=== PATIENT | male | born 1945 | race Caucasian/White ===

== ENCOUNTER 2022-10-26 02:18 | Emergency (ER) | payer MEDICARE, SELFPAY ==
[2022-10-26 02:25] VITALS: BP 157/102; PULSE 71; RESP 16; TEMP 36.8; O2SAT 96
[2022-10-26] MEDS: Lidocaine/Epinephri/Tetracaine Topical Gel 3 ML (02:35)
--- NOTE | 2022-10-26 02:47 | ED.GENADUL_ITS ---
Discharge Plan Disposition Patient Disposition: Home Condition: Improving Discharge Details Clinical Impression: Laceration of face Primary Care Provider: Sheila Lambert ED Provider: Merrick Ness Meds and New Rx's Prescriptions: Continued lisinopril 20 mg Tablet 20 mg PO DAILY aspirin 81 mg Tablet 81 mg PO DAILY carbidopa-levodopa 25-100 mg Tablet 1 tab PO TID sertraline 50 mg Tablet 50 mg PO DAILY cholecalciferol (vitamin D3) 25 mcg (1,000 unit) Capsule 25 mcg PO DAILY acetylcysteine [NAC] 600 mg Capsule 500 mg PO DAILY Discharge Instructions Instructions: Facial Laceration (ED) Referrals: Sari Vargas [Emergency Nurse] - 1 week (for suture removal or return to the ER) Discharge Data Discharge Physician: Merrick Ness Medical Decision Making Patient who fell out of bed sustaining a 6 cm laceration to his chin that was sutured successfully HPI General Date/Time Provider Initiated Documentation: 10/26/22 02:47 . HPI Narrative: Patient presents emergency department after he sustained a fall while he was asleep and woke up suddenly from a nightmare and fell out of bed sustaining trauma to his chin with his nightstand. He sustained a laceration to his chin Related Data Home Medications Medication Instructions Recorded Confirmed acetylcysteine 600 mg capsule (NAC) 500 mg PO DAILY 10/26/22 10/26/22 aspirin 81 mg tablet 81 mg PO DAILY 10/26/22 10/26/22 carbidopa 25 mg-levodopa 100 mg 1 tab PO TID 10/26/22 10/26/22 tablet cholecalciferol (vitamin D3) 25 25 mcg PO DAILY 10/26/22 10/26/22 mcg (1,000 unit) capsule lisinopril 20 mg tablet 20 mg PO DAILY 10/26/22 10/26/22 sertraline 50 mg tablet 50 mg PO DAILY 10/26/22 10/26/22 Allergies Allergy/AdvReac Type Severity Reaction Status Date / Time acetaminophen [From Percocet] Allergy Unverified 10/26/22 02:30 oxycodone [From Percocet] Allergy Unverified 10/26/22 02:30 novacaine Allergy Uncoded 10/26/22 02:31 General Stated Complaint: Laceration FARZANEH: 4 Review of Systems Narrative: Review of Systems: Constitutional: No fevers, chills, sweats Eye: No recent visual problems ENT: No ear pain, nasal congestion, sore throat Respiratory: No shortness of breath, cough Cardiovascular: No Chest pain, palpitations, syncope Gastrointestinal: No nausea, vomiting, diarrhea Genitourinary: No hematuria Cruz/Lymph: Negative for bruising tendency, swollen lymph glands Endocrine: Negative for excessive thirst, excessive hunger Musculoskeletal: No back pain, neck pain, joint pain, muscle pain, decreased range of motion Integumentary: No rash, pruritus, abrasions Neurologic: Alert & oriented X 4 Psychiatric: No anxiety, depression PFSH All Active Problems (Updated 10/26/22 @ 03:14 by Merrick Ness MD) Laceration of face (Acute) Social History Smoking/Tobacco Use Status: Never Smoking risk assessment performed?: Yes Alcohol Intake: never Substance use type: does not use Exam Narrative Exam Narrative: Exam; vitals signs as reported above normal Constitutional; In no acute distress, afebrile General: cooperative, healthy appearing, comfortable and no acute distress HEENT: Head: normal to inspection, no palpable skull fracture 6 cm laceration in his chin and face Eyes: : appearance normal, both eyes and all related structures EOM intact bilaterally Pupils: PERRL : conjunctiva normal Direct ophthalmoscopy: normal light reflex, normal conjunctiva, normal visual acuity Ears: Normal TM, normal external canal Nose: normal no rhinorreha Neck no JVD, supple non tender Neck: normal visual inspection, full ROM and no lymphadenopathy Chest: normal inspection of the chest Respiratory : normal respiratory effort and able to speak in complete sentences no wheezing no rales Cardio Rate: regular rate, rhythm: regular rhythm normal heart sounds S1 and S2 no murmurs, gallops, or rubs GI : normal to inspection, normal bowel sounds, soft, non tender, non distended, no organomegaly Back/Spine/ no CVA tenderness Thoracic/Lumbar Spine: no tenderness or deformities Skin no rashes or lesions Neuro: patient alert oriented x 4 and no meningeal signs, Cranial Nerves: CN's II-XI intact bilaterally, Cognition: normal cognition, Speech: speech normal, Gait: normal gait, Depp tendon reflexes normal 2+ muscle strength 5/5 bilaterally Extremities, no edema, full range of motion, normal strength : normal Rectal: Course Vital Signs Vital signs: Vital Signs Temperature 36.8 C 10/26/22 02:25 Pulse 71 10/26/22 02:25 Respiratory Rate 16 10/26/22 02:25 Blood Pressure 157/102 H 10/26/22 02:25 Pulse Oximetry 96 10/26/22 02:25 Temperature 36.8 C 10/26/22 02:25 Temperature Source Oral 10/26/22 02:25 Pulse 71 10/26/22 02:25 Respiratory Rate 16 10/26/22 02:25 Respiratory Effort Normal 10/26/22 02:25 Blood Pressure 157/102 H 10/26/22 02:25 Blood Pressure Position Sitting 10/26/22 02:25 Pulse Oximetry 96 10/26/22 02:25 Oxygen Delivery Method Room Air 10/26/22 02:25 Oxygen Flow Rate 0 10/26/22 02:25 Pain Level 1 10/26/22 02:25 Procedures Laceration Laceration 1: Site: face Size (cm): 6 Description: flap and irregular Depth: simple, single layer Local Anesthetic: Lidocaine 1% and with Epi Amount of anesthesia used (mL): 5 Pre-repair: wound explored, irrigated extensively and wound margins revised Skin layer closed with: other (Prolene) Size (cm): 4-0 Number of sutures: 7 Technique: simple, interrupted
== END 2022-10-26 03:26 | disposition home or self-care (01) ==
LOC: ER 03:29
PROVIDERS: Emergency Provider Emergency Medicine Emergency Medical Services
DX: S01.81XA Laceration without foreign body of other part of head, initial encounter; W06.XXXA Fall from bed, initial encounter
CPT/HCPCS: 12014

== ENCOUNTER 2022-11-02 17:39 | Emergency (ER) | payer MEDICARE, SELFPAY ==
[2022-11-02 17:42] VITALS: BP 136/71; PULSE 71; RESP 18; TEMP 37.2; O2SAT 99
--- NOTE | 2022-11-02 17:49 | ED.GENADUL_ITS ---
Discharge Plan Disposition Patient Disposition: Home Discharge Details Clinical Impression: Visit for suture removal, Encounter for wound re-check Primary Care Provider: ElisaLocal ED Provider: Bobby Solis Home Meds and New Rx's Prescriptions: No Action lisinopril 20 mg Tablet 20 mg PO DAILY aspirin 81 mg Tablet 81 mg PO DAILY carbidopa-levodopa 25-100 mg Tablet 1 tab PO TID sertraline 50 mg Tablet 50 mg PO DAILY cholecalciferol (vitamin D3) 25 mcg (1,000 unit) Capsule 25 mcg PO DAILY acetylcysteine [NAC] 600 mg Capsule 500 mg PO DAILY Discharge Instructions Additional Instructions: 4 sutures were removed today, however we have left the other for as there is still need for continued healing. Please return in the next 5 or 6 days to have it reassessed for potential removal at that time. Stick with soft foods. Avoid stretching or moving your chin as best as possible to help with continued healing. If you notice any worsening of your symptoms, or any new symptoms such as vomiting, diarrhea, fever, chills, shortness of breath, chest pain, numbness, weakness, or fainting , please return immediately to the emergency department for reevaluation. Please follow up with your primary care provider as soon as possible for reassessment and reevaluation. As always, it was a pleasure participating in your medical care today. Medical Decision Making 77-year-old male returns for suture removal. He had 8 sutures placed about 7 to 10 days ago in his chin after laceration. He has been doing well. Denies any complaints. The right component of the laceration demonstrates good wound healing for the right lateral 4 sutures however the mid to left section which also encompasses 4 sutures does not show complete healing at this time. No evidence of dehiscence though. 4 sutures were removed on the right aspect, patient tolerated this well. Excellent wound healing and reapproximation there. We will leave the other middle for in for prolonged healing for an additional 5 to 6 days. No evidence of infection otherwise. Discussed red flags for which to return. I have extensively reviewed the treatment plan and discharge instructions with the patient and their family. I have addressed all patient concerns at this time. The patient and family was made aware of what symptoms to monitor for that would warrant a return to the emergency department. Discussed the plan with the patient and family, they demonstrate verbal understanding and agreement with our assessment and plan at this time. The documentation in this chart was dictated using [employer] dictation software. Please excuse any dictation errors. HPI General Date/Time Provider Initiated Documentation: 11/02/22 17:42 . HPI Narrative: 77-year-old male returns for suture removal. He had 8 sutures placed about 7 to 10 days ago in his chin after laceration. He has been doing well. Denies any complaints. Related Data Home Medications Medication Instructions Recorded Confirmed acetylcysteine 600 mg capsule (NAC) 500 mg PO DAILY 10/26/22 11/02/22 aspirin 81 mg tablet 81 mg PO DAILY 10/26/22 11/02/22 carbidopa 25 mg-levodopa 100 mg 1 tab PO TID 10/26/22 11/02/22 tablet cholecalciferol (vitamin D3) 25 25 mcg PO DAILY 10/26/22 11/02/22 mcg (1,000 unit) capsule lisinopril 20 mg tablet 20 mg PO DAILY 10/26/22 11/02/22 sertraline 50 mg tablet 50 mg PO DAILY 10/26/22 11/02/22 Allergies Allergy/AdvReac Type Severity Reaction Status Date / Time acetaminophen [From Percocet] Allergy Unverified 11/02/22 17:45 oxycodone [From Percocet] Allergy Unverified 11/02/22 17:45 novacaine Allergy Uncoded 11/02/22 17:45 General Stated Complaint: SutureRem FARZANEH: 4 Review of Systems All systems reviewed & are unremarkable except as noted in HPI and below PFSH All Active Problems Laceration of face (Acute) Visit for suture removal (Acute) Encounter for wound re-check (Acute) Social History Smoking/Tobacco Use Status: Never Smoking risk assessment performed?: Yes Alcohol Intake: former Drug use: Never Substance use type: does not use Housing: house Do you feel safe at home: Yes Do you feel safe in your relationship?: Yes Exam Narrative Exam Narrative: 1.Const: Well-nourished, Well-developed, appearing stated age 2.Eyes: PERRL, no conjunctival injection, and symmetrical lids. 3.ENT: Atraumatic external nose and ears. Moist MM. Neck: Symmetric, trachea midline, No thyromegaly. 4.CVS: +S1/S2, No murmurs or gallops. Peripheral pulses 2+ and equal in all extremities. Brisk capillary refill in all extremities. 5.RESP: Unlabored respiratory effort. Clear to auscultation bilaterally. No wheezes rales or rhonchi 6.GI: Soft, Nontender/Nondistended, No hepatosplenomegaly. No guarding or rebound. 7.MSK: Normocephalic/Atraumatic, Extremities w/o deformity or ttp No cyanosis or clubbing, Normal movement of all extremities 8.Skin: Warm, Dry. Patient's chin demonstrates an excellent wound healing from the midpoint to the right lateral aspect, which encompasses 4 sutures. However the middle to left sided 4 sutures do not show great wound healing. This would likely benefit from additional healing time. No evidence of dehiscence. Internal exam for the oral mucosa shows well healing mucosa 9.Neuro: hunting sales leader II-XII grossly intact. Sensation grossly intact, no focal neurologic deficits. 10.Psych: (AAO) x3. Appropriate mood and affect Course Vital Signs Vital signs: Vital Signs Temperature 37.2 C 11/02/22 17:42 Pulse 71 11/02/22 17:42 Respiratory Rate 18 11/02/22 17:42 Blood Pressure 136/71 11/02/22 17:42 Pulse Oximetry 99 11/02/22 17:42 Temperature 37.2 C 11/02/22 17:42 Temperature Source Skin 11/02/22 17:42 Pulse 71 11/02/22 17:42 Respiratory Rate 18 11/02/22 17:42 Blood Pressure 136/71 11/02/22 17:42 Blood Pressure Position Sitting 11/02/22 17:42 Pulse Oximetry 99 11/02/22 17:42 Oxygen Delivery Method Room Air 11/02/22 17:42 Oxygen Flow Rate 0 11/02/22 17:42 Pain Level 1 11/02/22 17:42
[2022-11-02 17:50] VITALS: BP 136/71; PULSE 71; RESP 18; TEMP 37.2; O2SAT 99
== END 2022-11-02 17:51 | disposition home or self-care (01) ==
PROVIDERS: Emergency Provider Student in an Organized Health Care Education/Training Program
DX: S01.81XD Laceration without foreign body of other part of head, subsequent encounter (principal); X58.XXXD Exposure to other specified factors, subsequent encounter

== ENCOUNTER 2022-11-08 17:27 | Emergency (ER) | payer MEDICARE, SELFPAY ==
[2022-11-08 17:39] VITALS: BP 143/88; PULSE 70; RESP 18; TEMP 36.8; O2SAT 97
--- NOTE | 2022-11-08 18:38 | ED.GENADUL_ITS ---
Discharge Plan Disposition Patient Disposition: Home Condition: Good Discharge Details Clinical Impression: Visit for suture removal Primary Care Provider: ElisaLocal ED Provider: Brittni Kaba Home Meds and New Rx's Prescriptions: Continued lisinopril 20 mg Tablet 20 mg PO DAILY aspirin 81 mg Tablet 81 mg PO DAILY carbidopa-levodopa 25-100 mg Tablet 1 tab PO TID sertraline 50 mg Tablet 50 mg PO DAILY cholecalciferol (vitamin D3) 25 mcg (1,000 unit) Capsule 25 mcg PO DAILY acetylcysteine [NAC] 600 mg Capsule 500 mg PO DAILY Discharge Instructions Instructions: Laceration (ED) Additional Instructions: The laceration looks fine and your sutures have been removed. Return for redness, fever, any other concerns. Discharge Data Discharge Date/Time-TO BE ENTERED AT DEPARTURE: 11/08/22 18:41 Medical Decision Making Patient will return for any evidence of redness, fever, other concerns. HPI General Date/Time Provider Initiated Documentation: 11/08/22 18:38 . HPI Narrative: This 77-year-old male patient is here for suture removal. He tells me that he had several removed previously but they wanted the remainder to stay in. His chin laceration is clean dry and is intact and the 4 sutures were removed without incident. Related Data Home Medications Medication Instructions Recorded Confirmed acetylcysteine 600 mg capsule (NAC) 500 mg PO DAILY 10/26/22 11/02/22 aspirin 81 mg tablet 81 mg PO DAILY 10/26/22 11/02/22 carbidopa 25 mg-levodopa 100 mg 1 tab PO TID 10/26/22 11/02/22 tablet cholecalciferol (vitamin D3) 25 25 mcg PO DAILY 10/26/22 11/02/22 mcg (1,000 unit) capsule lisinopril 20 mg tablet 20 mg PO DAILY 10/26/22 11/02/22 sertraline 50 mg tablet 50 mg PO DAILY 10/26/22 11/02/22 Allergies Allergy/AdvReac Type Severity Reaction Status Date / Time acetaminophen [From Percocet] Allergy Unverified 11/02/22 17:45 oxycodone [From Percocet] Allergy Unverified 11/02/22 17:45 novacaine Allergy Uncoded 11/02/22 17:45 General Stated Complaint: GenMedical FARZANEH: 5 Review of Systems Narrative: No drainage or redness from chin laceration PFSH All Active Problems Laceration of face (Acute) Visit for suture removal (Acute) Encounter for wound re-check (Acute) Social History Smoking/Tobacco Use Status: Never Smoking risk assessment performed?: Yes Alcohol Intake: former Drug use: Never Substance use type: does not use Housing: house Do you feel safe at home: Yes Do you feel safe in your relationship?: Yes Exam HENMT Face and sinus: other Course Vital Signs Vital signs: Vital Signs Temperature 36.8 C 11/08/22 17:39 Pulse 70 11/08/22 17:39 Respiratory Rate 18 11/08/22 17:39 Blood Pressure 143/88 H 11/08/22 17:39 Pulse Oximetry 97 11/08/22 17:39 Temperature 36.8 C 11/08/22 17:39 Temperature Source Skin 11/08/22 17:39 Pulse 70 11/08/22 17:39 Respiratory Rate 18 11/08/22 17:39 Respiratory Effort Normal 11/08/22 17:41 Blood Pressure 143/88 H 11/08/22 17:39 Blood Pressure Position Sitting 11/08/22 17:39 Pulse Oximetry 97 11/08/22 17:39 Oxygen Delivery Method Room Air 11/08/22 17:39 Oxygen Flow Rate 0 11/08/22 17:39
[2022-11-08 18:39] VITALS: RESP 18
== END 2022-11-08 18:41 | disposition home or self-care (01) ==
PROVIDERS: Emergency Provider Emergency Medicine
DX: S01.81XD Laceration without foreign body of other part of head, subsequent encounter (principal); X58.XXXD Exposure to other specified factors, subsequent encounter

== ENCOUNTER 2023-09-14 01:59 | Outpatient (CLI) | payer MEDICARE, SELFPAY ==
--- OUTSIDE RECORDS SUMMARY | 2023-09-14 02:25 | XMS_ITS | Encounter Summary ---
Author Organization [facility] Address [address] [place] [address] Care Team Providers Care University President Name Role Phone Chris Daniels MD Primary Care Provider + Reason for Visit * Reason Onset Date Comments Medications Refill 12/15/[address] appointment today! Encounter Details Date Type Department Care Team (Late st Contact Info) Description 12/15/2022 Telephone [facility] Joint Program - [address] [address] Jaiden King MD [address] [place] [phone] Medications Refill (Pre Med Dentist appointment today! ) Social History Tobacco Use Types Packs/Day Years Used Date Smoking Tobacco: Never Smokeless Tobacco: Never Alcohol Use Standard Drinks/Week Comments Not Currently 1 (1 standard drink = 0.6 oz pur e alcohol) Once a week a cider Overall Financial Resource Strain (CARDIA) Answe r Date Recorded How hard is it for you to pa y for the very basics like food, housing, medical care, and heating? Not hard at all 08/17/2021 PHQ-2 Answer Date Recorded PHQ-2 SUBTOTAL 4 08/14/2021 Hunger Vital Sign Answer Date Recorded Within the past 12 months, y ou worried that your food would run out before you got the money to buy more. Never true 08/18/19 22 Within the past 12 months, t he food you bought just didn't last and you didn't have money to get more. Never true 08/17/2021 PRAPARE - Transportation Answer Date Re corded In the past 12 months, has l ack of transportation kept you from medical appointments or from getting medications? No 07/21 In the past 12 months, has l ack of transportation kept you from meetings, work, or from getting things needed for daily living? No 08/17/2021 Housing Stability Vital Sign Answer Miguel e Recorded In the last 12 months, was t here a time when you were not able to pay the mortgage or rent on time? No 08/17/2021 In the last 12 months, how many places have you lived? 1 08/17/2021 In the last 12 months, was t here a time when you did not have a steady place to sleep or slept in a senior care (including now)? No 08/17/2021 Interpersonal Safety Answer Date Record ed How often does anyone, hari kruse family, hit, punch or physically hurt you? Never 08/17/2021 How often does anyone, hari kruse family, insult, scream, curse or threaten to hurt you? Never 08/17/2021 Sex and Gender Information Value Date Recorded Sex Assigned at Male 08/14/2021 11:28 EDT Gender Identity Male 08/10/2021 11:38 EDT Sexual Orientation Not on file documented as of this encounter Functional Status Functional Status Response Date of Assess ment Because of a physical, menta l, or emotional condition, does this person have difficulty doing errands alone such as visiting a doctor's office or shopping? No 01/31/2017 Cognitive Status Response Date of Assessm ent Because of a physical, menta l, or emotional condition, does this person have serious difficulty concentrating, remembering, or making decisions? No 01/31/2017 documented as of this encounter Miscellaneous Notes * Telephone Encounter - Melissa Khan LPN - 12/15/2022 1140 EDT Advised his that our current protocol is to take a prophylactic antibiotic and he is okay to go to Dentist as he is 5 months post-op. Antibiotic script called to [facility] as requested. * Telephone Encounter - Viktoriya Mclain - 12/15/2022 1107 EDT Reason for Call: Medications Refill (Pre Med Dentist appointment today! 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 Please advise. If need. Asking to have RX filled at the Main [place] [facility] Just for todays RX. Please call Home # first then this number. [phone] Appointment Offered? No Viktoriya Mclain 12/15/2022 11:09 documented in this encounter Plan of Treatment Upcoming Encounters Date Type Department Care Team (Late st Contact Info) Description 09/19/2023 14:15 EDT Office Visit [facility] - [address] [address] Chris Daniels MD [address] [place] [phone] 10/19/2023 9:00 EDT Office Visit [facility] Upper Extremity [facility] - [address] [id number] Ant Nguyen MD [address] [place] [phone] 01/07/2024 13:15 EST Office Visit [facility] Neurology - [address] [id number] Salma Richardson MD [address] [place] [address], [facility] [address] [place] [phone] documented as of this encounter Visit Diagnoses Not on filedocumented in this encounter Care Teams University President Relationship Specialty Start Date End Date Chris Daniels MD [address] [place] [phone] PCP - General Internal Medicine - Primary Care 08/08/19 documented as of this encounter
--- OUTSIDE RECORDS SUMMARY | 2023-09-14 02:25 | XMS_ITS | Encounter Summary ---
Author Organization [facility] Address [address] [place] [address] Care Team Providers Care Traffic Officer Name Role Phone Chris Daniels MD Primary Care Provider + Encounter Details Date Type Department Care Team (Latest Contact Info) Description 11/10/2022 14:15 EDT - 11/10/2022 23:59 EDT [address] Encounter [address] [place], [place] [phone] S/P total knee arthroplasty, left Discharge Disposition: Home or Self Care Social History Tobacco Use Types Packs/Day Years [...] place to sleep or slept in a usp (including now)? No 08/17/2021 Interpersonal Safety Answer [...] No 01/31/2017 documented as of this encounter Medications at Time of Discharge Medication Sig Dispensed Refills Start Date End Date acetaminophen (TYLENOL) 500 mg tablet Take 1 Tablet by mouth every 6 hours as needed for Pain. acetylcysteine (NAC ORAL) Take 500 mg by mouth every morning. cetirizine (ZYRTEC) 10 mg tablet Take 1 Tablet by mouth daily as needed for Allergies. 09/06/2022 Cholecalciferol, Vitamin D3, 25 mcg (1,000 unit) capsule Take 2 Capsules by mouth daily. When pt remembers to take it LOW-DOSE ASPIRIN ORAL Take 81 mg by mouth daily. triamcinolone (KENALOG) 0.1 % cream Apply a thing film to areas of rash once to twice to daily until rash resolves 80 g 1 08/17/2021 carbidopa-levodopa (SINEMET) 25-100 mg per tablet Take 1 Tablet by mouth 3 times daily before meals. 270 Tablet 1 05/26/2022 11/20/2022 lisinopriL (PRINIVIL) 20 mg tablet Take 1 Tablet by mouth daily. 90 Tablet 1 06/07/2022 01/01/2023 sertraline (ZOLOFT) 50 mg tablet Take 1 Tablet by mouth daily. 90 Tablet 3 06/06/2022 06/11/2023 documented as of this encounter Discharge Disposition Disposition Code Departure Means Destination Home or Self Care documented in this encounter Plan of Treatment Upcoming Encounters Date Type Department Care Team (Late st Contact Info) Description 09/19/2023 14:15 EDT Office Visit [facility] Adult Primary Care - [place] [address] [place], [place] [phone] Chris Daniels MD [address] [place] [phone] 10/19/2023 9:00 EDT Office Visit [facility] Hand & Upper Extremity Program - [address] [address] Ant Nguyen MD [address] [place] [phone] 01/07/2024 13:15 EST Office Visit [facility] Neurology - [address] [place] [address] [place], [place] [phone] Salma Richardson MD [address] [place] [address], Level [address] [place] [phone] documented as of this encounter Procedures Procedure Name Priority Date/Time Associated Diagnosis Comments XR KNEE RIGHT 1-2 VIEWS Routine 11/10/2022 14:29 EDT S/P total knee arthroplasty, left XR KNEE LEFT 3 VIEWS Routine 11/10/2022 14:29 EDT S/P total knee arthroplasty, left documented in this encounter Results * XR KNEE RIGHT 1-2 VIEWS (11/10/2022 14:29 EDT) Anatomical Region Laterality Modality Lower Extremities Right Computed Radio graphy 11/10/2022 19:1 7 EDT Impressions 11/10/2022 19:17 EDT FINDINGS / IMPRESSION: * ??Left knee 3 views: Knee arthroplasty without periprosthetic fracture or lucency. Moderate joint effusion. Osteopenia. Healed proximal fibular fracture. * ??Right knee 1 view: Moderate medial lateral compartment degenerative changes. Osteopenia. [id number] Narrative 11/10/2022 19:17 EDT EXAM/TECHNIQUE: 11/10/2022 2:15 PM ??XR KNEE RIGHT 1-2 VIEWS, XR KNEE LEFT 3 VIEWS 1 (accession [id number]), 3 (accession [id number]) views ?? HISTORY: ??Right to compare;Z96.652:S/P total knee arthroplasty, left Procedure Note Fabricio Ortiz MD - 11/10/2022 EXAM/TECHNIQUE: 11/10/2022 2:15 PM XR KNEE RIGHT 1-2 VIEWS, XR KNEE LEFT 3VIEWS 1 (accession [id number]), 3 (accession [id number]) views HISTORY: Right to compare;Z96.652:S/P total knee arthroplasty, left IMPRESSION FINDINGS / IMPRESSION: * Left knee 3 views: Knee arthroplasty without periprosthetic fracture orlucency. Moderate joint effusion. Osteopenia. Healed proximal fibularfracture. * Right knee 1 view: Moderate medial lateral compartment degenerativechanges. Osteopenia. [id number] Jaiden King MD IMG DIAGNOSTIC IMAGI NG ORDERABLES * XR KNEE LEFT 3 VIEWS (11/10/2022 14:29 EDT) Anatomical Region Laterality Modality Lower Extremities Left Computed Radio graphy 11/10/2022 19:1 7 EDT Impressions 11/10/2022 19:17 EDT FINDINGS / IMPRESSION: * ??Left knee 3 views: Knee arthroplasty without periprosthetic fracture or lucency. Moderate joint effusion. Osteopenia. Healed proximal fibular fracture. * ??Right knee 1 view: Moderate medial lateral compartment degenerative changes. Osteopenia. [id number] Narrative 11/10/2022 19:17 EDT EXAM/TECHNIQUE: 11/10/2022 2:15 PM ??XR KNEE RIGHT 1-2 VIEWS, XR KNEE LEFT 3 VIEWS 1 (accession [id number]), 3 (accession [id number]) views ?? HISTORY: ??Right to compare;Z96.652:S/P total knee arthroplasty, left Procedure Note Fabricio Ortiz MD - 11/10/2022 EXAM/TECHNIQUE: 11/10/2022 2:15 PM XR KNEE RIGHT 1-2 VIEWS, XR KNEE LEFT 3VIEWS 1 (accession [id number]), 3 (accession [id number]) views HISTORY: Right to compare;Z96.652:S/P total knee arthroplasty, left IMPRESSION FINDINGS / IMPRESSION: * Left knee 3 views: Knee arthroplasty without periprosthetic fracture orlucency. Moderate joint effusion. Osteopenia. Healed proximal fibularfracture. * Right knee 1 view: Moderate medial lateral compartment degenerativechanges. Osteopenia. [id number] Jaiden King MD IMG DIAGNOSTIC IMAGI NG ORDERABLES documented in this encounter Visit Diagnoses Diagnosis S/P total knee arthroplasty, left documented in this encounter Care Teams Traffic Officer Relationship Specialty Start Date End Date Chris Daniels MD [address] [place] [phone] PCP - General Internal Medicine - Primary Care 08/08/19 documented as of this encounter
--- OUTSIDE RECORDS SUMMARY | 2023-09-14 02:25 | XMS_ITS | Encounter Summary ---
Author Organization [facility] Address [address] [place] [address] Care Team Providers Care Heading And Priming Operator Name Role Phone Chris Daniels MD Primary Care Provider + Melissa Dobbs BIOCHEMIST Unavailable [phone] Encounter Details Date Type Department Care Team (Late st Contact Info) Description 07/13/2022 Patient Outreach [facility] Adult Primary Care - [place] [address] [place], [place] [phone] Melissa Dobbs BIOCHEMIST 1 [facility], [address]rd [place] [phone] Social History Tobacco Use Types Packs/Day Years [...] place to sleep or slept in a assisted (including now)? No 08/17/2021 Interpersonal Safety Answer [...] No 01/31/2017 documented as of this encounter Progress Notes * Melissa Dobbs, [facility] - 07/13/2022 1559 EDT [facility] Care Management Follow Up Principle Industrial Hygienist followed up with patient by phone for wellness check. TOPIC OF CONVERSATION: ??? Reviewed assessment and plan from previous visit with patient. ??? Engaged patient in conversation related to positive behavior change, self- management, goal setting and action planning using motivational interviewing and active listening. ??? Patient reports knee surgery on left leg went well. Surgery was on July 05, 2022. Recovery goingwell, Has Home Health care for another week and will also start PT. ??? Has not been consistently using his walker and crutches. ??? Appetite and sleep are good. ??? No issues and/or concerns with his medications. ??? Patient continues to attend Parkinson's Support Group and has found this to be very helpful. ??? Mood has been better but still experiences some depressive symptoms. ??? He is aware of the impact of his negative thoughts on his mood and is actively working on cognitive restructuring practices. Prioritized Patient Identified Goals: Patient will improve his ability to cope with his chronic illness by increasing his support networkby attending monthly support group for Parkinson's and recognizing and challenging his negative thought patterns which lead to depressed mood. Achievement towards goals: In progress Plan: CM will follow-up in one month MELVI HOPE 07/13/2022 15:50 documented in this encounter Plan of Treatment Upcoming Encounters Date Type Department Care Team (Late st Contact Info) Description 09/19/2023 14:15 EDT Office Visit [facility] Adult Primary Care - [address] [address] Chris Daniels MD [address] [place] [phone] 10/19/2023 9:00 EDT Office Visit [facility] Hand & Upper Extremity Program - [address] [address] Ant Nguyen MD [address] [place] [phone] 01/07/2024 13:15 EST Office Visit [facility] Neurology - [address] [phone] Salma Richardson MD [address] [place] [address], [facility] 2 [place] [phone] documented as of this encounter Visit Diagnoses Not on filedocumented in this encounter Care Teams Heading And Priming Operator Relationship Specialty Start Date End Date Chris Daniels MD [address] [place] [phone] PCP - General Internal Medicine - Primary Care 08/08/19 Melissa Dobbs, BIOCHEMIST 1 [facility], [address] [place] [address] Principle Industrial Hygienist 03/13/22 09/13/22 documented as of this encounter
--- OUTSIDE RECORDS SUMMARY | 2023-09-14 02:25 | XMS_ITS | Encounter Summary ---
Author Organization [facility] Address [address] [place] [address] Care Team Providers Care Syruper Name Role Phone Chris Daniels MD Primary Care Provider + Melissa Dobbs REHAB AIDE Unavailable [phone] Reason for Referral * Radiology Services (Routine/Next Available) - Authorization Not Required Specialty Diagnoses / Procedures Referred By Contac t Referred To Contact Diagnoses S/P total knee arthroplasty, left Procedures XR KNEE RIGHT 1-2 VIEWS Jaiden King MD [address] [place] [address] [facility] Referral ID Status Reason Start Date Expiration Date Visits Requested Visits Authorized [id number] Authorization Not Required 08/07/2022 1 1 * Radiology Services (Routine/Next Available) - Authorization Not Required Specialty Diagnoses / Procedures Referred By Contac t Referred To Contact Diagnoses S/P total knee arthroplasty, left Procedures XR KNEE LEFT 3 VIEWS Jaiden King MD [address] [place] [address] [facility] Referral ID Status Reason Start Date Expiration Date Visits Requested Visits Authorized [id number] Authorization Not Required 08/07/2022 1 1 Reason for Visit * Radiology Services (Routine/Next Available) - Authorization Not Required Specialty Diagnoses / Procedures Referred By Contac t Referred To Contact Diagnoses S/P total knee arthroplasty, left Procedures XR KNEE RIGHT 1-2 VIEWS Jaiden King MD [address] [place] [address] [facility] Referral ID Status Reason Start Date Expiration Date Visits Requested Visits Authorized [id number] Authorization Not Required 08/07/2022 1 1 Encounter Details Date Type Department Care Team (Latest Contact Info) Description 08/07/2022 13:15 EDT - 08/07/2022 23:59 EDT Hospital Encounter [facility] [place] [address] [address] [place] [address] S/P total knee arthroplasty, left Discharge Disposition: Home or Self Care Social History Tobacco Use Types Packs/Day Years Used Date Smoking Tobacco: Never Smokeless Tobacco: Never Alcohol Use Standard Drinks/Week Comments Not Currently 1 (1 standard drink = 0.6 oz pur e alcohol) Once a week ching mcgill Overall [employer] Strain (CARDIA) Answe r [...] place to sleep or slept in a long term (including now)? No 08/17/2021 Interpersonal Safety Answer Date Record ed How often does anyone, hari kruse family, hit, punch or physically hurt you? Never 08/17/2021 How often does anyone, incljudith kruse family, insult, scream, curse or threaten [...] Sig Dispensed Refills Start Date End Date acetylcysteine (NAC ORAL) Take 500 mg by mouth every morning. Cholecalciferol, Vitamin D3, 25 mcg (1,000 unit) capsule Take 2 Capsules by mouth daily. When pt remembers to take it LOW-DOSE ASPIRIN ORAL Take 81 mg by mouth daily. triamcinolone (KENALOG) 0.1 % cream Apply a thing film to areas of rash once to twice to daily until rash resolves 80 g 1 08/17/2021 aspirin 325 mg EC tablet Take 1 Tablet by mouth 2 times daily. Take for 28 days after surgery to prevent blood clots 56 Tablet 07/06/2022 09/06/2022 carbidopa-levodopa (SINEMET) 25-100 mg per tablet Take 1 Tablet by mouth 3 times daily before meals. 270 Tablet 1 05/26/2022 11/20/2022 cetirizine (ZYRTEC) 10 mg tablet Take 1 Tablet by mouth daily. 09/06/2022 ibuprofen (MOTRIN) 200 mg tablet Take 2 Tablets by mouth every 6 hours as needed for Pain. HOLD UNTIL 08/03/22; then resume as usual 08/03/2022 09/06/2022 lisinopriL (PRINIVIL) 20 mg tablet Take 1 Tablet by mouth daily. 90 Tablet 1 06/07/2022 01/01/2023 meloxicam (MOBIC) 15 mg tablet Take 1 Tablet by mouth daily for 90 days. 30 Tablet 2 08/07/2022 11/05/2022 methocarbamoL (ROBAXIN) 500 mg tablet Take 1 Tablet by mouth every 6 hours as needed (muscle spasms). 12 Tablet 07/06/2022 09/06/2022 oxyCODONE (ROXICODONE) 5 mg immediate release tablet Take 1 Tablet by mouth every 6 hours as needed (for pain not controlled after taking tramadol). Daily Max: 20 mg 20 Tablet 07/06/2022 09/06/2022 polyethylene glycol 3350 (MIRALAX) 17 gram packet Take 17 g by mouth daily as needed (constipation). 07/06/2022 09/06/2022 senna (SENOKOT) 8.6 mg tablet Take 2 Tablets by mouth 2 times daily as needed (constipation). 07/06/2022 09/06/2022 sertraline (ZOLOFT) 50 mg tablet Take 1 Tablet by mouth daily. 90 Tablet 3 06/06/2022 06/11/2023 traMADol (ULTRAM) 50 mg tablet Take 1-2 Tablets by mouth every 6 hours. Change to taking every 6 hours NEEDED when pain well controlled Daily Max: 400 mg 50 Tablet 07/06/2022 09/06/2022 documented as of this encounter Discharge Disposition Disposition Code Departure Means Destination Home or Self Care documented in this encounter Plan of Treatment Upcoming Encounters Date Type Department Care Team (Late st Contact Info) Description 09/19/2023 14:15 EDT Office Visit [facility] Adult Primary Care - [place] [address] [place] [address] Chris Daniels MD [address] [place] [phone] 10/19/2023 9:00 EDT Office Visit [facility] Hand & Upper Extremity Program [place] [address] Ant Nguyen MD [address] [place] [address] 01/07/2024 13:15 EST Office Visit [facility] Neurology - [address] [place] [address] [place], [place] [phone] Salma Richardson MD [address] [place] [address], [address] [place] [phone] documented as of this encounter Procedures Procedure Name Priority Date/Time Associated Diagnosis Comments XR KNEE RIGHT 1-2 VIEWS Routine 08/07/2022 13:46 EDT S/P total knee arthroplasty, left XR KNEE LEFT 3 VIEWS Routine 08/07/2022 13:46 EDT S/P total knee arthroplasty, left documented in this encounter Results * XR KNEE RIGHT 1-2 VIEWS (08/07/2022 13:46 EDT) Anatomical Region Laterality Modality Lower Extremities Right Computed Radio graphy 08/07/2022 13:5 7 EDT Impressions 08/07/2022 13:57 EDT FINDINGS / IMPRESSION: Left knee AP, lateral and axial patellar sunrise views show postsurgical changes related to the recently placed 2 part total knee arthroplasty. The femoral and tibial prosthetic components appear intact and well aligned. Degenerative changes along the patellar articular surface are similar compared to the prior. Redemonstrated residual deformity related to a likely healed remote fracture of the proximal fibular diaphysis. No change in chronic appearing small osseous fragment in the soft tissues along the medial femoral condyle. There is a moderate size suprapatellar knee joint effusion and residual soft tissue swelling is noted along the anterior aspect of the knee. The bones are mildly osteopenic. Atherosclerotic arterial calcifications are present. Right single AP view shows chondrocalcinosis with moderate to severe degenerative changes in the medial compartment and mild degenerative changes in the lateral compartment. Please note that the right knee is incompletely evaluated without the benefit of a lateral view. Also, the lack of a lateral view does not allow for assessment of patellofemoral compartment structures nor for detection of a suprapatellar knee joint effusion, if present. Atherosclerotic arterial calcifications are present. Narrative 08/07/2022 13:57 EDT XR KNEE LEFT 3 VIEWS, XR KNEE RIGHT 1-2 VIEWS ??08/07/2022 1:15 PM Clinical History/Comments: s/p left total knee Comparison: Left knee radiographs 07/05/2022. Right knee radiographs 03/06/2022. Procedure Note Jaiden Orourke MD - 08/07/2022 XR KNEE LEFT 3 VIEWS, XR KNEE RIGHT 1-2 VIEWS 08/07/2022 1:15 PM Clinical History/Comments: s/p left total knee Comparison: Left knee radiographs 07/05/2022. Right knee radiographs03/06/2022. IMPRESSION FINDINGS / IMPRESSION: Left knee AP, lateral and axial patellar sunrise views show postsurgicalchanges related to the recently placed 2 part total knee arthroplasty. Thefemoral and tibial prosthetic components appear intact and well aligned.Degenerative changes along the patellar articular surface are similarcompared to the prior. Redemonstrated residual deformity related to alikely healed remote fracture of the proximal fibular diaphysis. No changein chronic appearing small osseous fragment in the soft tissues along themedial femoral condyle. There is a moderate size suprapatellar knee jointeffusion and residual soft tissue swelling is noted along the anterioraspect of the knee. The bones are mildly osteopenic. Atheroscleroticarterial calcifications are present. Right single AP view shows chondrocalcinosis with moderate to severedegenerative changes in the medial compartment and mild degenerativechanges in the lateral compartment. Please note that the right knee isincompletely evaluated without the benefit of a lateral view. Also, thelack of a lateral view does not allow for assessment of patellofemoralcompartment structures nor for detection of a suprapatellar knee jointeffusion, if present. Atherosclerotic arterial calcifications arepresent. Jaiden King MD IMG DIAGNOSTIC IMAGI NG ORDERABLES * XR KNEE LEFT 3 VIEWS (08/07/2022 13:46 EDT) Anatomical Region Laterality Modality Lower Extremities Left Computed Radio graphy 08/07/2022 13:5 7 EDT Impressions 08/07/2022 13:57 EDT FINDINGS / IMPRESSION: Left knee AP, lateral and axial patellar sunrise views show postsurgical changes related to the recently placed 2 part total knee arthroplasty. The femoral and tibial prosthetic components appear intact and well aligned. Degenerative changes along the patellar articular surface are similar compared to the prior. Redemonstrated residual deformity related to a likely healed remote fracture of the proximal fibular diaphysis. No change in chronic appearing small osseous fragment in the soft tissues along the medial femoral condyle. There is a moderate size suprapatellar knee joint effusion and residual soft tissue swelling is noted along the anterior aspect of the knee. The bones are mildly osteopenic. Atherosclerotic arterial calcifications are present. Right single AP view shows chondrocalcinosis with moderate to severe degenerative changes in the medial compartment and mild degenerative changes in the lateral compartment. Please note that the right knee is incompletely evaluated without the benefit of a lateral view. Also, the lack of a lateral view does not allow for assessment of patellofemoral compartment structures nor for detection of a suprapatellar knee joint effusion, if present. Atherosclerotic arterial calcifications are present. Narrative 08/07/2022 13:57 EDT XR KNEE LEFT 3 VIEWS, XR KNEE RIGHT 1-2 VIEWS ??08/07/2022 1:15 PM Clinical History/Comments: s/p left total knee Comparison: Left knee radiographs 07/05/2022. Right knee radiographs 03/06/2022. Procedure Note Jaiden Orourke MD - 08/07/2022 XR KNEE LEFT 3 VIEWS, XR KNEE RIGHT 1-2 VIEWS 08/07/2022 1:15 PM Clinical History/Comments: s/p left total knee Comparison: Left knee radiographs 07/05/2022. Right knee radiographs03/06/2022. IMPRESSION FINDINGS / IMPRESSION: Left knee AP, lateral and axial patellar sunrise views show postsurgicalchanges related to the recently placed 2 part total knee arthroplasty. Thefemoral and tibial prosthetic components appear intact and well aligned.Degenerative changes along the patellar articular surface are similarcompared to the prior. Redemonstrated residual deformity related to alikely healed remote fracture of the proximal fibular diaphysis. No changein chronic appearing small osseous fragment in the soft tissues along themedial femoral condyle. There is a moderate size suprapatellar knee jointeffusion and residual soft tissue swelling is noted along the anterioraspect of the knee. The bones are mildly osteopenic. Atheroscleroticarterial calcifications are present. Right single AP view shows chondrocalcinosis with moderate to severedegenerative changes in the medial compartment and mild degenerativechanges in the lateral compartment. Please note that the right knee isincompletely evaluated without the benefit of a lateral view. Also, thelack of a lateral view does not allow for assessment of patellofemoralcompartment structures nor for detection of a suprapatellar knee jointeffusion, if present. Atherosclerotic arterial calcifications arepresent. Jaiden King MD IMG DIAGNOSTIC IMAGI NG ORDERABLES documented in this encounter Visit Diagnoses Diagnosis S/P total knee arthroplasty, left documented in this encounter Care Teams Syruper Relationship Specialty Start Date End Date Chris Daniels MD [address] [place] [phone] PCP - General Internal Medicine - Primary Care 08/08/19 eMlissa Dobbs LICSW 1 [facility], [address] [place] [phone] Unix System Administrator 03/13/22 09/13/22 documented as of this encounter
--- OUTSIDE RECORDS SUMMARY | 2023-09-14 02:25 | XMS_ITS | Encounter Summary ---
Author Organization [facility] Address [address] [place] [address] Care Team Providers Care Air Conditioning Sheet Metal Installer Name Role Phone Chris Daniels MD Primary Care Provider + Reason for Visit * Reason Onset Date Comments Medications Refill 01/01/2023 Encounter Details Date Type Department Care Team (Late st Contact Info) Description 01/01/2023 Refill [facility] Adult Primary Care - [place] [address] [place] [address] Chris Daniels MD [address] [place] [address] Medications Refill Social History Tobacco Use Types Packs/Day Years [...] place to sleep or slept in a residential (including now)? No 08/17/2021 Interpersonal Safety Answer [...] No 01/31/2017 documented as of this encounter Ordered Prescriptions Prescription Sig Dispensed Refills Start Date End Da te lisinopriL (PRINIVIL) 20 mg tablet Take 1 Tablet by mouth daily. 90 Tablet 3 01/02/2023 documented in this encounter Miscellaneous Notes * Telephone Encounter - Sony Everett RN - 01/02/2023 1050 EST Requested Prescriptions Pending Prescriptions Disp Refills ??? lisinopriL (PRINIVIL) 20 mg tablet 90 Tablet 1 Sig: Take 1 Tablet by mouth daily. [id number] - [facility], [place] - [address] [place] [address] Confirmed Pharmacy? Yes Patient out of medication? Unknown How many pills does patient have left? unknown Last Refill Date: 05/1922 Refills left? (explain exceptions requiring early refill) No Recent Visits Date Type Provider Dept 09/06/22 Office Visit Chris Daniels III, MD [facility] [place] Adult Prim Care 06/06/22 Office Visit Chris Daniels III, MD [facility] [place] Adult Prim Care 02/01/22 Office Visit Chris Daniels III, MD [facility] Adult Prim Care 10/27/21 Office Visit Chinmay Delgado MD [facility] Adult Prim Care 08/17/21 Office Visit Chris Daniels III, MD [facility] Adult Prim Care Showing recent visits within past 540 days with a meds authorizing provider and meeting all other requirements Future Appointments Date Type Provider Dept 03/07/23 Appointment Chris Daniels III, MD [facility] Adult Prim Care Showing future appointments within next 150 days with a meds authorizing provider and meeting all other requirements Future appointment: Already Scheduled SONY EVERETT RN 01/02/2023 10:50 documented in this encounter Plan of Treatment Upcoming Encounters Date Type Department Care Team (Late st Contact Info) Description 09/19/2023 14:15 EDT Office Visit [facility] Adult Primary Care - [address] [address] Chris Daniels MD [address] [place] [phone] 10/19/2023 9:00 EDT Office Visit [facility] Hand & Upper Extremity Program - [place] [address] [place] [address] [place] [address] Ant Nguyen MD [address] [place] [phone] 01/07/2024 13:15 EST Office Visit [facility] Neurology - [facility] [address] [place], [place] [address] Salma Richardson MD [address] [place] [address], Level 2 [place] [phone] documented as of this encounter Visit Diagnoses Not on filedocumented in this encounter Discontinued Medications Medication Sig Discontinue Reason Start Date End Da te lisinopriL (PRINIVIL) 20 mg tablet Take 1 Tablet by mouth daily. Reorder 06/07/2022 01/01/2023 documented as of this encounter Care Teams Air Conditioning Sheet Metal Installer Relationship Specialty Start Date End Date Chris Daniels MD [address] [place] [phone] PCP - General Internal Medicine - Primary Care 08/08/19 documented as of this encounter
--- OUTSIDE RECORDS SUMMARY | 2023-09-14 02:25 | XMS_ITS | Encounter Summary ---
Author Organization [facility] Address [address] [place] [address] Care Team Providers Care Admin Dir Name Role Phone Chris Daniels MD Primary Care Provider + Melissa Dobbs PROTECTIVE SERVICE SPECIALIST Unavailable [phone] Encounter Details Date Type Department Care Team (Late st Contact Info) Description 08/17/2022 Patient Outreach [facility] Adult Primary Care - [place] [address] [place], [place] [phone] Melissa Dobbs PROTECTIVE SERVICE SPECIALIST 1 [facility], 3rd [place] [address] Social History Tobacco Use Types [...] place to sleep or slept in a prison (including now)? No 08/17/2021 Interpersonal Safety Answer [...] of this encounter Progress Notes * Melissa Dobbs LICSW - 08/17/2022 1208 EDT [facility] Senior Patient Account Representative Care Coordination Senior Patient Account Representative phone outreach to patient for wellness check. No answer-CM left Voicemail requesting patient call back if he would like to schedule any follow up. PLAN: LVM for patient. MELVI HOPE 08/17/2022 12:08 documented in this encounter Plan of Treatment Upcoming Encounters Date Type Department Care Team (Late st Contact Info) Description 09/19/2023 14:15 EDT Office Visit [facility] Adult Primary Care - [place] [address] [place], [place] [phone] Chris Daniels MD 2 [place] [phone] 10/19/2023 9:00 EDT Office Visit [facility] Hand & Upper Extremity Program - [address] [phone] Ant Nguyen MD [address] [place] [phone] 01/07/2024 13:15 EST Office Visit [facility] Neurology - [facility] 1 [place], [place] [phone] Salma Richardson MD [address] [place] [address], Level [address] [place] [phone] documented as of this encounter Visit Diagnoses Not on filedocumented in this encounter Care Teams Admin Dir Relationship Specialty Start Date End Date Chris Daniels MD [address] [place] [address] PCP - General Internal Medicine - Primary Care 08/08/19 Melissa Dobbs LICSW 1 [facility], 3rd [place] [phone] Senior Patient Account Representative 03/13/22 09/13/22 documented as of this encounter
--- OUTSIDE RECORDS SUMMARY | 2023-09-14 02:25 | XMS_ITS | Referral Summary ---
Author Organization [facility] Address [address] [place] [address] Care Team Providers Care Head Correction Officer Name Role Phone Chris Daniels MD Primary Care Provider + Encounters Date Type Department Care Team Description 09/11/2023 Telephone [facility] Adult Primary Care - [place] [address] [place] [address] Chris Daniels MD Labs Only 09/06/2023 Telephone [facility] Adult Primary Care - [place] [address] [place], [place] [address] Chris Daniels MD Labs Only 07/18/2023 Telephone [facility] Adult Primary Care - [place] [address] [place], [place] [phone] Kristal Bee RT Appointment Related 06/27/2023 10:30 EDT Office Visit [facility] Neurology - [address] [phone] Salma Richardson MD Parkinson's disease without dyskinesia or fluctuating manifestations ([facility]) (Primary Dx); REM sleep behavior disorder; Depression, unspecified depression type; Anxiety; Sialorrhea from Last 3 Months Allergies Active Allergy Reactions Criticality Noted Date Comments Codeine Other (See Comments) Medium 01/20/2009 Hallucinations Meperidine 07/05/2022 Procaine (Bulk) Anaphylaxis High 01/20/2009 Tongue and throat swelling Medications Medication Sig Dispensed Refills Start Date End Date Status triamcinolone (KENALOG) 0.1 % cream Apply a thing film to areas of rash once to twice to daily until rash resolves 80 g 1 08/17/2021 Active Additional Information Patient not taking.Reported on 09/06/2022 LOW-DOSE ASPIRIN ORAL Take 81 mg by mouth daily. Active acetylcysteine (NAC ORAL) Take 500 mg by mouth every morning. Active Cholecalciferol, Vitamin D3, 25 mcg (1,000 unit) capsule Take 2 Capsules by mouth daily. When pt remembers to take it Active acetaminophen (TYLENOL) 500 mg tablet Take 1 Tablet by mouth every 6 hours as needed for Pain. Active cetirizine (ZYRTEC) 10 mg tablet Take 1 Tablet by mouth daily as needed for Allergies. 09/06/2022 Active carbidopa-levodopa (SINEMET) 25-100 mg per tablet Take 1.5 Tablets by mouth 2 times daily AND 1 Tablet every evening. 360 Tablet 3 12/13/2022 Active amoxicillin (AMOXIL) 500 mg capsule Take 4 capsules po one hour prior to dental procedure. 12 Capsule 1 12/15/2022 Active lisinopriL (PRINIVIL) 20 mg tablet Take 1 Tablet by mouth daily. 90 Tablet 3 01/02/2023 Active sertraline (ZOLOFT) 50 mg tablet Take 1 Tablet by mouth daily. 90 Tablet 3 06/11/2023 Active Active Problems Patient Care Coordination No te Formatting of this note migh t be different from the original. Patient has given permission for [facility] to verbally discuss the following information with Azeb who has the following relationship to the patient: Spouse/Partner: Scheduling/Appt/Billing/Payment Information (does not include clinical information unless specifically indicated with separate option) Medical Information including symptoms, diagnosis, medications, test results and treatment plan (does not include Mental Health unless specifically indicated with separate option) Mental Health (Behavioral,Psychiatric,Chemical Dependency) health information, including my symptoms, diagnosis, medications and treatment plan Permission remains in effect until the patient elects to revoke it. 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 Overview: Right shoulder Immunizations Name Administration Dates Next Due Covid-19 mRNA Booster Vaccin e (MODERNA COVID-19 BOOSTER) PF 0.25 mL IM (18 yrs+) 06/07/2021,12/14/2020 Covid-19 mRNA Vaccine (MODER NA COVID-19) PF 0.5 ml IM (12 yrs+) 04/29/2020,04/01/2020 Covid-19 mRNA-LNP 2022- Va ccine (MODERNA COVID-19) PF 0.5 mL IM (12 yrs+) 01/08/2023 Covid-19 mRNA-LNP Bivalent V accine (MODERNA BIVALENT ADDL DOSE) PF 0.5 mL IM (12 yrs+) (BLUE) 01/03/2022 Historical Influenza Vaccine , Unspecified 01/08/2023,01/03/2022 Influenza Vaccine High Dose (FLUZONE HIGH DOSE) PF 0.7 ml IM (65 yrs+) 12/14/2017 Influenza Vaccine Quad (AFLU ANTHONY) PF 0.5 ml IM (3 yrs+) 01/31/2017 Influenza Vaccine Quad PF 0. 5 ml IM (6 mos+) 01/10/2019 Pneumococcal Conjugate Vacci ne 13-Valent (PCV13) (PREVNAR-13) 0.5 mL IM (6 wks+) 08/13/2017 Pneumococcal Polysaccharide (PPSV23) Vaccine (PNEUMOVAX-23) =>2YO SQ/IM 08/08/2019 RSV Vaccine, PreF, Recombina nt, Subunit, Adjuvanted (AREXVY) PF 0.5 mL IM (60 yrs+) 01/22/2023 Shingrix (Zoster Vaccine, Re combinant) IM 11/20/2022,08/13/2017(Deferred: To Be Administered in the Future) Tdap Vaccine =>7YO IM 01/31/2017 Social History Tobacco Use Types Packs/Day Years Used Date Smoking Tobacco: Never Smokeless Tobacco: Never Tobacco Cessation:Counseling Given: Not Answered Alcohol Use Standard Drinks/Week Comments Not Currently [...] Date Record ed How often does anyone, inclu aixa family, hit, punch or physically hurt you? Never 08/17/2021 How often does anyone, hari kruse family, insult, scream, curse or threaten to hurt you? Never 08/17/2021 Sex and Gender Information Value Date Recorded Sex Assigned at Male 08/14/2021 11:28 EDT Gender Identity Male 08/10/2021 11:38 EDT Sexual Orientation Not on file Last Filed Vital Signs Vital Sign Reading Time Taken Comments Blood Pressure 132/80 06/27/2023 1020 EDT Pulse 66 06/27/2023 1020 EDT Temperature 36.2 ??C (97.2 ??F) 09/06/2022 1546 EDT Respiratory Rate 16 06/27/2023 1020 EDT Oxygen Saturation 97% 06/27/2023 1020 EDT Inhaled Oxygen Concentration - - Weight 65.8 kg (145 lb) 06/27/2023 1020 EDT Height 169.5 cm (5' 6.73) 09/06/2022 1546 EDT Body Mass Index 22.89 09/06/2022 1546 EDT Functional Status Functional Status Response Date of [...] concentrating, remembering, or making decisions? No 01/31/2017 Plan of Treatment Upcoming Encounters Date Type Department Care Team (Late st Contact Info) Description 09/19/2023 14:15 EDT Office Visit [facility] Adult Primary Care - [address] [address] Chris Daniels MD 2 [place] [phone] 10/19/2023 9:00 EDT Office Visit [facility] Hand & Upper Extremity Program - [address] [address] Ant Nguyen MD [address] [place] [phone] 01/07/2024 13:15 EST Office Visit [facility] Neurology - [address] [address] Salma Richardson MD [address] [place] [address], Level [address] [place] [address] Medical Devices Implanted Type Area Education Diagnostician Device Identifier Shelf Expiration Date Model / Serial / Lot Cement Bone High Viscosity Tobramycin Radiopaque Single Dose Maloney 40gm Simplex [id number] - [id number] Implanted:Qty: 2 on 07/05/2022 by Jaiden King MD at [facility] Ortho Implant Left: Knee [facility] [id number] 02/18/2023 6197-9-00 1 / / [id number] Knee Tibial Baseplate Cemented Fix Uni [place] Sz5 Triathlon [id number] - [id number] Implanted:Qty: 1 on 07/05/2022 by Jaiden King MD at [facility] Plate Implant Left: Knee [employer] [id number] 05/25/2027 5521-B-50 0 / / [id number] Knee Fem Comp Cmntd Left Postrr Stblzd Triathlon Sz 5 [id number] - [id number] Implanted:Qty: 1 on 07/05/2022 by Jaiden King MD at [facility] Total Joint Implant Left: Knee [employer] 01/04/2027 5515-F-50 1 / / [id number] Knee Stem Extension Cemented [id number] Triathlon [id number] - [id number] Implanted:Qty: 1 on 07/05/2022 by Jaiden King MD at [facility] Total Joint Implant Left: Knee [employer] [id number] 03/28/2027 5560-S-11 2 / / [id number] Insert Tibial Ps 5 10mm X3 Triathlon - [id number] Implanted:Qty: 1 on 07/05/2022 by Jaiden King MD at [facility] Total Joint Implant Left: Knee [employer] [id number] 04/27/2027 5532-G-51 0-E / / [id number] Right Upper Arm Staple-Mr Safe Procedures Procedure Name Priority Date/Time Associated Diagnosis Comments LIPID PROFILE (INCLUDES CHOLESTEROL, TRIGLYCERIDES, HDL, LDL) Routine 09/01/2022 13:18 EDT Primary hypertension COLONOSCOPY PROCEDURE Routine 06/29/2017 12:00 EDT HEPATITIS C AB W REFLEX TO HCV RNA BY PCR Routine 01/31/2017 17:05 EST Health care maintenance from Last 3 Months or Most Recently Relevant to Health Maintenance Results * LIPID PROFILE (INCLUDES CHOLESTEROL, TRIGLYCERIDES, HDL, LDL) (09/01/2022 13:18 EDT) Cholesterol 194 <200 mg/dL 09/01/2022 14:12 EDT [facility] Comment:Note that therapeuti c goals will differ between patients based on cardiac risk factors and current medical therapy. HDL 64 >=40 mg/dL 09/01/2022 14:12 EDT [facility] Comment:Note that therapeuti c goals will differ between patients based on cardiac risk factors and current medical therapy. LDL, Calculated 113 <160 mg/dL 14:12 T [facility] Comment:Note that therapeuti c goals will differ between patients based on cardiac risk factors and current medical therapy. Triglyceride 83 <=150 mg/dL 09/01/2022 14:12 T [facility] Comment:Note that therapeuti c goals will differ between patients based on cardiac risk factors and current medical therapy. Chol/HDL Ratio 3.0 See Note 09/01/2022 14:12 T [facility] Comment:No reference range h as been established for CHOL/HDL ratio. Non HDL Cholesterol 130 <160 mg/dL 09/01/2022 14:12 T [facility] Comment:Note that therapeuti c goals will differ between patients based on cardiac risk factors and current medical therapy. Blood VENOUS BLOOD / Unknown Venipuncture / Unknown 09/01/2022 13:18 EDT 09/01/2022 13:44 EDT Chris Daniels MD CHEMISTRY & BLOO D GAS ORDERABLES [facility] [address] [place] [address] * COLONOSCOPY PROCEDURE (06/29/2017 12:00 EDT) Anatomical Region Laterality Modality Endoscopy Narrative 06/29/2017 12:00 EDT Procedure Performed Colonoscopy Indications for Exam Screening Colonoscopy. Procedure Technique A physical exam was performed. Informed consent was obtained from the patient after explaining all the risks (perforation, bleeding, missed findings, injury to nearby organs, infection and adverse effects to the medicine), benefits and alternatives to the procedure which the patient appeared to understand and so stated. ??The patient was connected to the monitoring devices and placed in the left lateral position. Continuous oxygen was provided with a nasal cannula and IV medicine administered thru an indwelling cannula. After adequate sedation was achieved, a digital exam was performed and the colonoscope introduced into the rectum and advanced under direct visualization to the cecum. The cecum was identified by visual landmarks. The endoscope was subsequently removed slowly while carefully examining the color, texture, anatomy, and integrity of the mucosa on withdrawal. Retroflexion was performed in the rectum: Yes. The patient was subsequently transferred to the recovery area in satisfactory condition. Rectal Exam:Normal Medications Versed 3 mg Demerol 75 mg I was in continuous face to face attendance during the administration of moderate sedation services that were monitored by an independent trained observer who had no other duties during the procedure. ??Total sedation time was 23 minutes. Estimated ??Blood Loss: None Point Bowel Prep Right Colon: 3 ? Transverse Colon: 3 ? Left Colon: 3 ?Total: 9 Findings Internal hemorrhoids otherwise normal colonoscopy Diagnosis Internal hemorrhoids otherwise normal colonoscopy Recommendations Repeat colonoscopy in 10 years if deemed clinically fit The??procedure??was??performed??by??Dr. Angela Bermudez M.D. in the presence of Dr. Chuy Rhoades. The attending physician was in the room for the entire procedure. This electronic signature authenticates all electronic and/or handwritten documentation, including orders, generated by the signer during the episode of care contained in this record. 06/29/2017 12:00:58 PM By Chuy Rhoades MD Chuy Rhoades MD GI PROCEDURE ORDERAB LES * HEPATITIS C AB W REFLEX TO HCV RNA BY PCR (01/31/2017 17:05 EST) Hep C Ab w Rfx PCR HCSCR2 Negative Negative 02/01/2017 12:05 EST [facility] Blood specimen (specimen) BLOOD SPECIMEN / Unknown 01/31/2017 17:05 EST 01/31/2017 18:37 EST Adrien Saldivar MD CHEMISTRY & BLOOD G ORDERABLES [facility] [address] [place] [address] from Last 3 Months or Most Recently Relevant to Health Maintenance Advance Directives For more information, please contact: [phone] * Full Code (Latest Code Status on File) Date Activated Date Inactivated Comments 07/05/2022 8:58 07/06/2022 15:31 Question Answer Comments When the patient has NO PULSE: Full Code / CPR Who Made the Decision? Default/Not Discussed Care Teams Head Correction Officer Relationship Specialty Start Date End Date Chris Daniels MD [address] [place] [phone] PCP - General Internal Medicine - Primary Care 08/08/19
--- OUTSIDE RECORDS SUMMARY | 2023-09-14 02:25 | XMS_ITS | Encounter Summary ---
Author Organization [facility] Address [address] [place] [address] Care Team Providers Care Stator Plate Washer Name Role Phone Chris Daniels MD Primary Care Provider + Melissa Dobbs PSYCH RN Unavailable [phone] Encounter Details Date Type Department Care Team (Late st Contact Info) Description 09/01/2022 13:00 EDT Phlebotomy Only [facility] ED Center 2 Phlebotomy [address] [place], [place] [address] Restaurant And Bar Manager, Acc Phlebotomy Primary hypertension Social History Tobacco Use Types Packs/Day Years [...] place to sleep or slept in a correction (including now)? No 08/17/2021 Interpersonal Safety Answer [...] No 01/31/2017 documented as of this encounter Plan of Treatment Upcoming Encounters Date Type Department Care Team (Late st Contact Info) Description 09/19/2023 14:15 EDT Office Visit [facility] Adult Primary Care - [place] [address] [place] [address] Chris Daniels MD [address] [place] [phone] 10/19/2023 9:00 EDT Office Visit [facility] Hand & Upper Extremity Program [place] [address] Ant Nguyen MD [address] [place] [address] 01/07/2024 13:15 EST Office Visit [facility] Neurology - [address] [place] [address] [place], [place] [phone] Salma Richardson MD [address] [place] [address], Level [address] [place] [address] documented as of this encounter Procedures Procedure Name Priority Date/Time Associated Diagnosis Comments LIPID PROFILE (INCLUDES CHOLESTEROL, TRIGLYCERIDES, HDL, LDL) Routine 09/01/2022 13:18 EDT Primary hypertension documented in this encounter Results * LIPID PROFILE (INCLUDES CHOLESTEROL, TRIGLYCERIDES, HDL, LDL) (09/01/2022 13:18 EDT) Cholesterol 194 <200 mg/dL 09/01/2022 14:[address] [facility] Comment:Note that therapeuti c goals will differ between patients based on cardiac risk factors and current medical therapy. HDL 64 >=40 mg/dL 09/01/2022 14:12 [facility] Comment:Note that therapeuti c goals will differ between patients based on cardiac risk factors and current medical therapy. LDL, Calculated 113 <160 mg/dL 14:12 [facility] Comment:Note that therapeuti c goals will differ between patients based on cardiac risk factors and current medical therapy. Triglyceride 83 <=150 mg/dL 09/01/2022 14:12 [facility] Comment:Note that therapeuti c goals will differ between patients based on cardiac risk factors and current medical therapy. Chol/HDL Ratio 3.0 See Note 09/01/2022 14:12 [facility] Comment:No reference range h as been established for CHOL/HDL ratio. Non HDL Cholesterol 130 <160 mg/dL 09/01/2022 14:12 [facility] Comment:Note that therapeuti c goals will differ between patients based on cardiac risk factors and current medical therapy. Blood VENOUS BLOOD / Unknown Venipuncture / Unknown 09/01/2022 13:18 EDT 09/01/2022 13:44 EDT Chris Daniels MD CHEMISTRY & BLOO D GAS ORDERABLES Performing Organization Address City/State/[facility] Co de Phone Number [facility] [address] [place] [address] documented in this encounter Visit Diagnoses Diagnosis Primary hypertension Unspecified essential hypertension documented in this encounter Care Teams Stator Plate Washer Relationship Specialty Start Date End Date Chris Daniels MD [address] [place] [phone] PCP - General Internal Medicine - Primary Care 08/08/19 Melissa Dobbs LICSW 1 [facility], 3rd [place] [address] Parts Counter Sales Person 03/13/22 09/13/22 documented as of this encounter
--- OUTSIDE RECORDS SUMMARY | 2023-09-14 02:25 | XMS_ITS | Encounter Summary ---
Author Organization [facility] Address [address] [place] [address] Care Team Providers Care Rectifying Attendant Name Role Phone Chris Daniels MD Primary Care Provider + Reason for Visit * Reason Onset Date Comments Appointment Related 03/07/2023 Encounter Details Date Type Department Care Team (Late st Contact Info) Description 03/07/2023 Telephone [facility] - [address] [place] [address] [place] [address] Chris Daniels MD [address] [place] [address] Appointment Related Social History Tobacco Use Types Packs/Day Years [...] encounter Miscellaneous Notes * Telephone Encounter - Annamaria Chance - 03/07/2023 1051 EST Called pt to cancel appt; spoke with who was upset we called them so late considering they aretraveling an hour and a half to get here; I explained we just found out the provider will be out; offer to reschedule for tomorrow was declined at this time; they will call back to reschedule documented in this encounter Plan of Treatment Upcoming Encounters Date Type Department Care Team (Late st Contact Info) Description 09/19/2023 14:15 EDT Office Visit [facility] - [address] [facility], [place] [phone] Chris Daniels MD [address] [place] [phone] 10/19/2023 9:00 EDT Office Visit [facility] - [address] [address] Ant Nguyen MD [address] [place] [address] 01/07/2024 13:15 EST Office Visit [facility] Neurology - [address] [place] [address] [place], [place] [phone] Salma Richardson MD [address] [place] [address] [address] [place] [phone] documented as of this encounter Visit Diagnoses Not on filedocumented in this encounter Care Teams Rectifying Attendant Relationship Specialty Start Date End Date Chris Daniels MD [address] [facility] [place] [address] PCP - General Internal Medicine - Primary Care 08/08/19 documented as of this encounter
--- OUTSIDE RECORDS SUMMARY | 2023-09-14 02:25 | XMS_ITS | Encounter Summary ---
Author Organization [facility] Address [address] [place] [address] Care Team Providers Care Diesel Dinkey Engineer Name Role Phone Chris Daniels MD Primary Care Provider + Reason for Visit * Reason Onset Date Comments Medications Refill 06/11/2023 Encounter Details Date Type Department Care Team (Late st Contact Info) Description 06/11/2023 Refill [facility] Adult Primary Care - [place] [address] [place] [address] Chris Daniels MD [address] [place] [address] Medications Refill Social History Tobacco [...] Dispensed Refills Start Date End Da te sertraline (ZOLOFT) 50 mg tablet Take 1 Tablet by mouth daily. 90 Tablet 3 06/11/2023 documented in this encounter Miscellaneous Notes * Telephone Encounter - Libby Donaldson - 06/11/2023 1051 EDT Requested Prescriptions Pending Prescriptions Disp Refills sertraline (ZOLOFT) 50 mg tablet 90 Tablet 3 Sig: Take 1 Tablet by mouth daily. [id number] - [place], [place] - [address] [place] [address] Confirmed Pharmacy? Yes Patient out of medication? Yes: Needs Refill Now How many pills does patient have left? zero Last Start Date On Med List: 06.06.22 Refills left? (explain exceptions requiring early refill) No Recent Visits Date Type Provider Dept 09/06/22 Office Visit Chris Daniels MD [facility] Adult Prim [facility] 06/06/22 Office Visit Chris Daniels MD [facility] Adult Prim Care 02/01/22 Office Visit Chris Daniels MD [facility] Adult Prim Care Showing recent visits within past 540 days with a meds authorizing provider and meeting all other requirements Future Appointments Date Type Provider Dept 09/19/23 Appointment Chris Daniels MD [facility] Adult Prim Care Showing future appointments within next 150 days with a meds authorizing provider and meeting all other requirements Future appointment: Already Scheduled Libby Donaldson 06/11/2023 10:52 documented in this encounter Plan of Treatment Upcoming Encounters Date Type Department Care Team (Late st Contact Info) Description 09/19/2023 14:15 EDT Office Visit [facility] Adult Primary Care - [address] [phone] Chris Daniels MD [address] [place] [phone] 10/19/2023 9:00 EDT Office Visit [facility] Hand & Upper Extremity Program - [address] [address] Ant Nguyen MD [address] [place] [phone] 01/07/2024 13:15 EST Office Visit [facility] Neurology - [address] [phone] Salma Richardson MD [address] [place] [address], [address] [place] [phone] documented as of this encounter Visit Diagnoses Not on filedocumented in this encounter Discontinued Medications Medication Sig Discontinue Reason Start Date End Da te sertraline (ZOLOFT) 50 mg tablet Take 1 Tablet by mouth daily. Reorder 06/06/2022 06/11/2023 documented as of this encounter Care Teams Diesel Dinkey Engineer Relationship Specialty Start Date End Date Chris Daniels MD [address] [place] [phone] PCP - General Internal Medicine - Primary Care 08/08/19 documented as of this encounter
--- OUTSIDE RECORDS SUMMARY | 2023-09-14 02:25 | XMS_ITS | Encounter Summary ---
Author Organization [facility] Address [address] [place] [address] Care Team Providers Care Store Standards Associate Name Role Phone Chris Daniels MD Primary Care Provider + Reason for Visit * Reason Onset Date Comments Medications Refill 12/15/2022 Encounter Details Date Type Department Care Team (Late st Contact Info) Description 12/15/2022 Refill [facility] Total Joint Program - [address] [address] Jaiden King MD [address] [place] [address] Medications Refill Social History Tobacco Use Types [...] place to sleep or slept in a retirement (including now)? No 08/17/2021 Interpersonal Safety Answer Date Record ed How often does anyone, hari kruse family, hit, punch or physically hurt you? Never 08/17/2021 How often does anyone, incljudith aixa family, insult, scream, curse or threaten to [...] Dispensed Refills Start Date End Da te amoxicillin (AMOXIL) 500 mg capsule Take 4 capsules po one hour prior to dental procedure. 12 Capsule 1 12/15/2022 documented in this encounter Plan of Treatment Upcoming Encounters Date Type Department Care Team (Late st Contact Info) Description 09/19/2023 14:15 EDT Office Visit [facility] Adult Primary Care - [place] [address] [place] [address] Chris Daniels MD [address] [place] [phone] 10/19/2023 9:00 EDT Office Visit [facility] Hand & Upper Extremity Program - [facility] [address] [place] [address] Ant Nguyen MD [address] [place] [address] 01/07/2024 13:15 EST Office Visit [facility] Neurology - [address] [address] Salma Richardson MD [address] [place] [address] 2 [place] [address] documented as of this encounter Visit Diagnoses Not on filedocumented in this encounter Care Teams Store Standards Associate Relationship Specialty Start Date End Date Chris Daniels MD [address] [place] [phone] PCP - General Internal Medicine - Primary Care 08/08/19 documented as of this encounter
--- OUTSIDE RECORDS SUMMARY | 2023-09-14 02:25 | XMS_ITS | Encounter Summary ---
Author Organization [facility] Address [address] [place] [address] Care Team Providers Care Plater Supervisor Name Role Phone Chris Daniels MD Primary Care Provider + Melissa Dobbs MAINTENANCE REPAIRER Unavailable [phone] Reason for Visit * Reason Comments Medicare Annual Wellness Visit BHS, SDOH , and HRA given to pt. ADV completed at home, will send in copy. Fall Risk Assessment Started Medication Management Please remove not taking meds from list, per pt request. Encounter Details Date Type Department Care Team (Latest Contact Info) Description 09/06/2022 15:45 EDT Office Visit [facility] Adult Primary Care - [place] [address] [place], [place] [address] Chris Daniels MD [address] [place] [address] Medicare annual wellness visit, subsequent (Primary Dx); Primary osteoarthritis of left knee; Primary parkinsonism; Healthcare maintenance Social History Tobacco Use Types Packs/Day Years Used Date Smoking Tobacco: Never Smokeless Tobacco: Never Tobacco Cessation:Counseling Given: No Alcohol Use Standard Drinks/Week Comments Not Currently [...] you? Never 08/17/2021 How often does anyone, inclu aixa family, insult, scream, curse or threaten to hurt you? Never 08/17/2021 Sex and Gender Information Value Date Recorded Sex Assigned at Male 08/14/2021 11:28 EDT Gender Identity Male 08/10/2021 11:38 EDT Sexual Orientation Not on file documented as of this encounter Last Filed Vital Signs Vital Sign Reading Time Taken Comments Blood Pressure 119/72 09/06/2022 1546 EDT Pulse 70 09/06/2022 1546 EDT Temperature 36.2 ??C (97.2 ??F) 09/06/2022 1546 EDT Respiratory Rate 18 09/06/2022 1546 EDT Oxygen Saturation - - Inhaled Oxygen Concentration - - Weight 63.5 kg (140 lb) 09/06/2022 1546 EDT Height 169.5 cm (5' 6.73) 09/06/2022 1546 EDT Body Mass Index 22.1 09/06/2022 1546 EDT documented in this encounter Functional Status Functional Status Response [...] Dispensed Refills Start Date End Da te cetirizine (ZYRTEC) 10 mg tablet Take 1 Tablet by mouth daily as needed for Allergies. 09/06/2022 documented in this encounter Progress Notes * Chris Daniels III, MD - 09/06/2022 1545 EDT Willam Negron, 77 y.o. male PRIMARY CARE PROVIDER: Chris Daniels III CHIEF COMPLAINT: Chief Complaint Patient presents with ??? Medicare Annual Wellness Visit BHS, SDOH, and HRA given to pt. ADV completed at home, will send in copy. ??? Fall Risk Assessment Started ??? Medication Management Please remove not taking meds from list, per pt request. Medicare Essential Components: Patient self-assessment questionnaire completed, reviewed, and scanned: yes Full history done with PMH, PSH, SH, FH, ROS. The patient's problem list, past medical/surgical history, medications, allergies, family and social history were all updated and reviewed. Done: Yes Diet Reviewed: yes. Recommendations made: Continue efforts at increasing vegetable intake Level of activity: active Mood Screen (PHQ-2 on new pt and follow-up questionnaire) done: Yes: Negative Vision: assessed: No: impaired: Functional Evaluation completed ADLs: independent Cognitive: no impairment Hearing: grossly normal Fall Risk: low Home Safety: no concerns Advance Directives -not on file Updated list of treating providers on care team: Yes Written Health Plan in patient instructions: Yes Patient Care Team: Chris Daniels MD as PCP - General Salma Richardson MD -neurology Jaiden King MD -orthopedics HISTORY OF PRESENT ILLNESS: Willam Negron is a 77 y.o. male here for medicare annual wellness visit. He denies any acute complaints at this time. He is joined by his Azbe at this encounter. Data reviewed his most recent cholesterol levels which appear stable. We discussed that his LDL remains in the borderline range but given his overall age it would not be recommended to initiate statin therapy solely for primary prevention of cardiovascular events at this time. He confirms that he is roughly 2 months out from a total left knee arthroplasty procedure and is following up with orthopedics and physical therapy for his left knee. He reports that he is recoveringwell though he is still experiencing some pain and swelling in his left lower extremity. Behavioral Health Screen Summary Interpretation PHQ-2: PHQ-9: BLAKE-2: BLAKE-7: SASQ: AUDIT-10: SSASQ: DAST-10: . Patient Active Problem List Diagnosis Date Noted ??? Primary parkinsonism (HCC) 10/27/2021 ??? Gluten intolerance 08/08/2019 ??? Thumb pain, left 01/31/2017 ??? Essential hypertension 01/31/2017 ??? Primary osteoarthritis of left knee 03/13/2022 Added automatically from request for surgery [id number] ??? Osteoarthritis of glenohumeral joint 03/05/2014 Right shoulder Past medical, surgical, family and social history were reviewed and updated as appropriate. Social History Social History Narrative ??? Not on file MEDICATION REVIEW: Medications reviewed & updated. ALLERGIES: Allergies as of 09/06/2022 - Reviewed 09/06/2022 Allergen Reaction Noted ??? Novacaine [procaine (bulk)] Anaphylaxis 01/20/2009 ??? Codeine Other (See Comments) 01/20/2009 ??? Demerol [meperidine] 07/05/2022 REVIEW OF SYSTEMS: A ten point ROS was performed and was negative except for pertinent positives inthe HPI PHYSICAL EXAM: Vitals: BP 119/72 Pulse 70 Temp 36.2 ??C (97.2 ??F) (Tympanic) Resp 18 Ht 169.5 cm (66.73) Wt 63.5 kg (140 lb) BMI 22.10 kg/m?? Gen - NAD HEENT - no cervical LAD, no thyromegaly, TM normal b/l CV - regular rate and rhythm, no murmurs, pulses 2+ bilaterally Lungs - clear to ausculation bilaterally Abd - soft, nontender, +BS, nondistended Ext - no edema Skin - no rashes or lesions Psych - alert and oriented x 3, normal mood and affect Neuro - CN II-XII grossly intact, normal gait ASSESSMENT / PLAN : 77 y.o. male here for medicare annual wellness visit. Medicare annual wellness visit - - Requirements as listed above Willam was seen today for medicare annual wellness visit, fall risk assessment and medication management. Diagnoses and all orders for this visit: Medicare annual wellness visit, subsequent Primary osteoarthritis of left knee: Now status post total left knee arthroplasty procedure this past June. Patient reports steady improvement in his left knee mobility and strength. He confirms that he is following with orthopedics and physical therapy at this time. -Follow-up with PT and orthopedics as scheduled Primary parkinsonism (HCC): Stable and following with neurology -Follow-up with neurology as scheduled Healthcare maintenance Health Maintenance Topic Date Due ??? Social Determinants Of Health (SDOH) Never done ??? Shingles Immunization (1 of 2) Never done ??? COVID-19 Vaccine (6 - Moderna series) 05/03/2022 ??? Behavioral Health Screen 08/17/2022 ??? Advance Directive 09/07/2023 (Originally 08/31/1963) ??? Influenza Immunization (Adult) (1) 11/19/2022 ??? Preventive Care Visit 08/18/2023 ??? Fall Risk Screening 09/07/2023 ??? Tetanus (Adult) Immunization 01/31/2027 ??? Lipid Profile Screening (Cholesterol) 09/02/2027 ??? Pertussis (Adult) Immunization Completed ??? Hepatitis C Screen Completed ??? Pneumococcal Immunization (65+) Completed ??? Colorectal Cancer Screening Discontinued F/u: Return in about 6 months (around 03/09/2023) for f30. For Parkinson's follow-up. Some of this note was transcribed with Hype[employer] dictating software. While it was proofread, it may still contain unnoticed grammatical or word errors due to incorrect transcribing. Chris Daniels III, MD 09/08/2022 11:46 documented in this encounter Plan of Treatment Upcoming Encounters Date Type Department Care Team (Late st Contact Info) Description 09/19/2023 14:15 EDT Office Visit [facility] Adult Primary Care - [place] [address] [place] [address] Chris Daniels MD [address] [place] [phone] 10/19/2023 9:00 EDT Office Visit [facility] Hand & Upper Extremity Program - [facility] [address] [place], [place] [phone] Ant Nguyen MD [address] [place] [address] 01/07/2024 13:15 EST Office Visit [facility] Neurology - [address] [phone] Salma Rcihardson MD [address] [place] [address], [address] [place] [address] documented as of this encounter Visit Diagnoses Diagnosis Medicare annual wellness visit, subsequent- Primary Routine general medical examination at a health care facility Primary osteoarthritis of left knee Primary localized osteoarthrosis, lower leg Primary parkinsonism (HCC-CMS) Paralysis agitans Healthcare maintenance Routine general medical examination at a health care facility documented in this encounter Discontinued Medications Medication Sig Discontinue Reason Start Date End Da te aspirin 325 mg EC tablet Take 1 Tablet by mouth 2 times daily. Take for 28 days after surgery to prevent blood clots Therapy completed 07/06/2022 09/06/2022 cetirizine (ZYRTEC) 10 mg tablet Take 1 Tablet by mouth daily. Therapy completed 09/06/2022 ibuprofen (MOTRIN) 200 mg tablet Take 2 Tablets by mouth every 6 hours as needed for Pain. HOLD UNTIL 08/03/22; then resume as usual Patient Stopped Taking 08/03/2022 09/06/2022 methocarbamoL (ROBAXIN) 500 mg tablet Take 1 Tablet by mouth every 6 hours as needed (muscle spasms). Therapy completed 07/06/2022 09/06/2022 oxyCODONE (ROXICODONE) 5 mg immediate release tablet Take 1 Tablet by mouth every 6 hours as needed (for pain not controlled after taking tramadol). Daily Max: 20 mg Therapy completed 07/06/2022 09/06/2022 polyethylene glycol 3350 (MIRALAX) 17 gram packet Take 17 g by mouth daily as needed (constipation). Therapy completed 07/06/2022 09/06/2022 senna (SENOKOT) 8.6 mg tablet Take 2 Tablets by mouth 2 times daily as needed (constipation). Therapy completed 07/06/2022 09/06/2022 traMADol (ULTRAM) 50 mg tablet Take 1-2 Tablets by mouth every 6 hours. Change to taking every 6 hours NEEDED when pain well controlled Daily Max: 400 mg Therapy completed 07/06/2022 09/06/2022 documented as of this encounter Historical Medications * This list may reflect changes made after this encounter. Medication Sig Dispensed Refills Start Date End Date acetaminophen (TYLENOL) 500 mg tablet Take 1 Tablet by mouth every 6 hours as needed for Pain. added in this encounter Care Teams Plater Supervisor Relationship Specialty Start Date End Date Chris Daniels MD [address] [place] [phone] PCP - General Internal Medicine - Primary Care 08/08/19 Melissa Dobbs LICSW 1 [facility], [address] [place] [phone] Life Advisor 03/13/22 09/13/22 documented as of this encounter
--- OUTSIDE RECORDS SUMMARY | 2023-09-14 02:25 | XMS_ITS | Encounter Summary ---
Author Organization [facility] Address [address] [place] [address] Care Team Providers Care Chemist Water Purification Name Role Phone Chris Daniels MD Primary Care Provider + Reason for Visit * Reason Onset Date Comments Labs Only 09/11/2023 Encounter Details Date Type Department Care Team (Late st Contact Info) Description 09/11/[address] [facility] Adult Primary Care - [place] [address] [place] [address] Chris Daniels MD [address] [place] [phone] Labs Only Social History Tobacco Use Types Packs/Day Years [...] place to sleep or slept in a custodial (including now)? No 08/17/2021 Interpersonal Safety Answer [...] * Telephone Encounter - Annamaria Chance - 09/11/2023 1201 EDT Notified pt of future fasting labs prior to ov; per pt's they plan to go to the hospital lab nearby documented in this encounter Plan of Treatment Upcoming Encounters Date Type Department Care Team (Late st Contact Info) Description 09/19/2023 14:15 EDT Office Visit [facility] Adult Primary Care - [place] 2 [place] [address] Chris Daniels MD [address] [place] [phone] 10/19/2023 9:00 EDT Office Visit [facility] Hand & Upper Extremity Program - [address] [address] Ant Nguyen MD [address] [place] [address] 01/07/2024 13:15 EST Office Visit [facility] Neurology - [address] [address] Salma Richardson MD [address] [place] [address], [address] [place] [address] documented as of this encounter Visit Diagnoses Not on filedocumented in this encounter Care Teams Chemist Water Purification Relationship Specialty Start Date End Date Chris Daniels MD [address] [place] [phone] PCP - General Internal Medicine - Primary Care 08/08/19 documented as of this encounter
--- OUTSIDE RECORDS SUMMARY | 2023-09-14 02:25 | XMS_ITS | Encounter Summary ---
Author Organization [facility] Address [address] [place] [address] Care Team Providers Care Life Insurance Actuary Name Role Phone Chris Daniels MD Primary Care Provider + Melissa Dobbs PAINT SPRAY TENDER Unavailable [phone] Reason for Referral * PT/OT/ST (Routine/Next Available) - Closed Specialty Diagnoses / Procedures Referred By Joshua diaz Referred To Contact Rehab Therapies Diagnoses S/P total knee arthroplasty, left Jaiden King MD [address] [place] [phone] Referral ID Status Reason Start Date Expiration Date V isits Requested Visits Authorized [id number] Closed Specialty Services Required 08/07/2022 1 1 Question Answer Surgery (and Date): Left Total Knee Arthroplasty 517 Reason for Request: S/P Left Total Knee Arthroplasty Comments Please evaluate and treat using poat op protocol All modalities,AT/OT/PT ATC services if available and appropriate * Radiology Services (Routine/Next Available) - Authorization Not Required Specialty Diagnoses / Procedures Referred By Joshua diaz Referred To Contact Diagnoses S/P total knee arthroplasty, left Procedures XR KNEE RIGHT 1-2 VIEWS Jaiden King MD [address] [place] [address] [facility] Referral ID Status Reason Start Date Expiration Date Visits Requested Visits Authorized [id number] Authorization Not Required 08/07/2022 1 1 * Radiology Services (Routine/Next Available) - Authorization Not Required Specialty Diagnoses / Procedures Referred By Contac t Referred To Contact Diagnoses S/P total knee arthroplasty, left Procedures XR KNEE LEFT 3 VIEWS Jaiden King MD [address] [place] [phone] [facility] Referral ID Status Reason Start Date Expiration Date Visits Requested Visits Authorized [id number] Authorization Not Required 08/07/2022 1 1 Reason for Visit * Reason Comments Post-OP Follow Up Encounter Details Date Type Department Care Team (Late st Contact Info) Description 08/07/2022 13:30 EDT Post-op Visit [facility] Total Joint Program - [address] [address] Jaiden King MD [address] [place] [phone] S/P total knee arthroplasty, left (Primary Dx) Social History Tobacco Use Types Packs/Day Years [...] place to sleep or slept in a long-term (including now)? No 08/17/2021 Interpersonal Safety Answer [...] Dispensed Refills Start Date End Da te meloxicam (MOBIC) 15 mg tablet Take 1 Tablet by mouth daily for 90 days. 30 Tablet 2 08/07/2022 11/05/2022 documented in this encounter Progress Notes * Jaiden King MD - 08/07/2022 1330 EDT Total [facility]s Clinic Note: L TKA Rasta -07/05/2022- Christine Chief Complaint: Routine follow-up left knee replacement HPI: Willam Negron is a 76 y.o. male presenting in clinic for his 1 month follow-up. Date of surgery was 07/05/2022. Overall Willam is doing well. He has had some issue with swelling in his knee and therefore some tightness overall but is still making progress. He does notice that his foot is properly turned in. His Azeb notices a significant improvement in his function so far. He is happy with the outcome of surgery thus far. Pain today 04/28. Past medical history, surgical history, medications, allergies, family history, and social history were reviewed in [facility]. Objective: Left knee: Incision with no erythema or drainage Effusion: Mild/moderate ROM: 3 to 115 degrees Stable to varus valgus stress, negative anterior posterior drawer 06/23 quad/ta/gas SILT L4-S1 2+ dp pulse Imaging: Plain radiographs of the left knee were ordered and independently reviewed by myself. These demonstrate stable appearing left TKA. There is a short cemented stem. No change in hardware position when compared to postoperative imaging. All components in appropriate position. Assessment/Medical Decision Making: Willam Negron is a 76 y.o. male who presents 4 weeks postopfollowing a left TKA, doing well. We talked about strategies for the swelling. He has been icing. We talked about a neoprene sleeve and the meloxicam prescription. Plan: Meloxicam prescription Neoprene sleeve, ice Continue home exercises/PT, strengthening and ROM No heavy activity Follow up 3 months All questions and concerns were answered. Jaiden King MD 08/07/2022 21:15 PROMIS Pain Interference 08/07/2022 PROMIS Pain Interference T-Score (range: 10 - 90) 61 (moderate) PROMIS Physical Function 08/07/2022 PROMIS Physical Function T-Score 35 (moderate dysfunction) PROMIS Mood D 08/07/2022 PROMIS Depression T-Score 62 (moderate) documented in this encounter Plan of Treatment Upcoming Encounters Date Type Department Care Team (Late st Contact Info) Description 09/19/2023 14:15 EDT Office Visit [facility] Adult Primary Care - [place] [address] [place] [address] Chris Daniels MD [address] [place] [phone] 10/19/2023 9:00 EDT Office Visit [facility] Hand & Upper Extremity Program - [facility] [address] [place] [address] Ant Nguyen MD [address] [place] [address] 01/07/2024 13:15 EST Office Visit [facility] Neurology - [address] [address] Salma Richardson MD [address] [place] [address], [address] [place] [address] Scheduled Referrals Name Type Priority Associated Diagnoses Order Schedule AMB CONS/FOLLOW UP PHYSICAL THERAPY - OUTSIDE OF NETWORK Outpatient Referral Routine/Next Available S/P total knee arthroplasty, left Expected: 08/07/2022 (Approximate), Expires: 08/02/2023 documented as of this encounter Results * XR KNEE RIGHT [...] 07/05/2022. Right knee radiographs 03/06/2022. Procedure Note LacJaiden guadalupe MD - 08/07/2022 XR KNEE LEFT 3 [...] Visit Diagnoses Diagnosis S/P total knee arthroplasty, left- Primary S/P total knee arthroplasty, left documented in this encounter Care Teams Life Insurance Actuary Relationship Specialty Start Date End Date Chris Daniels MD [address] [place] [address] PCP - General Internal Medicine - Primary Care 08/08/19 Melissa Dobbs LICSW 1 [facility], [address] [place] [phone] Nylon Operator 03/13/22 09/13/22 documented as of this encounter
--- OUTSIDE RECORDS SUMMARY | 2023-09-14 02:25 | XMS_ITS | Encounter Summary ---
Author Organization [facility] Address [address] [place] [address] Care Team Providers Care Section Crews Activities Clerk Name Role Phone Chris Daniels MD Primary Care Provider + Melissa Dobbs MOLD BLOWER Unavailable Reason for Visit * Reason Onset Date Comments Hospital Discharge Follow Up 07/07/2022 Encounter Details Date Type Department Care Team (Late st Contact Info) Description 07/07/2022 Telephone [facility] Adult Primary Care - [place] [address] [place] [address] Kirsten Ambriz RN Hospital Discharge Follow Up Social History Tobacco Use Types Packs/Day Years [...] place to sleep or slept in a skilled nursing (including now)? No 08/17/2021 Interpersonal Safety Answer [...] encounter Miscellaneous Notes * Telephone Encounter - Kirsten Ambriz RN - 07/07/2022 0950 EDT Patient had planned surgery without complication that needs PCP follow up; defer to surgical team for follow up. documented in this encounter Plan of Treatment Upcoming Encounters Date Type Department Care Team (Late st Contact Info) Description 09/19/2023 14:15 EDT Office Visit [facility] Adult Primary Care - [place] 2 [facility], [place] [phone] Chris Daniels MD [address] [place] [address] 10/19/2023 9:00 EDT Office Visit [facility] Hand & Upper Extremity Program - [facility] [address] [place] [address] Ant Nguyen MD [address] [place] [address] 01/07/2024 13:15 EST Office Visit [facility] Neurology - [address] [address] Salma Richardson MD [address] [place] [address], [address] [place] [phone] documented as of this encounter Visit Diagnoses Not on filedocumented in this encounter Care Teams Section Crews Activities Clerk Relationship Specialty Start Date End Date Chris Daniels MD [address] [place] [address] PCP - General Internal Medicine - Primary Care 08/08/19 Melissa Dobbs LICSW 1 [facility], [address] [place] [address] Polygraph Technician 03/13/22 09/13/22 documented as of this encounter
--- OUTSIDE RECORDS SUMMARY | 2023-09-14 02:25 | XMS_ITS | Encounter Summary ---
Author Organization [facility] Address [address] [place] [address] Care Team Providers Care Air Twist Operator Name Role Phone Chris Daniels MD Primary Care Provider + Melissa Dobbs MANAGER PET Unavailable [phone] Reason for Visit * Reason Onset Date Comments Labs Only 08/25/2022 Encounter Details Date Type Department Care Team (Late st Contact Info) Description 08/25/2022 Telephone [facility] Adult Primary Care - [place] [address] [place] [address] Chris Daniels MD [address] [place] [address] Labs Only Social History Tobacco [...] * Telephone Encounter - Annamaria Chance - 08/28/2022 1044 EDT Labs pended documented in this encounter Plan of Treatment Upcoming Encounters Date Type Department Care Team (Late st Contact Info) Description 09/19/2023 14:15 EDT Office Visit [facility] Adult Primary Care - [place] 2 [facility], [place] [phone] Chris Daniels MD [address] [place] [address] 10/19/2023 9:00 EDT Office Visit [facility] Hand & Upper Extremity Program - [facility] [address] [place] [address] Ant Nguyen MD [address] [place] [address] 01/07/2024 13:15 EST Office Visit [facility] Neurology - [address] [address] Salma Richardson MD [address] [place] [address], [address] [place] [address] documented as of this encounter Results * LIPID PROFILE (INCLUDES CHOLESTEROL, TRIGLYCERIDES, HDL, LDL) (09/01/2022 13:18 EDT) Cholesterol 194 <200 mg/dL 09/01/2022 14:12 EDT [facility] Comment:Note that therapeuti c goals will differ between patients based on cardiac risk factors and current medical therapy. HDL 64 >=40 mg/dL 09/01/2022 14:12 EDT [facility] Comment:Note that therapeuti c goals will differ between patients based on cardiac risk factors and current medical therapy. LDL, Calculated 113 <160 mg/dL 14:12 T [facility] Comment:Note that therapeuti c goals will differ between patients based on cardiac risk factors and current medical therapy. Triglyceride 83 <=150 mg/dL 09/01/2022 14:12 T [facility] Comment:Note that therapeuti c goals will differ between patients based on cardiac risk factors and current medical therapy. Chol/HDL Ratio 3.0 See Note 09/01/2022 14:12 EDT [facility] Comment:No reference range h as been established for CHOL/HDL ratio. Non HDL Cholesterol 130 <160 mg/dL 09/01/2022 14:12 EDT [facility] Comment:Note that therapeuti c goals will differ between patients based on cardiac risk factors and current medical therapy. Blood VENOUS BLOOD / Unknown Venipuncture / Unknown 09/01/2022 13:18 EDT 09/01/2022 13:44 EDT Chris Daniels MD CHEMISTRY & BLOO D GAS ORDERABLES [facility] [address] [place] [address] documented in this encounter Visit Diagnoses Diagnosis Primary hypertension- Primary Unspecified essential hypertension documented in this encounter Care Teams Air Twist Operator Relationship Specialty Start Date End Date Chris Daniels MD [address] [place] [phone] PCP - General Internal Medicine - Primary Care 08/08/19 Melissa Dobbs LICSW 1 [facility], [address] [place] [address] Folder Machine Operator 03/13/22 09/13/22 documented as of this encounter
--- OUTSIDE RECORDS SUMMARY | 2023-09-14 02:25 | XMS_ITS ---
Author Organization Unknown Address [address] [place] [phone] Phone Care Team Providers Care Feather Maker Name Role Phone ILIA Richter Attending Unavailable KATTY Mccarthy Primary Unavailable Social History Type Status Start Date End Date Code Code Syst em Sex Male Hospital Discharge Instructions Should you have any questions prior to discharge, please contact a member of your healthcare team. If you have left the hospital and have any questions, please contact your primary care physician. 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
--- OUTSIDE RECORDS SUMMARY | 2023-09-14 02:25 | XMS_ITS | Encounter Summary ---
Author Organization [facility] Address [address] [place] [address] Care Team Providers Care Reel Winder Name Role Phone Chris Daniels MD Primary Care Provider + Reason for Visit * Reason Onset Date Comments Labs Only 09/06/2023 Encounter Details Date Type Department Care Team (Late st Contact Info) Description 09/06/2023 Telephone [facility] Adult Primary Care - [place] [address] [place] [address] Chris Daniels MD [address] [place] [address] Labs Only Social History Tobacco [...] place to sleep or slept in a half-way (including now)? No 08/17/2021 Interpersonal Safety Answer [...] * Telephone Encounter - Annamaria Chance - 09/06/2023 1121 EDT Labs pended documented in this encounter Plan of Treatment Upcoming Encounters Date Type Department Care Team (Late st Contact Info) Description 09/19/2023 14:15 EDT Office Visit [facility] Adult Primary Care - [place] [address] [place] [address] Chris Daniels MD [address] [place] [address] 10/19/2023 9:00 EDT Office Visit [facility] Hand & Upper Extremity Program - [facility] [address] [place] [address] Ant Nguyen MD [address] [place] [address] 01/07/2024 13:15 EST Office Visit [facility] Neurology - [address] [address] Salma Richardson MD [address] [place] [address], [address] [place] [phone] Scheduled Orders Name Type Priority Associated Diagnoses Orde r Schedule LIPID PROFILE (INCLUDES CHOLESTEROL, TRIGLYCERIDES, HDL, LDL) Lab Routine Essential hypertension Expected: 09/20/2023 (Approximate), Expires: 12/21/2023 BASIC METABOLIC PANEL (BMP) Lab Routine Essential hypertension Expected: 09/20/2023 (Approximate), Expires: 12/21/2023 COMPLETE BLOOD COUNT Lab Routine Essential hypertension Macrocytosis Expected: 09/20/2023 (Approximate), Expires: 12/21/2023 documented as of this encounter Visit Diagnoses Diagnosis Essential hypertension- Primary Unspecified essential hypertension Macrocytosis Other specified diseases of blood and blood-forming organs documented in this encounter Care Teams Reel Winder Relationship Specialty Start Date End Date Chris Daniels MD [address] [place] [address] PCP - General Internal Medicine - Primary Care 08/08/19 documented as of this encounter
--- OUTSIDE RECORDS SUMMARY | 2023-09-14 02:25 | XMS_ITS | Encounter Summary ---
Author Organization [facility] Address [address] [place] [address] Care Team Providers Care Rn Float Name Role Phone Chris Daniels MD Primary Care Provider + Reason for Visit * Reason Onset Date Comments Appointment Related 07/18/2023 Encounter Details Date Type Department Care Team (Late st Contact Info) Description 07/18/2023 Telephone [facility] Adult Primary Care - [place] [address] [place], [place] [phone] Kristal Bee, RT Appointment Related Social History Tobacco Use Types [...] medical appointments or from getting medications? No 06/2 10/2021 In the past 12 months, has l [...] encounter Miscellaneous Notes * Telephone Encounter - Anat Sheikh - 07/18/2023 1330 EDT My name is Anat and I work for the [facility] P[facility] Department. You are due for a Medicare Annual Wellness exam. These annual exams are 30 minute exams that are focused on preventative care measures and can now be done via telehealth ([employer]) If you would like to schedule please call me at [phone] and I would be happy to assist you with this. Last awv 09/06/22 [employer] Resource Partner [facility] [address] [place] [address] PH: [phone] FAX: [phone] documented in this encounter Plan of Treatment Upcoming Encounters Date Type Department Care Team (Late st Contact Info) Description 09/19/2023 14:15 EDT Office Visit [facility] Adult Primary Care - [place] [address] [place], [place] [phone] Chris Daniels MD [address] [place] [phone] 10/19/2023 9:00 EDT Office Visit [facility] Hand & Upper Extremity Program - [address] [phone] Ant Nguyen MD [address] [place] [address] 01/07/2024 13:15 EST Office Visit [facility] Neurology - [address] [phone] Salma Richardson MD [address] [place] [address] [address] [place] [phone] documented as of this encounter Visit Diagnoses Not on filedocumented in this encounter Care Teams Rn Float Relationship Specialty Start Date End Date Chris Daniels MD 2 [facility] [place] [phone] PCP - General Internal Medicine - Primary Care 08/08/19 documented as of this encounter
--- OUTSIDE RECORDS SUMMARY | 2023-09-14 02:25 | XMS_ITS | Encounter Summary ---
Author Organization [facility] Address [address] [place] [address] Care Team Providers Care Jewelry Model Maker Name Role Phone Chris Daniels MD Primary Care Provider + Reason for Visit * Reason Comments Follow-up Encounter Details Date Type Department Care Team ([facility] st Contact Info) Description 06/27/2023 10:30 EDT Office Visit [facility] Neurology - [address] [id number] Salma Richardson MD [address] [place] [address], [address] [place] [phone] Parkinson's disease without dyskinesia or fluctuating manifestations (HCC-CMS) (Primary Dx); REM sleep behavior disorder; Depression, unspecified depression type; Anxiety; Sialorrhea Social History Tobacco Use Types Packs/Day Years [...] the money to buy more. Never true 06/29/20 22 Within the past 12 months, t [...] place to sleep or slept in a detention (including now)? No 08/17/2021 Interpersonal Safety Answer [...] EDT Pulse 66 06/27/2023 1020 EDT Temperature - - Respiratory Rate 16 06/27/2023 1020 EDT Oxygen Saturation 97% 06/27/2023 1020 EDT Inhaled Oxygen Concentration - - Weight 65.8 kg (145 lb) 06/27/2023 1020 EDT Height - - Body Mass Index 22.89 09/06/2022 1546 EDT documented in this encounter [...] as of this encounter Progress Notes * Salma Richardson MD - 06/27/2023 1030 EDT Images from the original note were not included. Type of visit: Follow-up visit Clinician Requesting Consultation: No referring provider defined for this encounter. Phone: N/A Fax: Primary Compensator Worker: Chris Daniels 2 [facility] [phone] ASSESSMENT & PLAN / RECOMMENDATIONS 1. Parkinson's disease without dyskinesia or fluctuating manifestations (HCC-CMS) 2. REM sleep behavior disorder 3. Depression, unspecified depression type 4. Anxiety 5. Sialorrhea Willam Negron is a 77 y.o. gentleman who returns to the [facility] clinic for evaluation and management of parkinsonism. They are not sure how long ago symptoms started but in the summer of 2021, symptoms were apparent enough that others recommended he be evaluatedfor Parkinson disease. He describes right shoulder pain, tremor, and decreased coordination particularly on the right side - this is fairly consistent again today. -- PARKINSON DISEASE: unclear duration, possibly up to 5 years (2017) when he began to appreciate worsening of chronic right shoulder issues; now involving parkinsonism with intermittent rest tremor.He is quite active, but appreciates a decrease in endurance and is more prone to falling during strenuous activities; otherwise, he denies any major issues with gait and balance. We reviewed the diagnosis, natural history and expected progression, and treatment options. Levodopa has been helpful overall for mobility, and the slight increase after the last visit was helpful to him. We discussed the importance of ongoing physical activity and aerobic exercise as a potential means of slowing disease progression. - continue carbidopa-levodopa 25/100mg tablets: 1.5 tablets in the morning / noon + 1 tablet in theevening - in the future, can consider adding an MAO-b inhibitor, amantadine, or increasing the levodopa forbetter symptom control - continue with PT, exercise as much as possible -- REM SLEEP BEHAVIOR DISORDER: worsening over time, very vivid dreaming and acting out the dreams;now has fallen out of bed 3 times and sustained an injury to his chin. Sleep is better with melatonin, however his is concerned that he still might not be getting great sleep. - continue melatonin 5mg at bedtime --> recommend increase to 10mg to see if quality of sleep improves, reduction in daytime sleepiness - consider polysomnography to evaluate sleep apnea and active dreaming -- MOOD DYSFUNCTION / ANXIETY: we discussed that this could be adjustment disorder given the recentchanges in his health and diagnosis of PD, but it is also common to see non-motor symptoms in PD. Iwould recommend he continue on the sertraline for the time being, and we can decide in the future if any adjustments should be made or the medication discontinued. Today his reports that he is more anxious at times, especially if there is something going on that day or he has something to prepare for. - continue sertraline 50mg tablets: 1 tablet daily; can consider a dose increase if needed -- SIALORRHEA: new symptom, noting excessive salivation at times but largely manageable. We discussed non-medication strategies to employ first, and can discuss medication / injection option in the future if needed. Return to clinic: 6 months, on-site SUBJECTIVE Reason for consultation/ Chief complaint: Parkinson disease History of Presenting Illness (HPI): Willam Negron is a 77 y.o. gentleman who was referred to the [facility] clinic for evaluation and management of parkinsonism. Accompanied by: Handedness: left-handed for writing and fine motor, but does some things right- handed (gross motor movements) Brief history: Mr. Negron was first seen in this clinic in February 2022. At that time, his stated that symptoms have been very noticeable over the past six months (summer 2021). They had some friends who told him since then that they thought this was Parkinson's, so he was evaluated at his PCP's office and they felt that his symptoms were consistent with Parkinson's. He states that he is moving very slowly, has to think more about things before doing them. Tremor is present at times whenhe is using the hands, like trying to drink a cup of coffee or writing.Balance is worsening, but his thinks that it is actually pretty good. He might fall if he is trying to do something strenuous or that throws him off balance. He has had shoulder issues since the 70's, when he would frequently dislocate it until it was operated on. Around that time, he switched to doing certain things with the left hand. This did stabilizeto some extent. Over the past five years, they have noticed a worsening of the right shoulder, decreased muscle mass, and weakness on that side. Interval history (last visit 12/13/2022): He states that things have been fairly steady. There are some mornings (1-2 times per week) where he wakes up feeling more physically and cognitively slow. He thinks he is sleeping better, and has noticed a decreased in vivid dreaming and RBD symptoms. He started working with [employer], but feels limited due to right shoulder arthritis. They increased the levodopa after the last visit and it did help, however did not make the shoulder better. Current PD medications: - carbidopa-levodopa 25/100mg tablets: 1.5 tablet in the morning and noon, and 1 tablet in the evening ROS: A comprehensive 13 system review was negative or documented in the HPI with the following additions/exceptions: - swallowing difficulty - solids and liquids - improved with levodopa - constipation - improved with diet, prunes - cognition - has to think things through more - sialorrhea - depression / anxiety - worsening, was prominent with recent air travel but managing better now - decreased sense of smell / taste - started before he was sick with COVID (Feb 2021) - vivid dreaming, will yell and flail in his sleep, twitches a lot - has fallen out of bed twice due to nightmares - denies dizziness, lightheadedness Current Medications: Outpatient Medications Marked as Taking for the 06/27/23 encounter (Office Visit) with Salma Richardson MD Medication Sig Dispense Refill acetaminophen (TYLENOL) 500 mg tablet Take 1 Tablet by mouth every 6 hours as needed for Pain. acetylcysteine (NAC ORAL) Take 500 mg by mouth every morning. amoxicillin (AMOXIL) 500 mg capsule Take 4 capsules po one hour prior to dental procedure. 12 Capsule 1 carbidopa-levodopa (SINEMET) 25-100 mg per tablet Take 1.5 Tablets by mouth 2 times daily AND 1 Tablet every evening. 360 Tablet 3 cetirizine (ZYRTEC) 10 mg tablet Take 1 Tablet by mouth daily as needed for Allergies. Cholecalciferol, Vitamin D3, 25 mcg (1,000 unit) capsule Take 2 Capsules by mouth daily. When pt remembers to take it lisinopriL (PRINIVIL) 20 mg tablet Take 1 Tablet by mouth daily. 90 Tablet 3 LOW-DOSE ASPIRIN ORAL Take 81 mg by mouth daily. sertraline (ZOLOFT) 50 mg tablet Take 1 Tablet by mouth daily. 90 Tablet 3 Allergies Allergen Reactions Novacaine [Procaine (Bulk)] Anaphylaxis Tongue and throat swelling Codeine Other (See Comments) Hallucinations Demerol [Meperidine] Past Medical History HTN Anxiety Depression Osteoarthritis Celiac disease Parkinson disease Past Surgical History Right shoulder repair Bilateral knee arthroscopy Left knee total arthroplasty (06/2022) Family History Paternal uncle - diagnosed with PD and recently (in his late 80's) Paternal grandmother may have had PD as well Social History Likely had concussions, but no LOC Denies tobacco use Denies heavy alcohol use - previously drank 1 can of cider a day [place] 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 OBJECTIVE Vital Signs Vitals: 06/27/23 1020 BP: 132/80 BP Cuff Location: Left arm BP Patient Position: Sitting BP Cuff Sizes: Adult, regular Pulse: 66 Resp: 16 SpO2: 97% Weight: 65.8 kg (145 lb) Vital signs were reviewed. General Physical Examination Well-appearing, in no acute distress Pleasant and interactive Eyes without icterus or injection. Normocephalic, atraumatic head and neck. Neurological Examination Mental status: Alert appropriate and oriented Normal recall of recent and remote personal and medical history. Normal insight and judgment. Language: Fluent clear speech, intact comprehensive and expressive language. Speech: Mild hypophonia, no dysarthria. Voice is hoarse Cranial nerves: Extraocular movements intact with full ductions and smooth pursuits Face is symmetric at rest, slight decrease in right facial activation relative to the left Hearing is intact to casual conversation Tongue, palate, sternocleidomastoid function are normal. Motor examination: Normal bulk in all limbs. Power -no pronator drift. Normal arm elevation. Full strength in all muscle groups tested. Decreased range of motion in the right shoulder - cannot abduct > 90 degrees Repetitive finger tapping, hand grasping, alternating supination pronation, and heel striking are slow with decrement, right > left. [id number] reveal no dyssynergia or dysmetria. Diminished facial spontaneity/animation - lips parted at times during distracting maneuvers with mirror movements in the jaw Station/Gait: He is able to rise form a seated position without difficulty, though slowly. Slightly decreased right arm swing compared to the left. DATA No new data to review. Previous data: MRI BRAIN (11/30/2021): No acute intracranial abnormalities. Remote left occipital lobe infarct. ATTESTATION I spent a total of 30 minutes on the date of this encounter meeting with the patient and reviewing documentation/coordinating care as described in the above note. Time dedicated to this visit was spent on the following activities: Patient/urgent care physician assistant education Review of the pertinent information in the electronic health record Care plan formulation Supportive counseling Documentation of clinical information in the EHR Ordering of medication(s) Scanned health information available from the referring and/or primary provider(s) Verbal communication with family/urgent care physician assistant Salma Kramer MD Attending Physician, Movement Disorders Department of Neurology documented in this encounter Plan of Treatment Upcoming Encounters Date Type Department Care Team (Late st Contact Info) Description 09/19/2023 14:15 EDT Office Visit [facility] - [address] [id number] Chris Daniels MD [address] [place] [phone] 10/19/2023 9:00 EDT Office Visit [facility] - [place] [address] [place], [place] [address]dar[place] [address] Ant Nguyen MD [address] [place] [phone] 01/07/2024 13:15 EST Office Visit [facility] - [address] [place] [address] [place], [place] [phone] Salma Richardson MD 1 [facility], [address] [place] [phone] documented as of this encounter Visit Diagnoses Diagnosis Parkinson's disease without dyskinesia or fluctuating manifestations (HCC-CMS)- Primary REM sleep behavior disorder Depression, unspecified depression type Anxiety Anxiety state, unspecified Sialorrhea Disturbance of salivary secretion documented in this encounter Care Teams Jewelry Model Maker Relationship Specialty Start Date End Date Chris Daniels MD [address] [place] [phone] PCP - General Internal Medicine - Primary Care 08/08/19 documented as of this encounter
--- OUTSIDE RECORDS SUMMARY | 2023-09-14 02:25 | XMS_ITS | Encounter Summary ---
Author Organization [facility] Address [address] [place] [address] Care Team Providers Care Tube Depatcher Name Role Phone Chris Daniels MD Primary Care Provider + Reason for Visit * Reason Comments Follow-up Encounter Details Date Type Department Care Team ([facility] st Contact Info) Description 12/13/2022 9:30 EDT Office Visit [facility] Neurology - [address] [phone] Salma Richardson MD [address] [place] [address], [address] 2 [place] [phone] Parkinson's disease without dyskinesia or fluctuating manifestations (Primary Dx); REM sleep behavior disorder; Anxiety Social History Tobacco Use Types Packs/Day Years [...] place to sleep or slept in a jail (including now)? No 08/17/2021 Interpersonal Safety Answer [...] Sign Reading Time Taken Comments Blood Pressure 130/80 12/13/2022925 EDT Pulse 62 12/13/2022925 EDT Temperature - - Respiratory Rate - - Oxygen Saturation 99% 12/13/2022 09 EDT Inhaled Oxygen Concentration - - Weight - - Height - - Body Mass Index - - documented in this encounter Functional Status Functional [...] No 01/31/2017 documented as of this encounter Patient Instructions * Patient Instructions* Salma Richardson MD - 12/13/2022 9:30 EDT - for Parkinson's, try increasing the morning and noon doses to 1.5 tablets, and stick with 1 tablet in the evening - you could try taking the first dose while you are still in bed, then give it about 20 minutes to kick in before you get moving for the day - try taking some melatonin before bedtime - can start with 5mg, available over the counter. See ifthat helps with the vivid dreaming documented in this encounter Ordered Prescriptions Prescription Sig Dispensed Refills Start Date End Da te carbidopa-levodopa (SINEMET) 25-100 mg per tablet Take 1.5 Tablets by mouth 2 times daily AND 1 Tablet every evening. 360 Tablet 3 12/13/2022 documented in this encounter Progress Notes * Salma Richardson MD - 12/13/2022 0930 EDT Images from the original note were not included. Type of visit: Follow-up visit Clinician Requesting Consultation: No referring provider defined for this encounter. Phone: N/A Fax: Primary Health Clinician: Chris Daniels III [address] [place] [phone] ASSESSMENT & PLAN / RECOMMENDATIONS 1. Parkinson's disease without dyskinesia or fluctuating manifestations 2. REM sleep behavior disorder 3. Anxiety Willam Negron is a 77 y.o. gentleman who returns to the [facility] Movement Disorders clinic for evaluation and management of parkinsonism. They are not sure how long ago symptoms started but in the summer of 2021, symptoms were apparent enough that others recommended he be evaluatedfor Parkinson disease. He describes right shoulder pain, tremor, and decreased coordination particularly on the right side. On examination today, he has bilateral but asymmetric bradykinesia, rest tremor, and rigidity. Casual gait shows reasonable stride length and yadira, but he does have reducedarm swing and mildly en bloc turning. -- PARKINSON DISEASE: unclear duration, possibly up to 5 years (2018) when he began to appreciate worsening of chronic right shoulder issues; now involving parkinsonism with intermittent rest tremor.He has read and learned quite a bit about PD, and agrees that his symptoms seem consistent with this diagnosis. He is quite active, but appreciates a decrease in endurance and is more prone to falling during strenuous activities. Otherwise, he denies any major issues with gait and balance. We reviewed the diagnosis, natural history and expected progression, and treatment options. Levodopa has been helpful overall for mobility, and he is taking a small dosage. We discussed the importance of ongoi ng physical activity and aerobic exercise as a potential means of slowing disease progression. - continue carbidopa-levodopa 25/100mg tablets: increase from 1 tablets TID --> 1.5 tablets in the morning / noon + 1 tablet in the evening - continue with PT, exercise as much as possible -- REM SLEEP BEHAVIOR DISORDER: worsening over time, very vivid dreaming and acting out the dreams;now has fallen out of bed 3 times and sustained an injury to his chin. - consider trial of melatonin, starting at 5mg ~1 hour before bedtime and see if dream enactment behavior improves - consider polysomnography to evaluate sleep apnea [...] prepare for. - continue sertraline 50mg tablets: take 1 tablet daily; can consider a dose increase if needed -- REMOTE LEFT OCCIPITAL INFARCT: not clearly symptomatic, nor does he recall any episode of transient neurological symptoms in the past. We discussed that the location of the stroke would not explain his current symptomatology. We typically recommend low-dose aspirin and statin for secondary stroke prevention. If there is any indication that has atrial fibrillation, thus increasing his risk for embolic strokes, this would warrant discussion of anticoagulation. - low dose aspirin 81mg and statin recommended Return to clinic: 6 months, on-site SUBJECTIVE Reason for consultation/ Chief complaint: Parkinson disease History of Presenting Illness (HPI): Willam Negron is a 77 y.o. gentleman who was referred to the [facility] Movement Disorders clinic for evaluation and [...] He has had shoulder issues since the s, when he would frequently dislocate it until it was operated on. Around that time, he switched to doing certain things with the left hand. This did stabilizeto some extent. Over the past five years, they have noticed a worsening of the right shoulder, decreased muscle mass, and weakness on that side. Interval history (last visit 08/23/2022): He has been doing well with regards to the knee surgery, having a little bit of stiffness but not pain. Mobility has declined over time, but generally going okay. He reports good days and bad days, the bad periods can last for a few hours up to a day. He is still able to get things done, but finds he is more tired and struggles a bit more. He reports two episodes of falling out of bed due to vivid dreaming - unfortunately, the most recent episode he hit his chin on the nightstand and needed to get stitches. Current PD medications: - carbidopa-levodopa 25/100mg tablets: 1 tablet in the morning, noon, and evening ROS: A comprehensive 13 system review was negative or documented in the HPI with the following additions/exceptions: - swallowing difficulty - solids and liquids - improved with levodopa - constipation - improved with diet, prunes - cognition - has to think things through more - sialorrhea - depression / anxiety - worsening - decreased sense of smell / taste - started before he was sick with COVID (Feb 2021) - vivid dreaming, will yell and flail in his sleep, twitches a lot - has fallen out of bed twice due to nightmares - denies dizziness, lightheadedness Current Medications: Outpatient Medications Marked as Taking for the 12/13/22 encounter (Office Visit) with Salma Richardson MD Medication Sig Dispense Refill ??? acetaminophen (TYLENOL) 500 mg tablet Take 1 Tablet by mouth every 6 hours as needed for Pain. ??? acetylcysteine (NAC ORAL) Take 500 mg by mouth every morning. ??? carbidopa-levodopa (SINEMET) 25-100 mg per tablet Take 1 Tablet by mouth 3 times daily. 270 Tablet 3 ??? cetirizine (ZYRTEC) 10 mg tablet Take 1 Tablet by mouth daily as needed for Allergies. ??? Cholecalciferol, Vitamin D3, 25 mcg (1,000 unit) capsule Take 2 Capsules by mouth daily. When pt remembers to take it ??? lisinopriL (PRINIVIL) 20 mg tablet Take 1 Tablet by mouth daily. 90 Tablet 1 ??? LOW-DOSE ASPIRIN ORAL Take 81 mg by mouth daily. ??? sertraline (ZOLOFT) 50 mg tablet Take 1 Tablet by mouth daily. 90 Tablet 3 Allergies Allergen Reactions ??? Novacaine [Procaine (Bulk)] Anaphylaxis Tongue and throat swelling ??? Codeine Other (See Comments) Hallucinations ??? Demerol [Meperidine] Past Medical History HTN Anxiety Depression Osteoarthritis Celiac disease Parkinson disease Past Surgical History Right shoulder repair Bilateral knee arthroscopy Family History Paternal uncle - diagnosed with PD and recently (in his late 80's) Paternal grandmother may have had PD as well Social History Likely had concussions, but no LOC Denies tobacco use Denies heavy alcohol use - previously drank 1 can of cider a day G[place] up on a farm - Had chemical / pesticide exposures; lead exposure from ammunition [place] - was overseas in [place] - no Agent [place] Occupational History ??? 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 OBJECTIVE Vital Signs Vitals: 12/13/22 0926 BP: 130/80 BP Cuff Location: Right arm BP Patient Position: Sitting BP Cuff Sizes: Adult, regular Pulse: 62 SpO2: 99% Vital signs were reviewed. General Physical Examination [...] are slow with decrement, right > left. Usectr-tuoo-[id number] reveal no dyssynergia or dysmetria. Diminished facial spontaneity/animation - lips parted at times during distracting maneuvers with mirror movements in the jaw Station/Gait: He is able to rise form a seated position without difficulty, though slowly. Slightly decreased right arm swing compared to the left. Slightly antalgic gait on the left due to recent surgery (has a soft brace). DATA No new data to review. Previous data: MRI BRAIN (11/30/2021): No acute intracranial abnormalities. Remote left occipital lobe infarct. ATTESTATION I spent a total of 40 minutes on the date of this encounter meeting with the patient and reviewing documentation/coordinating care as described in the above note. Time dedicated to this visit was spent on the following activities: Patient/critical care paramedic education Review of the pertinent information in the electronic health record Care plan formulation Supportive counseling Documentation of clinical information in the EHR Ordering of medication(s) Scanned health information available from the referring and/or primary provider(s) Verbal communication with family/critical care paramedic Salma Kramer MD Attending Physician, Movement Disorders Department of Neurology documented in this encounter Plan of Treatment Upcoming Encounters Date Type Department Care Team (Late st Contact Info) Description 09/19/2023 14:15 EDT Office Visit [facility] Adult Primary Care - [place] [address] [facility] [place], [place] [phone] Chris Daniels MD [address] [place] [phone] 10/19/2023 9:00 EDT Office Visit [facility] Hand & Upper Extremity Program - [facility] [address] [place] [address] Ant Nguyen MD [address] [place] [phone] 01/07/2024 13:15 EST Office Visit [facility] Neurology - [address] [address] Salma Richardson MD [address] [place] [address], [address] 2 [place] [phone] documented as of this encounter Visit Diagnoses Diagnosis Parkinson's disease without dyskinesia or fluctuating manifestations ([facility])- Primary REM sleep behavior disorder Anxiety Anxiety state, unspecified documented in this encounter Discontinued Medications Medication Sig Discontinue Reason Start Date End Da te carbidopa-levodopa (SINEMET) 25-100 mg per tablet Take 1 Tablet by mouth 3 times daily. Reorder 11/20/2022 12/13/2022 documented as of this encounter Care Teams Tube Depatcher Relationship Specialty Start Date End Date Chris Daniels MD [address] [place] [phone] PCP - General Internal Medicine - Primary Care 08/08/19 documented as of this encounter
--- OUTSIDE RECORDS SUMMARY | 2023-09-14 02:25 | XMS_ITS | Encounter Summary ---
Author Organization [facility] Address [address] [place] [address] Care Team Providers Care Profile Mill Operator Tape Control Name Role Phone Chris Daniels MD Primary Care Provider + Melissa Dobbs PATIENT CARE SECRETARY Unavailable [phone] Reason for Visit * Reason Comments Follow-up Encounter Details Date Type Department Care Team (Late st Contact Info) Description 08/23/2022 11:00 EDT Office Visit [facility] Neurology - [place] [address] [place] [address] Salma Richarsdon MD [address] [place] [address], Level 2 [place] [phone] Parkinson disease (Primary Dx); 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 Never true 08/18/19 Within the past 12 months, t he [...] place to sleep or slept in a intermediate (including now)? No 08/17/2021 Interpersonal Safety Answer [...] Sign Reading Time Taken Comments Blood Pressure 139/79 08/23/2022 1103 EDT Pulse 64 08/23/2022 1103 EDT Temperature - - Respiratory Rate 17 08/23/2022 1103 EDT Oxygen Saturation 98% 08/23/2022 1103 EDT Inhaled Oxygen Concentration - - Weight 63.5 kg (140 lb) 08/23/2022 1103 EDT Height - - Body Mass Index 24.03 06/26/2022 0902 EDT documented in this encounter Functional Status [...] * Patient Instructions* Salma Richardson MD - 08/23/2022 11:00 EDT - PD generation study through the [facility] -- you can see about genetic testing and therole of genetics - I don't typically recommend everyone have testing because it doesn't change control coordinator - continue with the carbidopa-levodopa (Sinemet) three times daily - consider doing it in the morning, noon, and then before dinner to space throughout the day - continue with sertraline (Zoloft) 50mg - can try taking this at night to see if it helps with daytime sleepiness - try to sleep on your side, as long as this doesn't upset your knee, and see if you feel more rested in the morning documented in this encounter Progress Notes * Salma Richardson MD - 08/23/2022 1100 EDT Images from the original note were not included. Type of visit: Follow-up visit Clinician Requesting Consultation: No referring provider defined for this encounter. Phone: N/A Fax: Primary Vice President Of Software Engineering: Chris Daniels III [address] [place] [phone] ASSESSMENT & PLAN / RECOMMENDATIONS 1. Parkinson disease (HCC-CMS) ([facility]) 2. Chronic ischemic left [employer]RA[employer] M[employer]ER [employer]PER stroke 3. Depression, unspecified depression type Willam Negron is a 76 y.o. gentleman who returns to the [facility] Movement Disorders clinic for evaluation and management of parkinsonism. They are not sure how long ago symptoms started but approximately 6 months ago, symptoms were apparent enough that others recommended he be evaluated for Parkinson disease. He describes right shoulder pain, tremor, and decreased coordination particularly on the right side. On examination today, he has bilateral but asymmetric bradykinesia, rest tremor, and rigidity. Casual gait shows reasonable stride length and yadira, but he does have reduced arm swing and mildly en bloc turning. -- [...] history and expected progression, and treatment options. Since the symptoms are bothersome to him at this point, I think it is reasonable to start a low-dose of carbidopa-levodopa. We discussed the importance of ongoing physical activity and aerobic exercise as a potentialmeans of slowing disease progression. - continue carbidopa-levodopa 25/100mg tablets: 1 tablet TID - continue with PT exercises (specifically helping with knee replacement now) -- REMOTE LEFT OCCIPITAL INFARCT: not clearly [...] low dose aspirin 81mg and statin recommended -- MOOD DYSFUNCTION: we discussed that this could be adjustment disorder given the recent changes in his health and diagnosis of PD, but it is also common to see non-motor symptoms in PD. I would recommend he continue on the sertraline for the time being, and we can decide in the future if any adjustments should be made or the medication discontinued. - continue sertraline 50mg once daily --> can discuss weaning off in the future once everything is stable Return to clinic: 4-6 months, on-site SUBJECTIVE Reason for consultation/ Chief complaint: Parkinson disease History of Presenting Illness (HPI): Willam Negron is a 76 y.o. gentleman who was referred to the [facility] Movement Disorders clinic for evaluation and management of parkinsonism. Accompanied by: Handedness: right handed Brief history: Mr. Negron was first seen [...] He has had shoulder issues since the , when he would frequently dislocate it until it was operated on. Around that time, he switched to doing certain things with the left hand. This did stabilizeto some extent. Over the past five years, they have noticed a worsening of the right shoulder, decreased muscle mass, and weakness on that side. Interval history (last visit 03/15/2022): He started levodopa after the last visit, and thinks it has been helpful. He notes an improvement in swallowing, easier to get in and out of a chair, balance is better. His mentioned that response time feels quicker. They think the more active he is, the better he feels. Willam had a left knee replacement six weeks ago - generally went well and he has been working withphysical therapy. He had family visit shortly thereafter and he was able to get up and go very easily (multiple younger grandchildren). Now, he is finding it more difficult to et going in the morningunless he has a specific appointment (e.g. PT). He is feeling more tired during the day, though they think he is not getting as good quality sleep recently since the surgery. He notes that he's had to sleep on his back because of the knee surgery, and his endorses more snoring. Current PD medications: - carbidopa-levodopa 25/100mg tablets: [...] - started before he was sick with WALEID (Feb 2021) - vivid dreaming, will yell and flail in his sleep, twitches a lot - denies dizziness, lightheadedness Current Medications: Outpatient Medications Marked as Taking for the 08/23/22 encounter (Office Visit) with Salma Richardson MD Medication Sig Dispense Refill ??? acetylcysteine (NAC ORAL) Take 500 mg by mouth every morning. ??? carbidopa-levodopa (SINEMET) 25-100 mg per tablet Take 1 Tablet by mouth 3 times daily before meals. 270 Tablet 1 ??? cetirizine (ZYRTEC) 10 mg tablet Take 1 Tablet by mouth daily. ??? Cholecalciferol, Vitamin D3, 25 mcg (1,000 unit) capsule Take 2 Capsules by mouth daily. ??? ibuprofen (MOTRIN) 200 mg tablet Take 2 Tablets by mouth every 6 hours as needed for Pain. HOLDUNTIL 08/03/22; then resume as usual ??? lisinopriL (PRINIVIL) 20 mg tablet Take 1 Tablet by mouth daily. 90 Tablet 1 ??? LOW-DOSE ASPIRIN ORAL Take 81 mg by mouth daily. ??? meloxicam (MOBIC) 15 mg tablet Take 1 Tablet by mouth daily for 90 days. 30 Tablet 2 ??? sertraline (ZOLOFT) 50 mg tablet Take 1 Tablet by mouth daily. 90 Tablet 3 ??? triamcinolone (KENALOG) 0.1 % cream Apply a thing film to areas of rash once to twice to daily until rash resolves 80 g 1 Allergies Allergen Reactions ??? Novacaine [Procaine (Bulk)] [...] was overseas in [place] - no Agent [place] Occupational History ??? 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 OBJECTIVE Vital Signs Vitals: 08/23/22 1103 BP: 139/79 BP Cuff Location: Left arm BP Patient Position: Sitting BP Cuff Sizes: Adult, regular Pulse: 64 Resp: 17 SpO2: 98% Weight: 63.5 kg (140 lb) Vital signs were reviewed. General Physical [...] are slow with decrement, right > left. Jkdobj-hjjw-[id number] reveal no dyssynergia or dysmetria. Diminished facial spontaneity/animation - lips parted at times during distracting maneuvers with mirror movements in the jaw Reflexes (from previous visit) Brisk 2+ reflexes throughout, symmetric. No Beasley's sign. Station/Gait: He is able to rise form [...] visit was spent on the following activities: Patient/rn progressive care education Review of the pertinent information in the electronic health record Care plan formulation Supportive counseling Documentation of clinical information in the EHR Ordering of medication(s) Scanned health information available from the referring and/or primary provider(s) Verbal communication with family/rn progressive care Salma Kramer MD Attending Physician, Movement Disorders Department of Neurology documented in this encounter Plan of Treatment Upcoming Encounters Date Type Department Care Team (Late st Contact Info) Description 09/19/2023 14:15 EDT Office Visit [facility] Adult Primary Care - [place] [address] [place], [place] [phone] Chris Daniels MD [address] [place] [phone] 10/19/2023 9:00 EDT Office Visit [facility] Hand & Upper Extremity Program - [address] [phone] Ant Nguyen MD [address] [place] [phone] 01/07/2024 13:15 EST Office Visit [facility] Neurology - [address] [phone] Salma Richardson MD [address] [place] [address], [address] [place] [phone] documented as of this encounter Visit Diagnoses Diagnosis Parkinson disease ([facility])- Primary Paralysis agitans Chronic ischemic left [employer] stroke Transient ischemic attack (TIA), and cerebral infarction without residual deficits Depression, unspecified depression type documented in this encounter Care Teams Profile Mill Operator Tape Control Relationship Specialty Start Date End Date Chris Daniels MD [address] [place] [phone] PCP - General Internal Medicine - Primary Care 08/08/19 Melissa Dobbs, PATIENT CARE SECRETARY 1 [facility], [address] [place] [phone] Clinic Charge Nurse 03/13/22 09/13/22 documented as of this encounter
--- OUTSIDE RECORDS SUMMARY | 2023-09-14 02:25 | XMS_ITS | Encounter Summary ---
Author Organization [facility] Address [address] [place] [address] Care Team Providers Care Sap Bpc Developer Name Role Phone Chris Daniels MD Primary Care Provider + Reason for Visit * Reason Comments Post-OP Follow Up Encounter Details Date Type Department Care Team (Late st Contact Info) Description 11/10/2022 14:30 EDT Office Visit [facility] Total Joint Program - [address] [address] Jaiden King MD [address] [place] [address] S/P total knee arthroplasty, left (Primary [...] as of this encounter Progress Notes * Jaiden King MD - 11/10/2022 1430 EDT Total Joints Clinic Note: L TKA Rasta -07/05/2022- Christine Chief Complaint: Routine follow-up left knee replacement HPI: Willam Negron is a 77 y.o. male presenting in clinic for his 4-month follow-up. Date of surgery was 07/05/2022. He is doing very well. He has been on his knee a lot over the past few days andit is somewhat painful but he is very happy with the outcome of surgery thus far. I am rather pleased with it.He feels that the Parkinson's is affecting his knee more than the knee itself. He presents today with his Azeb. Past medical history, surgical history, medications, allergies, family history, and social history were reviewed in [facility]. Objective: Left knee: Incision with no erythema or drainage. Incision well-healed Effusion: Mild/moderate but appropriate ROM: 3 to 120 degrees Stable to varus valgus stress, negative anterior posterior drawer 5/5 quad Imaging: Plain radiographs of the left knee were ordered and independently reviewed by myself. These demonstrate stable appearing left TKA. No change in hardware position when compared to postoperative imaging. All components in appropriate position. Assessment/Medical Decision Making: Willam Negron is a 77 y.o. male who presents 4 month postopfollowing a left TKA, doing well. Plan: No activity restrictions Follow up at 1 year post op All questions and concerns were answered. Jaiden King MD 11/10/2022 15:09 08/07/2022 13:32 11/10/2022 14:16 PROMIS Pain Interference PROMIS Pain Interference T-Score (range: 10 - 90) 61 (moderate) 54 (within normal limits) 08/07/2022 13:33 11/10/2022 14:17 PROMIS Physical Function PROMIS Physical Function T-Score 35 (moderate dysfunction) 44 (mild dysfunction) 08/07/2022 13:35 11/10/2022 14:17 PROMIS Mood D PROMIS Depression T-Score 62 (moderate) 60 (mild) documented in this encounter Plan of Treatment Upcoming Encounters Date Type Department Care Team (Late st Contact Info) Description 09/19/2023 14:15 EDT Office Visit [facility] Adult Primary Care - [employer] [address] [place], [place] [address] Chris Daniels MD [address] [place] [address] 10/19/2023 9:00 EDT Office Visit [facility] Hand & Upper Extremity Program - [address] [place] [address] Ant Nguyen MD [address] [place] [phone] 01/07/2024 13:15 EST Office Visit [facility] Neurology - [address] [phone] Salma Richardson MD [address] [place] [address], [address] [place] [address] documented as of this encounter [...] Moderate medial lateral compartment degenerative changes. Osteopenia. [id number] Narrative 11/10/2022 19:17 EDT EXAM/TECHNIQUE: 11/10/2022 2:15 PM ??XR KNEE RIGHT 1-2 VIEWS, XR KNEE LEFT 3 VIEWS 1 (accession [id number]), 3 (accession [id number]) views ?? HISTORY: ??Right to compare;Z96.652:S/P total knee arthroplasty, left Procedure Note Fabricio Ortiz MD - 11/10/2022 EXAM/TECHNIQUE: 11/10/2022 2:15 PM XR KNEE RIGHT 1-2 VIEWS, XR KNEE LEFT 3VIEWS 1 (accession [id number]), 3 (accession [id number]) views HISTORY: Right to compare;Z96.652:S/P total knee arthroplasty, left IMPRESSION FINDINGS / IMPRESSION: * Left knee 3 views: Knee arthroplasty without periprosthetic fracture orlucency. Moderate joint effusion. Osteopenia. Healed proximal fibularfracture. * Right knee 1 view: Moderate medial lateral compartment degenerativechanges. Osteopenia. [id number] Jaiden [facility] NG ORDERABLES * XR KNEE [...] Moderate medial lateral compartment degenerative changes. Osteopenia. [id number] Narrative 11/10/2022 19:17 EDT EXAM/TECHNIQUE: 11/10/2022 2:15 PM ??XR KNEE RIGHT 1-2 VIEWS, XR KNEE LEFT 3 VIEWS 1 (accession [id number]), 3 (accession [id number]) views ?? HISTORY: ??Right to compare;Z96.652:S/P total knee arthroplasty, left Procedure Note Fabricio Ortiz MD - 11/10/2022 EXAM/TECHNIQUE: 11/10/2022 2:15 PM XR KNEE RIGHT 1-2 VIEWS, XR KNEE LEFT 3VIEWS 1 (accession [id number]), 3 (accession [id number]) views HISTORY: Right to compare;Z96.652:S/P total knee arthroplasty, left IMPRESSION FINDINGS / IMPRESSION: * Left knee 3 views: Knee arthroplasty without periprosthetic fracture orlucency. Moderate joint effusion. Osteopenia. Healed proximal fibularfracture. * Right knee 1 view: Moderate medial lateral compartment degenerativechanges. Osteopenia. [id number] Jaiden [facility] NG ORDERABLES documented in this encounter Visit Diagnoses Diagnosis S/P total knee arthroplasty, left- Primary S/P total knee arthroplasty, left documented in this encounter Care Teams Sap Bpc Developer Relationship Specialty Start Date End Date Chris Daniels MD [address] [place] [phone] PCP - General Internal Medicine - Primary Care 08/08/19 documented as of this encounter
--- OUTSIDE RECORDS SUMMARY | 2023-09-14 02:25 | XMS_ITS | Clinical Summary ---
Author Organization [facility] Address [address] [place] [address] Care Team Providers Care Physicist Light And Optics Name Role Phone Chris Daniels MD Primary Care Provider + Allergies Active Allergy Reactions Criticality Noted Date [...] original. Patient has given permission for [facility] to verbally discuss the following information [...] Overview: Added automatically from request for surgery [id number] Primary parkinsonism ([facility]) 10/27/2021 Gluten intolerance 08/08/2019 Thumb pain, left 01/31/2017 Essential hypertension 01/31/2017 Osteoarthritis of glenohumeral joint 03/05/2014 Overview: Right shoulder Encounters Date Type Department Care Team Description 09/11/2023 Telephone [facility] Adult Primary Care - [place] [address] [place] [address] Chris Daniels MD Labs Only 09/06/2023 Telephone [facility] Adult Primary Care - [place] [address] [place] [address] Chris Daniels MD Labs Only 07/18/2023 Telephone [facility] Adult Primary Care - [place] [address] [place] [address] Kristal Bee RT Appointment Related 06/27/2023 10:30 EDT Office Visit [facility] Neurology - [address] [address] Salma Richardson MD Parkinson's disease without dyskinesia or fluctuating manifestations (HCC-CMS) (Primary Dx); REM sleep behavior disorder; Depression, unspecified depression type; Anxiety; Sialorrhea from Last 3 Months Immunizations Name Administration Dates Next Due Covid-19 [...] the Future) Tdap Vaccine =>7YO IM 01/31/2017 Surgical History Surgery Date Site/Laterality Comments KNEE SURGERY right and left knees SHOULDER SURGERY Right TOTAL KNEE ARTHROPLASTY 07/05/[address] Christine Yeh Medical History Medical History Date Comments Broken bones leg, fingers Joint pain Noted 06/26/22- Le ft knee Joint swelling Noted 06/26/22-Lef t knee Numbness Hypertension Noted 06/26/22-Bp elevated at Preop appt, Lisinopril increased to 20mg 170/96 Anesthesia complication Noted 06/26/22-Hallucinations with use of Demerol for post op contractions/shivering Osteoarthritis of glenohumeral joint Noted 06/26/22 Gluten intolerance Noted 06/26/22 Activity, other involving cardiorespiratory exercise Noted 06/26/22- Gym 3 times w eekly, treadmill, rowing machine. 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 No 08/17/2021 Interpersonal Safety Answer [...] 11:38 EDT Sexual Orientation Not on file Obstetrics History Last Filed Vital Signs Vital Sign Reading [...] Body Mass Index 22.89 09/06/2022 1546 EDT Plan of Treatment Upcoming Encounters Date Type Department Care Team (Late st Contact Info) Description 09/19/2023 14:15 EDT Office Visit [facility] Adult Primary Care - [place] [address] [place] [address] Chris Daniels MD [address] [place] [phone] 10/19/2023 9:00 EDT Office Visit [facility] Hand & Upper Extremity Program - [address] [place] [address] Ant Nguyen MD [address] [place] [address] 01/07/2024 13:15 EST Office Visit [facility] Neurology - [address] [address] Salma Richardson MD [address] [place] [address], [address] [place] [address] Health Maintenance Due Date Last Done Comments Advance Directive 08/31/1963 Depression Screening 08/17/2022 08/17/2021, 08/13/2020, 08/08/2019 Social Determinants Of Healt h (SDOH) 08/17/2022 08/17/2021 Shingles Immunization (2 of 2) 01/15/2023 11/20/2022 COVID-19 Vaccine (2022-2 4 season) 2023 01/08/2023, 01/03/2022, 06/07/2021, Additional history exists Fall Risk Screening 09/07/2023 09/06/2022, 08/13/2020, 08/08/2019, Additional history exists Preventive Care Visit 09/07/2023 09/06/2022 , 08/17/2021, 08/13/2020, Additional history exists Influenza Immunization (Adul t) (#1) 2023 01/08/2023, 01/03/2022, 01/10/2019, Additional history exists Tetanus (Adult) Immunization 01/31/2027 01/31/2017 Lipid Profile Screening (Cholesterol) 09/02/2027 09/01/2022, 08/08/2019, 01/31/2017 Hepatitis C Screen Completed 01/31/2017 Pertussis (Adult) Immunization Completed 01/31/2017 Colonoscopy (Colon Cancer Screening) Discontinued 06/29/2017 Colorectal Cancer Screening Discontinued Pneumococcal Immunization (65+) Completed , 08/13/2017 RSV Immunization ( o r 60+ Years) Completed 01/22/2023 Cologuard (Colon Cancer Screening) Discontinued FIT Test (Colon Cancer Screening) Discontinued Sigmoidoscopy (Colon Cancer Screening) Discontinued Medical Devices Implanted Type Area Wirer Passenger Car Device Identifier Shelf Expiration Date Model / Serial / Lot Cement Bone High Viscosity Tobramycin Radiopaque Single Dose Maloney 40gm Simplex [id number] - [id number] Implanted:Qty: 2 on 07/05/2022 by Jaiden King MD at [facility] Ortho Implant Left: Knee [facility] [id number] 02/18/2023 6197-9-00 1 / / [id number] Knee Tibial Baseplate Cemented Fix Uni Walker Sz5 Triathlon [id number] - [id number] Implanted:Qty: 1 on 07/05/2022 by Jaiden King MD at [facility] Plate Implant Left: Knee [facility] [id number] 05/25/2027 5521-B-50 0 / / [id number] Knee Fem Comp Cmntd Left Postrr Stblzd Triathlon Sz 5 [id number] - [id number] Implanted:Qty: 1 on 07/05/2022 by Jaiden King MD at [facility] Total Joint Implant Left: Knee [employer] 01/04/2027 5515-F-50 1 / / [id number] H Knee Stem Extension Cemented [id number] Triathlon [id number] - [id number] Implanted:Qty: 1 on 07/05/2022 by Jaiden King MD at [facility] Total Joint Implant Left: Knee [employer] [id number] 03/28/2027 5560-S-11 2 / / [id number] Insert Tibial Ps 5 10mm X3 Triathlon - [id number] Implanted:Qty: 1 on 07/05/2022 by Jaiden King MD at [facility] Total Joint Implant Left: Knee [facility] [id number] 04/27/2027 5532-G-51 0-E / / [id number] Right Upper Arm Staple-Mr Safe Procedures Procedure [...] Cholesterol 194 <200 mg/dL 09/01/2022 14:12 T [facility] Comment:Note that therapeuti c goals will differ between patients based on cardiac risk factors and current medical therapy. HDL 64 >=40 mg/dL 09/01/2022 14:12 [facility] Comment:Note that therapeuti c goals will differ between patients based on cardiac risk factors and current medical therapy. LDL, Calculated 113 <160 mg/dL 14:12 T [facility] Comment:Note that therapeuti c goals will differ between patients based on cardiac risk factors and current medical therapy. Triglyceride 83 <=150 mg/dL 09/01/2022 14:12 [facility] Comment:Note that therapeuti c goals will differ between patients based on cardiac risk factors and current medical therapy. Chol/HDL Ratio 3.0 See Note 09/01/2022 14:12 [facility] Comment:No reference range h as been established for CHOL/HDL ratio. Non HDL Cholesterol 130 <160 mg/dL 09/01/2022 14:12 [facility] Comment:Note that therapeuti c goals will differ between patients based on cardiac risk factors and current medical therapy. Blood VENOUS BLOOD / Unknown Venipuncture / Unknown 09/01/2022 13:18 EDT 09/01/2022 13:44 EDT Chris Daniels MD CHEMISTRY & BLOO D GAS ORDERABLES [facility] [address] [place] [address] * COLONOSCOPY PROCEDURE (06/29/2017 12:00 EDT) Anatomical [...] was 23 minutes. Estimated ??Blood Loss: None [place] Bowel Prep Right Colon: 3 ? Transverse [...] PCR HCSCR2 Negative Negative 02/01/2017 12:05 EST [facility] Blood specimen (specimen) BLOOD SPECIMEN / Unknown 01/31/2017 17:05 EST 01/31/2017 18:37 EST Adrien Saldivar MD CHEMISTRY & BLOOD G ORDERABLES [facility] [address] [place] [address] from Last 3 Months or Most Recently Relevant to Health Maintenance Advance Directives For more information, please contact: [phone] * Full Code (Latest Code Status on File) Date Activated Date Inactivated Comments 07/05/2022 8:58 07/06/2022 15:31 Question Answer Comments When the patient has NO PULSE: Full Code / CPR Who Made the Decision? Default/Not Discussed Care Teams Physicist Light And Optics Relationship Specialty Start Date End Date Chris Daniels MD [address] [place] [phone] PCP - General Internal Medicine - Primary Care 08/08/19
--- OUTSIDE RECORDS SUMMARY | 2023-09-14 02:26 | XMS_ITS | Encounter Summary ---
Author Organization [facility] Address [address] [place] [address] Care Team Providers Care Media Sales Representative Name Role Phone Chris Daniels MD Primary Care Provider + Melissa Dobbs HAND COLLATOR Unavailable [phone] Encounter Details Date Type Department Care Team (Late st Contact Info) Description 02/03/2022 Patient Outreach [facility] Adult Primary Care - [place] [address] [place], [place] [address] Melissa Dobbs HAND COLLATOR 1 [facility], [address] [place] [address] Social History Tobacco Use Types Packs/Day Years Used Date Smoking Tobacco: Never Smokeless Tobacco: Never Alcohol Use Standard Drinks/Week Comments Yes 7 (1 standard drink = 0.6 oz pur e alcohol) Cider Overall Financial Resource Strain (CARDIA) Answe r [...] Progress Notes * Melissa Dobbs LICSW - 02/03/2022 0819 EST [facility] Care Management Initial Assessment and Care Plan Referral Reason: Counseling referrals Pertinent medical and behavioral health issues: Depressive Disorder Parkinson's Patient Care Team: Chris Daniels MD as PCP - General (Internal Medicine - Primary Care) Melissa Dobbs LICSW as Senior Linux Unix Administrator Medications: Current Outpatient Medications: ??? carbidopa-levodopa (SINEMET) 25-100 mg per tablet, Take 1 Tablet by mouth 3 times daily before meals., Disp: 270 Tablet, Rfl: 1 ??? ibuprofen (MOTRIN) 200 mg tablet, Take 400 mg by mouth every 6 hours as needed for Pain. , Disp: , Rfl: ??? lisinopriL (PRINIVIL) 10 mg tablet, Take 1 Tablet by mouth daily., Disp: 90 Tablet, Rfl: 3 ??? sertraline (ZOLOFT) 50 mg tablet, Take 1 Tablet by mouth daily., Disp: 60 Tablet, Rfl: 1 ??? triamcinolone (KENALOG) 0.1 % cream, Apply a thing film to areas of rash once to twice to dailyuntil rash resolves (Patient not taking: No sig reported), Disp: 80 g, Rfl: 1 CM reviewed medication list in the chart Living Arrangement: Lives with Social Supports: , family, friends Activities requiring assistance: Independent with ADLs Current plan for assistance with ADLs: not applicable Hearing/Vision: no hearing or visual limitations identified Cognitive Function: No cognitive impairment identified Health literacy Assessment: patient is able to read/write, appropriate to their developmental age Social Determinants of Health: SDOH screen completed during visit: No Food Insecurity: No Food Insecurity ??? Worried About Running Out of Food in the Last Year: Never true ??? Ran Out of Food in the Last Year: Never true Financial Resource Strain: Low Risk ??? Difficulty of Paying Living Expenses: Not hard at all Housing Stability: Low Risk ??? Unable to Pay for Housing in the Last Year: No ??? Number of Places Lived in the Last Year: 1 ??? Unstable Housing in the Last Year: No Transportation Needs: No Transportation Needs ??? Lack of Transportation (Medical): No ??? Lack of Transportation (Non-Medical): No Depression: At risk ??? PHQ-2 Score: 4 Alcohol Use: Not on file Tobacco Use: Low Risk ??? Smoking Tobacco Use: Never ??? Smokeless Tobacco Use: Never ??? Passive Exposure: Not on file Healthcare Insurance: Payer/Plan Subscr Sex Relation Sub. Ins. ID Effective Group Num 1. [employer] MEDICARE * WILLAM NEGRON 1945 Male Self [id number] 01/20/20 [id number] [address] DME: none DME vendor: not applicable Barriers to using technology: none identified Need for Caregiver Resources: independent without need for assistance Cultural, spiritual or language factors affecting health: none identified Existing Community Resources: EA Gaps in Resources Identified: Mental Health Counseling Advance Directive on File: AD not on file Assessment/Clinical Summary: Patient is a 76 year old man who was referred for care management by his primary provider Dr. Chris Daniels for assistance in connecting to mental health counseling. This visit was conducted with patient and his Azeb via phone. Patient lives in with his . He has been experiencing worsening mood symptoms in the context of potential new diagnosis of Parkinson's Disease. At his recent PCP visit patient expressed perseverating thoughts on dying. Patient recently started on SSRI therapy for current symptoms but also interested in connecting with a community therapist. Patient denied any Suicidal Ideation when speaking with this gag writer. Reviewed Crisis contact information with patient and . Gave resource information and contact information for [facility] in [facility], also reviewed local crisis numbers. ?? Patient will be out of town for the holidays-in [place]. He will be returning to [place] in Mid February. ?? Agreed that CM will reach back out Mid to late February. Prioritized Patient Identified Goals: 1. Patient will reach out to [facility] in the next 2 weeks to establish with a community therapist. 2. Patient will follow up with CM in one month. Plan CM will follow-up in one month MELVI HOPE 06/02/2022 12:14 documented in this encounter Plan of Treatment Upcoming Encounters Date Type Department Care Team ([facility] Contact Info) Description 09/19/2023 14:15 EDT Office Visit [facility] Adult Primary Care - [place] [address] [place] [address] Chris Daniels MD [address] [place] [phone] 10/19/2023 9:00 EDT Office Visit [facility] Hand & Upper Extremity Program - [place] [address] Ant Nguyen MD [address] [place] [address] 01/07/2024 13:15 EST Office Visit [facility] Neurology - [address] [address] Salma Richardson MD [address] [place] [address], [address] [place] [address] documented as of this encounter Visit Diagnoses Not on filedocumented in this encounter Care Teams Media Sales Representative Relationship Specialty Start Date End Date Chris Daniels MD [address] [place] [phone] PCP - General Internal Medicine - Primary Care 08/08/19 Melisas Dobbs, [facility] 1 [facility], [address] [place] [address] Senior Linux Unix Administrator 03/13/22 09/13/22 documented as of this encounter
--- OUTSIDE RECORDS SUMMARY | 2023-09-14 02:26 | XMS_ITS | Encounter Summary ---
Author Organization [facility] Address [address] [place] [address] Care Team Providers Care Policy Loan Calculator Name Role Phone Chris Daniels MD Primary Care Provider + Reason for Referral * Radiology Services (Routine/Next Available) - Authorization Not Required Specialty Diagnoses / Procedures Referred By Contac t Referred To Contact Diagnoses Left knee pain, unspecified chronicity Primary osteoarthritis of left knee Procedures CT KNEE LEFT RASTA PROTOCOL CT KNEE LEFT WO CONTRAST Jaiden King MD [address] [place] [phone] [facility] Referral ID Status Reason Start Date Expiration Date Visits Requested Visits Authorized [id number] Authorization Not Required 03/07/2022 1 1 * Radiology Services (Routine/Next Available) - Authorization Not Required Specialty Diagnoses / Procedures Referred By Contac t Referred To Contact Diagnoses Left knee pain, unspecified chronicity Procedures XR KNEE RIGHT 3 VIEWS Jaiden King MD [address] [place] [address] [facility] Referral ID Status Reason Start Date Expiration Date Visits Requested Visits Authorized [id number] Authorization Not Required 03/06/2022 1 1 * Radiology Services (Routine/Next Available) - Authorization Not Required Specialty Diagnoses / Procedures Referred By Contac t Referred To Contact Diagnoses Left knee pain, unspecified chronicity Procedures XR KNEE LEFT 4 OR MORE VIEWS Jaiden King MD [address] [place] [address] [facility] Referral ID Status Reason Start Date Expiration Date Visits Requested Visits Authorized [id number] Authorization Not Required 03/06/2022 1 1 Reason for Visit * Reason Comments Pain Encounter Details Date Type Department Care Team (Latest Contact Info) Description 03/06/2022 13:00 EST Office Visit [facility] Total Joint Program - [facility] [address] [place] [address] Jaiden King MD [address] [place] [address] Right knee pain, unspecified chronicity (Primary Dx); Left knee pain, unspecified chronicity; Primary osteoarthritis of left knee Social History Tobacco Use Types Packs/Day Years [...] Progress Notes * Jaiden King MD - 03/06/2022 1300 EST Attestation statement: I performed or was present during the delgado or critical portions of the visit and participated in the management of the patient. I agree with the findings and plan of care documented in the resident's/fellow's note. * Geovany Champagne MD - 03/06/2022 1300 EST Total Joints Clinic Note: Chief Complaint: Left knee pain HPI: Willam Negron is a 76 y.o. male with medical history most notable for Parkinson's disease and remote left tibia/fibula fracture treated nonoperatively presenting in clinic with left knee pain. The pain has been present for years. Patient states that he has had ongoing/gradual increasing pain in bilateral knees for many years. The left is worse than the right. He describes symptoms on theright side is tolerable and the left is generally worse as well as limiting from any forms of dailyactivities. He states that prior to the onset of his issues with his knees he enjoyed such activities as skiing and snowshoeing. His activity is also limited by the motor aspects of his parkinsonism.He endorses similar pain in his right shoulder, though states that he is primarily concerned with his knee as a relates to his ability to mobilize. For the pain he has tried Advil and [id number] pain medications without substantial relief. He is in the process of arranging neurology consultation for his Parkinson's and this is currently scheduled to take place on 03/27/2022. Difficulty: Ambulation Tried: OTCs Assistive device: None Past medical history, surgical history, medications, allergies, family history, and social history were reviewed in [facility]. Pertinent findings discussed include Parkinson's disease, hypertension, depression. Objective: Left knee: Skin intact no lesions or rashes Effusion: present ROM: 10-110 degrees Laxity with varus stress. Stable to valgus stress, negative anterior posterior drawer 5/5 quad/ta/gas SILT L4-S1 2+ dp pulse Hip with normal pain-free ROM Generally increased tone throughout Right knee: Skin intact no lesions or rashes Effusion: None ROM: 10-115 degrees Laxity with varus and valgus stress. negative anterior posterior drawer 5/5 quad/ta/gas SILT L4-S1 2+ dp pulse Hip with normal pain-free ROM Generally increased tone throughout Imaging: Plain radiographs of the left knee were ordered and demonstrate Assessment/Medical Decision Making: Willam Negron is a 76 y.o. male who presents with symptomatic degenerative joint disease at his left knee. This is severely affecting his quality of life. He has failed nonsurgical management. I described the procedure in detail and we had a long discussion regarding the risks, benefits, and alternatives to a total knee arthroplasty. Risks discussed includebut not limited to: risks associated with anesthesia, bleeding, nerve damage (rarely motor, but more commonly sensory), infection, stiffness, instability, leg length inequality, fracture, prosthetic loosening, and implant wear, DVT, PE. All in all, I feel he is an appropriate candidate for a total k nee replacement, and he elected to proceed, pending outpatient neurology optimization of his parkonsinism Plan: Left TKA Rasta Wallace IV TXA Aspirin Low risk antibiotic protocol Standard Recovery All questions and concerns were answered. Patient seen and discussed with Dr. Christine CHAMPAGNE MD 03/06/2022 13:49 No flowsheet data found. No flowsheet data found. No flowsheet data found. Past Medical History: Diagnosis Date ??? Arthritis left knee ??? Broken bones leg, fingers ??? Hypertension ??? Joint pain ??? Joint swelling ??? Numbness Patient Active Problem List Diagnosis Date Noted ??? Primary parkinsonism (HCC) 10/27/2021 ??? Gluten intolerance 08/08/2019 ??? Thumb pain, left 01/31/2017 ??? Essential hypertension 01/31/2017 ??? Osteoarthritis of glenohumeral joint 03/05/2014 Past Surgical History: Procedure Laterality Date ??? KNEE SURGERY right and left knees ??? SHOULDER SURGERY Family History Problem Relation Age of Onset ??? Heart Disease Father ??? Stroke Father ??? High Blood Pressure Brother ??? *Other(comment) Brother Fernández's lung Social History Socioeconomic History ??? Marital status: Occupational History ??? 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 Smoking status: Never ??? Smokeless tobacco: Never Substance and Sexual Activity ??? Alcohol use: Yes Alcohol/week: 7.0 standard drinks Types: 7 Standard drinks or equivalent per week Comment: Cider ??? Drug use: No ??? Sexual activity: Yes Partners: Female control/protection: Post-menopausal Social Determinants of Health Financial Resource Strain: Low Risk ??? Difficulty of Paying Living Expenses: Not hard at all Food Insecurity: No Food Insecurity ??? Worried About Running Out of Food in the Last Year: Never true ??? Ran Out of Food in the Last Year: Never true Transportation Needs: No Transportation Needs ??? Lack of Transportation (Medical): No ??? Lack of Transportation (Non-Medical): No Housing Stability: Low Risk ??? Unable to Pay for Housing in the Last Year: No ??? Number of Places Lived in the Last Year: 1 ??? Unstable Housing in the Last Year: No Medications Prior to Today's Visit Medication Sig ??? ibuprofen (MOTRIN) 200 mg tablet Take 400 mg by mouth every 6 hours as needed for Pain. ??? lisinopriL (PRINIVIL) 10 mg tablet Take 1 Tablet by mouth daily. ??? sertraline (ZOLOFT) 50 mg tablet Take 1 Tablet by mouth daily. ??? triamcinolone (KENALOG) 0.1 % cream Apply a thing film to areas of rash once to twice to daily until rash resolves (Patient not taking: No sig reported) No facility-administered medications prior to visit. Allergies Allergen Reactions ??? Codeine ??? Novacaine [Procaine (Bulk)] Sends me for a loop * Tasha Arriaga RN - 03/06/2022 1300 EST Patient education provided at this visit: Total Joint Education Binder given. Pre/post-op information and expectations reviewed. Pre-op physical and lab work requirements reviewed. Pre-op Tylenol protocol reviewed. Total Joint Education class information provided. Pre-op showering instructions given, soap provided. MRSA/MSSA Nasal swab screening explanation provided. DME requirements reviewed Patient Education Topic: Left TKA Method: Handout and Verbal Taught to: Family and Patient Barriers: None Outcomes: independent and verbalized understanding Height 5'7 Weight 141 BMI 22.08 Anticipated discharge standard I was directly supervised by Dr. King who was in the office & immediately available. documented in this encounter Miscellaneous Notes * Addendum Note - Tasha Arriaga RN - 03/06/2022 1300 ESTAddended by: TASHA ARRIAGA on: 03/07/2022 09:49 Modules accepted: Orders documented in this encounter Plan of Treatment Upcoming Encounters Date Type Department Care Team (Late st Contact Info) Description 09/19/2023 14:15 EDT Office Visit [facility] Adult Primary Care - [place] [address] [place] [address] Chris Daniels MD [address] [place] [address] 10/19/2023 9:00 EDT Office Visit [facility] Hand & Upper Extremity Program - [address] [address] Ant Nguyen MD [address] [place] [address] 01/07/2024 13:15 EST Office Visit [facility] Neurology - [address] [address] Salma Richardson MD [address] [place] [address], [address] [place] [address] documented as of this encounter Results * PRE-OP TYPE AND SCREEN (06/12/2022 10:49 EDT) Pathologist [facility] Hold BB Specimen valid up to 30 days from collection date. BBHOLD 06/12/2022 14:37 EDT [facility] BLOOD BANK Blood VENOUS BLOOD / Unknown Venipuncture / Unknown 06/12/2022 10:49 EDT 06/12/2022 11:14 EDT Jaiden King MD BLOOD BANK TESTS [facility] BLOOD BANK [address] [facility] [place] [address] * MRSA PCR (06/12/2022 10:49 EDT) MRSA/Staph aureus Result Staphylococcus aureus detected by PCR (MRSA NOT detected) 06/12/2022 16:43 EDT [facility] LABORATORY SERVICES Swab ENTIRE NARIS / Unknown Swab / Unknown 06/12/2022 10:49 EDT 06/12/2022 12:14 EDT Jaiden King MD MICROBIOLOGY - [facility] AL ORDERABLES [facility]ORY [facility] [address] [place] [address] * (ABNORMAL) COMPLETE BLOOD COUNT AND DIFFERENTIAL (06/12/2022 10:49 EDT) WBC 4.73 4.00 - 10.40 K/cmm [facility] RBC 3.75(L) 4.36 - 5.78 M/cmm 06/12/2022 11:55 [facility] Hemoglobin 12.6(L) 13.8 - 17.3 gm/dL 06/12/2022 11:55 [facility] HCT 37.4(L) 39.5 - 50.2 % 06/12/2022 11:55 [facility] MCV 100(H) 81 - 95 fl 06/12/2022 11:55 [facility] MCH 33.6(H) 27.6 - 33.0 pg 06/12/2022 11:55 [facility] MCHC 33.7 32.8 - 36.4 gm/dL 06/12/2022 11:55 [facility] RDW-CV 12.5 <14.2 % 06/12/2022 11:55 [facility] RDW-SD 45.1 <46.0 fl 06/12/2022 11:55 [facility] PLT 278 141 - 377 K/cmm 06/12/2022 11:55 [facility] MPV 9.3(L) 9.5 - 12.7 fl 06/12/2022 11:55 [facility] % Neutrophils 64.4 % 06/12/2022 11:55 [facility] % Lymphocytes 22.6 % 06/12/2022 11:55 [facility] % Monocytes 9.5 % 06/12/2022 11:55 [facility] % Eosinophils 2.7 % 06/12/2022 11:55 [facility] % Basophils 0.6 % 06/12/2022 11:55 [facility] % Immature Grans 0.2 % 06/13/19 11:55 [facility] Absolute Neutrophils 3.04 2.20 - 8.85 K/cmm 06/12/2022 11:55 [facility] Absolute Lymphocytes 1.07(L) 1.09 - 3.30 K/cmm 06/12/2022 11:55 [facility] Absolute Monocytes 0.45 0.10 - 0.80 K/cmm 06/12/2022 11:55 [facility] Absolute Eosinophils 0.13 0.03 - 0.61 K/cmm 06/12/2022 11:55 [facility] ABS Basophils 0.03 0.01 - 0.11 K/cmm 06/12/2022 11:55 [facility] Absolute Immature Grans 0.01 0.00 - 0.06 K/cmm 06/12/2022 11:55 [facility] Type of Differential: Auto 06/12/2022 11:55 [facility] Blood VENOUS BLOOD / Unknown Venipuncture / Unknown 06/12/2022 10:49 EDT 06/12/2022 11:41 EDT Jaiden King MD PACKAGES & DNA PROBE ORDERABLES [facility] [address] [place] [address] * BASIC METABOLIC PANEL (BMP) (06/12/2022 10:49 EDT) Sodium 138 136 - 145 mmol/L 06/12/2022 12:27 [facility] Potassium 4.7 3.5 - 5.0 mmol/L 06/12/2022 12:27 [facility] Chloride 104 96 - 110 mmol/L 06/12/2022 12:27 T [facility] CO2 Total 27 22 - 32 mmol/L 06/12/2022 12:27 EDT [facility] Anion Gap 7 5 - 14 06/12/2022 12:27 EDT [facility] Glucose 88 70 - 100 mg/dL 06/12/2022 12:27 EDT [facility] Calcium 9.2 8.5 - 10.5 mg/dL 06/12/2022 12:27 EDT [facility] BUN 22 10 - 26 mg/dL 06/12/2022 12:27 T [facility] Creatinine 0.70 0.66 - 1.25 mg/dL 06/12/2022 12:27 EDT [facility] eGFR 95 >60 mL/min/1.73 m2 06/12/2022 12:27 EDT [facility] Blood VENOUS BLOOD / Unknown Venipuncture / Unknown 06/12/2022 10:49 EDT 06/12/2022 11:42 EDT Jaiden King MD CHEMISTRY & BLOOD GA S ORDERABLES [facility] [address] [place] [address] * ALBUMIN (06/12/2022 10:49 EDT) Albumin 4.3 3.4 - 4.9 g/dL 06/12/2022 12:18 EDT [facility] Blood VENOUS BLOOD / Unknown Venipuncture / Unknown 06/12/2022 10:49 EDT 06/12/2022 11:42 EDT Jaiden King MD CHEMISTRY & BLOOD GA S ORDERABLES [facility] [address] [place] [address] * CT KNEE LEFT RASTA PROTOCOL (06/06/2022 11:10 EDT) Narrative 06/06/2022 11:11 EDT This is a non-reportable exam. Jaiden HOLDEN OTHER IMAGING OR DERABLES * XR KNEE LEFT 4 OR MORE VIEWS (03/06/2022 13:18 EST) Anatomical Region Laterality Modality Lower Extremities Left Computed Radio graphy 03/06/2022 16:3 3 EST Impressions 03/06/2022 16:33 EST FINDINGS / IMPRESSION: * ??Left knee 4 views: Tricompartment degenerative changes which are severe as well as chondrocalcinosis. Likely healed proximal fibular fracture. Mild osseous demineralization. Moderate to large joint effusion. * ??Right knee 3 views: Tricompartment degenerative changes which are moderate to severe in the medial compartment. Narrative 03/06/2022 16:33 EST EXAM/TECHNIQUE: 03/06/2022 1:30 PM ??XR KNEE RIGHT 3 VIEWS, XR KNEE LEFT 4 OR MORE VIEWS 3 (accession [id number]), 4 (accession [id number]) views ?? HISTORY: ??right for comparison Procedure Note Fabricio Ortiz MD - 03/06/2022 EXAM/TECHNIQUE: 03/06/2022 1:30 PM XR KNEE RIGHT 3 VIEWS, XR KNEE LEFT 4OR MORE VIEWS 3 (accession [id number]), 4 (accession [id number]) views HISTORY: right for comparison IMPRESSION FINDINGS / IMPRESSION: * Left knee 4 views: Tricompartment degenerative changes which are severeas well as chondrocalcinosis. Likely healed proximal fibular fracture.Mild osseous demineralization. Moderate to large joint effusion. * Right knee 3 views: Tricompartment degenerative changes which aremoderate to severe in the medial compartment. Jaiden HOLDEN DIAGNOSTIC IMAGI NG ORDERABLES * XR KNEE RIGHT 3 VIEWS (03/06/2022 13:13 EST) Anatomical Region Laterality Modality Lower Extremities Right Computed Radio graphy 03/06/2022 16:3 3 EST Impressions 03/06/2022 16:33 EST FINDINGS / IMPRESSION: * ??Left knee 4 views: Tricompartment degenerative changes which are severe as well as chondrocalcinosis. Likely healed proximal fibular fracture. Mild osseous demineralization. Moderate to large joint effusion. * ??Right knee 3 views: Tricompartment degenerative changes which are moderate to severe in the medial compartment. Narrative 03/06/2022 16:33 EST EXAM/TECHNIQUE: 03/06/2022 1:30 PM ??XR KNEE RIGHT 3 VIEWS, XR KNEE LEFT 4 OR MORE VIEWS 3 (accession [id number]), 4 (accession [id number]) views ?? HISTORY: ??right for comparison Procedure Note Fabricio Ortiz MD - 03/06/2022 EXAM/TECHNIQUE: 03/06/2022 1:30 PM XR KNEE RIGHT 3 VIEWS, XR KNEE LEFT 4OR MORE VIEWS 3 (accession [id number]), 4 (accession [id number]) views HISTORY: right for comparison IMPRESSION FINDINGS / IMPRESSION: * Left knee 4 views: Tricompartment degenerative changes which are severeas well as chondrocalcinosis. Likely healed proximal fibular fracture.Mild osseous demineralization. Moderate to large joint effusion. * Right knee 3 views: Tricompartment degenerative changes which aremoderate to severe in the medial compartment. Jaiden King MD IMG DIAGNOSTIC IMAGI NG ORDERABLES documented in this encounter Visit Diagnoses Diagnosis Right knee pain, unspecified chronicity- Primary Left knee pain, unspecified chronicity Primary osteoarthritis of left knee Primary localized osteoarthrosis, lower leg Left knee pain, unspecified chronicity Left knee pain, unspecified chronicity Left knee pain, unspecified chronicity Primary osteoarthritis of left knee Primary localized osteoarthrosis, lower leg documented in this encounter Orders Case Request Count Last Ordered Date First Orde red Date CASE REQUEST OPERATING ROOM 1 03/06/2022 documented in this encounter Care Teams Policy Loan Calculator Relationship Specialty Start Date End Date Chris Daniels MD [address] [place] [address] PCP - General Internal Medicine - Primary Care 08/08/19 documented as of this encounter
--- OUTSIDE RECORDS SUMMARY | 2023-09-14 02:26 | XMS_ITS | Encounter Summary ---
Author Organization [facility] Address [address] [place] [address] Care Team Providers Care Endocrinology Physician Name Role Phone Chris Daniels MD Primary Care Provider + Melissa Dobbs TOP CLOSER Unavailable [phone] Reason for Visit * Auth/Cert (Routine) Specialty Diagnoses / Procedures [facility] Referred To Contact Diagnoses Primary osteoarthritis of left knee Procedures [place] TOTAL KNEE ARTHROPLASTY BONE SURGERY USING COMPUTER ASSIST, CT/ MRI GUIDED Left Total Knee Arthroplasty SURGICAL PROCEDURE, ORTHOPEDIC, USING COMPUTER-ASSISTED CT OR MRI NAVIGATION Jaiden King MD [address] [place] [phone] Referral ID Status Reason Start Date Expiration Date Visits Re quested Visits Authorized [id number] 03/06/2022 1 1 Encounter Details Date Type Department Care Team (Late st Contact Info) Description 07/05/2022 10:33 EDT Anesthesia Event [facility] [place] [address] [place], [place] [phone] Ankit Vaenssa MD [address] [facility] 2 [place] [address] Shameka Hauser MD Anesthesia Record Procedure Summary Procedure Name Responsible Anesthesiologist Anesthesia Start Time Anesthesia Stop Time Left Total Knee Arthroplasty (Left: Knee) Ankit Vanessa MD 07/05/22 1033 07/05/22 1350 Events Date Time Event Comment 07/05/2022 1033 An Start The patient was re-evaluated immediately before moderate or deep sedation use, before anesthesia induction, or before the anesthesia procedure. 1033 An Start Data 1033 An Induction The patient was reevaluated immediately before moderate or deep sedation use and before anesthesia induction. 1033 An Intubation 1044 Anesthesia Ready 1106 An Tourn Inflated Tourniquet Inflated - Location = lle, Pressure = 250 mmHg 1153 An Tourn Deflated Tourniquet Deflated - Duration = 46 minutes 1156 An Tourn Inflated Tourniquet Inflated - Location = lle Pressure = 250 mmHg 1309 An Tourn Deflated Tourniquet Deflated - Duration = 120 minutes 1340 an stop data 1349 Handoff to RN I completed my handoff to the receiving nurse during which we: 1. Identified the patient 2. Identified the responsible provider 3. Reviewed the pertinent medical history 4. Discussed the surgical course 5. Reviewed intra-op anesthesia management and issues during anesthesia 6. Set expectations for post-procedure period 7. Allowed opportunity for questions and acknowledgement of understanding. 1350 An Stop Meds Name Total ketAMINE 5 mL prefilled syringe 20 mg midazolam (VERSED) injection 1 mg/mL 2 m g ondansetron (PF) (ZOFRAN) injection 4 mg propOFol (DIPRIVAN) injection 267,286 mc g bupivacaine (PF) 0.5 % injection 1.8 mL ceFAZolin (ANCEF) syringe 2 g 2 g tranexamic acid (CYKLOKAPRON) injection 1,000 mg 2 g ropivacaine 5 mg/mL vial 10 mL lactated ringers (LR) infusion 850 mL * Agents Name O2 N2O Air Aux O2 flow * Blood No blood administrations on file. Lines, Drains, and Airways Type Details Placement Removal Wound 07/05/22; Incision; Anterior, Left; Knee; left TKR; N 07/05/22 0000 by Kristal Chávez, PASTORA Peripheral IV 07/05/22; 1011; 20; Anterior, Distal, Right; Forearm; Inserted by RN; 1; None; 3.15% Chlorhexidine with IPA; 07/06/22; 1128 07/05/22 1011 by Avril Multani RN 07/06/22 1128 by Lucinda Prsaad RN documented in this encounter Social History Tobacco Use Types Packs/Day Years Used Date Smoking Tobacco: Never Smokeless Tobacco: Never Alcohol Use Standard Drinks/Week Comments Not Currently 1 (1 standard drink = 0.6 oz pur e alcohol) Once a week a nano Overall Financial Resource Strain (CARDIA) Answe r [...] Date Record ed How often does anyone, robertjudith aixa family, hit, punch or physically hurt you? Never 08/17/2021 How often does anyone, robertjudith aixa family, insult, scream, curse or threaten [...] No 01/31/2017 documented as of this encounter OR Notes * Anesthesia Procedure Notes - Ro Garcia MD - 07/05/2022 1431 EDT Associated Order(s): Peripheral Block - Single Shot Peripheral Block - Single Shot Patient location during procedure: post-op Start time: 07/05/2022 14:21 End time: 07/05/2022 14:31 Staffing Performed: anesthesiologist Anesthesiologist: Ro Garcia MD Preanesthetic Checklist Completed: patient identified, IV checked, risks and benefits discussed, surgical consent, monitorsand equipment checked, pre-op evaluation and timeout performed Peripheral Block Patient position: sitting Prep: ChloraPrep, skin prep agent completely dried prior to procedure, sterile gloves and mask used Patient monitoring: BP cuff, heart rate, continuous pulse ox and yeast fermentation attendant Patient sedation: no sedation Block type: adductor canal block Laterality: left Injection technique: single-shot Guidance: ultrasound guided Needle Needle type: Pajunk Needle gauge: 20 G Needle length: 100 mm Needle localization: ultrasound guidance Test dose: negative Assessment Injection assessment: negative aspiration for heme, no paresthesia on injection, incremental injection and local visualized surrounding nerve on ultrasound Paresthesia pain: none Heart rate change: no Slow fractionated injection: yes Ultrasound Equipment Machine used: Son[employer]ite SII (UVC) sterile probe cover Probe did NOT contact body fluids/broken skin. Standard cleaning with recommended disinfectant at surgeon's request, for post-op pain management * Anesthesia Postprocedure Evaluation - Tomas Yusuf CRNA - 07/05/2022 1350 EDT Patient: Willam Negron Vital signs were reviewed with the recovery nurse. Complete vitals history is available in the Epicflowsheets. Vitals Value Taken Time BP 121/73 07/05/22 1345 Temp 37.2 07/05/22 1350 Resp 10 07/05/22 1350 Pulse From Oximetry 84 BPM 07/05/22 1350 SpO2 100 % 07/05/22 1350 Heart Rate 83 BPM 07/05/22 1350 Vitals shown include unvalidated device data. Last Pain Score - Numeric Pain Level (Scale 1-10): 0 Type of Anesthesia - neuraxial block Anesthesia Post Evaluation Level of consciousness: awake Temperature status: normothermia Respiratory status: airway patent Cardiovascular status: acceptable Hydration status: adequate Nausea/Vomiting: none Pain management: adequate Post-Op Assessment: patient tolerated procedure well with no complications Patient participation: able to participate (moving legs ) Disposition: outpatient/home Anesthesia Complications: No apparent anesthesia complications * Anesthesia Procedure Notes - Tomas Yusuf CRNA - 07/05/2022 1107 EDT Associated Order(s): Spinal Block Spinal Block Patient location during procedure: OR Reason for Procedure: surgical anesthesia Staffing Performed: resident/MANUFACTURING PLANT MANAGER/AA Preanesthetic Checklist Completed: patient identified, IV checked, site marked, risks and benefits discussed, surgical consent, monitors and equipment checked, pre-op evaluation and timeout performed Spinal Block Patient position: sitting Prep: Betadine Patient monitoring: BP cuff, heart rate, yeast fermentation attendant and continuous pulse ox Patient sedation: anxiolysis Approach: midline Location: L3-4 Needle Needle type: Quincke Needle gauge: 25 G Assessment Events: cerebrospinal fluid Additional Notes Smooth,easy, no paresthesia, good csf flow via 25g Q and good withdraw before and after injection * Anesthesia Preprocedure Evaluation - Ankit Vanessa MD - 07/05/2022 1015 EDT Anesthesia Preprocedure Evaluation Patient Medical History, including Anesthesia History reviewed. Chart and Nursing Notes reviewed, including NPO status and Medication History. Additional ROS/History Findings: Allergies Allergen Reactions ??? Novacaine [Procaine (Bulk)] Anaphylaxis Tongue and throat swelling ??? Codeine Other (See Comments) Hallucinations Review of Systems Constitutional: Negative for chills and fever. HENT: Negative for sore throat. Respiratory: Negative for cough, sputum production, shortness of breath and wheezing. Cardiovascular: Negative for chest pain and palpitations. Gastrointestinal: Negative for heartburn. Psychiatric/Behavioral: The patient is not nervous/anxious. Past Medical History: Diagnosis Date ??? Activity, other involving cardiorespiratory exercise Noted 06/26/22- Gym 3 times weekly, treadmill, rowing machine. 1-2 FOS without any SOB ??? Anesthesia complication Noted 06/26/22-Hallucinations with use of Demerol for post op contractions/shivering ??? Anxiety Noted 06/26/22-Doing well on Zoloft ??? Broken bones leg, fingers ??? 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 Depression Noted 06/26/22- Treated with Zoloft and doing ok per pt ??? Gluten intolerance Noted 06/26/22 ??? Hypertension Noted 06/26/22-Bp elevated at Preop appt, Lisinopril increased to 20mg 170/96 ??? Joint pain Noted 06/26/22- Left knee ??? Joint swelling Noted 06/26/22-Left knee ??? Numbness ??? Osteoarthritis of glenohumeral joint Noted 06/26/22 ??? Osteoarthritis of left knee Noted 06/26/22 ??? Pain Noted 06/26/22- Left knee pain Relevant Problems CARDIOVASCULAR (+) Essential hypertension Physical Exam Airway Mallampati: II TM distance: >3 FB Neck ROM: full Cardiovascular - normal exam Dental - normal exam Pulmonary - normal exam Abdominal - normal exam Anesthesia Plan ASA 3 Anesthesia Type - neuraxial block - via spinal Block for post-op pain? Yes - via adductor canal block Anesthesia plan and risks discussed. Informed consent obtained from patient. Specific risks discussed were incomplete block. Code status discussed? No The preoperative history and physical which was performed within 30 days of this procedure, has been reviewed and the clinically appropriate elements of the physical examination have been repeated. There are no changes to the documented history and physical or, if so, such changes are documented inthis note PAT Note Notes from 06/05/22 through 07/05/22 No notes of this type exist for this encounter. documented in this encounter Miscellaneous Notes * Addendum Note - Ro Garcia MD - 07/05/2022 1432 EDT Addendum created 07/05/22 1432 by Ro Garcia MD Child order released for a procedure order, Clinical Note Signed, Intraprocedure Blocks edited, Intraprocedure Meds edited, SmartForm saved documented in this encounter Plan of Treatment Upcoming Encounters Date Type Department Care Team (Late st Contact Info) Description 09/19/2023 14:15 EDT Office Visit [facility] Adult Primary [facility] - [place] [address] [place], [place] [phone] Chris Daniels MD [address] [place] [phone] 10/19/2023 9:00 EDT Office Visit [facility] Hand & Upper Extremity Program - [address] [phone] Ant Nguyen MD [address] [place] [address] 01/07/2024 13:15 EST Office Visit [facility] Neurology - [address] [phone] Salma Richardson MD [address] [place] [address], Level [address] [place] [phone] documented as of this encounter Procedures Procedure Name Priority Date/Time Associated Diagnosis Comments ANESTHESIA PERIPHERAL BLOCK - SINGLE SHOT Routine 07/05/2022 14:31 EDT ANESTHESIA SPINAL BLOCK Routine 07/05/2022 11:07 EDT documented in this encounter Results * Peripheral Block - Single Shot (07/05/2022 14:31 EDT) Narrative [facility] POINT OF CARE - 07/05/2022 14:31 EDT Ro Garcia MD ? 07/05/2022 14:31 Peripheral Block - Single Shot Patient location during procedure: post-op Start time: 07/05/2022 14:21 End time: 07/05/2022 14:31 Staffing Performed: anesthesiologist Anesthesiologist: Ro Garcia MD Preanesthetic Checklist Completed: patient identified, IV checked, risks and benefits discussed, surgical consent, monitors and equipment checked, pre-op evaluation and timeout performed Peripheral Block Patient position: sitting Prep: ChloraPrep, skin prep agent completely dried prior to procedure, sterile gloves and mask used Patient monitoring: BP cuff, heart rate, continuous pulse ox and yeast fermentation attendant Patient sedation: no sedation Block type: adductor canal block Laterality: left Injection technique: single-shot Guidance: ultrasound guided Needle Needle type: Pajunk Needle gauge: 20 G Needle length: 100 mm Needle localization: ultrasound guidance Test dose: negative Assessment Injection assessment: negative aspiration for heme, no paresthesia on injection, incremental injection and local visualized surrounding nerve on ultrasound Paresthesia pain: none Heart rate change: no Slow fractionated injection: yes Ultrasound Equipment Machine used: [employer] [facility] sterile probe cover Probe did NOT contact body fluids/broken skin. Standard cleaning with recommended disinfectant at surgeon's request, for post-op pain management Ankit Vanessa MD ANESTHESIA ORDERABL ES [facility] POINT OF CARE * Spinal Block (07/05/2022 11:07 EDT) Narrative Tomas Yusuf CRNA - 07/05/2022 11:07 EDT Tomas Yusuf CRNA ? 07/05/2022 11:08 Spinal Block Patient location during procedure: OR Reason for Procedure: ??surgical anesthesia Staffing Performed: resident/MANUFACTURING PLANT MANAGER/AA Preanesthetic Checklist Completed: patient identified, IV checked, site marked, risks and benefits discussed, surgical consent, monitors and equipment checked, pre-op evaluation and timeout performed Spinal Block Patient position: sitting Prep: Betadine Patient monitoring: BP cuff, heart rate, yeast fermentation attendant and continuous pulse ox Patient sedation: anxiolysis Approach: midline Location: L3-4 Needle Needle type: Marioe Needle gauge: 25 G Assessment Events: cerebrospinal fluid Additional Notes Smooth,easy, no paresthesia, good csf flow via 25g Q and good withdraw before and after injection Ankit Vanessa MD ANESTHESIA ORDERABL ES documented in this encounter Visit Diagnoses Not on filedocumented in this encounter Administered Medications Inactive Administered Medications - up to 3 most recent administrations Medication Order MAR Action Action Date Dose Rate Site BUPivacaine (PF) (MARCAINE) 0.5% injection epidural, PRN, Starting on Sun07/05/22 at 1045, Until Sun07/05/22 at 1350, Routine, Anesthesia Intraprocedure Given 07/05/2022 10:44 EDT 1.8 mL ceFAZolin (ANCEF) syringe 2 g 2 g, intravenous, Administer over 5 Minutes, PRE-OP ONCE, 1 dose, On Sun07/05/22 at 0915, Routine, Preprocedure Given 07/05/2022 10:40 EDT 2 g ketAMINE in NaCl, iso-osmotic (KETALAR) 50 mg/5 mL (10 mg/mL) IV injection intravenous, PRN, Starting on Sun07/05/22 at 1045, Until Sun07/05/22 at 1350, Routine, Anesthesia Intraprocedure Given 07/05/2022 12:11 EDT 10 mg Given 07/05/2022 10:45 EDT 10 mg lactated ringers (LR) infusion at 25 mL/hr, intravenous, CONTINUOUS, Starting on Sun07/05/22 at 0915, Until Diane 07/06/22 at 1531, Routine, Preprocedure Continued by Anesthesia 07/05/2022 10:33 EDT 25 mL/hr New Bag 07/05/2022 10:16 EDT 25 mL/hr midazolam (PF) (VERSED) injection intravenous, PRN, Starting on Sun07/05/22 at 1038, Until Sun07/05/22 at 1350, Routine, Anesthesia Intraprocedure Given 07/05/2022 10:49 EDT 1 mg Given 07/05/2022 10:43 EDT 0.5 mg Given 07/05/2022 10:38 EDT 0.5 mg ondansetron (PF) (ZOFRAN) injection intravenous, PRN, Starting on Sun07/05/22 at 1040, Until Sun07/05/22 at 1350, Routine, Anesthesia Intraprocedure Given 07/05/2022 10:40 EDT 4 mg propOFol (DIPRIVAN) injection intravenous, PRN, Starting on Sun07/05/22 at 1048, Until Sun07/05/22 at 1350, Routine, Anesthesia Intraprocedure Rate Change 07/05/2022 12:11 EDT 30 mcg/kg/min 11.268 mL/hr New Bag 07/05/2022 10:53 EDT 20 mcg/kg/min 7.512 mL/hr Given 07/05/2022 10:48 EDT 10 mg ROPivacaine (PF) (NAROPIN) 5 mg/mL (0.5 %) injection kevin-neural, PRN, Starting on Sun07/05/22 at 1426, Until Sun07/05/22 at 1431, Routine, Anesthesia Intraprocedure Given 07/05/2022 14:26 EDT 10 mL tranexamic acid (CYKLOKAPRON) injection 1,000 mg 1,000 mg (1 g), intravenous, INTRA-OP ONCE, 1 dose, On Sun07/05/22 at 0915, Indications: Elective orthopedic surgery procedure, Routine, Intraprocedure Given 07/05/2022 13:07 EDT 1 g Given 07/05/2022 10:53 EDT 1 g documented in this encounter Care Teams Endocrinology Physician Relationship Specialty Start Date End Date Chris Daniels MD [address] [place] [phone] PCP - General Internal Medicine - Primary Care 08/08/19 Melissa Dobbs LICSW 1 [facility], [address] [place] [address] Manager Bridge 03/13/22 09/13/22 documented as of this encounter
--- OUTSIDE RECORDS SUMMARY | 2023-09-14 02:26 | XMS_ITS | Encounter Summary ---
Author Organization [facility] Address [address] [place] [address] Care Team Providers Care Property Insurance Claims Examiner Name Role Phone Chris Daniels MD Primary Care Provider + Encounter Details Date Type Department Care Team (Late st Contact Info) Description 02/02/2022 Patient Outreach [facility] Adult Primary [facility] - [place] [address] [place] [address] Melissa Dobbs, [address], [address] [place] [address] Social History Tobacco Use Types [...] this encounter Progress Notes * Melissa Dobbs, CORPORATE ASSOCIATE ATTORNEY - 02/02/2022 5038 EST [facility] Switch Technician Care Coordination Patient was referred (Urgent) to care management by primary provider Dr. Chris Beasley for assistance in connecting to counseling resources. Patient recently seen by PCP on 02/01/22-depression in the context of recent dx with parkinsonian features and is scheduled for further evaluation by neurology Denies suicidal ideation. Gave resource information and contact information for [facility] in [facility], also reviewed local crisis numbers. Patient will be out of town for the holidays-in [place]. He will be returning to [place] in Mid February. Agreed that CM will reach back out Mid to late February. MELVI HOPE 02/03/2022 8:20 documented in this encounter Plan of Treatment Upcoming Encounters Date Type Department Care Team (Late st Contact Info) Description 09/19/2023 14:15 EDT Office Visit [facility] - [place] [address] [place], [place] [phone] Chris Daniels MD 2 [place] [phone] 10/19/2023 9:00 EDT Office Visit [facility] Hand & Upper Extremity Program - [address] [phone] Ant Nguyen MD [address] [place] [phone] 01/07/2024 13:15 EST Office Visit [facility] Neurology - [address] [phone] Salma Richardson MD [address] [place] [address], [address] [place] [phone] documented as of this encounter Visit Diagnoses Not on filedocumented in this encounter Care Teams Property Insurance Claims Examiner Relationship Specialty Start Date End Date Chris Daniels MD 2 [place] [address] PCP - General Internal Medicine - Primary Care 08/08/19 documented as of this encounter
--- OUTSIDE RECORDS SUMMARY | 2023-09-14 02:26 | XMS_ITS | Encounter Summary ---
Author Organization [facility] Address [address] [place] [address] Care Team Providers Care Bonding Machine Tender Name Role Phone Chris Daniels MD Primary Care Provider + Melissa Dobbs CABLE SUPERVISOR Unavailable [phone] Reason for Visit * Reason Onset Date Comments Medications Refill 05/26/2022 Encounter Details Date Type Department Care Team (Late st Contact Info) Description 05/26/2022 Telephone [facility] Neurology - [address] [address] Salma Richardson MD [address] [place] [address] [address] [place] [address] Medications Refill Social History Tobacco Use Types [...] before meals. 270 Tablet 1 05/26/2022 11/20/2022 documented in this encounter Miscellaneous Notes * Telephone Encounter - Kristal Higuera RN - 05/26/2022 1310 EDT Pt last seen 03/15/22 Next visit scheduled 08/23/22 Carbidopa Levodopa 25/100 RX last filled 03/15/22 RX sent to pharmacy per last visit instructions: - start carbidopa-levodopa 25/100mg tablets: 1/2 tablets TID before meals x 1 week, can increase to1 full tablet TID thereafter * Telephone Encounter - Stacie Jeffery - 05/26/2022 1122 EDT Medication Refill Medication(s) Requested: carbidopa-levodopa (SINEMET) 25-100 mg per tablet Pharmacy (reconcile pharmacy list): [id number] - [address] Is patient out of medication? YES Picking up/mailing (location)/calling in/eprescribe? escribe 30 day supply/90 day supply? 90 documented in this encounter Plan of Treatment Upcoming Encounters Date Type Department Care Team (Late st Contact Info) Description 09/19/2023 14:15 EDT Office Visit [facility] Adult Primary Care - [address] [address] Chris Daniels MD [address] [place] [phone] 10/19/2023 9:00 EDT Office Visit [facility] Hand & Upper Extremity Program - [address] [phone] Ant Nguyen MD [address] [place] [phone] 01/07/2024 13:15 EST Office Visit [facility] Neurology - [address] [phone] Salma Richardson MD [address] [place] [address] [address] [place] [phone] documented as of this encounter Visit Diagnoses Not on filedocumented in this encounter Discontinued Medications Medication Sig Discontinue Reason Start Date End Da te carbidopa-levodopa (SINEMET) 25-100 mg per tablet Take 0.5 Tablets by mouth 3 times daily before meals for 7 days, THEN 1 Tablet 3 times daily before meals for 30 days. Reorder 03/15/2022 05/26/2022 documented as of this encounter Care Teams Bonding Machine Tender Relationship Specialty Start Date End Date Chris Daniels MD [address] [place] [phone] PCP - General Internal Medicine - Primary Care 08/08/19 Melissa Dobbs LICSW 1 [facility], [address] [place] [phone] Van Helper 03/13/22 09/13/22 documented as of this encounter
--- OUTSIDE RECORDS SUMMARY | 2023-09-14 02:26 | XMS_ITS | Encounter Summary ---
Author Organization [facility] Address [address] [place] [address] Care Team Providers Care Welfare Eligibility Interviewer Name Role Phone Chris Daniels MD Primary Care Provider + Melissa Dobbs HOT DIPPER Unavailable [phone] Encounter Details Date Type Department Care Team (Late st Contact Info) Description 06/27/2022 Prep for Procedure [facility] Program - [address] [place], [place] [phone] Janene Hough, RN [address] [place] [address] Social History Tobacco Use Types Packs/Day Years [...] place to sleep or slept in a chcf (including now)? No 08/17/2021 Interpersonal Safety Answer [...] Visit [facility] Adult Primary Care - [place] 2 [place], [place] [phone] Chris Daniels MD [address] [place] [phone] 10/19/2023 9:00 EDT Office Visit [facility] Hand & Upper Extremity Program - [place] [address] Ant Nguyen MD [address] [place] [address] 01/07/2024 13:15 EST Office Visit [facility] Neurology - [address] [address] Salma Richardson MD [address] [place] [address], [address] [place] [phone] documented as of this encounter Visit Diagnoses Not on filedocumented in this encounter Care Teams Welfare Eligibility Interviewer Relationship Specialty Start Date End Date Chris Daniels MD [address] [place] [phone] PCP - General Internal Medicine - Primary Care 08/08/19 Melissa Dobbs, [facility] 1 [facility], 3rd [place] [address] Production Support Manager 03/13/22 09/13/22 documented as of this encounter
--- OUTSIDE RECORDS SUMMARY | 2023-09-14 02:26 | XMS_ITS | Encounter Summary ---
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 Quarter Screen: Given new use of assistive device and increased UE demand after LE surgery, this patient has been instructed in proper use of UE during mobility and prevention of overuse injuries as well as signs to watch for. Physical Therapy Diagnosis: This patient status post TKR presented with a PT diagnosis of decreasedROM, decreased strength, and decreased functional balance impacting functional mobility with post operative pain. ?? Impaired joint mobility, motor function, muscle performance and ROM associated with joint arthroplasty Physical Therapy Prognosis:This patient tolerated the initiation of therapeutic exercise and mobility well today. This patient is motivated and has good home set up and assistance at home. Today theydemonstrate the mobility level adequate for return to home with assistance. They are expected to continue to make steady gains with ongoing performance of exercises and mobility progression with follow up therapy. Follow up home PT is recommended for progression of exercises, home safety evaluationand progression to less restrictive or no device when ready. With treatment today they has been able to address education and training to meet goals noted below. Recommendations provided. Pt feels ready for dc home with spouse and home PT Short-Term Goals: N/A Long-Term Goals: 1 day - MET ?? The patient will be able to perform bed mobility with independent demonstrating appropriate sequencing/motor planning. ?? The patient will be able to perform bed to chair transfers with supervisionwhile demonstrating appropriate hand placement with assistive device use. ?? The patient will be able to ambulate with supervision 100'rw. . ?? The patient will be able to perform stairs with minimal contact assistance assist with appropriate home set up and proper sequencing. ?? The patient/caregiver will be aware of the recommendations provided and demonstrate an appropriate technique/understanding of the recommendations. ?? The patient will be able to perform therapeutic exercises 10 times active with good technique with written copy of exercises. PLAN: Discontinue PT in acute care Recommended Discharge Destination: Home with family Recommended Discharge Services: Home health physical therapy Recommended Equipment Needs: Patient has all necessary equipment Other recommendations: Social Work consult Pager: 1970 MARY TILLMAN PT 07/06/2022 10:39 * Sandor Wallace MD - 07/06/2022 0618 EDT Orthopaedic Surgery - Joints Progress Note Procedure: Left Total Knee Arthroplasty Using the RICH on 07/05/2022 Subjective: Doing well. Pain well controlled. Out of bed well yesterday and this morning. Denies any f/c/n/v/cp/sob. Feels like he will be ready to go home today. Objective: Blood pressure 122/74, temperature 35.8 ??C (96.4 ??F), temperature source Tympanic, resp. rate 16,SpO2 99 %. Left Lower extremity: Vascular: 2+ dp, Warm Sensation: Intact in Sural, Tibial, Sup & Deep Peroneal, Saphenous distributions Wound: Dressing c/d/i Motor: 06/23 ta/gas/fhl/ehl Assessment: Willam Negron is a 76 y.o. year old male with PMH significant for HTN, OA, parkinsons who is s/p Left Total Knee Arthroplasty Using the RICH on 07/05/2022. Recovering appropriate postoperative. Likely home today after PT evaluation Plan: Pain control - multimodal DVT Prophylaxis: Enteric coated aspirin 325 mg twice daily for 28 days Abx: cefazolin 2 grams IV every 8 hours for 24 hours Activity as tolerated Weight Bearing: As tolerated Keep knee straight while in bed. Place pillow under heel. PT eval pending Low risk antibiotic protocol Diet: heart healthy Dispo home today pending PT and a.m. labs SANDOR WALLACE MD 6:20 07/06/2022 * Sandor Wallace MD - 07/05/2022 8037 EDT Orthopaedic Surgery - Joints Postop Check Procedure: Left Total Knee Arthroplasty Using the RICH on 07/05/2022 Subjective: Doing well. Pain well controlled. Sitting in chair. Has been out of bed. Objective: Blood pressure 105/64, temperature 37 ??C (98.6 ??F), resp. rate 12, SpO2 98 %. Left Lower extremity: Vascular: 2+ dp, Warm Sensation: Intact in Sural, Tibial, Sup & Deep Peroneal, Saphenous distributions Wound: Dressing c/d/i Motor: 06/23 ta/gas Assessment: Willam Negron is a 76 y.o. year old male with PMH significant for HTN, OA, parkinsons who is s/p Left Total Knee Arthroplasty Using the RICH on 07/05/2022. Recovering appropriately postop. Plan: Per brief op note SANDOR WALLACE MD 17:57 07/05/2022 documented in this encounter H&P Notes * Risa Palacios PA-C - 07/05/2022 1015 EDT The preoperative history and physical which was performed within 30 days of this procedure has been reviewed and the clinically appropriate elements of the physical examination have been repeated. There are no changes to the documented history and physical or if so such changes are documented below Risa Palacios PA-C 07/05/2022 10:15 Source Note - Chris Daniels MD - 06/06/2022 15:30 EDT Preoperative H&P Date of Service: 06/06/2022 Chief Complaint: Chief Complaint Patient presents with ??? Pre-op Exam 07/05/[address] King Planned Procedure: left TKA Surgeon: Dr. Jaiden King Planned Procedure Date: 07/05/22 Problem List Available or Initiated: yes HISTORY OF PRESENT ILLNESS: Willam Negron is a 76 y.o., male, presents for a pre-operative physical. He denies any acute complaints that we reviewed that his systolic blood pressure returned remarkably elevated on arrival to our office today. He attributes his blood pressure elevation to stress, butconfirms that he recently started Sinemet 25-100 mg 3 times daily for Parkinson's management. We discussed that one adverse effect of Sinemet is elevated blood pressure. He is open to adjusting his antihypertensive regiment today and carefully monitoring his blood pressure at home over the next fewweeks prior to surgery. Surgical and Anesthesia History: Prior history of anesthetic complications: yes. Hallucinations with use of Demerol for post-operative contractions / shivering Prior history of bleeding problems: no Prior history of DVT/PE: no Prior history of infections (VRE, MRSA): no Reaction to tape or latex: no Family history of anesthetic complications, bleeding problems or DVT/PE: no. Cardiovascular or pulmonary risk factors: hypertension Active Problem List Patient Active Problem List Diagnosis ??? Osteoarthritis of glenohumeral joint ??? Thumb pain, left ??? Essential hypertension ??? Gluten intolerance ??? Primary parkinsonism (HCC) ??? Primary osteoarthritis of left knee PMH PSH Past Medical History: Diagnosis Date ??? Arthritis left knee ??? Broken bones leg, fingers ??? Hypertension ??? Joint pain ??? Joint swelling ??? Numbness Past Surgical History: Procedure Laterality Date ??? KNEE SURGERY right and left knees ??? SHOULDER SURGERY Social History Family history Social History Tobacco Use ??? Smoking status: Never ??? Smokeless tobacco: Never Substance Use Topics ??? Alcohol use: Yes Alcohol/week: 7.0 standard drinks Types: 7 Standard drinks or equivalent per week Comment: Cider Family History Problem Relation Age of Onset ??? Heart Disease Father ??? Stroke Father ??? High Blood Pressure Brother ??? *Other(comment) Brother Fernández's lung Medications Current Outpatient Medications Medication Sig Dispense Refill ??? carbidopa-levodopa (SINEMET) 25-100 mg per tablet Take 1 Tablet by mouth 3 times daily before meals. 270 Tablet 1 ??? ibuprofen (MOTRIN) 200 mg tablet Take 400 mg by mouth every 6 hours as needed for Pain. (Patient not taking: Reported on 06/06/2022) ??? lisinopriL (PRINIVIL) 10 mg tablet Take 1 Tablet by mouth daily. 90 Tablet 3 ??? LOW-DOSE ASPIRIN ORAL Take 81 mg by mouth daily. ??? sertraline (ZOLOFT) 50 mg tablet Take 1 Tablet by mouth daily. 60 Tablet 1 ??? triamcinolone (KENALOG) 0.1 % cream Apply a thing film to areas of rash once to twice to daily until rash resolves (Patient taking differently: as needed. Apply a thing film to areas of rash onceto twice to daily until rash resolves) 80 g 1 No current facility-administered medications for this visit. Allergies Allergies Allergen Reactions ??? Codeine ??? 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 , Body mass index is 22.68 kg/m??. Organ system Negative Positive Not examined Details Constitution/General x EENT & Mouth x Neck/Thyroid x Skins,nodes, glands x Respiratory x Heart x Peripheral Vascular x Breasts and Axillae x Abdomen x Scrotum/testes x Pelvic x Rectal x Musculoskeletal x Neurologic x EKG: Sinus rhythm with evidence of LVH IMPRESSION: Willam Negron is a 76 y.o., male who presents today for a pre-operative physical for a planned left total knee arthroplasty. At this time they are at a low risk for perioperative events. Revised Cardiac Risk Index: 0 risk factors.* Rate of cardiac and nonfatal myocardial infarction, cardiac arrest or ventricular fibrillation, pulmonary edema, and complete heart block: 0-3.9% PLAN: -Patient's systolic blood pressure remains suboptimally controlled at this time. Given evidence of LVH on ECG today I suspect his systolic blood pressure control has been inadequate for quite some time. We will pursue escalation in his antihypertensive regiment today to better optimize him for surgery -We will increase lisinopril from 10 mg to 20 mg daily -Heavily encourage patient to closely monitor systolic blood pressures over the next few weeks prior to surgery. -Low threshold to further dose escalate lisinopril or consider additional antihypertensive medication if systolic blood pressures remain above 150 -We recommend no disruptions to the patient's antihypertensive regiment prior to surgery unless necessary from a surgical perspective. Additionally will heavily advise against any changes to the patient's Sinemet medication prior to surgery without neurology approval or guidance - From an internal medicine perspective, no further pre-operative work-up necessary at this time - Patient can proceed to scheduled surgery at surgeon's and anesthesiologist's discretion. hCris Daniels MD [facility] Internal Medicine Adult Primary [facility] - [place] 06/06/2022; 15:51 CC: Enclosure(s): EKG SUMMARY OF GUIDELINES: *Reference: Revised Cardiac Risk Index (Raymundo 6 independent predictors of cardiac complications): 1. High risk surgery (vascular, intraperitoneal, intrathoracic) 2. History of CAD (history of [place] or a positive ETT, current ischemic chest pain, use of nitrates, or Q waves on ECG with pathological Q waves. (Don't count previous CABG unless another of the factorsis present) 3. Hx CHF 4. Hx Stroke 5. Cr >2.0 mg/dl 6. DM on insulin documented in this encounter OR Notes * OR Surgeon - Jaiden King MD - 07/05/2022 1730 EDT Left Total Knee Arthroplasty (L), SURGICAL PROCEDURE, ORTHOPEDIC, USING COMPUTER-ASSISTED CT OR MRINAVIGATION (L) Operative Note Date: 07/05/2022 Location: [facility] OR Name: Willam Negron, : 1945, Diagnosis Pre-Op Diagnosis Codes: * Primary osteoarthritis of left knee [M17.12] Post-op Diagnosis * Primary osteoarthritis of left knee [M17.12] Procedures * Left Total Knee Arthroplasty * SURGICAL PROCEDURE, ORTHOPEDIC, USING COMPUTER-ASSISTED CT OR MRI NAVIGATION Surgeons * Jaiden King MD - Primary * Risa Palacios PA-C - Assisting Nnamdi Sorto MS3 Procedure Summary Anesthesia: Spinal ASA: III Estimated Blood Loss: 150 mL Total IV Fluids: 800 mL LDAs: Peripheral IV 07/05/22 1011 Anterior;Distal;Right Forearm (Active) Wound 07/05/22 Incision Anterior;Left Knee (Active) Implants Type Name Action Serial No. Ortho Implant CEMENT BONE HIGH VISCOSITY TOBRAMYCIN RADIOPAQUE SINGLE DOSE HALLMAN 40GM SIMPLEX [id number] Wasted Total Joint Implant KNEE FEM COMP CMNTD LEFT POSTRR STBLZD TRIATHLON SZ 5 [id number] - [id number] Implanted Total Joint Implant KNEE STEM EXTENSION CEMENTED [id number] TRIATHLON [id number] - [id number] Implanted Plate Implant KNEE TIBIAL BASEPLATE CEMENTED FIX UNI UNIVERSAL SZ5 TRIATHLON [id number] - [id number] Implanted Total Joint Implant INSERT TIBIAL PS 5 10MM X3 TRIATHLON - [id number] Implanted Ortho Implant CEMENT BONE HIGH VISCOSITY TOBRAMYCIN RADIOPAQUE SINGLE DOSE HALLMAN 40GM SIMPLEX [id number] Implanted Staff: Voice Over Announcer: Kristal Chávez RN Relief Voice Over Announcer: Radha Franklin RN Relief Scrub: Rajni Field RN Scrub Person: Mary Cervantes Patient Axle And Frame Mechanic: MaicoDavidrejiMitchell wilson OPERATIVE REPORT PREOPERATIVE DIAGNOSIS: Left knee end-stage osteoarthritis POSTOPERATIVE DIAGNOSIS: Left knee end-stage osteoarthritis PROCEDURE: Left total knee arthroplasty using Rich Robot. ANESTHESIA: Spinal COMPLICATIONS: None. ESTIMATED BLOOD LOSS: 150mL TOURNIQUET TIME: 120 minutes. COMPONENTS: Leonid Triathlon size 5 PS cemented femoral component, size 5 cemented triathlon universal tibial baseplate, Triathlon X3 PS 10 mm insert. 50 mm stem extension. NARRATIVE: The patient was met in the preoperative holding area by myself and anesthesia providers.He was taken to the operative suite where a WHO 1 checklist was performed verifying correct patient, procedure, and operative site. He was transferred to the operative table. Spinal anesthesia was administered. All bony prominences were well-padded. The left lower extremity was prepped and draped in usual sterile fashion and a WHO 2 checklist was performed again verifying the correct patient, procedure, and operative site. IV antibiotics and TXA were administered within 1 hour of surgical start. We began with a midline incision. This was followed by a medial parapatellar arthrotomy with a small medial release. The anterior horns of both menisci were cut and the ACL was released. The fat pad was partially excised and the knee was exposed. The knee was found to be extremely arthritic predominantly laterally. Small osteophytes around the patella were removed, but it was not resurfaced. We then inserted 2 femoral and tibial pins for the Rich arrays. This was followed by the checkpoints. The tibia and femur were registered. At that point, we removed some of the osteophytes around the knee. It was clear at this point that we would be unable to get proper visualization due to the overall stiffness in the knee. I elected to excise the PCL. We then performed a virtual balancing. Appropriate component cut manipulations were made to create a well-balanced knee. Once we were happy with ourplan, we used the Rich robot to make all of the cuts. We then removed the osteophytes and menisci and periarticular anesthetic was used. The box cut was performed for the femur. We performed a trial r eduction with PS femur, a 5 tibia and a 10 PS polyethylene. We were satisfied with the range of motion, stability, soft tissue tensioning, balancing and patellar tracking. At that point, the knee wasre-exposed. The tibia was found to have significant cysts throughout the posterior aspect of the tibia. These measured 2.5 cm x 2.5 cm x 2.5 cm. Because of the cysts, I elected to use a cemented implant. The 50 mm stem bypassed the cysts enough. This was measured preoperatively on the DepotPoint softwareas well. Pins were removed. The tibial keel cut was completed for the Press-Fit tibial tray at the ideal rotation. The knee was irrigated. I then took bone graft from the chamfer cut and impacted it into the cysts after the cyst were debrided. These fit nicely. Cement was mixed and applied to the femur and tibia as well as the components. The components were impacted. All excess cement was removed. The poly size was appropriate. We were again satisfied with the final range of motion, stability,soft tissue tensioning, balancing and patellar tracking. More irrigation was performed and hemostasis was achieved. We then began our closure. A #1 Vicryl was used to repair the capsule with interrupted [id number] sutures. This was followed by running #1 PDS Stratafix. 2-0 Monocryl Stratafix was used for subcutaneous closure, 3-0 Stratafix Monocryl was used for subcuticular closure. Dermabond Prineo dressing was applied. A sterile dressing was applied. The patient tolerated the procedure well and made it to recovery without any complications. Postop,the patient will receive IV antibiotics and DVT prophylaxis. The patient will be weightbearing as tolerated and will get started in physical therapy. Unless otherwise noted, there were no complications, no blood loss, no cultures obtained, no specimens removed, and no drains retained. There was no qualified ACGME-accredited resident able to assist in this procedure based on residentavailability. Therefore, Risa Palacios PA-C participated fully in this case by assisting in holding retractors, suction, positioning the leg. This was necessary for the safe completion of this proc edure. Jaiden King MD documented in this encounter Miscellaneous Notes * Plan of Care - Bhavik Mays RN - 07/06/2022 1329 EDT Problem: Daily Care Plan Goals Goal: Care Plan Documentation Flowsheets (Taken 07/06/2022 0830) Area of Focus: Discharge Plan Goal This Shift: d/c home Nursing Discharge Note D: Patient noted with discharge orders to: home. A: Prescriptions e-scripted. Reviewed discharge instructions and prescriptions with Patient IV d/c'd. Belongings collected and sent home with patient. Report called to [facility] at 1330. R: Patient verbalized understanding of discharge instructions and denied further questions. BHAVIK MAYS RN 07/06/2022 13:29 * Plan of Care - Rama East RN - 07/06/2022 0631 EDT POD1 LTKA. AOx3. Up to chair. +BM. +CSMT. Walkng in room. VSS, RA. 0 pain this am. * Brief Op Note - Risa Palacios PA-C - 07/05/2022 1015 EDT Department of Orthopaedics Joints Brief Op Note Date of Surgery: 07/05/2022 Surgeon: Jaiden King MD Assistants: Risa Palacios PA-C ; RENETTA Harris Pre-Op Diagnosis: Left Knee osteoarthritis Post-Op Diagnosis: same Procedure(s): Left Total Knee Arthroplasty Using the RICH Findings: Left Knee osteoarthritis Anesthesia Type: Spinal Tourniquet Time: 120 minutes at 250mmHg Estimated Blood Loss: 150 mL Fluids: 800 mL crystalloid Urine Output: No andre Implants: Blossom Triathlon see dictation for sizes Closure: 3-0 monocryl in skin; Dermabond Prineo Disposition and Condition: PACU in Stable condition per anesthesia. Plan: Pain control - multimodal DVT Prophylaxis: SCD's, DC on aspirin panel Abx: Ancef 2 grams IV every 8 hours for 24 hours Activity as tolerated Weight Bearing: As tolerated Keep knee straight while in bed. Place pillow under heel. Low risk antibiotic protocol Diet: Cardiac PT eval X-rays: Pending in PACU Dispo planning: to the floor and then home on POD#1 with VNA if cleared by PT Future Appointments Date Time Provider Department Center 08/07/2022 13:30 Jaiden King MD [facility] None 08/18/2022 13:15 Chris Daniels MD [facility] 08/23/2022 11:00 Salma Richardson MD [facility] Neuro None 11/10/2022 14:30 Jaiden King MD [facility] None Risa Palacios PA-C 07/05/2022 13:51 * Plan of Care - Dominick Stanley MD - 06/27/2022 1906 EDT Date:07/05/22 Jaiden King MD Procedure:Left TKA Using the RICH Willam Andrew Langmaid 76 y.o. male 1945 There were no vitals taken for this visit. PMH: Hypertension, polyarticular OA, parkinsonism Meds: Carbidopa levodopa, lisinopril, sertraline, 81 aspirin, acetylcysteine Allergies: Anaphylaxis to Novocain Other: Leonid Pierceathlon press fit DVT prophylaxis: SCD's, DC on aspirin panel MRSA Swab: negative, Staphylococcus aureus detected by PCR (MRSA NOT detected) Cefazolin with iodine nasal decolonization in preop IV TXA High risk?: Low risk antibiotic protocol Recovery: Standard Recovery documented in this encounter Plan of Treatment Upcoming Encounters Date Type Department Care Team (Late st Contact Info) Description 09/19/2023 14:15 EDT Office Visit [facility] Adult Primary Care - [address] [place], [place] [id number] Chris Daniels MD [address] [place] [phone] 10/19/2023 9:00 EDT Office Visit [facility] Hand & Upper Extremity Program - [facility] [address], [place] [phone] Ant Nguyen MD [address] [place] [phone] 01/07/2024 13:15 EST Office Visit [facility] Neurology - [address] [phone] Salma Richardson MD [address] [place] [address], [address] [place] [phone] Scheduled Referrals Name Type Priority Associated Diagnoses Orde r Schedule PROVIDER FOLLOW-UP INSTRUCTIONS Outpatient Referral Routine Ordered: 07/06/2022 AMB CONS/FOLLOW UP HOME HEALTH SERVICES Outpatient Referral Urgent Primary osteoarthritis of left knee Status post total left knee replacement Expected: 07/08/2022 (Approximate), Expires: 07/07/2023 documented as of this encounter Procedures Procedure Name Priority Date/Time Associated Diagnosis Comments IMPLANT RECORD - SCANNED 07/06/2022 18:22 EDT SCREENING GLUCOSE Routine 07/06/2022 7:2 8 EDT COMPLETE BLOOD COUNT Routine 07/06/2022 7:28 EDT BUN Routine 07/06/2022 7:28 EDT CREATININE Routine 07/06/2022 7:28 EDT ELECTROLYTES Routine 07/06/2022 7:28 EDT XR KNEE LEFT 1-2 VIEWS Routine 07/05/2022 14:00 EDT POC US ANESTHESIA NERVE BLOCK ADDUCTOR CANAL Routine 07/05/2022 10:47 EDT SURGICAL PROCEDURE, ORTHOPEDIC, USING COMPUTER-ASSISTED CT OR MRI NAVIGATION - RICH 07/05/2022 10:23 EDT Primary osteoarthritis of left knee ARTHROPLASTY, KNEE, ROBOT-ASSISTED, USING Beem SYSTEM 07/05/2022 10:23 EDT Primary osteoarthritis of left knee POC US ANESTHESIA NERVE BLOCK ADDUCTOR CANAL Routine 07/05/2022 9:07 EDT ORDERS - SCANNED 06/15/2022 9:22 EDT documented in this encounter Results * IMPLANT RECORD - SCANNED (07/06/2022 18:22 EDT) 07/06/2022 18:2 2 EDT Scan 2 Electroplating Sales Representative PROCEDURE/MINOR BACILIO GICAL ORDERABLES * (ABNORMAL) COMPLETE BLOOD COUNT (07/06/2022 7:28 EDT) WBC 7.23 4.00 - 10.40 K/cmm 07/06/2022 8:35 [facility] RBC 3.48(L) 4.36 - 5.78 M/cmm 07/06/2022 8:35 [facility] Hemoglobin 11.6(L) 13.8 - 17.3 g/dL 07/06/2022 8:35 [facility] HCT 34.1(L) 39.5 - 50.2 % 07/06/2022 8:35 [facility] MCV 98(H) 81 - 95 fL 07/06/2022 8:35 [facility] MCH 33.3(H) 27.6 - 33.0 pg 07/06/2022 8:35 [facility] MCHC 34.0 32.8 - 36.4 g/dL 07/06/2022 8:35 EDT [facility] RDW-CV 12.3 <14.2 % 07/06/2022 8:35 EDT [facility] RDW-SD 43.9 <46.0 fl 07/06/2022 8:35 EDT [facility] PLT 211 141 - 377 K/cmm 07/06/2022 8:35 EDT [facility] MPV 9.1(L) 9.5 - 12.7 fL 07/06/2022 8:35 EDT [facility] Blood VENOUS BLOOD / Unknown Venipuncture / Unknown 07/06/2022 7:28 EDT 07/06/2022 8:25 EDT Risa Palacios PA-C HEMATOLOGY & PF4 ORDERABLES Performing Organization Address [facility] Co de Phone Number [facility] [address] [place] [address] * ELECTROLYTES (07/06/2022 7:28 EDT) Sodium 137 136 - 145 mmol/L 07/06/2022 9:30 EDT [facility] Potassium 3.6 3.5 - 5.0 mmol/L 07/06/2022 9:30 EDT [facility] Chloride 101 96 - 110 mmol/L 07/06/2022 9:30 EDT [facility] CO2 Total 26 22 - 32 mmol/L 07/06/2022 9:30 EDT [facility] Anion Gap 10 5 - 14 mmol/L 07/06/2022 9:30 EDT [facility] Blood VENOUS BLOOD / Unknown Venipuncture / Unknown 07/06/2022 7:28 EDT 07/06/2022 8:55 EDT Risa Palacios PA-C CHEMISTRY & BLOOD GAS ORDERABLES Performing Organization Address City/[facility] Co de Phone Number [facility] [address] [place] [address] * (ABNORMAL) CREATININE (07/06/2022 7:28 EDT) Creatinine 0.62(L) 0.66 - 1.25 mg/dL 07/06/2022 9:30 EDT [facility] eGFR 99 >60 mL/min/1.73 m2 07/06/2022 9:30 EDT [facility] Blood VENOUS BLOOD / Unknown Venipuncture / Unknown 07/06/2022 7:28 EDT 07/06/2022 8:55 EDT Risa A Palacios PA-C CHEMISTRY & BLOOD GAS ORDERABLES [facility] [address] [place] [address] * BUN (07/06/2022 7:28 EDT) Pathologist [facility] BUN 21 10 - 26 mg/dL 07/06/2022 9:30 EDT [facility] Blood VENOUS BLOOD / Unknown Venipuncture / Unknown 07/06/2022 7:28 EDT 07/06/2022 8:55 EDT Risa A Palacios PA-C CHEMISTRY & BLOOD GAS ORDERABLES [facility] [address] [place] [address] * (ABNORMAL) SCREENING GLUCOSE (07/06/2022 7:28 EDT) Pathologist [facility] Glucose, Screening 106(H) 70 - 100 mg/dL 07/06/2022 9:30 EDT [facility] Blood VENOUS BLOOD / Unknown Venipuncture / Unknown 07/06/2022 7:28 EDT 07/06/2022 8:55 EDT Risa A Palacios PA-C CHEMISTRY & BLOOD GAS ORDERABLES [facility] [address] [place] [address] * XR KNEE LEFT 1-2 VIEWS (07/05/2022 14:00 EDT) Anatomical Region Laterality Modality Lower Extremities Left Computed Radio graphy 07/05/2022 15:2 0 EDT Impressions 07/05/2022 15:20 EDT FINDINGS / IMPRESSION: 2 views of the left knee. Interval total left knee arthroplasty with associated postsurgical changes including air and fluid within the joint space. Surgical hardware appears appropriately positioned. No unexpected radiopaque foreign bodies. Redemonstrated chondrocalcinosis. Unchanged healed fracture of the left proximal fibular diaphysis. There is osseous demineralization. Calcific atherosclerosis. I have personally reviewed the images and the above interpretation and agree with the findings. Narrative 07/05/2022 15:20 EDT EXAM/TECHNIQUE: XR KNEE LEFT 1-2 VIEWS ??07/05/2022 10:55 AM HISTORY: ?? Left knee OA. S/P Left TKR. DONE IN PACU COMPARISON: Left knee CT on 06/06/2022 Procedure Note Dima Kirk MD - 07/05/2022 EXAM/TECHNIQUE: XR KNEE LEFT 1-2 VIEWS 07/05/2022 10:55 AM HISTORY: Left knee OA. S/P Left TKR. DONE IN PACU COMPARISON: Left knee CT on 06/06/2022 IMPRESSION FINDINGS / IMPRESSION: 2 views of the left knee. Interval total left knee arthroplasty withassociated postsurgical changes including air and fluid within the jointspace. Surgical hardware appears appropriately positioned. No unexpectedradiopaque foreign bodies. Redemonstrated chondrocalcinosis. Unchangedhealed fracture of the left proximal fibular diaphysis. There is osseousdemineralization. Calcific atherosclerosis. I have personally reviewed the images and the above interpretation andagree with the findings. Jaiden King MD IMG DIAGNOSTIC IMAGI NG ORDERABLES * POC US ANESTHESIA NERVE BLOCK ADDUCTOR CANAL (07/05/2022 10:47 EDT) Narrative 07/05/2022 10:47 EDT This is a non-reportable exam. Ankit Vanessa MD IMG US POC ORDERABL ES * POC US ANESTHESIA NERVE BLOCK ADDUCTOR CANAL (07/05/2022 9:07 EDT) Narrative 07/05/2022 9:07 EDT This is a non-reportable exam. 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 S documented in this encounter Visit Diagnoses Diagnosis Primary osteoarthritis of left knee- Primary Primary localized osteoarthrosis, lower leg Primary osteoarthritis of left knee Primary localized osteoarthrosis, lower leg Status post total left knee replacement Gluten intolerance Celiac disease Primary parkinsonism ([facility]) Paralysis agitans Essential hypertension Unspecified essential hypertension documented in this encounter Admitting Diagnoses Diagnosis Primary osteoarthritis of left knee Primary localized osteoarthrosis, lower leg documented in this encounter Administered Medications Inactive Administered Medications - up to 3 most recent administrations Medication Order MAR Action Action Date Dose Rate Site acetaminophen (TYLENOL) tablet 1,000 mg 1,000 mg, oral, EVERY 6 HOURS, First dose on Sun07/05/22 at 2000, Until Discontinued, Routine Given 07/06/2022 10:08 EDT 1,000 mg Given 07/05/2022 20:40 EDT 1,000 mg acetaminophen (TYLENOL) tablet 1,000 mg 1,000 mg, oral, PRN, 1 dose, Starting on Sun07/05/22 at 1319, Until Sun07/05/22 at 1358, Pain, Routine, Recovery (only) Given 07/05/2022 13:58 EDT 1,000 mg aspirin EC tablet 325 mg 325 mg, oral, 2 TIMES DAILY, First dose on Diane 07/06/22 at 0900, Until Discontinued, Routine Given 07/06/2022 10:08 EDT 325 mg aspirin EC tablet 650 mg 650 mg, oral, NOW X1, 1 dose, On Sun07/05/22 at 1630, Routine Given 07/05/2022 17:20 EDT 650 mg carbidopa-levodopa (SINEMET) 25-100 mg per tablet 1 Tablet 1 Tablet, oral, 3 TIMES DAILY, First dose on Sun07/05/22 at 1445, Until Discontinued, Routine, Phase II & On Unit Given 07/06/2022 12:30 EDT 1 Tablet Given 07/06/2022 6:30 EDT 1 Tablet Given 07/05/2022 20:40 EDT 1 Tablet ceFAZolin in dextrose (iso-os) piggyback 2 g/100 mL 2,000 mg, intravenous, Administer over 30 Minutes, NOW X1, 1 dose, On Sun07/05/22 at 1345, Type of Therapy: Prophylaxis, Suspected Indication (Select all that apply): Surgical prophylaxis, Routine, Recovery (only) Given 07/05/2022 13:45 EDT 2,000 mg ceFAZolin in dextrose (iso-os) piggyback 2 g/100 mL 2,000 mg, intravenous, Administer over 30 Minutes, EVERY 8 HOURS, 2 doses, First dose on Sun07/05/22 at 2200, Last dose on Sun07/06/22 at 0600, Type of Therapy: Prophylaxis, Suspected Indication (Select all that apply): Surgical prophylaxis, Routine Given 07/06/2022 6:16 EDT 2,00 0 mg Given 07/05/2022 22:31 EDT 2,000 mg celecoxib (CELEBREX) capsule 200 mg 200 mg, oral, PRE-OP ONCE, 1 dose, On Sun07/05/22 at 0915, Routine, Preprocedure Given 07/05/2022 9:45 EDT 200 mg cetirizine (ZYRTEC) tablet 10 mg 10 mg, oral, DAILY, First dose on Sun07/06/22 at 0800, Until Discontinued, Routine, Phase II & On Unit Given 07/06/2022 10:09 EDT 10 mg cholecalciferol (Vitamin D3) tablet 1,000 Units 1,000 Units, oral, DAILY, First dose on Sun07/06/22 at 0800, Until Discontinued, Phase II & On Unit Given 07/06/2022 10:09 EDT 1,000 Units dexAMETHasone (DECADRON) injection 8 mg 8 mg, intravenous, PRE-OP ONCE, 1 dose, On Sun07/05/22 at 0915, Routine, Preprocedure Given 07/05/2022 10:13 EDT 8 mg dexAMETHasone (DECADRON) injection 8 mg 8 mg, intravenous, Once (Time Specified), 1 dose, On Sun07/06/22 at 0800, Routine Given 07/06/2022 10:08 EDT 8 mg diphenhydrAMINE (BENADRYL) capsule 25 mg 25 mg, oral, EVERY 6 HOURS PRN, Starting on Sun07/05/22 at 1613, Until Diane 07/06/22 at 1531, Itching, Routine diphenhydrAMINE (BENADRYL) elixir 25 mg 25 mg, oral, EVERY 6 HOURS PRN, Starting on Sun07/05/22 at 1613, Until Diane 07/06/22 at 1531, Itching, Routine diphenhydrAMINE (BENADRYL) injection 25 mg 25 mg, intravenous, EVERY 6 HOURS PRN, Starting on Sun07/05/22 at 1613, Until Diane 07/06/22 at 1531, Itching, Routine lactated ringers (LR) infusion at 25 mL/hr, intravenous, CONTINUOUS, Starting on Sun07/05/22 at 0915, Until Diane 07/06/22 at 1531, Routine, Preprocedure Continued by Anesthesia 07/05/2022 10:33 EDT 25 mL/hr New Bag 07/05/2022 10:16 EDT 25 mL/hr lactated ringers (LR) infusion at 75 mL/hr, intravenous, CONTINUOUS, Starting on Sun07/05/22 at 1345, Until Diane 07/06/22 at 1531, Routine, Recovery (only) meloxicam (MOBIC) tablet 7.5 mg 7.5 mg, oral, DAILY, 14 doses, First dose on Sun07/06/22 at 0800, Last dose on Sun07/19/22 at 0800, Routine Given 07/06/2022 10:09 EDT 7.5 mg methocarbamoL (ROBAXIN) tablet 500 mg 500 mg, oral, EVERY 6 HOURS PRN, Starting on Sun07/05/22 at 1613, Until Diane 07/06/22 at 1531, muscle spasms, Routine Given 07/06/2022 10:47 EDT 500 mg oxyCODONE (ROXICODONE) immediate release tablet 5-15 mg 5-15 mg, oral, EVERY 4 HOURS PRN, Starting on Sun07/05/22 at 1613, Until Sun07/06/22 at 1531, Pain, Routine Given 07/06/2022 10:47 EDT 10 mg pantoprazole (PROTONIX) tablet 40 mg 40 mg, oral, DAILY, First dose on Sun07/06/22 at 0800, Until Discontinued, Routine Given 07/06/2022 10:09 EDT 40 mg povidone-iodine solution 5% (Skin and Nasal Antiseptic) 1 Kit 1 Kit, nasal, Once (Without Time Specified), 1 dose, Starting on Sun07/05/22 at 0858, Until Sun07/05/22 at 1018, Routine, Preprocedure Given 07/05/2022 10:18 EDT 1 Kit pregabalin (LYRICA) capsule 75 mg 75 mg, oral, PRE-OP ONCE, 1 dose, On Sun07/05/22 at 0915, Routine, Preprocedure Given 07/05/2022 9:44 EDT 75 mg sertraline (ZOLOFT) tablet 50 mg 50 mg, oral, DAILY WITH BREAKFAST, First dose on Sun07/06/22 at 0800, Until Discontinued, Routine, Phase II & On Unit Given 07/06/2022 10:09 EDT 50 mg sodium chloride 0.9 % (NS) infusion at 100 mL/hr, intravenous, CONTINUOUS, Starting on Sun07/05/22 at 1345, Until Sun07/06/22 at 1359, Routine New Bag 07/05/2022 14:00 EDT 100 mL/hr traMADol (ULTRAM) tablet 50-100 mg 50-100 mg, oral, EVERY 6 HOURS, First dose on Sun07/05/22 at 1800, Until Discontinued, Routine Given 07/06/2022 12:30 EDT 50 mg Given 07/06/2022 6:28 EDT 50 mg Given 07/05/2022 17:21 EDT 50 mg documented in this encounter Discontinued Medications Medication Sig Discontinue Reason Start Date End Da te mupirocin (BACTROBAN) 2 % ointment Using a Q-tip, apply a small amt. of ointment to each nostril twice a day for 5 days prior to surgery, starting on the morning of 06/30/22. Therapy completed 06/28/2022 07/06/2022 ibuprofen (MOTRIN) 200 mg tablet Take 400 mg by mouth every 6 hours as needed for Pain. Reorder 07/06/2022 acetaminophen (TYLENOL) 500 mg tablet Take 500 mg by mouth every 6 hours as needed for Pain. Reorder 07/06/2022 documented as of this encounter Historical Medications * This list may reflect changes made after this encounter. Medication Sig Dispensed Refills Start Date End Date ibuprofen (MOTRIN) 200 mg tablet Take 2 Tablets by mouth every 6 hours as needed for Pain. HOLD UNTIL 08/03/22; then resume as usual 08/03/2022 09/06/2022 acetaminophen (TYLENOL) 500 mg tablet Take 500 mg by mouth every 6 hours as needed for Pain. 07/06/2022 added in this encounter Active and Recently Administered Medications Times are shown in EDT. Scheduled Medication Order 07/04/2022 07/05/2022 07/06/2022 acetaminophen (TYLENOL) tablet 1,000 mg 1,000 mg, oral, EVERY 6 HOURS, First dose on Sun07/05/22 at 2000, Until Discontinued, Routine 2039 (Given - Provider: Rama East RN) 0248 (Not Given - Provider: Rama East RN - Reason: Other)1008 (Given - Provider: Bhavik Mays RN)1400 (Canceled Entry - Provider: Batch Job User Admin - Comment: Automatically canceled at discontinue of medication order) aspirin EC tablet 325 mg(Linked Group 1) 325 mg, oral, 2 TIMES DAILY, First dose on Sun07/06/22 at 0900, Until Discontinued, Routine 1008 (Given - Provid er: Bhavik Mays RN) aspirin EC tablet 650 mg (COMPLETED)(Linked Group 1) 650 mg, oral, NOW X1, 1 dose, On Sun07/05/22 at 1630, Routine 1720 (Given - Provider: Fabricio Hunt RN) carbidopa-levodopa (SINEMET) 25-100 mg per tablet 1 Tablet 1 Tablet, oral, 3 TIMES DAILY, First dose on Sun07/05/22 at 1445, Until Discontinued, Routine, Phase II & On Unit 1459 (Given - Provider: Lori Garcia RN)2040 (Given - Provider: Rama East, PASTORA) 0630 (Given - Provider: Rama East RN)1230 (Given - Provider: Bhavik Mays RN) ceFAZolin (ANCEF) syringe 2 g (COMPLETED) 2 g, intravenous, Administer over 5 Minutes, PRE-OP ONCE, 1 dose, On Sun07/05/22 at 0915, Routine, Preprocedure 1040 (Given - Provider: Bhavik Yusuf CRNA) ceFAZolin in dextrose (iso-os) piggyback 2 g/100 mL (COMPLETED) 2,000 mg, intravenous, Administer over 30 Minutes, NOW X1, 1 dose, On Sun07/05/22 at 1345, Type of Therapy: Prophylaxis, Suspected Indication (Select all that apply): Surgical prophylaxis, Routine, Recovery (only) 1345 (Given - Provider: Lori Garcia RN) ceFAZolin in dextrose (iso-os) piggyback 2 g/100 mL (COMPLETED) 2,000 mg, intravenous, Administer over 30 Minutes, EVERY 8 HOURS, 2 doses, First dose on Sun07/05/22 at 2200, Last dose on Sun07/06/22 at 0600, Type of Therapy: Prophylaxis, Suspected Indication (Select all that apply): Surgical prophylaxis, Routine 2231 (Given - Provider: Rama East RN) 0616 (Given - Provider: Rama East RN) celecoxib (CELEBREX) capsule 200 mg (COMPLETED) 200 mg, oral, PRE-OP ONCE, 1 dose, On Sun07/05/22 at 0915, Routine, Preprocedure 0945 (Given - Provider: Avril Multani RN) cetirizine (ZYRTEC) tablet 10 mg 10 mg, oral, DAILY, First dose on Sun07/06/22 at 0800, Until Discontinued, Routine, Phase II & On Unit 1009 (Given - Provid er: Bhavik Mays RN) cholecalciferol (Vitamin D3) tablet 1,000 Units 1,000 Units, oral, DAILY, First dose on Sun07/06/22 at 0800, Until Discontinued, Phase II & On Unit 1009 (Given - Provid er: Bhavik Mays RN) dexAMETHasone (DECADRON) injection 8 mg (COMPLETED) 8 mg, intravenous, PRE-OP ONCE, 1 dose, On Sun07/05/22 at 0915, Routine, Preprocedure 1013 (Given - Provider: Avril Multani, RN) dexAMETHasone (DECADRON) injection 8 mg (COMPLETED) 8 mg, intravenous, Once (Time Specified), 1 dose, On Sun07/06/22 at 0800, Routine 1008 (Given - Provid er: Bhavik Mays RN) docusate sodium (COLACE) capsule 200 mg 200 mg, oral, 2 TIMES DAILY, First dose on Sun07/05/22 at 2100, Until Discontinued, Routine 2039 (Not Given - Provider: Rama East RN - Reason: Patient/family refused) 1010 (Not Given - Provider: Bhavik Mays RN - Reason: Patient/family refused) lisinopriL (PRINIVIL) tablet 20 mg 20 mg, oral, EVERY EVENING, First dose on Sun07/05/22 at 1700, Until Discontinued, Routine, Phase II & On Unit 2040 (Not Given - Provider: Rama East RN - Reason: Order parameters not met - Comment: SBP 102) meloxicam (MOBIC) tablet 7.5 mg 7.5 mg, oral, DAILY, 14 doses, First dose on Sun07/06/22 at 0800, Last dose on Sun07/19/22 at 0800, Routine 1009 (Given - Provid er: Bhavik Mays RN) pantoprazole (PROTONIX) tablet 40 mg 40 mg, oral, DAILY, First dose on Sun07/06/22 at 0800, Until Discontinued, Routine 1009 (Given - Provid er: Bhavik Mays RN) polyethylene glycol 3350 (MIRALAX) packet 17 g 17 g, oral, DAILY, First dose on Sun07/06/22 at 0800, Until Discontinued, Routine 1010 (Not Given - Provider: Bhavik Mays RN - Reason: Patient/family refused) povidone-iodine solution 5% (Skin and Nasal Antiseptic) 1 Kit (COMPLETED) 1 Kit, nasal, Once (Without Time Specified), 1 dose, Starting on Sun07/05/22 at 0858, Until Sun07/05/22 at 1018, Routine, Preprocedure 1018 (Given - Provider: Avril Multani, RN) pregabalin (LYRICA) capsule 75 mg (COMPLETED) 75 mg, oral, PRE-OP ONCE, 1 dose, On Sun07/05/22 at 0915, Routine, Preprocedure 0944 (Given - Provider: Avril Multani RN) senna (SENOKOT) tablet 2 Tablet 2 Tablet, oral, 2 TIMES DAILY, First dose on Sun07/05/22 at 2100, Until Discontinued, Routine 204 (Not Given - Provider: Rama East, PASTORA - Reason: Patient/family refused) 1010 (Not Given - Provider: Bhavik Mays RN - Reason: Patient/family refused) sertraline (ZOLOFT) tablet 50 mg 50 mg, oral, DAILY WITH BREAKFAST, First dose on Diane 07/06/22 at 0800, Until Discontinued, Routine, Phase II & On Unit 1009 (Given - Provid er: Bhavik Mays RN) traMADol (ULTRAM) tablet 50-100 mg 50-100 mg, oral, EVERY 6 HOURS, First dose on Sun07/05/22 at 1800, Until Discontinued, Routine 1721 (Given - Provider: Fabricio Hunt RN) 0248 (Not Given - Provider: Rama East RN - Reason: Other)0628 (Given - Provider: Rama East, PASTORA)1230 (Given - Provider: Bhavik Mays RN) tranexamic acid (CYKLOKAPRON) injection 1,000 mg (COMPLETED)(Linked Group 2) 1,000 mg (1 g), intravenous, INTRA-OP ONCE, 1 dose, On Sun07/05/22 at 0915, Indications: Elective orthopedic surgery procedure, Routine, Intraprocedure 1053 (Given - Provider: Bhavik Yusuf CRNA)1307 (Given - Provider: Bhavik Yusuf CRNA) Continuous Medication Order 07/04/2022 07/05/2022 07/06/2022 lactated ringers (LR) infusion at 25 mL/hr, intravenous, CONTINUOUS, Starting on Sun07/05/22 at 0915, Until Sun07/06/22 at 1531, Routine, Preprocedure 1016 (New Bag - Provider: Avril Multani RN)1033 (Continued by Anesthesia - Provider: Bhavik Yusuf CRNA)1350 (Anesthesia Volume Adjustment - Provider: Bhavik Yusuf CRNA) lactated ringers (LR) infusion at 75 mL/hr, intravenous, CONTINUOUS, Starting on Sun07/05/22 at 1345, Until Diane 07/06/22 at 1531, Routine, Recovery (only) 1355 (Continued Infusion - Provider: Lori Garcia RN)1415 (Completed - Provider: Lori Garcia RN) sodium chloride 0.9 % (NS) infusion at 100 mL/hr, intravenous, CONTINUOUS, Starting on Sun07/05/22 at 1345, Until Diane 07/06/22 at 1359, Routine 1400 (New Bag - Provider: Lori Garcia, PASTORA) PRN Medication Order 07/04/2022 07/05/2022 07/06/2022 acetaminophen (TYLENOL) tablet 1,000 mg (COMPLETED)(Linked Group 3) 1,000 mg, oral, PRN, 1 dose, Starting on Sun07/05/22 at 1319, Until 07/05/22 at 1358, Pain, Routine, Recovery (only) 1358 (Given - Provider: Lori Garcia RN) bisacodyL (DULCOLAX) suppository 10 mg 10 mg, rectal, DAILY PRN, Starting on Sun07/05/22 at 1613, Until Diane 07/06/22 at 1531, Constipation, Routine calcium carbonate (TUMS) tablet 500 mg (200 mg elemental calcium) 1 Tablet 1 Tablet, oral, EVERY 2 HOURS PRN, Starting on Sun07/05/22 at 1613, Until Diane 07/06/22 at 1531, epigastric stress, Routine ceFAZolin (ANCEF) 1 g (CANCELED) PRN, Starting on Sun07/05/22 at 1326, Until Sun07/05/22 at 1341, Intraprocedure 1324 (Given - Provider: Jaiden King MD)1325 (Given - Provider: Jaiden iKng MD)1326 (Given - Provider: Jaiden King MD) [id number] LAC-ropivacaine 80 mcg-0.5 mg-30 mg-150 mg periarticular syringe (CANCELED) PRN, Starting on Sun07/05/22 at 1300, Until Sun07/05/22 at 1341, Routine, Intraprocedure 1300 (Given - Provider: Jaiden King MD) diphenhydrAMINE (BENADRYL) capsule 25 mg(Linked Group 4) 25 mg, oral, EVERY 6 HOURS PRN, Starting on Sun07/05/22 at 1613, Until Diane 07/06/22 at 1531, Itching, Routine diphenhydrAMINE (BENADRYL) elixir 25 mg(Linked Group 4) 25 mg, oral, EVERY 6 HOURS PRN, Starting on Sun07/05/22 at 1613, Until Diane 07/06/22 at 1531, Itching, Routine diphenhydrAMINE (BENADRYL) injection 25 mg(Linked Group 4) 25 mg, intravenous, EVERY 6 HOURS PRN, Starting on Sun07/05/22 at 1613, Until Diane 07/06/22 at 1531, Itching, Routine methocarbamoL (ROBAXIN) tablet 500 mg 500 mg, oral, EVERY 6 HOURS PRN, Starting on Sun07/05/22 at 1613, Until Diane 07/06/22 at 1531, muscle spasms, Routine 1047 (Given - Provid er: Lucinda Prasad RN) ondansetron (PF) (ZOFRAN) injection 4 mg 4 mg, intravenous, EVERY 6 HOURS PRN, Starting on Sun07/05/22 at 1613, Until Diane 07/06/22 at 1531, Nausea, Routine oxyCODONE (ROXICODONE) immediate release tablet 5-15 mg 5-15 mg, oral, EVERY 4 HOURS PRN, Starting on Sun07/05/22 at 1613, Until Diane 07/06/22 at 1531, Pain, Routine 1047 (Given - Provid er: Lucinda Prasad RN) polyethylene glycol 3350 (MIRALAX) packet 17 g 17 g, oral, DAILY PRN, Starting on Sun07/06/22 at 0000, Until Diane 07/06/22 at 1531, Constipation, Routine sodium chloride 0.9 % (flush) flush 3 mL 3 mL, intravenous, PRN, Starting on Sun07/05/22 at 1613, Until Diane 07/06/22 at 1531, Line Care, Routine vancomycin (VANCOCIN) powder (CANCELED) PRN, Starting on Sun07/05/22 at 1315, Until Sun07/05/22 at 1341, Routine, Intraprocedure 1315 (Given - Provider: Jaiden King MD) Linked Groups Order Group 1: aspirin EC tablet 650 mg (COMPLETED)Jump to med 650 mg, oral, NOW X1, 1 dose, On Sun07/05/22 at 1630, Routine Followed by aspirin EC tablet 325 mgJump to med 325 mg, oral, 2 TIMES DAILY, First dose on Dinae 07/06/22 at 0900, Until Discontinued, Routine Group 2: tranexamic acid (CYKLOKAPRON) injection 1,000 mg (COMPLETED)Jump to med 1,000 mg (1 g), intravenous, INTRA-OP ONCE, 1 dose, On Sun07/05/22 at 0915, Indications: Elective orthopedic surgery procedure, Routine, Intraprocedure Followed by tranexamic acid (CYKLOKAPRON) injection 1,000 mg (CANCELED) 1,000 mg (1 g), intravenous, INTRA-OP ONCE, 1 dose, On Sun07/05/22 at 0915, Indications: Elective orthopedic surgery procedure, Routine, Intraprocedure Group 3: acetaminophen (TYLENOL) solution unit dose cup 995 mg (COMPLETED) 995 mg (rounded from 1,000 mg), oral, PRN, 1 dose, Starting on Sun07/05/22 at 1319, Until Sun07/05/22 at 1358, Pain, Routine, Recovery (only) Or acetaminophen (TYLENOL) tablet 1,000 mg (COMPLETED)Jump to med 1,000 mg, oral, PRN, 1 dose, Starting on Sun07/05/22 at 1319, Until Sun07/05/22 at 1358, Pain, Routine, Recovery (only) Group 4: diphenhydrAMINE (BENADRYL) elixir 25 mgJump to med 25 mg, oral, EVERY 6 HOURS PRN, Starting on Sun07/05/22 at 1613, Until Diane 07/06/22 at 1531, Itching, Routine Or diphenhydrAMINE (BENADRYL) injection 25 mgJump to med 25 mg, intravenous, EVERY 6 HOURS PRN, Starting on Sun07/05/22 at 1613, Until Diane 07/06/22 at 1531, Itching, Routine Or diphenhydrAMINE (BENADRYL) capsule 25 mgJump to med 25 mg, oral, EVERY 6 HOURS PRN, Starting on 07/05/22 at 1613, Until Diane 07/06/22 at 1531, Itching, Routine documented in this encounter Orders Medications Ordered That Sawyer ht Not Have Been Administered Count Last Ordered Date First Ordered Date acetaminophen (TYLENOL) solu tion unit dose cup 995 mg 1 07/05/2022 acetaminophen (TYLENOL) tablet 1,000 mg 1 0 07/05/2022 atropine 0.1 mg/mL syringe 0.5 mg 1 023 bisacodyL (DULCOLAX) suppository 10 mg 1 calcium carbonate (TUMS) tab let 500 mg (200 mg elemental calcium) 1 Tablet 1 07/05/2022 ceFAZolin (ANCEF) 1 g 1 07/05/2022 ceFAZolin (ANCEF) syringe 2 g 1 07/05/2022 [id number] LAC-ropivacain e 80 mcg-0.5 mg-30 mg-150 mg periarticular syringe 1 07/05/2022 diphenhydrAMINE (BENADRYL) capsule 25 mg 1 07/05/2022 diphenhydrAMINE (BENADRYL) elixir 25 mg 1 0 07/05/2022 diphenhydrAMINE (BENADRYL) injection 25 mg 1 07/05/2022 docusate sodium (COLACE) capsule 200 mg 1 0 07/05/2022 fentaNYL citrate (PF) injection 25-50 mcg 1 07/05/2022 lactated ringers (LR) infusion 1 07/05/2022 lidocaine (PF) 10 mg/mL (1 % ) injection 2 mg 1 07/05/2022 lisinopriL (PRINIVIL) tablet 20 mg 1 2022 naloxone (NARCAN) injection 0.2 mg 1 2022 ondansetron (PF) (ZOFRAN) injection 4 mg 2 07/05/2022 oxyCODONE (ROXICODONE) immed iate release tablet 5-10 mg 1 07/05/2022 polyethylene glycol 3350 ([place] RALAX) packet 17 g 2 07/05/2022 senna (SENOKOT) tablet 2 Tablet 1 05/17/202 3 sodium chloride 0.9 % (flush) flush 3 mL 1 07/05/2022 tranexamic acid (CYKLOKAPRON ) injection 1,000 mg 2 07/05/2022 vancomycin (VANCOCIN) powder 1 07/05/2022 Diet Count Last Ordered Date First Orde red Date DISCHARGE DIET 1 07/06/2022 Nursing Count Last Ordered Date First Orde red Date ACTIVITY INSTRUCTIONS 1 07/06/2022 BATHING INSTRUCTIONS 1 07/06/2022 WOUND CARE INSTRUCTIONS 1 07/06/2022 PT Count Last Ordered Date First Orde red Date PT EVALUATION AND TREAT 1 07/05/2022 Discharge Count Last Ordered Date First Orde red Date DISCHARGE PATIENT 1 07/06/2022 Legal Count Last Ordered Date First Orde red Date MISCELLANEOUS DISCHARGE INSTRUCTIONS 2 06/19 Consult to Social Work Count Last Ordered Date First Ordered Date CONSULT SOCIAL WORK 1 07/05/2022 documented in this encounter Care Teams Brick Pitcher Relationship Specialty Start Date End Date Chris Daniels MD 2 [place] [address] PCP - General Internal Medicine - Primary Care 08/08/19 Melissa Dobbs LICSW 1 [facility], 3rd [place] [address] Body Maker Machine Setter 03/13/22 09/13/22 documented as of this encounter
--- OUTSIDE RECORDS SUMMARY | 2023-09-14 02:26 | XMS_ITS | Encounter Summary ---
Author Organization [facility] Address [address] [place] [address] Care Team Providers Care Flight Surveyor Name Role Phone Chris Daniels MD Primary Care Provider + Melissa Dobbs TELEPHONE STATION INSTALLER Unavailable [phone] Encounter Details Date Type Department Care Team (Late st Contact Info) Description 03/13/2022 Patient Outreach [facility] Adult Primary Care - [place] 2 [place], [place] [phone] Melissa Dobbs TELEPHONE STATION INSTALLER 1 [facility], 3rd [place] [address] Social History Tobacco Use Types [...] this encounter Progress Notes * Melissa Dobbs, [facility] - 03/13/2022 1313 EST [facility] Rehabilitation Services Counselor Care Coordination Follow up phone outreach to patient. Initially spoke to patient on 02/02/22 and provided him with contact information for [facility] in [facility] as well as reviewed Crisis numbers. Patient was going out of town to [place] and expected to return in mid February-we agreed that I would reach out then. Left VM for patient. Patient called back approx 30 minutes later. He reports that he has a neurology appointment this Sunday. He has not reached out to [facility] as of yet as he would like to go to this initial appt first. He reports that his mood has been somewhat better since starting Sertraline. Patient has initial consult with neurology scheduled for this week. Plans to reach out to [facility] after this appointment. PLAN: CM will follow up in 1-2 months. MELVI HOPE 03/13/2022 13:13 documented in this encounter Plan of Treatment Upcoming Encounters Date Type Department Care Team (Late st Contact Info) Description 09/19/2023 14:15 EDT Office Visit [facility] Adult Primary Care - [address] [phone] Chris Daniels MD [address] [place] [phone] 10/19/2023 9:00 EDT Office Visit [facility] Hand & Upper Extremity Program - [address] [address] Ant Nguyen MD [address] [place] [phone] 01/07/2024 13:15 EST Office Visit [facility] Neurology - [address] [phone] Salma Richardson MD [address] [place] [address], Level 2 [place] [phone] documented as of this encounter Visit Diagnoses Not on filedocumented in this encounter Care Teams Flight Surveyor Relationship Specialty Start Date End Date Chris Daniels MD [address] [place] [phone] PCP - General Internal Medicine - Primary Care 08/08/19 Melissa Dobbs, MELVI 1 [facility], 3rd [place] [address] Rehabilitation Services Counselor 03/13/22 09/13/22 documented as of this encounter
--- OUTSIDE RECORDS SUMMARY | 2023-09-14 02:26 | XMS_ITS | Encounter Summary ---
Author Organization [facility] Address [address] [place] [address] Care Team Providers Care Crane Rigger Name Role Phone Chris Daniels MD Primary Care Provider + Melissa Dobbs AUTOMOBILE DEALER Unavailable [phone] Reason for Visit * Reason Comments New Patient Visit * Consult (See Order Priority) - Specialty Report Received Specialty Diagnoses / Procedures Referred By Joshua diaz Referred To Contact Neurology Diagnoses Parkinson disease ([facility]) Chinmay Delgado MD [address] [place] [phone] Hayden Rubin MD [address] [place] [phone] Referral ID Status Reason Start Date Expiration Date Visits Requested Visits Authorized [id number] Specialty Report Received Specialty Services Required 10/27/2021 1 1 Encounter Details Date Type Department Care Team (Late st Contact Info) Description 03/15/2022 8:00 EST Office Visit [facility] Neurology - [address] [phone] Salma Richardson MD [address] [place] [phone] Parkinson disease (Primary Dx); 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; Depression, unspecified depression type Social History Tobacco Use Types Packs/Day Years Used Date Smoking Tobacco: Never Smokeless Tobacco: Never Tobacco Cessation:Counseling Given: Not Answered Alcohol Use Standard Drinks/Week Comments Yes 7 (1 standard drink = 0.6 oz pur e alcohol) Saurabh Overall Financial Resource Strain (CARDIA) Answe r [...] Sign Reading Time Taken Comments Blood Pressure 130/90 03/15/2022 0751 EST Pulse 76 03/15/2022 0751 EST Temperature - - Respiratory Rate 16 03/15/2022 0751 EST Oxygen Saturation 97% 03/15/2022 0751 EST Inhaled Oxygen Concentration - - Weight 64 kg (141 lb) 03/15/2022 0751 EST Height - - Body Mass Index 23.04 10/27/2021 1535 EDT documented in this encounter Functional Status [...] encounter Patient Instructions * Patient Instructions* Salma Kramer MD - 03/15/2022 8:00 EST - start carbidopa-levodopa 25/100mg: take 1/2 tablet three times a day - around 5am / noon / 5pm for 1 week - if that is going okay, then can increase to 1 full tablet three times daily - keep going with the sertraline for now, we can see how things go - okay to go ahead with knee surgery so that you can remain as active as possible documented in this encounter Ordered Prescriptions Prescription Sig Dispensed Refills Start Date End Da te carbidopa-levodopa (SINEMET) 25-100 mg per tablet Take 0.5 Tablets by mouth 3 times daily before meals for 7 days, THEN 1 Tablet 3 times daily before meals for 30 days. 101 Tablet 1 03/15/2022 05/26/2022 documented in this encounter Progress Notes * Salma Kramer MD - 03/15/2022 0800 EST Images from the original note were not included. Type of visit: New Patient Consultation Clinician Requesting Consultation: Chinmay Delgado MD [address] [place] [phone] Primary Web Design Intern: Chris Daniels 2 [facility] [phone] ASSESSMENT & PLAN / RECOMMENDATIONS 1. Parkinson disease (HCC-CMS) (HCC) 2. 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 Depression, unspecified depression type Willam Negron is a 76 y.o. gentleman who was referred to the [facility] Disorders clinic for evaluation and management of parkinsonism. They are not sure how long ago symptomsstarted but approximately 6 months ago, symptoms were apparent enough that others recommended he beevaluated for Parkinson disease. He describes right shoulder pain, tremor, and decreased coordination particularly on the right side. He is able to ambulate and do fairly rigorous activity, though may be prone to fall if he is doing something particularly strenuous. On examination today, he has bilateral but asymmetric bradykinesia, rest tremor, and rigidity. Casual gait shows reasonable stride le ngth and yadira, but he does have reduced [...] a potentialmeans of slowing disease progression. - start carbidopa-levodopa 25/100mg tablets: 1/2 tablets TID before meals x 1 week, can increase to1 full tablet TID thereafter - continue sertraline 50mg once daily - no contraindication to left knee replacement, as this will allow him to be more active and function better - [facility] new patient packet was provided -- REMOTE LEFT OCCIPITAL INFARCT: not clearly [...] - low dose aspirin 81mg and statin (atorvastatin 10mg) recommended -- he should talk to PCP to makesure this is safe -- MOOD DYSFUNCTION: we discussed that this [...] discontinued. - continue sertraline 50mg once daily Return to clinic: 4 months, on-site SUBJECTIVE Reason for consultation/ Chief complaint: Parkinson disease History of Presenting Illness (HPI): Willam Negron is a 76 y.o. gentleman who was referred to the [facility] clinic for evaluation and management of parkinsonism. Accompanied by: Handedness: right handed His states that symptoms have been very noticeable over the past six months. They had some friends who told him since then that they thought this was Parkinson's, so he was evaluated at his PCP's office and they felt that his symptoms were consistent with Parkinson's. He states that he is moving very slowly, has to think more about things before doing them. Tremor is present at times when heis using the hands, like trying to drink [...] muscle mass, and weakness on that side. ROS: A comprehensive 13 system review was negative or documented in the HPI with the following additions/exceptions: - swallowing difficulty - solids and liquids - constipation - improved with diet, prunes [...] Outpatient Medications Marked as Taking for the 03/15/22 encounter (Office Visit) with Salma Kramer MD Medication Sig Dispense Refill ??? ibuprofen (MOTRIN) 200 mg tablet Take 400 mg by mouth every 6 hours as needed for Pain. ??? lisinopriL (PRINIVIL) 10 mg tablet Take 1 Tablet by mouth daily. 90 Tablet 3 ??? sertraline (ZOLOFT) 50 mg tablet Take 1 Tablet by mouth daily. 60 Tablet 1 Allergies Allergen Reactions ??? Codeine ??? Novacaine [Procaine (Bulk)] Sends me for a loop Past Medical History HTN Anxiety Depression Osteoarthritis Celiac disease Past Surgical History Right shoulder repair [...] was overseas in [place] - no Agent [place] Occupational History ??? 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 General Physical [...] Full strength in all muscle groups tested. Repetitive finger tapping, hand grasping, alternating supination pronation, and heel striking are slow with decrement, right > left. Dtqcjt-ebkl-[id number] reveal no dyssynergia or dysmetria. Diminished facial spontaneity/animation - lips parted at times during distracting maneuvers UPDRS-III Motor Examination Section Factor Score 18 Speech 1 -Slight loss of expression, diction and/or volume. 19 Facial expression 3 -Moderate hypomimia. Lips parted some of the time. 20 Tremor at rest: Face, lips, chin 0 -Absent. Hands: right 1 -Slight and infrequently present. Hands: left 0 -Absent. Feet: right 0 -Absent. Feet: left 0 -Absent. 21 Action tremor: right 1 -Slight. Present with action. left 1 -Slight. Present with action. 22 Rigidity: Neck Upper extremity: right 2 -Mild to moderate. Upper extremity: left 1 -Slight or detectable only when activated by mirror or other movements. Lower extremity: right 1 -Slight or detectable only when activated by mirror or other movements. Lower extremity: left 0 -Absent. 23 Finger taps: right 2 -Moderately impaired. Definite and early fatiguing. May have occasional arrests in movement. Finger taps: left 1 -Mild slowing and/or reduction in amplitude. 24 Hand enterprise architect manager: right 2 -Moderately impaired. Definite and early fatiguing. May have occasional arrests in movement. Hand enterprise architect manager: left 1 -Mild slowing and/or reduction in amplitude. 25 Hand pronate/supinate: right 1 -Mild slowing and/or reduction in amplitude. left 0 -Normal. 26 Leg agility: right 1 -Mild slowing and/or reduction in amplitude. left 0 -Normal. 27 Arise from chair 1 -Slow, or may need more than one attempt. 28 Posture 1 -Not quite erect, slightly stooped posture. Could be normal for older person. 29 Gait 1 -Walks slowly, may shuffle with short steps, but no festination (hastening steps) or propulsion. 30 Postural stability 31 Body bradykinesia 2 -Mild degree of slowness and poverty of movement which is definitely abnormal. Alternatively, some reduced amplitude. Sec 18 to 31 total: 24 Reflexes: Brisk 2+ reflexes throughout, symmetric. No Beasley's sign. Sensory examination: Normal reported crude touch in the distal upper and lower extremities Romberg negative Station/Gait: He is able to rise form a seated position without difficulty, though slowly. Slightly decreased right arm swing compared to the left. DATA MRI BRAIN (11/30/2021): No acute intracranial abnormalities. Remote left occipital lobe infarct. ATTESTATION I spent a total of 60 minutes on the date of this encounter meeting with the patient and reviewing documentation/coordinating care as described in the above note. Time dedicated to this visit was spent on the following activities: Patient/care support representative education Review of the pertinent information in the electronic health record Care plan formulation Supportive counseling Documentation of clinical information in the EHR Ordering of medication(s) Scanned health information available from the referring and/or primary provider(s) Personal review of available imaging Personal review of available laboratory diagnostics Verbal communication with family/care support representative Salma Kramer MD Attending Physician, Movement Disorders Department of Neurology documented in this encounter Plan of Treatment Upcoming Encounters Date Type Department Care Team (Late st Contact Info) Description 09/19/2023 14:15 EDT Office Visit [facility] Adult Primary Care - [address] [address] Chris Daniels MD [address] [place] [phone] 10/19/2023 9:00 EDT Office Visit [facility] Hand & Upper Extremity Program - [address] [phone] Ant Nguyen MD [address] [place] [phone] 01/07/2024 13:15 EST Office Visit [facility] Neurology - [address] [phone] Salma Richardson MD [address] [place] [address] 2 [place] [phone] documented as of this encounter Visit Diagnoses Diagnosis Parkinson disease ([facility])- Primary Paralysis agitans 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
--- OUTSIDE RECORDS SUMMARY | 2023-09-14 02:26 | XMS_ITS | Encounter Summary ---
Author Organization [facility] Address [address] [place] [address] Care Team Providers Care Pro Shop Attendant Name Role Phone Chris Daniels MD Primary Care Provider + Melissa Dobbs NEWS WRITER Unavailable [phone] Reason for Visit * Reason Comments Medications Refill Encounter Details Date Type Department Care Team (Late st Contact Info) Description 05/26/2022 Refill [facility] Neurology - [place] [address] [place] [phone] Salma Richardson MD [address] [place] [address] Level 2 [place] [phone] Medications Refill Social History Tobacco [...] place to sleep or slept in a mcc (including now)? No 08/17/2021 Interpersonal Safety Answer [...] encounter Miscellaneous Notes * Telephone Encounter - Avril Altamirano RN - 05/30/2022 0954 EDT Duplicate request. Rx sent 05/26/22. documented in this encounter Plan of Treatment Upcoming Encounters Date Type Department Care Team (Late st Contact Info) Description 09/19/2023 14:15 EDT Office Visit [facility] Adult Primary Care - [place] 2 [facility] [address] Chris Daniels MD 2 [facility] [place] [phone] 10/19/2023 9:00 EDT Office Visit [facility] Hand & Upper Extremity Program - [address] [phone] Ant Nguyen MD [address] [place] [address] 01/07/2024 13:15 EST Office Visit [facility] Neurology - [address] [phone] Salma Richardson MD [address] [place] [address], Level [address] [place] [phone] documented as of this encounter Visit Diagnoses Not on filedocumented in this encounter Care Teams Pro Shop Attendant Relationship Specialty Start Date End Date Chris Daniels MD [address] [place] [phone] PCP - General Internal Medicine - Primary Care 08/08/19 Melissa Dobbs, NEWS WRITER [address] [place] [address], 3[address] [place] [phone] Child Support Officer 03/13/22 09/13/22 documented as of this encounter
--- OUTSIDE RECORDS SUMMARY | 2023-09-14 02:26 | XMS_ITS | Encounter Summary ---
Author Organization [facility] Address [address] [place] [address] Care Team Providers Care Crystal Syrup Maker Name Role Phone Chris Daniels MD Primary Care Provider + Melissa Dobbs GEOLOGICAL MANAGER Unavailable [phone] Encounter Details Date Type Department Care Team (Late st Contact Info) Description 06/02/2022 Patient Outreach [facility] Adult Primary Care - [place] 2 [place], [place] [phone] Melissa Dobbs GEOLOGICAL MANAGER 1 [facility], [address]rd [place] [address] Social History Tobacco Use Types [...] place to sleep or slept in a group home (including now)? No 08/17/2021 Interpersonal Safety Answer [...] this encounter Progress Notes * Melissa Dobbs, [facility] - 06/02/2022 1153 EDT [facility] Care Management Follow Up Savings Counselor followed up with patient's ( Azeb) by phone for wellness check. TOPIC OF CONVERSATION: ??? Reviewed assessment and plan from previous visit with patient. ??? Engaged patient in conversation related to positive behavior change, self- management, goal setting and action planning using motivational interviewing and active listening. ??? Patient's reports that patient has been doing very well, Medications started for Parkinson's has been helpful. ??? Patient has been feeling less depressed. Did not reach out to counseling provider but has Started attending a local Parkinson's Support group. ??? Had consultation with neurology in February 2022-he was started on a low dose of carbidopa-levodopa and encouraged to continue with ongoing physical activity as a potential means of slowing disease progression. ??? Patient will be getting a knee replacement surgery July 05 for degenerative joint disease of left knee. Prioritized Patient Identified Goals: 1. Patient will reach out to [facility] [employer] to initiate counseling. Achievement towards goals: Ended - pt no longer working towards this goal 2. Patient will attend initial consultation with Neurology in next month. Achievement towards goals: Completed 3. New Goal: Patient will continue to attend monthly Parkinson's Support Group. Plan: CM will follow-up in one month MELVI HOPE 06/02/2022 11:54 documented in this encounter Plan of Treatment Upcoming Encounters Date Type Department Care Team (Late st Contact Info) Description 09/19/2023 14:15 EDT Office Visit [facility] Adult Primary Care - [address] [address] Chris Daniels MD [address] [place] [phone] 10/19/2023 9:00 EDT Office Visit [facility] Hand & Upper Extremity Program - [address] [phone] Ant Nguyen MD [address] [place] [phone] 01/07/2024 13:15 EST Office Visit [facility] Neurology - S [address] [phone] Salma Richardson MD [address] [place] [address] 2 [place] [phone] documented as of this encounter Visit Diagnoses Not on filedocumented in this encounter Care Teams Crystal Syrup Maker Relationship Specialty Start Date End Date Chris Daniels MD 2 [place] [phone] PCP - General Internal Medicine - Primary Care 08/08/19 Melissa Dobbs, [facility] 1 [facility], [address]rd [place] [phone] Savings Counselor 03/13/22 09/13/22 documented as of this encounter
--- OUTSIDE RECORDS SUMMARY | 2023-09-14 02:26 | XMS_ITS | Encounter Summary ---
Author Organization [facility] Address [address] [place] [address] Care Team Providers Care Vegetable Trimmer Name Role Phone Chris Alaniz MD Primary Care Provider + Melissa Dobbs MARINE DESIGNER Unavailable [phone] Reason for Visit * Reason Comments Pre-op Exam 07/05/22 left TKR kenya King Encounter Details Date Type Department Care Team (Late st Contact Info) Description 06/06/2022 15:30 EDT Office Visit [facility] Adult Primary Care - [place] [address] [place] [address] Chris Alaniz MD [address] [place] [phone] Pre-op examination (Primary Dx) Social History Tobacco Use Types Packs/Day Years Used Date Smoking Tobacco: Never Smokeless Tobacco: Never Tobacco Cessation:Counseling Given: No Alcohol Use Standard Drinks/Week Comments Yes 7 [...] place to sleep or slept in a longterm (including now)? No 08/17/2021 Interpersonal Safety Answer [...] Sign Reading Time Taken Comments Blood Pressure 170/96 06/06/2022 1536 EDT Pulse 64 06/06/2022 1536 EDT r Temperature 35.9 ??C (96.7 ??F) 06/06/2022 1536 EDT Respiratory Rate 16 06/06/2022 1536 EDT Oxygen Saturation - - Inhaled Oxygen Concentration - - Weight 63 kg (138 lb 12.8 oz) 06/06/2022 1536 ED T Height 166.6 cm (5' 5.59) 06/06/2022 1536 EDT Body Mass Index 22.68 06/06/2022 1536 EDT documented in this encounter Functional Status [...] daily. 90 Tablet 3 06/06/2022 06/11/2023 documented in this encounter Progress Notes * Chris Alaniz MD - 06/06/2022 1530 EDT Preoperative H&P Date of Service: 06/06/2022 Chief Complaint: Chief Complaint Patient presents with ??? Pre-op Exam 07/05/[address] King Planned Procedure: left TKA Surgeon: Dr. Jaiden King Planned Procedure Date: 07/05/22 Problem List Available or Initiated: yes HISTORY OF PRESENT ILLNESS: Natalie Negron is a 76 y.o., male, presents [...] X Cardiovascular X Respiratory X Gastrointestinal X BASE ENGINEER X Musculoskeletal X Chronic knee pain Neurological [...] Sinus rhythm with evidence of LVH IMPRESSION: Natalie Negron is a 76 y.o., male who [...] scheduled surgery at surgeon's and anesthesiologist's discretion. Chris Alaniz MD [facility] Internal Medicine Adult Primary Care - [place] 06/06/2022; 15:51 CC: Enclosure(s): EKG SUMMARY OF GUIDELINES: *Reference: Revised Cardiac Risk Index (Raymundo 6 independent predictors of cardiac complications): 1. High risk surgery (vascular, intraperitoneal, intrathoracic) 2. History of CAD (history of [place] or a positive ETT, current ischemic chest pain, use of nitrates, or Q waves on ECG with pathological Q waves. (Don't count previous CABG unless another of the factorsis present) 3. Hx CHF 4. Hx Stroke 5. Cr >2.0 mg/dl 6. DM on insulin * RobsonAnnamaria - 06/06/2022 1530 EDT EKG performed today I was supervised by DR. Alaniz who was present and immediately available in the office suite. Annamaria Chance 06/06/2022 16:47 documented in this encounter Plan of Treatment Upcoming Encounters Date Type Department Care Team (Late st Contact Info) Description 09/19/2023 14:15 EDT Office Visit [facility] Adult Primary Care - [address] [address] Chris Alaniz MD [address] [place] [phone] 10/19/2023 9:00 EDT Office Visit [facility] Hand & Upper Extremity Program - [address] [place], [place] [phone] Ant Nguyen MD [address] [place] [address] 01/07/2024 13:15 EST Office Visit [facility] Neurology - [address] [address] Salma Richardson MD [address] [place] [address] 2 [place] [phone] documented as of this encounter Procedures Procedure Name Priority Date/Time Associated Diagnosis Comments ECG REPORT - SCANNED 06/09/2022 5:40 EDT ECG REPORT - SCANNED 06/09/2022 5:40 EDT EKG 12-LEAD Routine 06/06/2022 16:40 EDT Pre-op examination documented in this encounter Results * ECG REPORT - SCANNED (06/09/2022 5:40 EDT) 06/09/2022 5:40 EDT Scan 2 Manager Scientific PROCEDURE/MINOR BACILIO GICAL ORDERABLES * ECG REPORT - SCANNED (06/09/2022 5:40 EDT) 06/09/2022 5:40 EDT Scan 2 Manager Scientific PROCEDURE/MINOR BACILIO GICAL ORDERABLES * EKG 12-LEAD (06/06/2022 16:40 EDT) 06/06/2022 16:4 0 EDT Narrative [facility] EKG - 06/08/2022 16:25 EDT ? PC Site ? Test Date: ?2022-06-06 Pat Name: ? NATALIE LANGMAID ?Department: ?? [facility] ? Room: ? Gender: ? Male ? Application Support: ?? [id number] : ?1945 ? Requested By: KATTY SIM AMELIA Order Number: [id number] ? Reading : ?? CHRIS ALANIZ MD ? Measurements Intervals ?[place] ? Rate: ? 60 ? P: ?53 GA: ? 179 ?QRS: ?15 QRSD: ? 85 ? T: ?47 QT: ? 411 ? QTc: ?411 ? Interpretive Statements SINUS RHYTHM VOLTAGE CRITERIA FOR LVH ??[MEETS CRITERIA IN ONE OF: R(aVL), S(V1), R(V5), R(V5/V6)+S(V1)] Automated Interpretation. ??Provider Interpretation to follow. No previous ECG available for comparison I reviewed the tracing and have either agreed or edited the findings in this report. Electronically Signed On 06-08-2022 16:25:39 EDT by CHRIS ALANIZ MD. Procedure Note Chris Alaniz MD - 06/08/2022 PC Site Test Date: 2022-06-06 Pat Name: NATALIE NEGRON Department: [facility] Room: Gender: Male Application Support: [id number] : 1945 Requested By: KATTY SO Order Number: [id number] Reading MD: CHRIS ALANIZ MD Measurements Intervals [place] Rate: 60 P: 53 GA: 179 QRS: 15 QRSD: 85 T: 47 QT: 411 QTc: 411 Interpretive Statements SINUS RHYTHM VOLTAGE CRITERIA FOR LVH [MEETS CRITERIA IN ONE OF: R(aVL), S(V1),R(V5), R(V5/V6)+S(V1)] Automated Interpretation. Provider Interpretation to follow. No previous ECG available for comparison I reviewed the tracing and have either agreed or edited the findings inthis report. Electronically Signed On 06-08-2022 16:25:39 EDT by CHRIS DOMINGO. Chris Alaniz MD CARDIAC ECG [facility] Organization Address City/State/ZIP Co de Phone Number [facility] EKG documented in this encounter Visit Diagnoses Diagnosis Pre-op examination- Primary Preoperative examination, unspecified documented in this encounter Discontinued Medications Medication Sig Discontinue Reason Start Date End Da te sertraline (ZOLOFT) 50 mg tablet Take 1 Tablet by mouth daily. Reorder 02/01/2022 06/06/2022 documented as of this encounter Historical Medications * This list may reflect changes made after this encounter. Medication Sig Dispensed Refills Start Date End Date LOW-DOSE ASPIRIN ORAL Take 81 mg by mouth daily. added in this encounter Care Teams Vegetable Trimmer Relationship Specialty Start Date End Date Chris Alaniz MD [address] [place] [address] PCP - General Internal Medicine - Primary Care 08/08/19 Melissa Dobbs LICSW 1 [facility], [address] [place] [address] Solar Photovoltaic Installer 03/13/22 09/13/22 documented as of this encounter
--- OUTSIDE RECORDS SUMMARY | 2023-09-14 02:26 | XMS_ITS | Encounter Summary ---
Author Organization [facility] Address [address] [place] [address] Care Team Providers Care Christmas Bell Ringer Name Role Phone Chris Daniels MD Primary Care Provider + Melissa Dobbs CUSTOM CLOTHIER Unavailable [phone] Encounter Details Date Type Department Care Team (Latest Contact Info) Description 06/26/2022 8:30 EDT - 06/26/2022 23:59 EDT Hospital Encounter [facility] Pre-Surgical Testing [address] [place], [place] [phone] Discharge Disposition: Home or Self Care Social [...] Sign Reading Time Taken Comments Blood Pressure - - Pulse - - Temperature - - Respiratory Rate - - Oxygen Saturation - - Inhaled Oxygen Concentration - - Weight 62.6 kg (138 lb) 06/26/2022 0902 EDT Height 162.6 cm (5' 4) 06/26/2022 0902 EDT Body Mass Index 23.69 06/26/2022 0902 EDT documented in this encounter [...] for 14 days. 112 Tablet 07/06/2022 07/20/2022 acetaminophen (TYLENOL) 500 mg tablet Take 500 mg by mouth every 6 hours as needed for Pain. 07/06/2022 aspirin 325 mg EC tablet Take 1 [...] 08/03/22; then resume as usual 08/03/2022 09/06/2022 ibuprofen (MOTRIN) 200 mg tablet Take 400 mg by mouth every 6 hours as needed for Pain. 07/06/2022 lisinopriL (PRINIVIL) 20 mg tablet Take 1 [...] 14:15 EDT Office Visit [facility] Adult Primary Care - [place] [address] [place] [address] Chris Daniels MD [address] [place] [phone] 10/19/2023 9:00 EDT Office Visit [facility] Hand & Upper Extremity Program - [address] [address] Ant Nguyen MD [address] [place] [phone] 01/07/2024 13:15 EST Office Visit [facility] Neurology - [address] [address] Salma Richardson MD [address] [place] [address], Level [address] [place] [address] documented as of this encounter Visit Diagnoses Not on filedocumented in this encounter Historical Medications * This list may reflect changes made after this encounter. Medication Sig Dispensed Refills Start Date End Date Cholecalciferol, Vitamin D3, 25 mcg (1,000 unit) capsule Take 2 Capsules by mouth daily. When pt remembers to take it acetylcysteine (NAC ORAL) Take 500 mg by mouth every morning. cetirizine (ZYRTEC) 10 mg tablet Take 1 Tablet by mouth daily. 09/06/2022 added in this encounter Care Teams Christmas Bell Ringer Relationship Specialty Start Date End Date Chris Daniels MD [address] [place] [address] PCP - General Internal Medicine - Primary Care 08/08/19 Melissa Dobbs LICSW 1 [facility], 3rd [place] [address] Tutoring Clinician 03/13/22 09/13/22 documented as of this encounter
--- OUTSIDE RECORDS SUMMARY | 2023-09-14 02:26 | XMS_ITS | Encounter Summary ---
Author Organization [facility] Address [address] [place] [address] Care Team Providers Care Remedial Reading Teacher Name Role Phone Chris Daniels MD Primary Care Provider + Melissa Dobbs ENGINEERING TEAM SUPERVISOR Unavailable [phone] Reason for Visit * Reason Onset Date Comments Other 06/09/2022 Encounter Details Date Type Department Care Team (Late st Contact Info) Description 06/09/2022 Telephone [facility] Total Joint Program - [address] [address] Jaiden King MD [address] [place] [phone] Other Social History Tobacco Use Types Packs/Day Years [...] encounter Miscellaneous Notes * Telephone Encounter - Janene Vieira - 06/09/2022 1608 EDT Reason for Call: No chief complaint on file. Summary: Called because she is working on the Authorization for surgery, she states she needs a call to provide more details on the xray than what was included in the report Appointment Offered? Elisa Vieira 06/09/2022 16:08 documented in this encounter Plan of Treatment Upcoming Encounters Date Type Department Care Team (Late st Contact Info) Description 09/19/2023 14:15 EDT Office Visit [facility] Adult Primary Care - [place] [address] [place], [place] [phone] Chris Daniels MD [address] [place] [phone] 10/19/2023 9:00 EDT Office Visit [facility] Hand & Upper Extremity Program - [address] [phone] Ant Nguyen MD [address] [place] [address] 01/07/2024 13:15 EST Office Visit [facility] - [facility] [address] [place], [place] [phone] Salma Richardson MD [address] [place] [address], [address] [place] [phone] documented as of this encounter Visit Diagnoses Not on filedocumented in this encounter Care Teams Remedial Reading Teacher Relationship Specialty Start Date End Date Chris Daniels MD [address] [place] [address] PCP - General Internal Medicine - Primary Care 08/08/19 Melissa Dobbs LICSW 1 [facility], 3rd [place] [phone] Treasury Representative 03/13/22 09/13/22 documented as of this encounter
--- OUTSIDE RECORDS SUMMARY | 2023-09-14 02:26 | XMS_ITS | Encounter Summary ---
Author Organization [facility] Address [address] [place] [address] Care Team Providers Care Orientation And Mobility Specialist Name Role Phone Chris Lopez MD Primary Care Provider + Melissa Dobbs FLIGHT SECURITY SPECIALIST Unavailable [phone] Reason for Visit * Reason Onset Date Comments Results 06/15/2022 Labs Only 06/15/2022 Encounter Details Date Type Department Care Team (Late st Contact Info) Description 06/15/2022 Telephone [facility] Adult Primary Care - [place] [address] [place] [address] Chris Lopez MD [address] [place] [address] Results; Labs Only Social History Tobacco Use Types [...] encounter Miscellaneous Notes * Telephone Encounter - Carina Denise RN - 06/15/2022 1229 EDT Call to Azeb Advised of message She agrees with plan CARINA DENISE RN 06/15/2022 12:29 * Telephone Encounter - Chris Lopez MD - 06/15/2022 1112 EDT His blood work does confirm a minor anemia. Curiously the anemia is macrocytic which is inconsistent with iron deficiency, though there could certainly be a mixed picture. I would recommend we obtain a vitamin b12 and iron studies to better determine the source of his anemia before recommending empiric treatment. I have ordered the tests as add-ons to his sample at the lab. * Telephone Encounter - Carina Denise RN - 06/15/2022 1050 EDT Call to CHUCK hawkins on file Upcoming Surgery 07/05 Had blood work done by surgeon dr layton Pt has parkinsons. Eats well Lost lots of weight Concerned that his Iron down Taking a MV of his 's Wondering if he needs iron supplement for iron Has been complaining of being tired To dr lopez to advise * Telephone Encounter - Libby Donaldson - 06/15/2022 1015 EDT Reason for Call: Results and Labs Only Summary/Symptoms: patient is calling fro . States that it looks like he is anemic and she wants to talk to someone about this. She preferably asks for Dr Lopez to call states she is having him take a vitamin Onset and Duration: labs done Does the patient have a computer, laptop or smart phone with high speed & video capability? N/A If so, would they be interested in doing a video visit via Min[employer]? N/A Appointment Offered? No Libby Donaldson 06/15/2022 10:16 documented in this encounter Plan of Treatment Upcoming Encounters Date Type Department Care Team (Late st Contact Info) Description 09/19/2023 14:15 EDT Office Visit [facility] Adult Primary Care - [place] [address] [place] [address] Chris Lopez MD [address] [place] [phone] 10/19/2023 9:00 EDT Office Visit [facility] Hand & Upper Extremity Program - [facility] [address] [place] [address] Ant Nguyen MD [address] [place] [address] 01/07/2024 13:15 EST Office Visit [facility] Neurology - [address] [address] Salma Richardson MD [address] [place] [address], Level [address] [place] [phone] documented as of this encounter Results * IBC (06/12/2022 10:49 EDT) Iron Binding Capacity 260 240 - 450 ??g/dL 06/15/2022 11:54 EDT [facility] Blood VENOUS BLOOD / Unknown Venipuncture / Unknown 06/12/2022 10:49 EDT 06/12/2022 11:42 EDT Chris Lopez MD CHEMISTRY & BLOO D GAS ORDERABLES [facility] [address] [place] [address] * IRON (06/12/2022 10:49 EDT) Iron 103 49 - 181 ??g/dL 06/15/2022 11:44 EDT [facility] Blood VENOUS BLOOD / Unknown Venipuncture / Unknown 06/12/2022 10:49 EDT 06/12/2022 11:42 EDT Chris Lopez MD CHEMISTRY & BLOO D GAS ORDERABLES [facility] [address] [place] [address] * FERRITIN (06/12/2022 10:49 EDT) Ferritin 206 22 - 322 ng/mL 06/15/2022 13:29 EDT [facility] Blood VENOUS BLOOD / Unknown Venipuncture / Unknown 06/12/2022 10:49 EDT 06/12/2022 11:42 EDT Chris Lopez MD CHEMISTRY & BLOO D GAS ORDERABLES Performing Organization Address City/[facility]/ZIP Co de Phone Number [facility] [address] [place] [address] * VITAMIN B12 (06/12/2022 10:49 EDT) Vitamin B12 309 211 - 911 pg/mL 06/15/2022 13:34 EDT [facility] Blood VENOUS BLOOD / Unknown Venipuncture / Unknown 06/12/2022 10:49 EDT 06/12/2022 11:42 EDT Chris Lopez MD CHEMISTRY & BLOO D GAS ORDERABLES Performing Organization Address City/[facility]/ZIP Co de Phone Number [facility] [address] [place] [address] documented in this encounter Visit Diagnoses Diagnosis Macrocytic anemia- Primary Unspecified deficiency anemia documented in this encounter Care Teams Orientation And Mobility Specialist Relationship Specialty Start Date End Date Chris Lopez MD [address] [place] [phone] PCP - General Internal Medicine - Primary Care 08/08/19 Melissa Dobbs LICSW 1 [facility], [address]rd [place] [phone] Wine Pasteurizer 03/13/22 09/13/22 documented as of this encounter
--- OUTSIDE RECORDS SUMMARY | 2023-09-14 02:26 | XMS_ITS | Encounter Summary ---
Author Organization [facility] Address [address] [place] [address] Care Team Providers Care Senior Infrastructure Architect Name Role Phone Crhis Daniels MD Primary Care Provider + Reason for Referral * Radiology Services (Routine/Next Available) - Authorization Not Required Specialty Diagnoses / Procedures Referred By Contac t Referred To Contact Diagnoses Left knee pain, unspecified chronicity Procedures XR KNEE RIGHT 3 VIEWS Jaiden King MD [address] [place] [address] [facility] Referral ID Status Reason Start Date Expiration Date Visits Requested Visits Authorized [id number] Authorization Not Required 03/06/2022 1 1 Reason for Visit * Radiology Services (Routine/Next Available) - Authorization Not Required Specialty Diagnoses / Procedures Referred By Contac t Referred To Contact Diagnoses Left knee pain, unspecified chronicity Procedures XR KNEE RIGHT 3 VIEWS Jaiden King MD [address] [place] [address] [facility] Referral ID Status Reason Start Date Expiration Date Visits Requested Visits Authorized [id number] Authorization Not Required 03/06/2022 1 1 Encounter Details Date Type Department Care Team (Latest Contact Info) Description 03/06/2022 13:00 EST Hospital Encounter [facility] Xray [address] [place] [address] Left knee pain, unspecified chronicity Discharge Disposition: Home or Self Care Social [...] place to sleep or slept in a fdc (including now)? No 08/17/2021 Interpersonal Safety Answer [...] Sig Dispensed Refills Start Date End Date triamcinolone (KENALOG) 0.1 % cream Apply a thing film to areas of rash once to twice to daily until rash resolves 80 g 1 08/17/2021 ibuprofen (MOTRIN) 200 mg tablet Take 400 mg by mouth every 6 hours as needed for Pain. 07/06/2022 lisinopriL (PRINIVIL) 10 mg tablet Take 1 Tablet by mouth daily. 90 Tablet 3 10/27/2021 06/07/2022 sertraline (ZOLOFT) 50 mg tablet Take 1 Tablet by mouth daily. 60 Tablet 1 02/01/2022 06/06/2022 documented as of this encounter Discharge Disposition Disposition Code Departure Means Destination Home or Self Care documented in this encounter Plan of Treatment Upcoming Encounters Date Type Department Care Team (Late st Contact Info) Description 09/19/2023 14:15 EDT Office Visit [facility] Adult Primary Care - [address] [phone] Chris Daniels MD [address] [place] [phone] 10/19/2023 9:00 EDT Office Visit [facility] Hand & Upper Extremity Program - [address] [place] [address] Ant Nguyen MD [address] [place] [phone] 01/07/2024 13:15 EST Office Visit [facility] Neurology - [address] [phone] Salma Richardson MD [address] [place] [address] 2 [place] [phone] documented as of this encounter Procedures Procedure Name Priority Date/Time Associated Diagnosis Comments XR KNEE RIGHT 3 VIEWS Routine 03/06/2022 13:13 EST Left knee pain, unspecified chronicity documented in this encounter Results * XR KNEE RIGHT 3 VIEWS (03/06/2022 [...] LEFT 4 OR MORE VIEWS 3 (accession [id number]), 4 (accession [id number]) views ?? HISTORY: ??right for comparison Procedure Note Fabricio Ortiz MD - 03/06/2022 EXAM/TECHNIQUE: 03/06/2022 1:30 PM XR KNEE RIGHT 3 VIEWS, XR KNEE LEFT 4OR MORE VIEWS 3 (accession [id number]), 4 (accession [id number]) views HISTORY: right for comparison IMPRESSION FINDINGS / IMPRESSION: * Left knee 4 views: Tricompartment degenerative changes which are severeas well as chondrocalcinosis. Likely healed proximal fibular fracture.Mild osseous demineralization. Moderate to large joint effusion. * Right knee 3 views: Tricompartment degenerative changes which aremoderate to severe in the medial compartment. Jaiden MONTANEZG DIAGNOSTIC IMAGI NG ORDERABLES documented in this encounter Visit Diagnoses Diagnosis Left knee pain, unspecified chronicity documented in this encounter Care Teams Senior Infrastructure Architect Relationship Specialty Start Date End Date Chris Daniels MD [address] [place] [phone] PCP - General Internal Medicine - Primary Care 08/08/19 documented as of this encounter
--- OUTSIDE RECORDS SUMMARY | 2023-09-14 02:26 | XMS_ITS | Encounter Summary ---
Author Organization [facility] Address [address] [place] [address] Care Team Providers Care Custom Protection Officer Name Role Phone Chris Daniels MD Primary Care Provider + Melissa Dobbs CENTRIFUGAL SEPARATOR Unavailable [phone] Reason for Visit * Reason Onset Date Comments Pre-visit Planning 06/27/2022 Encounter Details Date Type Department Care Team (Late st Contact Info) Description 06/27/2022 Telephone [facility] Total Joint Program - [place] [address] [place] [address] Janene Hough, RN [address] [place] [address] Pre-visit Planning Social History Tobacco Use Types Packs/Day Years [...] Dispensed Refills Start Date End Da te mupirocin (BACTROBAN) 2 % ointment Using a Q-tip, apply a small amt. of ointment to each nostril twice a day for 5 days prior to surgery, starting on the morning of 06/30/22. 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 You are not actively infected or contagious. These results will not change the course of your surgery but we will ask you to shower with an antibacterial soap for 5 consecutive days leading up to surgery and we will also send a prescription to your pharmacy for an ointment that you will apply inside each nostril morning and night for the samefive days you are. Your pharmacist will be able to answer questions and you may call here for questions or concerns. [phone]. Janene (Dr. King Nurse) documented in this encounter Plan of Treatment Upcoming Encounters Date Type Department Care Team (Late st Contact Info) Description 09/19/2023 14:15 EDT Office Visit [facility] Adult Primary Care - [address] [address] Chris Daniels MD [address] [place] [phone] 10/19/2023 9:00 EDT Office Visit [facility] Hand & Upper Extremity Program - [address] [place], [place] [phone] Ant Nguyen MD [address] [place] [address] 01/07/2024 13:15 EST Office Visit [facility] Neurology - [address] [address] Salma Richardson MD [address] [place] [address] 2 [place] [address] documented as of this encounter Visit Diagnoses Not on filedocumented in this encounter Care Teams Custom Protection Officer Relationship Specialty Start Date End Date Chris Daniels MD [address] [place] [phone] PCP - General Internal Medicine - Primary Care 08/08/19 Melissa Dobbs, [facility] 1 [facility], 3rd [place] [address] Deburring And Tooling Machine Operator 03/13/22 09/13/22 documented as of this encounter
--- OUTSIDE RECORDS SUMMARY | 2023-09-14 02:26 | XMS_ITS | Encounter Summary ---
Author Organization [facility] Address [address] [place] [address] Care Team Providers Care End Finder Forming Department Name Role Phone Chris Daniels MD Primary Care Provider + Melissa Dobbs WASTE PAPER HAMMERMILL OPERATOR Unavailable [phone] Reason for Visit * Reason Onset Date Comments Appointment Related 07/03/2022 Encounter Details Date Type Department Care Team (Late st Contact Info) Description 07/03/2022 Telephone [facility] Total Joint Program - [address] [place] [address] Franchesca Wood, RN [address] [place] [address] Appointment Related Social History Tobacco Use Types [...] place to sleep or slept in a fpc (including now)? No 08/17/2021 Interpersonal Safety Answer [...] encounter Miscellaneous Notes * Telephone Encounter - Franchesca Wood RN - 07/03/2022 7942 EDT Patient was contacted w/ preop information. Patient was told to arrive @0800 on 07.05.22 @ [facility], nothing to eat or drink after midnight, to take Tylenol as per protocol, and any medications with a sip of water, no makeup/jewelry/nailpolish/perfumes, to shower the night before and morning of surgery with an antibacterial soap that was provided, to wear appropr iate attire (baggy, loose fitting, etc), to leave all valuables at home. Patient denies any illness/infection at this time. Patient verbalized understanding of all instructions. documented in this encounter Plan of Treatment Upcoming Encounters Date Type Department Care Team (Late st Contact Info) Description 09/19/2023 14:15 EDT Office Visit [facility] Adult Primary Care - [place] [address] [place], [place] [phone] Chris Daniels MD [address] [place] [phone] 10/19/2023 9:00 EDT Office Visit [facility] Hand & Upper Extremity Program - [address] [phone] Ant Nguyen MD [address] [place] [phone] 01/07/2024 13:15 EST Office Visit [facility] Neurology - [address] [phone] Salma Richardson MD [address] [place] [address], [address] [place] [phone] documented as of this encounter Visit Diagnoses Not on filedocumented in this encounter Care Teams End Finder Forming Department Relationship Specialty Start Date End Date Chris Daniels MD [address] [place] [phone] PCP - General Internal Medicine - Primary Care 08/08/19 Melissa Dobbs, MELVI 1 [facility], [address]rd [place] [phone] Asphalt Coater 03/13/22 09/13/22 documented as of this encounter
--- OUTSIDE RECORDS SUMMARY | 2023-09-14 02:26 | XMS_ITS | Encounter Summary ---
Author Organization [facility] Address [address] [place] [address] Care Team Providers Care Orthodontic Lab Technician Name Role Phone Chris Daniels MD Primary Care Provider + Melissa Dobbs LICENSE CLERK Unavailable [phone] Reason for Referral * Radiology Services (Routine/Next Available) - Authorization Not Required Specialty Diagnoses / Procedures Referred By Contac t Referred To Contact Diagnoses Left knee pain, unspecified chronicity Primary osteoarthritis of left knee Procedures CT KNEE LEFT RICH PROTOCOL CT KNEE LEFT WO CONTRAST Jaiden King MD [address] [place] [phone] [facility] Referral ID Status Reason Start Date Expiration Date Visits Requested Visits Authorized [id number] Authorization Not Required 03/07/2022 1 1 Reason for Visit * Radiology Services (Routine/Next Available) - Authorization Not Required Specialty Diagnoses / Procedures Referred By Contac t Referred To Contact Diagnoses Left knee pain, unspecified chronicity Primary osteoarthritis of left knee Procedures CT KNEE LEFT RICH PROTOCOL CT KNEE LEFT WO CONTRAST Jaiden King MD [address] [place] [address] [facility] Referral ID Status Reason Start Date Expiration Date Visits Requested Visits Authorized [id number] Authorization Not Required 03/07/2022 1 1 Encounter Details Date Type Department Care Team (Latest Contact Info) Description 06/06/2022 10:30 EDT - 06/06/2022 23:59 EDT [facility] Radiology CT - Main Bernie [address] [place] [address] Left knee pain, unspecified chronicity; Primary osteoarthritis of left knee Discharge Disposition: Home or Self Care Social [...] place to sleep or slept in a care home (including now)? No 08/17/2021 Interpersonal Safety [...] before meals. 270 Tablet 1 05/26/2022 11/20/2022 ibuprofen (MOTRIN) 200 mg tablet Take 2 Tablets by mouth every 6 hours as needed for Pain. HOLD UNTIL 08/03/22; then resume as usual 08/03/2022 09/06/2022 ibuprofen (MOTRIN) 200 mg tablet Take 400 mg by mouth every 6 hours as needed for Pain. 07/06/2022 lisinopriL (PRINIVIL) 10 mg tablet Take 1 Tablet by mouth daily. 90 Tablet 3 10/27/2021 06/07/2022 meloxicam (MOBIC) 7.5 mg tablet Take 1 [...] Info) Description 09/19/2023 14:15 EDT Office Visit [facility] Adult Primary Care - [address] [address] Chris Daniels MD [address] [place] [phone] 10/19/2023 9:00 EDT Office Visit [facility] Hand & Upper Extremity Program - [address] [place] [address] Ant Nguyen MD [address] [place] [phone] 01/07/2024 13:15 EST Office Visit [facility] Neurology - [address] [place] [address] [place], [place] [phone] Salma Richardson MD 1 [facility], [address] [place] [phone] documented as of this encounter Procedures Procedure Name Priority Date/Time Associated Diagnosis Comments CT KNEE LEFT RICH PROTOCOL Routine 06/06/2022 11:10 EDT Left knee pain, unspecified chronicity Primary osteoarthritis of left knee documented in this encounter Results * CT KNEE LEFT RICH PROTOCOL (06/06/2022 11:10 EDT) Narrative 06/06/2022 11:11 EDT This is a non-reportable exam. Jaiden King MD IMG OTHER IMAGING OR DERABLES documented in this encounter Visit Diagnoses Diagnosis Left knee pain, unspecified chronicity Primary osteoarthritis of left knee Primary localized osteoarthrosis, lower leg documented in this encounter Care Teams Orthodontic Lab Technician Relationship Specialty Start Date End Date Chris Daniels MD [address] [place] [phone] PCP - General Internal Medicine - Primary Care 08/08/19 Melissa Dobbs, LICENSE CLERK 1 [facility], 3rd [place] [phone] Pickling Operator 03/13/22 09/13/22 documented as of this encounter
--- OUTSIDE RECORDS SUMMARY | 2023-09-14 02:26 | XMS_ITS | Encounter Summary ---
Author Organization [facility] Address [address] [place] [address] Care Team Providers Care Leadership Development Manager Name Role Phone Chirs Daniels MD Primary Care Provider + Melissa Dobbs FORM WORKER Unavailable Encounter Details Date Type Department Care Team (Late st Contact Info) Description 05/26/2022 Patient Outreach [facility] Adult Primary Care - [place] [address] [place], [place] [phone] Melissa Dobbs FORM WORKER 1 [facility], [address]rd [place] [phone] Social History Tobacco Use Types [...] Date Record ed How often does anyone, incljudith kruse family, hit, punch or physically hurt [...] Progress Notes * Melissa Dobbs LICSW - 05/26/2022 1213 EDT [facility] Gate Attendant Care Coordination Gate Attendant phone outreach to patient to follow up on services and supports. Unable to reach patient, Unable to leave VM. PLAN: CM will reach out again in 7 days. MELVI HOPE 05/26/2022 12:13 documented in this encounter Plan of Treatment Upcoming Encounters Date Type Department Care Team (Late st Contact Info) Description 09/19/2023 14:15 EDT Office Visit [facility] Adult Primary Care - [place] 2 [facility], [place] [phone] Chris Daniels MD [address] [place] [phone] 10/19/2023 9:00 EDT Office Visit [facility] Hand & Upper Extremity Program - [facility] [address] [place] [address] Ant Nguyen MD [address] [place] [phone] 01/07/2024 13:15 EST Office Visit [facility] Neurology - [facility] [place] [address] [place], [place] [phone] Salma Richardson MD 1 [facility], [address] [place] [phone] documented as of this encounter Visit Diagnoses Not on filedocumented in this encounter Care Teams Leadership Development Manager Relationship Specialty Start Date End Date Chris Daniels MD [address] [place] [phone] PCP - General Internal Medicine - Primary Care 08/08/19 Melissa Dobbs LICSW 1 [facility], 3rd [place] [phone] Gate Attendant 03/13/22 09/13/22 documented as of this encounter
--- OUTSIDE RECORDS SUMMARY | 2023-09-14 02:26 | XMS_ITS | Encounter Summary ---
Author Organization [facility] Address [address] [place] [address] Care Team Providers Care Senior Analytic Consultant Name Role Phone Chris Daniels MD Primary Care Provider + Melissa Dobbs UNISHEAR OPERATOR Unavailable [phone] Reason for Visit * Auth/Cert (Routine) Specialty Diagnoses / Procedures [facility] Referred To Contact Diagnoses Primary osteoarthritis of left knee Procedures WI TOTAL KNEE ARTHROPLASTY BONE SURGERY USING COMPUTER ASSIST, CT/ MRI GUIDED Left Total Knee Arthroplasty SURGICAL PROCEDURE, ORTHOPEDIC, USING COMPUTER-ASSISTED CT OR MRI NAVIGATION Jaiden King MD [address] [place] [address] Referral ID Status Reason Start Date Expiration Date Visits Re quested Visits Authorized [id number] 03/06/2022 1 1 Encounter Details Date Type Department Care Team (Late st Contact Info) Description 07/05/2022 10:15 EDT - 07/05/2022 13:05 EDT Surgery [facility] [place] [address] [place] [id number] Jaiden King MD [address] [place] [address] Left Total Knee Arthroplasty [[address] (CPT??)] Surgery Details Date/Time Status Location OR Service Patient Class Case Class Case Type Trauma Case? 07/05/22 1015 Posted [facility] OR [facility] Orthopedics Exten ded Stay H - Elective Panel 1 Procedure LRB Anes Op Region Wound Class Comments Left Total Knee Arthroplasty Left Spinal Knee C lass I/ Clean SURGICAL PROCEDURE, ORTHOPED IC, USING COMPUTER-ASSISTED CT OR MRI NAVIGATION Left Spinal Knee Cl ass I/ Clean Surgeon Surgeon Role Service Panel Jaiden King MD Primary Orthopedics 1 Risa Palacios PA-C Assisting Orthopedics 1 documented in this encounter Social History Tobacco [...] Sign Reading Time Taken Comments Blood Pressure 129/75 07/05/2022 0920 EDT Pulse - - Temperature 36.5 ??C (97.7 ??F) 07/05/2022 0920 EDT Respiratory Rate 16 07/05/2022 0920 EDT Oxygen Saturation 98% 07/05/2022 0920 EDT Inhaled Oxygen Concentration - - Weight [...] 03/13/2022 Added automatically from request for surgery [id number] ??? Primary parkinsonism (HCC) 10/27/2021 Class: Temporary ??? Gluten intolerance 08/08/2019 ??? Essential hypertension 01/31/2017 Resolved Hospital Problems No resolved problems to display. Principal Procedure: Left total knee arthroplasty Date: 07/05/2022 Secondary Procedures: None Hospital Course Patient is a 76 y.o. male admitted to [facility] after undergoing uncomplicated left TKA using [...] Op Visit with Jaiden King MD [facility] Total Joint Program - [place] (--) [address] [facility] [address] Aug 18, 2022 13:15 ANNUAL WELLNESS MEDICARE with Chris Daniels MD [facility] Adult Primary Care - [place] ([facility]) 2 [facility] [address] Aug 23, 2022 11:00 Follow Up Visit with Salma Richardson MD [facility] Neurology - [facility] (--) 1 [facility] [address] Follow-up appointments and procedures Call your doctor [...] skin rash Authorizing Provider: Erin Lopez PA-C [facility] I certify that this patient is under my care and that I, or another Medicare allowed practitioner (DO MAXIME, ROBBY) working with me, had a [id number] encounter with this patient on this date: 07/06/2022 The discharge summary or progress note will provide further details that support the need for the home health services and the plan of care.: Yes Enter the allowed practitioner (, DO, ROBBY) who will provide oversight of this [...] Skilled care requested: Acute therapies (includes PT, AIR SUPPORT OPERATIONS OPERATOR) Therapies skilled care requested: Physical Therapy Physical therapy is needed for: Evaluation Safety Gait/Mobility Assessment and Training Strength Training/Exercise Program Post Surgical Authorizing Provider: Erin Lopez PA-C Kathleen S Campbell, PA-C 07/06/2022 [...] Disposition Code Departure Means Destination Home-Health Care [facility] Home documented in this encounter Progress Notes * Mary Tillman PT - 07/06/2022 1039 EDT [facility] Rehabilitation Therapy Acute Therapies Mary Rutan [...] left knee [M17.12] The patient lives at [address] [place] [id number] Home environment Lives:with family Caregiver Support: 24-hour [...] extension, wrist flexion, wrist extension and 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 Yuliet AMBROCIO and KILO re; needs for dc [...] equipment Other recommendations: Social Work consult Pager: [phone] MARY TILLMAN PT 07/06/2022 10:39 * Sandor [...] 07/06/2022 * Sandor Wallace MD - 07/05/2022 1757 EDT Orthopaedic Surgery - Joints Postop Check [...] X Cardiovascular X Respiratory X Gastrointestinal X FOX FARMER X Musculoskeletal X Chronic knee pain Neurological [...] surgery at surgeon's and anesthesiologist's discretion. Chris Daniels MD [facility] Internal Medicine Adult Primary Care - [place] 06/06/2022; 15:51 CC: Enclosure(s): EKG SUMMARY OF GUIDELINES: *Reference: Revised Cardiac Risk Index (Raymundo 6 independent predictors of cardiac complications): 1. High risk surgery (vascular, intraperitoneal, intrathoracic) 2. History of CAD (history of NV or a positive ETT, current ischemic chest [...] MRINAVIGATION (L) Operative Note Date: 07/05/2022 Location: [facility] OR Name: Willam Negron, : 1945, Diagnosis [...] TOBRAMYCIN RADIOPAQUE SINGLE DOSE HALLMAN 40GM SIMPLEX [id number] Wasted Total Joint Implant KNEE FEM COMP CMNTD LEFT POSTRR STBLZD TRIATHLON SZ 5 [id number] - [id number] Implanted Total Joint Implant KNEE STEM EXTENSION CEMENTED [id number] TRIATHLON [id number] - [id number] Implanted Plate Implant KNEE TIBIAL BASEPLATE CEMENTED FIX UNI UNIVERSAL SZ5 TRIATHLON [id number] - [id number] Implanted Total Joint Implant INSERT TIBIAL PS 5 10MM X3 TRIATHLON - [id number] Implanted Ortho Implant CEMENT BONE HIGH VISCOSITY TOBRAMYCIN RADIOPAQUE SINGLE DOSE HALLMAN 40GM SIMPLEX [id number] Implanted Staff: Supervisor Edging: Kristal Chávez RN Relief Supervisor Edging: Radha Franklin RN Relief Scrub: Rajni Field RN Scrub Person: Mary Cervantes Patient Research Consultant: Mitchell Mckeon OPERATIVE REPORT PREOPERATIVE DIAGNOSIS: Left knee end-stage [...] enough. This was measured preoperatively on the Rich softwareas well. Pins were removed. The tibial [...] used to repair the capsule with interrupted wrmclh-hl-wwocl sutures. This was followed by running #1 [...] sent home with patient. Report called to [facility] at 1330. R: Patient verbalized understanding of [...] mL crystalloid Urine Output: No andre Implants: Clemons Triathlon see dictation for sizes Closure: 3-0 [...] TillTotalJnt None 08/18/2022 13:15 Chris Daniels MD [facility] 08/23/2022 11:00 Salma Richardson MD 1SP Neuro None 11/10/2022 14:30 Jaiden King MD TillTotalJnt None Risa Palacios PA-C 07/05/2022 13:51 * Plan of Care - Dominick Stanley MD - 06/27/2022 1906 EDT Date:07/05/22 Jaiden King MD Procedure:Left TKA Using the RICH Willam A Langmaid 76 y.o. male 1945 There were no vitals taken for this visit. PMH: Hypertension, polyarticular OA, parkinsonism Meds: Carbidopa levodopa, lisinopril, sertraline, 81 aspirin, acetylcysteine Allergies: Anaphylaxis to Novocain Other: Clemons Triathlon press fit DVT prophylaxis: SCD's, DC on aspirin panel MRSA Swab: negative, Staphylococcus aureus detected by PCR (MRSA NOT detected) Cefazolin with iodine nasal decolonization in preop IV TXA High risk?: Low risk antibiotic protocol Recovery: Standard Recovery documented in this encounter Plan of Treatment Upcoming Encounters Date Type Department Care Team (Late st Contact Info) Description 09/19/2023 14:15 EDT Office Visit [facility] Adult Primary Care - [place] [address] [place], [place] [phone] Chris Daniels MD [address] [place] [phone] 10/19/2023 9:00 EDT Office Visit [facility] Hand & Upper Extremity Program - [facility] [address], [place] [phone] Ant Nguyen MD [address] [place] [address] 01/07/2024 13:15 EST Office Visit [facility] Neurology - [address] [phone] Salma Richardson MD [address] [place] [address], [address] [place] [address] Scheduled Referrals Name Type Priority [...] of left knee ARTHROPLASTY, KNEE, ROBOT-ASSISTED, USING [employer] SYSTEM 07/05/2022 10:23 EDT Primary osteoarthritis of left knee POC US ANESTHESIA NERVE BLOCK ADDUCTOR CANAL Routine 07/05/2022 9:07 EDT ORDERS - SCANNED 06/15/2022 9:22 EDT documented in this encounter Results * IMPLANT RECORD - SCANNED (07/06/2022 18:22 EDT) 07/06/2022 18:2 2 EDT Scan 2 Surgery Center Administrator PROCEDURE/MINOR BACILIO GICAL ORDERABLES * (ABNORMAL) COMPLETE BLOOD COUNT (07/06/2022 7:28 EDT) WBC 7.23 4.00 - 10.40 K/cmm 07/06/2022 8:35 [facility] RBC 3.48(L) 4.36 - 5.78 M/cmm 07/06/2022 8:35 [facility] Hemoglobin 11.6(L) 13.8 - 17.3 g/dL 07/06/2022 8:35 [facility] HCT 34.1(L) 39.5 - 50.2 % 07/06/2022 8:35 [facility] MCV 98(H) 81 - 95 fL 07/06/2022 8:35 [facility] MCH 33.3(H) 27.6 - 33.0 pg 07/06/2022 8:35 [facility] MCHC 34.0 32.8 - 36.4 g/dL 07/06/2022 8:35 [facility] RDW-CV 12.3 <14.2 % 07/06/2022 8:35 EDT [facility] RDW-SD 43.9 <46.0 fl 07/06/2022 8:35 EDT [facility] PLT 211 141 - 377 K/cmm 07/06/2022 8:35 EDT [facility] MPV 9.1(L) 9.5 - 12.7 fL 07/06/2022 8:35 EDT [facility] Blood VENOUS BLOOD / Unknown Venipuncture / Unknown 07/06/2022 7:28 EDT 07/06/2022 8:25 EDT Risa Palacios PA-C HEMATOLOGY & PF4 ORDERABLES [facility] [address] [place] [address] * ELECTROLYTES (07/06/2022 7:28 EDT) Sodium 137 136 - 145 mmol/L 07/06/2022 9:30 EDT [facility] Potassium 3.6 3.5 - 5.0 mmol/L 07/06/2022 9:30 EDT [facility] Chloride 101 96 - 110 mmol/L 07/06/2022 9:30 EDT [facility] CO2 Total 26 22 - 32 mmol/L 07/06/2022 9:30 EDT [facility] Anion Gap 10 5 - 14 mmol/L 07/06/2022 9:30 EDT [facility] Blood VENOUS BLOOD / Unknown Venipuncture / Unknown 07/06/2022 7:28 EDT 07/06/2022 8:55 EDT Risa Palacios PA-C CHEMISTRY & BLOOD GAS ORDERABLES [facility] [address] [place] [address] * (ABNORMAL) CREATININE (07/06/2022 7:28 EDT) Creatinine 0.62(L) 0.66 - 1.25 mg/dL 07/06/2022 9:30 EDT [facility] eGFR 99 >60 mL/min/1.73 m2 07/06/2022 9:30 EDT [facility] Blood VENOUS BLOOD / Unknown Venipuncture / Unknown 07/06/2022 7:28 EDT 07/06/2022 8:55 EDT Risa Palacios PA-C CHEMISTRY & BLOOD GAS ORDERABLES [facility] [address] [place] [address] * BUN (07/06/2022 7:28 EDT) BUN 21 10 - 26 mg/dL 07/06/2022 9:30 EDT [facility] Blood VENOUS BLOOD / Unknown Venipuncture / Unknown 07/06/2022 7:28 EDT 07/06/2022 8:55 EDT Risa Palacios PA-C CHEMISTRY & BLOOD GAS ORDERABLES Performing Organization Address City/[facility] Co de Phone Number [facility] [address] [place] [address] * (ABNORMAL) SCREENING GLUCOSE (07/06/2022 7:28 EDT) Glucose, Screening 106(H) 70 - 100 mg/dL 07/06/2022 9:30 EDT [facility] Blood VENOUS BLOOD / Unknown Venipuncture / Unknown 07/06/2022 7:28 EDT 07/06/2022 8:55 EDT Risa March PA-C CHEMISTRY & BLOOD GAS ORDERABLES Performing Organization Address City/[facility]/ZIP Co de Phone Number [facility] [address] [place] [address] * XR KNEE LEFT 1-2 VIEWS (07/05/2022 [...] EDT This is a non-reportable exam. Ankit MONTANEZG US POC ORDERABL ES * POC US ANESTHESIA NERVE BLOCK ADDUCTOR CANAL (07/05/2022 9:07 EDT) Narrative 07/05/2022 9:07 EDT This is a non-reportable exam. Shameka Hauser MD [facility] POC ORDERABLE S * ORDERS - SCANNED (06/15/2022 9:22 EDT) 06/15/2022 9:22 EDT Scan 2 Surgery Center Administrator ADMISSION ORDERABLE S documented in this encounter Visit Diagnoses Diagnosis Primary osteoarthritis of left knee- Primary Primary localized osteoarthrosis, lower leg Primary osteoarthritis of left knee Primary localized osteoarthrosis, lower leg Status post total left knee replacement Primary osteoarthritis of left knee Primary localized osteoarthrosis, lower leg documented in this encounter Admitting Diagnoses Diagnosis [...] on Sun07/06/22 at 0900, Until Discontinued, Routine Given 07/06/2022 [...] Given 07/05/2022 20:40 EDT 1 Tablet ceFAZolin (ANCEF) 1 g PRN, Starting on Sun07/05/22 at 1326, Until Sun07/05/22 at 1341, Intraprocedure Given 07/05/2022 13:26 EDT 1 g Left Knee Given 07/05/2022 13:25 EDT 1 g Left Knee Given 07/05/2022 13:24 EDT 1 g Left Knee ceFAZolin in dextrose (iso-os) piggyback 2 g/100 [...] Unit Given 07/06/2022 10:09 EDT 1,000 Units wpfBYAedd-QOLLQIJzhrk-v etOROLAC-ropivacaine 80 mcg-0.5 mg-30 mg-150 mg periarticular syringe PRN, Starting on Sun07/05/22 at 1300, Until Sun07/05/22 at 1341, Routine, Intraprocedure Given 07/05/2022 13:00 EDT Left Knee dexAMETHasone (DECADRON) injection 8 mg 8 mg, [...] Sun07/05/22 at 1613, Until Sun07/06/22 at 1531, muscle spasms, Routine Given 07/06/2022 [...] mg Given 07/05/2022 17:21 EDT 50 mg vancomycin (VANCOCIN) powder PRN, Starting on Sun07/05/22 at 1315, Until Sun07/05/22 at 1341, Routine, Intraprocedure Given 07/05/2022 13:15 EDT 1,000 mg Left Knee documented in this encounter Discontinued Medications Medication [...] 1630, Routine 1720 (Given - Provider: Fabricio Hunt, PASTORA) carbidopa-levodopa (SINEMET) 25-100 mg per tablet 1 Tablet 1 Tablet, oral, 3 TIMES DAILY, First dose on Sun07/05/22 at 1445, Until Discontinued, Routine, Phase II & On Unit 1459 (Given - Provider: Lori Garcia RN)2040 (Given - Provider: Rama East RN) 0630 (Given - Provider: Rama East RN)1230 [...] Routine, Recovery (only) 1345 (Given - Provider: oLri Garcia RN) ceFAZolin in dextrose (iso-os) piggyback [...] mg, oral, PRE-OP ONCE, 1 dose, On 5/17/23 at 0915, Routine, Preprocedure 0945 (Given - Provider: Avril Multani, RN) cetirizine (ZYRTEC) tablet 10 mg 10 mg, oral, DAILY, First dose on Sun07/06/22 at 0800, Until Discontinued, Routine, Phase II & On Unit 1009 (Given - Provid er: Bhavik Mays RN) cholecalciferol (Vitamin D3) tablet 1,000 Units 1,000 Units, oral, DAILY, First dose on Sun07/06/22 at 0800, Until Discontinued, Phase II & On Unit 1009 (Given - Provid er: Bhavik Mays, RN) dexAMETHasone (DECADRON) injection 8 mg (COMPLETED) 8 mg, intravenous, PRE-OP ONCE, 1 dose, On Sun07/05/22 at 0915, Routine, Preprocedure 1013 (Given - Provider: Avril Multani RN) dexAMETHasone (DECADRON) injection 8 mg (COMPLETED) [...] Routine, Preprocedure 0944 (Given - Provider: Avril Multani, RN) senna (SENOKOT) tablet 2 Tablet 2 Tablet, oral, 2 TIMES DAILY, First dose on Sun07/05/22 at 2100, Until Discontinued, Routine 204 (Not Given - Provider: Rama East RN [...] - Reason: Other)0628 (Given - Provider: Rama East RN)1230 (Given - Provider: Bhavik Mays RN) tranexamic [...] Until Diane 07/06/22 at 1531, Routine, Preprocedure 1016 (New Bag [...] Routine 1400 (New Bag - Provider: Lori Garcia RN) PRN Medication Order 07/04/2022 07/05/2022 07/06/2022 acetaminophen (TYLENOL) tablet 1,000 mg (COMPLETED)(Linked Group 3) 1,000 mg, oral, PRN, 1 dose, Starting on Sun07/05/22 at 1319, Until Sun07/05/22 at 1358, Pain, Routine, Recovery (only) 1358 (Given - Provider: Lori Garcia, PASTORA) bisacodyL (DULCOLAX) suppository 10 mg 10 mg, rectal, DAILY PRN, Starting on Sun07/05/22 at 1613, Until Diane 07/06/22 at 1531, Constipation, Routine calcium carbonate (TUMS) tablet 500 mg (200 mg elemental calcium) 1 Tablet 1 Tablet, oral, EVERY 2 HOURS PRN, Starting on Sun07/05/22 at 1613, Until Daine 07/06/22 at 1531, epigastric stress, Routine ceFAZolin (ANCEF) 1 g (CANCELED) PRN, Starting on Sun07/05/22 at 1326, Until Sun07/05/22 at 1341, Intraprocedure 1324 (Given - Provider: Jaiden King MD)1325 (Given - Provider: Jaiden King MD)1326 (Given - Provider: Jaiden King MD) cipGLQhcs-IFZXHMXebff-idwRZU LAC-ropivacaine 80 mcg-0.5 mg-30 mg-150 mg periarticular [...] PRN, Starting on Sun07/06/22 at 0000, Until Sun07/06/22 at 1531, Constipation, Routine sodium chloride 0.9 % (flush) flush 3 mL 3 mL, intravenous, PRN, Starting on Sun07/05/22 at 1613, Until Sun07/06/22 at 1531, Line Care, Routine vancomycin (VANCOCIN) [...] on Sun07/06/22 at 0900, Until Discontinued, Routine Group 2: [...] calcium) 1 Tablet 1 07/05/2022 ceFAZolin (ANCEF) syringe 2 g 1 07/05/2022 diphenhydrAMINE (BENADRYL) capsule 25 mg [...] 5-10 mg 1 07/05/2022 polyethylene glycol 3350 ([place] RALAX) packet 17 g 2 07/05/2022 senna (SENOKOT) tablet 2 Tablet 1 sodium chloride 0.9 % (flush) flush 3 mL 1 07/05/2022 tranexamic acid (CYKLOKAPRON ) injection 1,000 mg 2 07/05/2022 Diet Count Last Ordered Date First [...] 07/05/2022 documented in this encounter Care Teams Senior Analytic Consultant Relationship Specialty Start Date End Date Chris Daniels MD [address] [place] [address] PCP - General Internal Medicine - Primary Care 08/08/19 Melissa Dobbs LICSW [facility] [address] [place] [address] Protein Scientist 03/13/22 09/13/22 documented as of this encounter
--- OUTSIDE RECORDS SUMMARY | 2023-09-14 02:26 | XMS_ITS | Encounter Summary ---
Author Organization [facility] Address [address] [place] [address] Care Team Providers Care Cigarette Making Machine Hopper Feeder Name Role Phone Chris Daniels MD Primary Care Provider + Reason for Referral * Radiology Services (Routine/Next Available) - Authorization Not Required Specialty Diagnoses / Procedures Referred By Contac t Referred To Contact Diagnoses Left knee pain, unspecified chronicity Procedures XR KNEE LEFT 4 OR MORE VIEWS Jaiden King MD [address] [place] [phone] [facility] Referral ID Status Reason Start Date Expiration Date Visits Requested Visits Authorized [id number] Authorization Not Required 03/06/2022 1 1 Reason for Visit * Radiology Services (Routine/Next Available) - Authorization Not Required Specialty Diagnoses / Procedures Referred By Contac t Referred To Contact Diagnoses Left knee pain, unspecified chronicity Procedures XR KNEE LEFT 4 OR MORE VIEWS Jaiden King MD [address] [place] [address] [facility] Referral ID Status Reason Start Date Expiration Date Visits Requested Visits Authorized [id number] Authorization Not Required 03/06/2022 1 1 Encounter Details Date Type Department Care Team (Latest Contact Info) Description 03/06/2022 13:01 EST - 03/06/2022 23:59 EST Hospital Encounter [facility] Xray [address] [place] [address] Left knee pain, unspecified chronicity [...] Description 09/19/2023 14:15 EDT Office Visit [facility] Adult Primary Care - [address] [address] [place], [place] [phone] Chris Daniels MD [address] [place] [phone] 10/19/2023 9:00 EDT Office Visit [facility] Hand & Upper Extremity Program - [address] [address] Ant Nguyen MD [address] [place] [phone] 01/07/2024 13:15 EST Office Visit [facility] Neurology - [address] [address] Salma Richardson MD [address] [place] [address], [address] [place] [phone] documented as of this encounter Procedures Procedure Name Priority Date/Time Associated Diagnosis Comments XR KNEE LEFT 4 OR MORE VIEWS Routine 03/06/2022 13:18 EST Left knee pain, unspecified chronicity documented in this encounter Results * XR KNEE LEFT 4 OR MORE [...] LEFT 4 OR MORE VIEWS 3 (accession [id number]), 4 (accession [id number]) views ?? HISTORY: ??right for comparison Procedure Note Fabricio Ortiz MD - 03/06/2022 EXAM/TECHNIQUE: 03/06/2022 1:30 PM XR KNEE RIGHT 3 VIEWS, XR KNEE LEFT 4OR MORE VIEWS 3 (accession [id number]), 4 (accession [id number]) views HISTORY: right for comparison IMPRESSION FINDINGS [...] chronicity documented in this encounter Care Teams Cigarette Making Machine Hopper Feeder Relationship Specialty Start Date End Date Chris Daniels MD [address] [place] [address] PCP - General Internal Medicine - Primary Care 08/08/19 documented as of this encounter
--- OUTSIDE RECORDS SUMMARY | 2023-09-14 02:26 | XMS_ITS | Encounter Summary ---
Author Organization [facility] Address [address] [place] [address] Care Team Providers Care Grey Goods Tester Name Role Phone Chris Daniels MD Primary Care Provider + Melissa Dobbs INNER DIAMETER GRINDER TOOL Unavailable [phone] Encounter Details Date Type Department Care Team (Late st Contact Info) Description 06/12/2022 10:45 EDT Phlebotomy Only [facility] ED Center 2 Phlebotomy [address], [place] [address] Addresser, Acc Phlebotomy Left knee pain, unspecified chronicity; Primary osteoarthritis of left knee; Macrocytic anemia Social History Tobacco Use Types Packs/Day Years [...] No 08/17/2021 Housing Stability Vital Sign Answer Imguel e Recorded In the last 12 months, [...] Info) Description 09/19/2023 14:[address] [facility] Adult Primary Care - [place] [address] [place], [place] [phone] Chris Daniels MD [address] [place] [phone] 10/19/2023 9:[address] [facility] Hand & Upper Extremity Program [place] [address] Ant Nguyen MD [address] [place] [address] 01/07/2024 13:[address] [facility] Neurology - [address] [place] [address] [place], [place] [phone] Salma Richardson MD [address] [place] [address], [address] [place] [address] documented as of this encounter Procedures Procedure Name Priority Date/Time Associated Diagnosis Comments PRE-OP TYPE AND SCREEN Routine 06/12/2022 10:49 EDT Left knee pain, unspecified chronicity Primary osteoarthritis of left knee IBC Add-On 06/12/2022 10:49 EDT Macrocytic anemia MRSA PCR Routine 06/12/2022 10:49 EDT Left knee pain, unspecified chronicity Primary osteoarthritis of left knee COMPLETE BLOOD COUNT AND DIFFERENTIAL Routine 06/12/2022 10:49 EDT Left knee pain, unspecified chronicity Primary osteoarthritis of left knee TYPE AND SCREEN Today 06/12/2022 10:49 EDT Left knee pain, unspecified chronicity Primary osteoarthritis of left knee IRON Add-On 06/12/2022 10:49 EDT Macrocytic anemia FERRITIN Add-On 06/12/2022 10:49 EDT Macrocytic anemia VITAMIN B12 Add-On 06/12/2022 10:49 EDT Macrocytic anemia ALBUMIN Routine 06/12/2022 10:49 EDT Left knee pain, unspecified chronicity Primary osteoarthritis of left knee BASIC METABOLIC PANEL (BMP) Routine 06/12/2022 10:49 EDT Left knee pain, unspecified chronicity Primary osteoarthritis of left knee documented in this encounter Results * IBC (06/12/2022 10:49 EDT) Iron Binding Capacity 260 240 - 450 ??g/dL 06/15/2022 11:54 EDT [facility] Blood VENOUS BLOOD / Unknown Venipuncture / Unknown 06/12/2022 10:49 EDT 06/12/2022 11:42 EDT Chris Daniels MD CHEMISTRY & BLOO D GAS ORDERABLES Performing Organization Address City/[facility]/ZIP Co de Phone Number [facility] [address] [place] [address] * IRON (06/12/2022 10:49 EDT) Iron 103 49 - 181 ??g/dL 06/15/2022 11:44 EDT [facility] Blood VENOUS BLOOD / Unknown Venipuncture / Unknown 06/12/2022 10:49 EDT 06/12/2022 11:42 EDT Chris Daniels MD CHEMISTRY & BLOO D GAS ORDERABLES Performing Organization Address City/[facility]/ZIP Co de Phone Number [facility] [address] [place] [id number] * FERRITIN (06/12/2022 10:49 EDT) Ferritin 206 22 - 322 ng/mL 06/15/2022 13:29 EDT [facility] Blood VENOUS BLOOD / Unknown Venipuncture / Unknown 06/12/2022 10:49 EDT 06/12/2022 11:42 EDT Chris Daniels MD CHEMISTRY & BLOO D GAS ORDERABLES Performing Organization Address City/[facility]/ZIP Co de Phone Number [facility] [address] [place] [id number] * VITAMIN B12 (06/12/2022 10:49 EDT) Vitamin B12 309 211 - 911 pg/mL 06/15/2022 13:34 EDT [facility] Blood VENOUS BLOOD / Unknown Venipuncture / Unknown 06/12/2022 10:49 EDT 06/12/2022 11:42 EDT Chris Daniels MD CHEMISTRY & BLOO D GAS ORDERABLES Performing Organization Address [facility] Co de Phone Number [facility] [address] [place] [address] * TYPE AND SCREEN (06/12/2022 10:49 EDT) ABO A 06/12/2022 14:58 EDT [facility] Rh Factor Positive 06/12/2022 14:58 EDT [facility] Antibody Screen Negative 06/12/2022 14:58 EDT [facility] Specimen Expires: 07/08/2022 @ 23:59 06/12/2022 14:58 EDT [facility] Blood VENOUS BLOOD / Unknown Venipuncture / Unknown 06/12/2022 10:49 EDT 06/12/2022 11:14 EDT Jaiden King MD BLOOD BANK TESTS Performing Organization Address [facility] Co de Phone Number [facility] [address] [place] [address] * PRE-OP TYPE AND SCREEN (06/12/2022 10:49 EDT) Hold BB Specimen valid up to 30 days from collection date. BBHOLD 06/12/2022 14:37 EDT [facility] Blood VENOUS BLOOD / Unknown Venipuncture / Unknown 06/12/2022 10:49 EDT 06/12/2022 11:14 EDT Jaiden King MD BLOOD BANK TESTS Performing Organization Address City/[facility] Co de Phone Number [facility] [address] [place] [address] * MRSA PCR (06/12/2022 10:49 EDT) MRSA/Staph aureus Result Staphylococcus aureus detected by PCR (MRSA NOT detected) 06/12/2022 16:43 EDT [facility] Swab ENTIRE NARIS / Unknown Swab / Unknown 06/12/2022 10:49 EDT 06/12/2022 12:14 EDT Jaiden King MD MICROBIOLOGY - GENER AL ORDERABLES [facility] [address] [place] [address] * (ABNORMAL) COMPLETE BLOOD COUNT AND DIFFERENTIAL (06/12/2022 10:49 EDT) Pathologist [facility] WBC 4.73 4.00 - 10.40 K/cmm 06/12/2022 11:55 [facility] RBC 3.75(L) 4.36 - 5.78 M/cmm 06/12/2022 11:55 [facility] Hemoglobin 12.6(L) 13.8 - 17.3 gm/dL 06/12/2022 11:55 [facility] HCT 37.4(L) 39.5 - 50.2 % 06/12/2022 11:55 [facility] MCV 100(H) 81 - 95 fl 06/12/2022 11:55 [facility] MCH 33.6(H) 27.6 - 33.0 pg 06/12/2022 11:55 [facility] MCHC 33.7 32.8 - 36.4 gm/dL 06/12/2022 11:55 [facility] RDW-CV 12.5 <14.2 % 06/12/2022 11:55 [facility] RDW-SD 45.1 <46.0 fl 06/12/2022 11:55 [facility] PLT 278 141 - 377 K/cmm 06/12/2022 11:55 [facility] MPV 9.3(L) 9.5 - 12.7 fl 06/12/2022 11:55 [facility] % Neutrophils 64.4 % 06/12/2022 11:55 [facility] % Lymphocytes 22.6 % 06/12/2022 11:55 [facility] % Monocytes 9.5 % 06/12/2022 11:55 [facility] % Eosinophils 2.7 % 06/12/2022 11:55 [facility] % Basophils 0.6 % 06/12/2022 11:55 [facility] % Immature Grans 0.2 % 06/13/19 11:55 [facility] Absolute Neutrophils 3.04 2.20 - 8.85 K/cmm 06/12/2022 11:55 [facility] Absolute Lymphocytes 1.07(L) 1.09 - 3.30 K/cmm 06/12/2022 11:55 [facility] Absolute Monocytes 0.45 0.10 - 0.80 K/cmm 06/12/2022 11:55 [facility] Absolute Eosinophils 0.13 0.03 - 0.61 K/cmm 06/12/2022 11:55 [facility] ABS Basophils 0.03 0.01 - 0.11 K/cmm 06/12/2022 11:55 [facility] Absolute Immature Grans 0.01 0.00 - 0.06 K/cmm 06/12/2022 11:55 [facility] Type of Differential: Auto 06/12/2022 11:55 [facility] Blood VENOUS BLOOD / Unknown Venipuncture / Unknown 06/12/2022 10:49 EDT 06/12/2022 11:41 EDT Jaiden King MD PACKAGES & DNA PROBE ORDERABLES [facility] [address] [place] [address] * BASIC METABOLIC PANEL (BMP) (06/12/2022 10:49 EDT) Sodium 138 136 - 145 mmol/L 06/12/2022 12:27 EDT [facility] Potassium 4.7 3.5 - 5.0 mmol/L 06/12/2022 12:27 [facility] Chloride 104 96 - 110 mmol/L 06/12/2022 12:27 [facility] CO2 Total 27 22 - 32 mmol/L 06/12/2022 12:27 [facility] Anion Gap 7 5 - 14 06/12/2022 12:27 [facility] Glucose 88 70 - 100 mg/dL 06/12/2022 12:27 [facility] Calcium 9.2 8.5 - 10.5 mg/dL 06/12/2022 12:27 [facility] BUN 22 10 - 26 mg/dL 06/12/2022 12:27 [facility] Creatinine 0.70 0.66 - 1.25 mg/dL 06/12/2022 12:27 [facility] eGFR 95 >60 mL/min/1.73 m2 06/12/2022 12:27 [facility] Blood VENOUS BLOOD / Unknown Venipuncture / Unknown 06/12/2022 10:49 EDT 06/12/2022 11:42 EDT Jaiden King MD CHEMISTRY & BLOOD GA S ORDERABLES [facility] [address] [place] [address] * ALBUMIN (06/12/2022 10:49 EDT) Albumin 4.3 3.4 - 4.9 g/dL 06/12/2022 12:18 EDT [facility] Blood VENOUS BLOOD / Unknown Venipuncture / Unknown 06/12/2022 10:49 EDT 06/12/2022 11:42 EDT Jaiden King MD CHEMISTRY & BLOOD GA S ORDERABLES [facility] [address] [place] [address] documented in this encounter Visit Diagnoses Diagnosis Left knee pain, unspecified chronicity Primary osteoarthritis of left knee Primary localized osteoarthrosis, lower leg Macrocytic anemia Unspecified deficiency anemia documented in this encounter Care Teams Grey Goods Tester Relationship Specialty Start Date End Date Chris Daniels MD [address] [place] [address] PCP - General Internal Medicine - Primary Care 08/08/19 Melissa Dobbs, M[facility] [address] [place] [address] Lug Loader 03/13/22 09/13/22 documented as of this encounter
--- OUTSIDE RECORDS SUMMARY | 2023-09-14 02:27 | XMS_ITS | Encounter Summary ---
Author Organization [facility] Address [address] [place] [address] Care Team Providers Care Assignment Desk Assistant Name Role Phone Chris Daniels MD Primary Care Provider + Reason for Visit * Reason Comments Pain * Consult (See Order Priority) - Order Cancelled Specialty Diagnoses / Procedures Referred By Joshua diaz Referred To Contact Orthopedic Surgery Diagnoses Chronic right shoulder pain Chris Daniels MD [address] [place] [phone] [facility] Ortho Upper Extremity [address] [place] [address] Referral ID Status Reason Start Date Expiration Date Visits Requested Visits Authorized [id number] Order Cancelled Specialty Services Required 08/18/2021 1 1 Encounter Details Date Type Department Care Team (Latest Contact Info) Description 01/03/2022 10:30 EST Office Visit [facility] Hand & Upper Extremity Program - [place] [address] Elana Addison PA-C [address] [place] [address] Osteoarthritis of right glenohumeral joint (Primary Dx) Social History Tobacco Use Types [...] place to sleep or slept in a fci (including now)? No 08/17/2021 Interpersonal Safety Answer [...] as of this encounter Progress Notes * Elana Addison PA-C - 01/03/2022 1030 EST PROBLEM: Right shoulder pain. SUBJECTIVE: Willam Negron is a 76 y.o. male, Ambidextrous, uses the Left hand for writing. He is accompanied by his today. She admits that the family is trying to encourage him to proceed withfurther treatment for the shoulder Has a history of right shoulder dislocations and in the underwent surgery, which on description sounds like it was a staple capsulorrhaphy. Following surgery, had limitations in motion but did not have significant pain. Presented to me in 2012 and again in 2014 with evidence of glenohumeral joint osteoarthritis. Various treatment options reviewed but the patient declined to pursue any. Has continued to have limited mobility over the years and has pain with activity. Denies interference with sleep. Evaluated at [facility] 10/25/2021 and treatment options for the shoulder reviewed including injection and surgery. Patient did not pursue any further work-up or treatment in that office. Now presenting toour office for the same complaints. Per the patient, there has been some concern for Parkinson's, recently undergoing brain MRI and is scheduled to meet with neurology to 08/08/2022. He would like to hold off on any treatment for the shoulder until after that visit. Of note, recently evaluated in the total joint department for left knee pain due to osteoarthritis.Patient opted to hold off on further treatment, wanting to focus more on the possible diagnosis of Parkinson's disease. Physical therapy referral provided and steroid injection offered but declined. ROS, PMHx, FHx, SHx: Reviewed on new patient intake sheet or in patient chart. Diabetic: No. SOCIAL: Occupation: Retired. Home/Marital status: and lives on with his . Activities include: E bike, fishing, wood. Social History Tobacco Use ??? Smoking status: Never ??? Smokeless tobacco: Never Substance Use Topics ??? Alcohol use: Yes Alcohol/week: 7.0 standard drinks Types: 7 Standard drinks or equivalent per week Comment: Cider OBJECTIVE: On exam, patient is found to be a pleasant and cooperative male. Psych/Constitutional: Well-developed and in no significant distress. A&O with normal affect. On examination of right shoulder: Msk: Limited mobility with crepitus. Active FF 75, ER arm at side 5-10. Neuro-vascularly: Skin appears well perfused without cyanosis or pallor. DIAGNOSTICS: 09/01/2021 right shoulder radiographs show advanced joint space narrowing GH joint withloss of joint space and large inferior osteophyte. Metallic staple noted from previous surgery. Arthritic changes also noted at AC joint. ASSESSMENT: Right GH joint osteoarthritis. PLAN: Patient has a known history of right shoulder glenohumeral joint osteoarthritis. He has limited mobility and intermittent pain with use. He is familiar with treatment options including doing nothing and monitoring. Also discussed the option of steroid injection and surgery, as recently discussed with [facility]. He notes that between the knee and right shoulder, he would likely want to pursue knee replacement first. He would need to be fully recovered from the surgery before moving onto shoulder replacement. As mentioned, he would like to wait until after his neurology visit in March to move forward. With that said, we will hold off on ordering CT scan for her shoulder. If at some point, he is interested in proceeding and would like evaluation with Dr. Nguyen, he iswelcome to contact the office for scheduling. Attending physician available in the clinic today if needed. A consultation was not required. This note was prepared using voice recognition software and the EMR. There may be inadvertent errors and omissions. KILO Pike documented in this encounter Plan of Treatment Upcoming Encounters Date Type Department Care Team (Late st Contact Info) Description 09/19/2023 14:15 EDT Office Visit [facility] Adult Primary Care - [place] [address] [place] [address] Chris Daniels MD [address] [place] [phone] 10/19/2023 9:00 EDT Office Visit [facility] Hand & Upper Extremity Program - [place] [address] Ant Nguyen MD [address] [place] [address] 01/07/2024 13:15 EST Office Visit [facility] Neurology - [address] [place] [address] [place], [place] [phone] Salma Richardson MD [address] [place] [address], [address] [place] [address] documented as of this encounter Visit Diagnoses Diagnosis Osteoarthritis of right glenohumeral joint- Primary documented in this encounter Care Teams Assignment Desk Assistant Relationship Specialty Start Date End Date Chris Daniels MD [address] [place] [phone] PCP - General Internal Medicine - Primary Care 08/08/19 documented as of this encounter
--- OUTSIDE RECORDS SUMMARY | 2023-09-14 02:27 | XMS_ITS | Encounter Summary ---
Author Organization [facility] Address [address] [place] [address] Care Team Providers Care Biology Adjunct Instructor Name Role Phone Chris Daniels MD Primary Care Provider + Reason for Visit * Reason Comments [facility] Care Medicare Annual Wellness Visit Other bhs done ( PHQ2 scor e of 0 ); sdoh screen- neg Medication Management blood pressure med Encounter Details Date Type Department Care Team (Latest Contact Info) Description 08/08/2019 15:15 EDT Office Visit [facility] Adult Primary Care - [place] [address] [place] [address] Chris Daniels MD [address] [place] [phone] Need for 23-polyvalent pneumococcal polysaccharide vaccine (Primary Dx) Social History Tobacco Use Types Packs/Day Years Used Date Smoking Tobacco: Never Smokeless Tobacco: Never Tobacco Cessation:Counseling Given: No Alcohol Use Standard Drinks/Week Comments Yes 7 (1 standard drink = 0.6 oz pur e alcohol) Cider PHQ-2 Answer Date Recorded PHQ-2 SUBTOTAL 0 08/08/2019 Hunger Vital Sign Answer Date Recorded Within the past 12 months, y ou worried that your food would run out before you got the money to buy more. Never true 08/08/19 20 Within the past 12 months, t he food you bought just didn't last and you didn't have money to get more. Never true 08/08/2019 Sex and Gender Information Value Date Recorded Sex Assigned at Male 08/14/2021 11:28 EDT Gender Identity Male 08/10/2021 11:38 EDT Sexual Orientation Not on file COVID-19 Exposure Response Date Recorded In the last month, have you been in contact with someone who was confirmed or suspected to have Coronavirus / COVID-19? No / Unsure 08/08/2019 14:23 EDT documented as of this encounter Last Filed Vital Signs Vital Sign Reading Time Taken Comments Blood Pressure 138/80 08/08/2019 1456 EDT Pulse 72 08/08/2019 1456 EDT r Temperature 37 ??C (98.6 ??F) 08/08/2019 1456 EDT Respiratory Rate 16 08/08/2019 1456 EDT Oxygen Saturation - - Inhaled Oxygen Concentration - - Weight 67.1 kg (148 lb) 08/08/2019 1456 EDT Height 166.2 cm (5' 5.43) 08/08/2019 1456 EDT Body Mass Index 24.3 08/08/2019 1456 EDT documented in this encounter Functional Status [...] this encounter Patient Instructions * Patient Instructions* Chris Daniels MD - 08/08/2019 15:15 EDT Your next scheduled appointment is with me (Dr. Chris Daniels) in 1 year for annual Medicare wellness physical documented in this encounter Ordered Prescriptions Prescription Sig Dispensed Refills Start Date End Da te lisinopriL (PRINIVIL) 10 mg tablet Take 1 Tab by mouth daily. 90 Tab 3 08/08/2019 10/20/2019 documented in this encounter Progress Notes * Chris Daniels MD - 08/08/2019 1515 EDT Willam Negron, 73 y.o. male PRIMARY CARE PROVIDER: Robina Castro CHIEF COMPLAINT: Chief Complaint Patient presents with ??? Establish Care ??? Medicare Annual Wellness Visit ??? Other bhs done ( PHQ2 score of 0 ); sdoh screen- neg ??? Medication Management blood pressure med Medicare Essential Components: Patient self-assessment questionnaire completed, reviewed, and scanned: yes Full history done with PMH, PSH, SH, FH, ROS. The patient's problem list, past medical/surgical history, medications, allergies, family and social history were all updated and reviewed. Done: Yes Diet Reviewed: yes. Recommendations made: Level of activity: active Mood Screen (PHQ-2 on new pt and follow-up questionnaire) done: Yes: Negative Vision: assessed: No: impaired: Functional Evaluation completed ADLs: independent Cognitive: no impairment Hearing: grossly normal Fall Risk: low Home Safety: no concerns Advance Directives - none on on file Updated list of treating providers on care team: Yes Written Health Plan in patient instructions: Yes Patient Care Team: Chris Daniels MD as PCP - General HISTORY OF PRESENT ILLNESS: Willam Negron is a 73 y.o. male here for medicare annual wellness visit and to transfer care to a new provider. Today Mr. Negron presents to transfer care to a new provider. He was previously under the care ofDr. Saldivar and then subsequently Erin Castro after Dr. Saldivar departure from the practice. He denies any acute complaints at this time. He does note that this [place] and we discussed appropriate COVID-19 precautions. We reviewed his pertinent past medical history: Osteoarthritis: Primarily present in his right shoulder as well as bilateral knees. Describes his ongoing discomfort as a deep ache in those 3 joints. The pain is moderately relieved through occasional use of ibuprofen, but reports only using around 400 mg once or twice a month. He is not interested in a referral to physical therapy or orthopedics for more aggressive interventions for this problem. HTN: Reportedly diagnosed years prior and patient states that he is on a combination pill of lisinopril and hydrochlorothiazide but does unfortunately forget to take it regularly. He expresses annoyance with his current hypertensive regiment stating that he is frequently urinating on the combination pill and occasionally gets lightheaded from what he presumes is dehydration. Despite poor adherence to systolic blood pressure today is not abysmal at 138 systolic. We discussed removing his hydrochlorothiazide from his hypertensive regiment and instead pursuing lisinopril monotherapy for his hypertension. He is open to the concept and we discussed ways to improve his adherence with his hypertensive medications. Gluten intolerance: Reportedly never diagnosed with celiac's disease but has issues with foods containing gluten. He states that his intolerance manifested as GI upset and he typically avoids any symptoms if he avoids consuming gluten- containing foods. 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 [facility] Screen Summary Interpretation PHQ-2: 0 PHQ-9: BLAKE-2: BLAKE-7: SASQ: Never AUDIT-10: SSASQ: Never DAST-10: . Patient Active Problem List Diagnosis Date Noted ??? Thumb pain, left 01/31/2017 ??? Essential hypertension 01/31/2017 ??? Osteoarthritis of glenohumeral joint 03/05/2014 Right shoulder Past medical, surgical, family and social history were reviewed and updated as appropriate. Social History Social History Narrative ??? Not on file MEDICATION REVIEW: Medications reviewed & updated. ALLERGIES: Allergies as of 08/08/2019 - Reviewed 08/08/2019 Allergen Reaction Noted ??? Codeine 01/20/2009 ??? Novacaine [procaine (bulk)] 01/20/2009 REVIEW OF SYSTEMS: A ten point ROS was performed and was negative except for pertinent positives inthe HPI PHYSICAL EXAM: Vitals: BP 138/80 (BP Cuff Location: Left arm, BP Patient Position: Sitting, BP Cuff Sizes: Adult, regular) Pulse 72 Comment: r Temp 37 ??C (98.6 ??F) (Tympanic) Resp 16 Ht 166.2 cm (65.43) Wt 67.1 kg (148 lb) BMI 24.30 kg/m?? Gen - NAD HEENT - no [...] intact, normal gait ASSESSMENT / PLAN : 73 y.o. male here for medicare annual wellness visit. 1. Medicare annual wellness visit - Requirements as listed above 2. Hypertension: Inadequately controlled but patient reports poor adherence to current regiment. Also notes difficulty with excessive urination on hydrochlorothiazide. Willing to try lisinopril monotherapy and obtain a home blood pressure cuff. -We will discontinue combination pill of lisinopril-hydrochlorothiazide at 10- 12.5 mg daily. Instead we will start lisinopril 10 mg QHS and have the patient obtain a home blood pressure cuff to obtain some blood pressure readings. Encouraged the patient to provide us a phone message or [employer] message in 2 to 4 weeks on his blood pressure readings. If inadequately controlled would have a low threshold for increasing lisinopril further. 3. Gluten intolerance; well controlled with dietary restriction -We will continue to monitor 4. Health maintenance -We will provide Pneumovax 23 at this encounter -Discussed importance of bringing in copy of advance directive -Discussed principles of shingles vaccination -We will patient return in 1 year for annual Medicare wellness visit Follow-up in 1 year for annual Medicare wellness Chris Daniels MD Adult Primary Care Medicine Pager #: [phone] documented in this encounter Plan of Treatment Upcoming Encounters Date Type Department Care Team (Late st Contact Info) Description 09/19/2023 14:15 EDT Office Visit [facility] Adult Primary Care - [place] [address] [phone] Chris Daniels MD [address] [place] [phone] 10/19/2023 9:00 EDT Office Visit [facility] Hand & Upper Extremity Program - [facility] [place] [address] Ant Nguyen MD [address] [place] [address] 01/07/2024 13:15 EST Office Visit [facility] Neurology - [address] [place] [address] [place], [place] [phone] Salma Richardson MD 1 [facility], [address] [place] [phone] documented as of this encounter Visit Diagnoses Diagnosis Need for 23-polyvalent pneumococcal polysaccharide vaccine- Primary Need for prophylactic vaccination against streptococcus pneumoniae (pneumococcus) documented in this encounter Discontinued Medications Medication Sig Discontinue Reason Start Date End Da te lisinopril-hydrochlorothi azide (ZESTORETIC) 10-12.5 mg per tablet Take 1 Tab by mouth daily. Alternate therapy 03/21/2019 08/08/2019 documented as of this encounter Orders Immunization/Injection Count Last Ordered Date First Ordered Date PNEUMOCOCCAL POLYSACCHARIDE (PPSV23) VACCINE (PNEUMOVAX-23) 23-VALENT =>2YO SQ/IM 1 08/08/2019 documented in this encounter Care Teams Biology Adjunct Instructor Relationship Specialty Start Date End Date Chris Daniels MD [address] [place] [phone] PCP - General Internal Medicine - Primary Care 08/08/19 documented as of this encounter
--- OUTSIDE RECORDS SUMMARY | 2023-09-14 02:27 | XMS_ITS | Encounter Summary ---
Author Organization [facility] Address [address] [place] [address] Care Team Providers Care Battery Assembler Dry Cell Name Role Phone Chris Daniels MD Primary Care Provider + Reason for Visit * Reason Onset Date Comments Labs Only 07/28/2021 Encounter Details Date Type Department Care Team (Late st Contact Info) Description 07/28/2021 Telephone [facility] Adult Primary Care - [place] [address] [place] [address] Chris Daniels MD [address] [place] [phone] Labs Only Social History Tobacco [...] care, and heating? Not hard at all 08/13/2020 PHQ-2 Answer Date Recorded PHQ-2 SUBTOTAL 0 08/13/2020 Hunger Vital Sign Answer Date Recorded Within the past 12 months, y ou worried that your food would run out before you got the money to buy more. Never true 08/14/19 21 Within the past 12 months, t he food you bought just didn't last and you didn't have money to get more. Never true 08/13/2020 PRAPARE - Transportation Answer Date Re corded In the past 12 months, has l ack of transportation kept you from medical appointments or from getting medications? No 07/21 In the past 12 months, has l ack of transportation kept you from meetings, work, or from getting things needed for daily living? No 08/13/2020 Housing Stability Vital Sign Answer Miguel e Recorded In the last 12 months, was t here a time when you were not able to pay the mortgage or rent on time? No 08/13/2020 In the last 12 months, how many places have you lived? 2 08/13/2020 In the last 12 months, was t here a time when you did not have a steady place to sleep or slept in a group home (including now)? No 08/13/2020 Interpersonal Safety Answer Date Record ed How often does anyone, hari kruse family, hit, punch or physically hurt you? Never 08/13/2020 How often does anyone, hari kruse family, insult, scream, curse or threaten to hurt you? Never 08/13/2020 Sex and Gender Information Value Date Recorded [...] * Telephone Encounter - Annamaria Chance - 07/29/2021 1639 EDT Labs pended documented in this encounter Plan of Treatment Upcoming Encounters Date Type Department Care Team (Late st Contact Info) Description 09/19/2023 14:15 EDT Office Visit [facility] Adult Primary Care - [place] [address] [place] [address] Chris Daniels MD [address] [place] [phone] 10/19/2023 9:00 EDT Office Visit [facility] Hand & Upper Extremity Program - [facility] [address] [facility] [place] [address] Ant Nguyen MD [address] [place] [address] 01/07/2024 13:15 EST Office Visit [facility] Neurology - [address] [address] Salma Richardson MD [address] [place] [address], [address] [place] [phone] documented as of this encounter Results * (ABNORMAL) COMPLETE BLOOD COUNT AND DIFFERENTIAL (08/10/2021 11:51 EDT) WBC 3.80(L) 4.00 - 10.40 K/cmm 08/10/2021 12:11 [facility] RBC 3.75(L) 4.36 - 5.78 M/cmm 08/10/2021 12:11 [facility] Hemoglobin 12.9(L) 13.8 - 17.3 gm/dL 08/10/2021 12:11 [facility] HCT 37.3(L) 39.5 - 50.2 % 08/10/2021 12:11 [facility] MCV 100(H) 81 - 95 fl 08/10/2021 12:11 [facility] MCH 34.4(H) 27.6 - 33.0 pg 08/10/2021 12:11 [facility] MCHC 34.6 32.8 - 36.4 gm/dL 08/10/2021 12:11 [facility] RDW-CV 12.0 <14.2 % 08/10/2021 12:11 [facility] RDW-SD 43.8 <46.0 fl 08/10/2021 12:11 [facility] PLT 237 141 - 377 K/cmm 08/10/2021 12:11 [facility] MPV 8.7(L) 9.5 - 12.7 fl 08/10/2021 12:11 [facility] % Neutrophils 54.7 % 08/10/2021 12:11 [facility] % Lymphocytes 31.8 % 08/10/2021 12:11 [facility] % Monocytes 10.8 % 08/10/2021 12:11 [facility] % Eosinophils 1.6 % 08/10/2021 12:11 [facility] % Basophils 0.8 % 08/10/2021 12:11 [facility] % Immature Grans 0.3 % 08/11/19 12:11 [facility] Absolute Neutrophils 2.08(L) 2.20 - 8.85 K/cmm 08/10/2021 12:11 [facility] Absolute Lymphocytes 1.21 1.09 - 3.30 K/cmm 08/10/2021 12:11 [facility] Absolute Monocytes 0.41 0.10 - 0.80 K/cmm 08/10/2021 12:11 [facility] Absolute Eosinophils 0.06 0.03 - 0.61 K/cmm 08/10/2021 12:11 [facility] ABS Basophils 0.03 0.01 - 0.11 K/cmm 08/10/2021 12:11 [facility] Absolute Immature Grans 0.01 0.00 - 0.06 K/cmm 08/10/2021 12:11 [facility] Type of Differential: Auto 08/10/2021 12:11 [facility] Blood VENOUS BLOOD / Unknown Venipuncture / Unknown 08/10/2021 11:51 EDT 08/10/2021 12:00 EDT Chris Daniels MD PACKAGES & DNA P ROBE ORDERABLES Performing Organization Address City/[facility]/ZIP Co de Phone Number [facility] [address] [place] [address] * (ABNORMAL) BASIC METABOLIC PANEL (BMP) (08/10/2021 11:51 EDT) Sodium 141 136 - 145 mmol/L 08/10/2021 12:40 EDT [facility] Potassium 4.1 3.5 - 5.0 mmol/L 08/10/2021 12:40 T [facility] Chloride 105 96 - 110 mmol/L 08/10/2021 12:40 [facility] CO2 Total 25 22 - 32 mmol/L 08/10/2021 12:40 [facility] Anion Gap 11 5 - 14 08/10/2021 12:40 [facility] Glucose 90 70 - 100 mg/dL 08/10/2021 12:40 T [facility] Calcium 8.7 8.5 - 10.5 mg/dL 08/10/2021 12:40 [facility] BUN 18 10 - 26 mg/dL 08/10/2021 12:40 [facility] Creatinine 0.58(L) 0.66 - 1.25 mg/dL 08/10/2021 12:40 [facility] eGFR 102 >60 mL/min/1.73 m2 08/10/2021 12:40 [facility] Blood VENOUS BLOOD / Unknown Venipuncture / Unknown 08/10/2021 11:51 EDT 08/10/2021 12:00 EDT Chris Daniels MD CHEMISTRY & BLOO D GAS ORDERABLES [facility] [address] [place] [address] documented in this encounter Visit Diagnoses Diagnosis Macrocytosis- Primary Other specified diseases of blood and blood-forming organs Primary hypertension Unspecified essential hypertension documented in this encounter Care Teams Battery Assembler Dry Cell Relationship Specialty Start Date End Date Chris Daniels MD [address] [place] [phone] PCP - General Internal Medicine - Primary Care 08/08/19 documented as of this encounter
--- OUTSIDE RECORDS SUMMARY | 2023-09-14 02:27 | XMS_ITS | Encounter Summary ---
Author Organization [facility] Address [address] [place] [address] Care Team Providers Care Assistance Specialist Name Role Phone Robina Castro PA-C Primary Care Provider Chris Daniels MD Primary Care Provider + Reason for Visit * Reason Onset Date Comments Labs Only 08/04/2019 Encounter Details Date Type Department Care Team (Late st Contact Info) Description 08/04/2019 Orders Only [facility] Adult Primary Care - [place] [address] [place] [address] Chris Daniels MD [address] [place] [phone] Social History Tobacco Use Types Packs/Day Years Used Date Smoking Tobacco: Never Smokeless Tobacco: Never Alcohol Use Standard Drinks/Week Comments Yes 8 (1 standard drink = 0.6 oz pur [...] 14:23 EDT documented as of this encounter Functional Status [...] Info) Description 09/19/2023 14:15 EDT Office Visit [facility] Adult Primary Care - [address] [address] Chris Daniels MD [address] [place] [phone] 10/19/2023 9:00 EDT Office Visit [facility] Hand & Upper Extremity Program - [address] [phone] Ant Nguyen MD [address] [place] [phone] 01/07/2024 13:15 EST Office Visit [facility] Neurology - [facility] [address] [place], [place] [phone] Salma Richardson MD [address] [place] [address], [address] [place] [phone] documented as of this encounter Visit Diagnoses Not on filedocumented in this encounter Care Teams Assistance Specialist Relationship Specialty Start Date End Date Robina Castro PA-C PCP - General 11/15/17 08/07/19 Chris Daniels MD [address] [place] [phone] PCP - General Internal Medicine - Primary Care 08/08/19 documented as of this encounter
--- OUTSIDE RECORDS SUMMARY | 2023-09-14 02:27 | XMS_ITS | Encounter Summary ---
Author Organization [facility] Address [address] [place] [address] Care Team Providers Care Matrix Worker Name Role Phone Adrien Saldivar MD Primary Care Provider [phone] Reason for Visit * Reason Comments Hypertension review states taking linisopril 75 % of the time Other will mail in advance d directive Immunizations due today Encounter Details Date Type Department Care Team (Late st Contact Info) Description 08/13/2017 9:45 EDT Office Visit [facility] [place] [address] Adrien Saldivar MD [address] [place] [address] [place] [phone] Essential hypertension (Primary Dx); Need for shingles vaccine; Need for pneumococcal vaccination; Macrocytosis Social History Tobacco Use Types Packs/Day Years Used Date Smoking Tobacco: Never Smokeless Tobacco: Never Alcohol Use Standard Drinks/Week Comments Yes 8 (1 standard drink = 0.6 oz pur e alcohol) Cider Sex and Gender Information Value Date Recorded Sex Assigned at Male 08/14/2021 11:28 EDT Gender Identity Male 08/10/2021 11:38 EDT Sexual Orientation Not on file documented as of this encounter Last Filed Vital Signs Vital Sign Reading Time Taken Comments Blood Pressure 130/72 08/13/2017 0938 EDT Pulse 62 08/13/2017 0938 EDT reg Temperature 36.1 ??C (97 ??F) 08/13/2017 0938 EDT Respiratory Rate 14 08/13/2017 0938 EDT reg Oxygen Saturation - - Inhaled Oxygen Concentration - - Weight 72.6 kg (160 lb) 08/13/2017937 EDT Height 172.7 cm (5' 8) 08/13/2017937 EDT Body Mass Index 24.33 08/13/2017937 EDT documented in this encounter Functional Status [...] Dispensed Refills Start Date End Da te lisinopril-hydrochlorothia zide (PRINZIDE, ZESTORETIC) 10-12.5 mg per tablet Take 1 Tab by mouth daily. 90 Tab 3 08/13/2017 03/13/2019 documented in this encounter Progress Notes * Adrien Saldivar MD - 08/13/2017 0945 EDT This note has been dictated through [employer]. Minor grammatical errors are likely to be present. Internal Medicine Clinic Note Date : 08/13/2017 Willam Negron is a 71 y.o. year old male presenting to clinic to address the following: The patient has a home in [place]. 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 1. Hypertension Continues with elevated reads at today's encounter. He is open to starting a blood pressure medication today. 2. Alcohol use Resulting in increased MCV. SUBJECTIVE: The patient states he feels well and denies any discomfort. Allergies Allergen Reactions ??? Codeine ??? Novacaine [Procaine (Bulk)] Sends me for a loop Past Medical History: Diagnosis Date ??? Arthritis left knee ??? Broken bones leg, fingers ??? Hypertension ??? Joint pain ??? Joint swelling ??? Numbness Past Surgical History: Procedure Laterality Date ??? KNEE SURGERY right and left knees ??? SHOULDER SURGERY Family History Problem Relation Age of Onset ??? Heart Disease Father ??? Stroke Father ??? High Blood Pressure Brother Social History Social History ??? Marital status: Spouse name: N/A ??? Number of children: N/A ??? Years of education: N/A Social History Main Topics ??? Smoking status: Never Smoker ??? Smokeless tobacco: Never Used ??? Alcohol use 4.8 - 6.0 oz/week 8 - 10 Standard drinks or equivalent per week Comment: Cider ??? Drug use: No ??? Sexual activity: Not Asked Other Topics Concern ??? None Social History Narrative Review of Systems - History obtained from the patient General: negative for - fevers, chills, fatigue, malaise Psychological: negative for - anxiety, depression Cardiovascular: negative for - chest pain Respiratory: negative for - shortness of breath Gastrointestinal: negative for - change in bowel habits Neurological : negative for - dizziness, weakness Physical Exam: Vitals: 08/13/17 0938 BP: 130/72 BP Cuff Location: Right arm Patient Position: Sitting BP Cuff Sizes: Adult, regular Pulse: 62 Resp: 14 Temp: 36.1 ??C (97 ??F) TempSrc: Tympanic Weight: 72.6 kg (160 lb) Height: 172.7 cm (68) General Appearance: alert and oriented, pleasant and conversant Head: Normocephalic, without obvious abnormality, atraumatic ENT: conjunctivae/corneas clear, EOMs grossly intact Lungs: clear to auscultation bilaterally, unlabored breathing Heart: regular rate and rhythm, he does have a 1/6 systolic murmur at the left sternal border Neurologic: Alert and oriented X 3, normal strength and tone. No focal deficits Extremities: extremities warm, atraumatic, no cyanosis or edema Skin: Skin color, temperature, turgor normal. No rashes or lesions Laboratory Data: Reviewed ASSESSMENT AND PLAN: 1. Essential hypertension Continue combination lisinopril/hydrochlorothiazide at 10-12.5 mg daily. 2. Need for shingles vaccine - Shingrix (Zoster Vaccine, Recombinant) IM 3. Need for pneumococcal vaccination - Pneumococcal conjugate (PCV13) vaccine (PREVNAR-13) 13-valent IM 4. Essential hypertension - Comprehensive Metabolic Panel (CMP); Future 5. Macrocytosis - Complete Blood Count and Differential; Future We will follow-up in 6 months for another blood pressure check. He is also due for vaccines. Adrien Saldivar MD documented in this encounter Plan of Treatment Upcoming Encounters Date Type Department Care Team (Late st Contact Info) Description 09/19/2023 14:15 EDT Office Visit [facility] - [place] [address] [place] [address] Chris Daniels MD [address] [place] [phone] 10/19/2023 9:00 EDT Office Visit [facility] Hand & Upper Extremity Program - [facility] [address] [place], [place] [phone] Ant Nguyen MD [address] [place] [address] 01/07/2024 13:15 EST Office Visit [facility] Neurology - [address] [phone] Salma Richardson MD [address] [place] [address], [address] [place] [phone] documented as of this encounter Visit Diagnoses Diagnosis Essential hypertension- Primary Unspecified essential hypertension Need for shingles vaccine Need for prophylactic vaccination and inoculation against other viral diseases Need for pneumococcal vaccination Need for prophylactic vaccination against streptococcus pneumoniae (pneumococcus) Macrocytosis Other specified diseases of blood and blood-forming organs documented in this encounter Discontinued Medications Medication Sig Discontinue Reason Start Date End Da te lisinopril-hydrochlorothi azide (PRINZIDE, ZESTORETIC) 10-12.5 mg per tablet Take 1 Tab by mouth daily. Reorder 06/06/2017 08/13/2017 documented as of this encounter Orders Immunization/Injection Count Last Ordered Date First Ordered Date PNEUMOCOCCAL CONJ VACC PCV13 (PREVNAR-13) IM 1 08/13/2017 SHINGRIX (ZOSTER VACCINE, RECOMBINANT) IM 1 08/13/2017 documented in this encounter Care Teams Matrix Worker Relationship Specialty Start Date End Date Adrien Saldivar MD PCP - General 09/26/16 11/14/17 documented as of this encounter
--- OUTSIDE RECORDS SUMMARY | 2023-09-14 02:27 | XMS_ITS | Encounter Summary ---
Author Organization [facility] Address [address] [place] [address] Care Team Providers Care Director Data Architecture Name Role Phone Chris Daniels MD Primary Care Provider + Reason for Referral * PT/OT/ST (Routine/Next Available) - Closed Specialty Diagnoses / Procedures Referred By Contac t Referred To Contact Diagnoses Primary osteoarthritis of left knee Alison Marcus NP [address] [place] [phone] Referral ID Status Reason Start Date Expiration Date V isits Requested Visits Authorized [id number] Closed Specialty Services Required 01/19/2022 1 1 Question Answer Reason for Request: Severe left knee osteoarthritis, patient planning for TKA Comments Eval and Treat: knee pain and dysfunction. Goals: to restore core & lower extremity ROM, strength, and stability. Neuromuscular rehabilitation: balance/proprioception/muscle education. Instruct activity modification and HEP. Utilize pool-based program prn for low-impact, if land- based program is not well tolerated. Manual treatments/anti-inflammatory modalities as tolerated. Encounter Details Date Type Department Care Team (Late st Contact Info) Description 01/19/2022 Orders Only [facility] Total Joint Program - [place] [address] [place] [address] Alison Marcus NP [address] [place] [address] Primary osteoarthritis of left knee (Primary Dx) Social History Tobacco Use Types [...] [facility] [place] [address] [place] [address] Chris Daniels MD [address] [place] [address] 10/19/2023 9:00 EDT Office Visit [facility] Hand & Upper Extremity Program - [address] [phone] Ant Nguyen MD [address] [place] [address] 01/07/2024 13:15 EST Office Visit [facility] Neurology - [address] [phone] Salma Richardson MD [address] [place] [address], [address] [place] [phone] Scheduled Referrals Name Type Priority Associated Diagnoses Orde r Schedule AMB CONS/FOLLOW UP PHYSICAL THERAPY - OUTSIDE OF NETWORK Outpatient Referral Routine/Next Available Primary osteoarthritis of left knee Expected: 01/26/2022 (Approximate), Expires: 01/19/2023 documented as of this encounter Visit Diagnoses Diagnosis Primary osteoarthritis of left knee- Primary Primary localized osteoarthrosis, lower leg documented in this encounter Care Teams Director Data Architecture Relationship Specialty Start Date End Date Chris Daniels MD [address] [facility] [place] [address] PCP - General Internal Medicine - Primary Care 08/08/19 documented as of this encounter
--- OUTSIDE RECORDS SUMMARY | 2023-09-14 02:27 | XMS_ITS | Encounter Summary ---
Author Organization [facility] Address [address] [place] [address] Care Team Providers Care Boiler Tube Blower Name Role Phone Chris Daniels MD Primary Care Provider + Reason for Visit * Reason Onset Date Comments Appointment Related 01/18/2022 Encounter Details Date Type Department Care Team (Late st Contact Info) Description 01/18/2022 Telephone [facility] Total Joint Program - [facility] [address] [place] [address] Alison Marcus, TIMA [address] [place] [address] Appointment Related Social History Tobacco Use Types [...] to sleep or slept in a senior living (including now)? No 08/17/2021 Interpersonal Safety Answer [...] encounter Miscellaneous Notes * Telephone Encounter - Mima Lewis MA - 01/18/2022 1123 EST Called and spoke with pt's spouse, Azeb, in regards to pt's request to be scheduled with a surgeon for his left knee. Pt was scheduled; date/time confirmed. Stated that Alison also recommends PT to help build strength, which can help with post-surgery recovery. PT referral requested to be sent to [facility] at ph. [phone]. I will letAlison know of this request. documented in this encounter Plan of Treatment Upcoming Encounters Date Type Department Care Team (Late st Contact Info) Description 09/19/2023 14:15 EDT Office Visit [facility] Adult Primary Care - [place] [address] [place] [address] Chris Daniels MD 2 [facility] [address] 10/19/2023 9:00 EDT Office Visit [facility] Hand & Upper Extremity Program - [address] [phone] Ant Nguyen MD [address] [place] [address] 01/07/2024 13:15 EST Office Visit [facility] Neurology - [address] [phone] Salma Richardson MD [address] [place] [address], [address] [place] [phone] documented as of this encounter Visit Diagnoses Not on filedocumented in this encounter Care Teams Boiler Tube Blower Relationship Specialty Start Date End Date Chris Daniels MD [address] [facility] [place] [address] PCP - General Internal Medicine - Primary Care 08/08/19 documented as of this encounter
--- OUTSIDE RECORDS SUMMARY | 2023-09-14 02:27 | XMS_ITS | Encounter Summary ---
Author Organization [facility] Address [address] [place] [address] Care Team Providers Care Coding Clerk Name Role Phone Chris Lopez MD Primary Care Provider + Reason for Visit * Reason Onset Date Comments Suicidal Ideation 01/31/2022 Tremors 01/31/2022 Encounter Details Date Type Department Care Team (Late st Contact Info) Description 01/31/2022 Telephone [facility] Adult Primary Care - [place] [address] [place] [address] Chris Lopez MD [address] [place] [address] Suicidal Ideation; Tremors Social History Tobacco Use Types Packs/Day Years [...] place to sleep or slept in a nursing home (including now)? No 08/17/2021 Interpersonal Safety [...] Telephone Encounter - Carina Denise RN - 01/31/2022 4005 EST Call to shruthi Relayed message per dr lopez. Crisis P# relayed to . expressed understanding with no barriers No additional questions or concerns to be addressed at this time. CARINA DENISE RN 01/31/2022 13:10 * Telephone Encounter - Chris Lopez MD - 01/31/2022 1300 EST Agree with OV. Would ensure june has crisis number. Should patient or note that SI has progressed to the point of feeling unsafe I would advise immediate evaluation in the ED. Otherwise agree with follow-up plan. 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 Frustrated by this. Ambulatory Suicide Risk Screening Does the patient have a primary diagnosis or primary (chief) complaint of an emotional or behavioral disorder? Yes. Have you had thoughts of harming yourself recently? No. Consider Psychiatry referral ([facility]) She states that this morning patient stated it was Pointless to keep going like this. Said similar things over this past month but today worse Last night not a good night. Woke up more than normal. Had a hard time turning over. Had to go BR more often. Did not sleep well last night. Had a lot of bad dreams. Usually sleeps well. Anxiety level is increased. He is more pessimistic. Discussed pt going to ER if truly having thoughts of SI. She states he has no plan. Spoke with patient. CHUCK added to chart for shruthi. She was in background for call while pt onphone. He states he is now having a much wider range of sx. States that when it comes to that point in his sx, he Wants medically assisted suicide. Denies SI currently. States he is just Feeling down about parkinsons dx and that sx becoming more apparent. He has noticed his Attention span and intuitive nature are not functioning the way they should appt made with Jhon Marley for tomorrow. appt made with DR Lopez for February. States he is on cx list for neuro. The patient indicates understanding of these issues and agrees with the plan. Any further recommendations? * Telephone Encounter - Libby Donaldson - 01/31/2022 1151 EST Reason for Call: Suicidal Ideation and Tremors Summary/Symptoms: patients is unable to get pt a neurology appt until March. Pt is having suicidal thought and they told her to call PCP for appt. Onset and Duration: current Does the patient have a computer, laptop or smart phone with high speed & video capability? N/A If so, would they be interested in doing a video visit via [employer]? N/A Appointment Offered? No Libby Donaldson 01/31/2022 11:52 documented in this encounter Plan of Treatment Upcoming Encounters Date Type Department Care Team (Late st Contact Info) Description 09/19/2023 14:15 EDT Office Visit [facility] Adult Primary Care - [address] [address] Chris Lopez MD [address] [place] [phone] 10/19/2023 9:00 EDT Office Visit [facility] Hand & Upper Extremity Program - [address] [place], [place] [phone] Ant Nguyen MD [address] [place] [phone] 01/07/2024 13:15 EST Office Visit [facility] Neurology - [address] [phone] Salma Richardson MD [address] [place] [address], [facility] [address] [place] [phone] documented as of this encounter Visit Diagnoses Not on filedocumented in this encounter Care Teams Coding Clerk Relationship Specialty Start Date End Date Chris Lopez MD [address] [place] [phone] PCP - General Internal Medicine - Primary Care 08/08/19 documented as of this encounter
--- OUTSIDE RECORDS SUMMARY | 2023-09-14 02:27 | XMS_ITS | Encounter Summary ---
Author Organization [facility] Address [address] [place] [address] Care Team Providers Care Regional Account Director Name Role Phone Chris Daniels MD Primary Care Provider + Reason for Visit * Reason Onset Date Comments Appointment Related 11/28/2021 Encounter Details Date Type Department Care Team ([facility] st Contact Info) Description 11/28/2021 Telephone [facility] Neurology - [place] [address] [place] [phone] Salma Richardson MD [address] [place] [address] [address] [place] [phone] Appointment Related Social History Tobacco Use Types [...] encounter Miscellaneous Notes * Telephone Encounter - Janis Beasley - 11/28/2021 1248 EDT NPV LETTER SENT documented in this encounter Plan of Treatment Upcoming Encounters Date Type Department Care Team (Late st Contact Info) Description 09/19/2023 14:15 EDT Office Visit [facility] Adult Primary Care - [place] [address] [place] [address] Chris Daniels MD [address] [place] [address] 10/19/2023 9:00 EDT Office Visit [facility] Hand & Upper Extremity Program - [facility] [address] [place] [address] Ant Nguyen MD [address] [place] [address] 01/07/2024 13:15 EST Office Visit [facility] Neurology - [address] [address] Salma Richardson MD [address] [place] [address], [address] [place] [phone] documented as of this encounter Visit Diagnoses Not on filedocumented in this encounter Care Teams Regional Account Director Relationship Specialty Start Date End Date Chris Daniels MD [address] [place] [address] PCP - General Internal Medicine - Primary Care 08/08/19 documented as of this encounter
--- OUTSIDE RECORDS SUMMARY | 2023-09-14 02:27 | XMS_ITS | Encounter Summary ---
Author Organization [facility] Address [address] [place] [address] Care Team Providers Care Airplane Inspector Name Role Phone Chris Daniels MD Primary Care Provider + Reason for Visit * Reason Comments Pain * Consult (See Order Priority) - Order Cancelled Specialty Diagnoses / Procedures Referred By Joshua diaz Referred To Contact Orthopedic Surgery Diagnoses Chronic pain of left knee Chris Daniels MD [address] [place] [phone] [facility] Ortho Total Joint [address] [place] [address] Referral ID Status Reason Start Date Expiration Date Visits Requested Visits Authorized [id number] Order Cancelled Specialty Services Required 08/18/2021 1 1 Encounter Details Date Type Department Care Team (Latest Contact Info) Description 11/24/2021 10:00 EDT Office Visit [facility] Total Joint Program [place] [address] Alison Marcus NP [address] [place] [address] Primary osteoarthritis of left knee [...] as of this encounter Progress Notes * Alison Marcus, MAGNETO SPECIALIST - 11/24/2021 1000 EDT New knee pain visit; Chief Complaint Patient presents with ??? Left Knee - Pain HPI: Willam Negron is a 76 y.o. patient with hypertension and celiac disease whom I am seeing in consultation requested by Dr. Daniels who presents with left knee pain. He reports the knee has bothered him for many years, slowly progressing. He reports undergoing at least 3 left knee arthroscopies, most recent was about 20 years ago. He describes lateral as well as generalized knee pain that is wor se when going up and down stairs. Occasionally the knee aches and wakes him at night. He describes intermittent swelling. He tries to remain as active as possible and finds biking is helpful. He is currently being worked up for a diagnosis of Parkinson's disease and is awaiting an upcoming MRI. This is currently his priority would like to hold off on any invasive treatment of his knee until diagnosis and treatment is confirmed of the Parkinson's. He is ambulating without an assistive device. Hedoes not use a knee brace. He takes ibuprofen infrequently for his pain. He has not attended recentphysical therapy. Today he rates his pain as 6/10 in severity. Comprehensive health database form (including 10 system review) was completed with the patient, reviewed, signed and scanned into EMR system. Medication reconciliation was completed. Past Medical History: reviewed as documented in PRISM chart Past Surgical History: Procedure Laterality Date ??? KNEE SURGERY right and left knees ??? SHOULDER SURGERY Occupation: retired PHYSICALEXAM: A Level 5 single system orthopedic exam was conducted on both lower extremities. This included: General: Well-appearing male in no acute distress. Mood and affect appropriate. Vital Signs: There were no vitals taken for this visit. A and O x3. Eyes: Sclerae clear. Cardiovascular: Capillary refill normal. Respiratory: Regular, unlabored, without audible wheezing Station and Gait: Arises from seated position with knee pain, normal station with level pelvis in standing position. Gait is slow and slightly antalgic. Pelvis and Hips: No tenderness or masses, hip ROM is symmetric without reproduction of patient's presenting leg complaint(s) RIGHT KNEE: Skin: Intact to inspection and palpation. Prior arthroscopic incisions/scars well-healed No effusion. Standing alignment: neutral ROM 0 to 125 degrees He does not have tenderness over the medial compartment, does not have tenderness over the lateral compartment and does not have tenderness over the patellofemoral compartment. He does not have a palpable Richardson's cyst. Ligament testing: A/P and V/V testing reveals no pathologic laxity or fixed deformity Extensor mechanism intact LEFT KNEE: Skin: Intact to inspection and palpation. Prior arthroscopic incisions/scars well-healed Minimal swelling, bony hypertrophy evident Standing alignment: Slight valgus ROM 0 to 100 degrees He does not have tenderness over the medial compartment, does have tenderness over the lateral compartment and does not have tenderness over the patellofemoral compartment. He does not have a palpable Richardson's cyst. Ligament testing: A/P and V/V testing reveals no pathologic laxity or fixed deformity Extensor mechanism intact Lower leg and ankles/feet: normal skin integrity and functional ROM. Neurologic: Intact sensation to light touch in both lower extremities. Tib-ant muscle strength 5/5 bilateral, gastroc-soleus muscle strength 5/5 bilateral Lymphadenopathy: none noted Vascular: DP/PT pulses +2 bilaterally REVIEW OF IMAGING: Weight bearing arthritis series including AP knee, lateral knee, and skyline are personally reviewed revealing: Left knee: Advanced tricompartmental degenerative changes evident in the left knee, more severe in the lateraltibiofemoral compartment with complete joint space loss and osteophytosis. Chronic appearing deformity of the proximal fibula. No acute fracture or other osseous abnormality ASSESSMENT: 76 y.o. male with left knee osteoarthritis resulting in pain and limited mobility PLAN: Today, I had a lengthy conversation with Willam regarding his chronic and progressively worsening left knee pain. We discussed both operative and nonoperative treatment options including activity modification, low impact exercise, physical therapy, anti-inflammatories, injection therapy and use of an ambulatory aid. We discussed that he could be considered for a left total knee arthroplasty if symptoms cannot be well-controlled conservatively. He is not currently interested in this option as heis focused more so on a final diagnosis of Parkinson's disease and treatment. He would like to prioritize that prior to any surgical intervention on his knee, which is very appropriate. We discussed i n the meantime other treatment options including physical therapy to work on quadricep strengthening, gait and mobility. He also would like to hold off on this for now, however may call as needed fora formal physical therapy referral if needed. I did also offer the option of a corticosteroid injection for potential short-term pain relief. He is interested in this option but again would like to hold off for now and may call as needed to arrange if desired. Otherwise he may continue with [id number] anti-inflammatories as needed. He was encouraged to remain as active as possible, particularly with low impact exercise such as stationary biking. His questions were answered and he was pleas ed with today's plan of care DISPOSITION: follow-up in [facility] as needed Dr. Sykes was the attending physician available in the clinic today if needed. A consultation was not required. All or part of this document has been prepared with speech recognition software and/or keyboard associate data scientist techniques. Minor irregularities may be present. Cc: Chris Daniels Cc: Jeremiah documented in this encounter Plan of Treatment Upcoming Encounters Date Type Department Care Team (Late st Contact Info) Description 09/19/2023 14:15 EDT Office Visit [facility] Adult Primary Care - [address] [address] Chris Daniels MD [address] [place] [phone] 10/19/2023 9:00 EDT Office Visit [facility] Hand & Upper Extremity Program - [address] [phone] Ant Nguyen MD [address] [place] [phone] 01/07/2024 13:15 EST Office Visit [facility] Neurology - [address] [phone] Salma Richardson MD [address] [place] [address], [facility] [address] [place] [phone] documented as of this encounter Visit Diagnoses Diagnosis Primary osteoarthritis of left knee- Primary Primary localized osteoarthrosis, lower leg documented in this encounter Care Teams Airplane Inspector Relationship Specialty Start Date End Date Chris Daniels MD [address] [place] [address] PCP - General Internal Medicine - Primary Care 08/08/19 documented as of this encounter
--- OUTSIDE RECORDS SUMMARY | 2023-09-14 02:27 | XMS_ITS | Encounter Summary ---
Author Organization [facility] Address [address] [place] [address] Care Team Providers Care Overhead Crane Inspector Name Role Phone Robina Castro PA-C Primary Care Provider [phone] Reason for Visit * Reason Comments Immunizations Encounter Details Date Type Department Care Team (Late st Contact Info) Description 01/10/2019 14:00 EST Nurse Only [facility] Adult Primary Care - [address] [address] Nurse, [facility] Adult, Need for immunization against influenza (Primary Dx) Social History Tobacco Use Types [...] as of this encounter Progress Notes * Malena Gutierrez RN - 01/10/2019 1400 EST Patient presents to clinic today for injection of flu shot per order. Site Given: Left deltoid Adverse reaction/response at time of injection: No Patient education: Educated regarding injection site reaction, side effects, signs/symptoms to report, and plan for follow up or future injections if needed. to Patient. Method used handout and verbal. Barriers were none. Outcomes: verbalized understanding. I was supervised by Dr. Daniels who was present and immediately available in the office suite. MALENA GUTIERREZ RN, 01/10/2019 14:22 documented in this encounter Plan of Treatment Upcoming Encounters Date Type Department Care Team (Late st Contact Info) Description 09/19/2023 14:15 EDT Office Visit [facility] Adult Primary Care - [place] [address] [place], [place] [phone] Chris Daniels MD [address] [place] [phone] 10/19/2023 9:00 EDT Office Visit [facility] Hand & Upper Extremity Program - [address] [address] Ant Nguyen MD [address] [place] [phone] 01/07/2024 13:15 EST Office Visit [facility] Neurology - [address] [place], [place] [phone] Salma Richardson MD [address] [place] [address], [address] [place] [phone] documented as of this encounter Visit Diagnoses Diagnosis Need for immunization against influenza- Primary Need for prophylactic vaccination and inoculation against influenza documented in this encounter Orders Immunization/Injection Count Last Ordered Date First Ordered Date INFLUENZA VACCINE QUAD (FLULAVAL/FLUARIX/FLUZONE) PF 0.5 ML IM (6 MOS+) 1 01/10/2019 documented in this encounter Care Teams Overhead Crane Inspector Relationship Specialty Start Date End Date Robina Castro PA-C PCP - General 11/15/17 08/07/19 documented as of this encounter
--- OUTSIDE RECORDS SUMMARY | 2023-09-14 02:27 | XMS_ITS | Encounter Summary ---
Author Organization [facility] Address [address] [place] [address] Care Team Providers Care Fence Manufacture Supervisor Name Role Phone Chris Daniels MD Primary Care Provider + Reason for Visit * Reason Comments Other Encounter Details Date Type Department Care Team (Late st Contact Info) Description 07/03/2020 Refill [facility] Adult Primary Care - [place] [address] [place], [place] [phone] Chris Daniels MD [address] [place] [phone] Other Social History Tobacco Use Types Packs/Day [...] money to get more. Never true 08/08/2019 Interpersonal Safety Answer Date Record ed Physically Hurt Never 09/21/2019 Verbally Threaten Never 09/21/2019 Sex and Gender Information Value Date Recorded [...] Tab by mouth daily. 90 Tab 3 07/08/2020 07/06/2021 documented in this encounter Miscellaneous Notes * Telephone Encounter - Chris Daniels MD - 07/08/2020 1234 EDT Lisinopril 10 mg daily signed * Telephone Encounter - Libby Donaldson - 07/07/2020 1602 EDT patient called. He is taking lisinopril only, not the combination * Telephone Encounter - Alycia Baker, PASTORA - 07/06/2020 1147 EDT Left message requesting return call to see if patient is still taking this medication. Last visit with Dr. Daniels on 08/08/19, it was documented that Willam was switching from combo lisinopril/hydrochlorothiazide to lisinopril only. Has annual wellness visit scheudled 08/13/20 * Telephone Encounter - Neema Magana - 07/05/2020 1003 EDT Requested Prescriptions Pending Prescriptions Disp Refills ??? lisinopriL-hydrochlorothiazide (ZESTORETIC) 10-12.5 mg per tablet [Pharmacy Med Name: LISINOPRIL-HYDROCHLORO 10-12.5 TABS] 90 Tab 3 Sig: TAKE ONE TABLET BY MOUTH ONCE DAILY [facility] - [place], [place] - [address] Confirmed Pharmacy? Yes Patient out of medication? Unknown Last Refill Date: 10.20.19 Refills left? (explain exceptions requiring early refill) No Recent Visits Date Type Provider Dept 08/08/19 Office Visit Chris Daniels MD [facility] Showing recent visits within past 540 days with a meds authorizing provider and meeting all other requirements Future Appointments Date Type Provider Dept 08/13/20 Appointment Chris Daniels MD [facility] Showing future appointments within next 150 days with a meds authorizing provider and meeting all other requirements Future appointment: Already Scheduled Neema Magana 07/05/2020 10:04 documented in this encounter Plan of Treatment Upcoming Encounters Date Type Department Care Team (Late st Contact Info) Description 09/19/2023 14:15 EDT Office Visit [facility] Adult Primary Care - [place] [address] [place] [address] Chris Daniels MD [address] [place] [phone] 10/19/2023 9:00 EDT Office Visit [facility] Hand & Upper Extremity Program - [address] [address] Ant Nguyen MD [address] [place] [phone] 01/07/2024 13:15 EST Office Visit [facility] Neurology - [address] [address] Salma Richardson MD [address] [place] [address], [address] [place] [phone] documented as of this encounter Visit Diagnoses Not on filedocumented in this encounter Discontinued Medications Medication Sig Discontinue Reason Start Date End Da te lisinopriL-hydrochlorothi azide (ZESTORETIC) 10-12.5 mg per tablet Take 1 Tab by mouth daily. 10/20/2019 07/08/2020 documented as of this encounter Care Teams Fence Manufacture Supervisor Relationship Specialty Start Date End Date Chris Daniels MD [address] [place] [phone] PCP - General Internal Medicine - Primary Care 08/08/19 documented as of this encounter
--- OUTSIDE RECORDS SUMMARY | 2023-09-14 02:27 | XMS_ITS | Encounter Summary ---
Author Organization [facility] Address [address] [place] [address] Care Team Providers Care Supervisor Lathing Name Role Phone Chris Daniels MD Primary Care Provider + Reason for Referral * Radiology Services (Routine/Next Available) - Authorization Not Required Specialty Diagnoses / Procedures Referred By Contac t Referred To Contact Radiology Diagnoses Parkinson disease ([facility]) Procedures MR HEAD WO CONTRAST Chinmay Delgado MD [address] [place] [address] [facility] Referral ID Status Reason Start Date Expiration Date Visits Requested Visits Authorized [id number] Authorization Not Required 10/27/2021 1 1 * Consult (See Order Priority) - Specialty Report Received Specialty Diagnoses / Procedures [facility]erred To Contact Neurology Diagnoses Parkinson disease ([facility]) Chinmay Delgado MD [address] [place] [address] Hayden Rubin MD 1 [facility] 2 [place] [address] Referral ID Status Reason Start Date Expiration Date Visits Requested Visits Authorized [id number] Specialty Report Received Specialty Services Required 10/27/2021 1 1 Question Answer Reason for Request: possible Parkinsons disease Reason for Visit * Reason Comments Medication Management refill lisinopril to [facility] in [facility] Other discuss parkinsons p t moving slowly, tremorsinhand Encounter Details Date Type Department Care Team (Late st Contact Info) Description 10/27/2021 15:30 EDT [facility] Visit [facility] Care - [place] [address] [place] [address] Chinmay Delgado MD [address] [place] [address] Essential hypertension (Primary Dx); Parkinson disease ([facility]) ([facility]) Social History Tobacco Use Types Packs/Day Years [...] Sign Reading Time Taken Comments Blood Pressure 130/78 10/27/2021 1535 EDT Pulse 74 10/27/2021 1535 EDT reg Temperature 35.6 ??C (96 ??F) 10/27/2021 1535 EDT Respiratory Rate 14 10/27/2021 1535 EDT reg Oxygen Saturation - - Inhaled Oxygen Concentration - - Weight 63 kg (139 lb) 10/27/2021 1535 EDT Height 166.6 cm (5' 5.59) 10/27/2021 1535 EDT Body Mass Index 22.72 10/27/2021 1535 EDT documented in this encounter [...] mouth daily. 90 Tablet 3 10/27/2021 06/07/2022 documented in this encounter Progress Notes * Chinmay Delgado MD - 10/27/2021 1530 EDT [This note was prepared with voice recognition software and may contain typographical errors] Patient ID: Willam Negron is a 76 y.o. y.o. male Chief Complaint: Medication Management (refill lisinopril to [facility] in [facility] ) and Other (discuss parkinsons pt moving slowly, tremorsinhand ) In person visit Subjective: HPI: Parkinsonism: Willam is here with his Azeb for symptoms that they have noted over the last couple of years that have accelerated in 2021. He has had slowness to respond, and a slowness to his movement and changes in his gait to more of a shuffling type of gait. He has lost weight from his typical 165 pounds down to about 140 pounds despite a good appetite. He feels like he is just weaker than he has been in the past. 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 Running his tractor. They were just visiting with family out in [place] and his noticed that he was less expressivewith the grandchildren. He had an episode of what was probably COVID in February 2021 and they both feel like he took a downward jump with that episode that he has not really recovered from so they are wondering whether or not this could be also a symptom of long COVID. Review of Systems: otherwise negative Social History Tobacco Use ??? Smoking status: Never Smoker ??? Smokeless tobacco: Never Used Substance Use Topics ??? Alcohol use: Yes Alcohol/week: 7.0 standard drinks Types: 7 Standard drinks or equivalent per week Comment: Cider Problem list, med list, and family history reviewed and updated Objective: BP 130/78 (BP Cuff Location: Right arm, BP Patient Position: Sitting, BP Cuff Sizes: Adult, regular) Pulse 74 Comment: reg Temp (!) 35.6 ??C (96 ??F) (Tympanic) Resp 14 Comment: reg Ht 166.6 cm (65.59) Wt 63 kg (139 lb) BMI 22.72 kg/m?? General: Appears well and fit. HENT: Normocephalic, without obvious abnormality. Eyes: Conjunctivae clear. EOMs intact. Neck: Symmetrical, trachea midline Extremities: no edema Neuro: Alert and able to recount a reliable and coherent history. Speech normal, though is somewhatdelayed. -no tremor noted -mild increase in rigidity in upper extremities -gait is mildly stooped, with moderately reduced arm swing -DTRs 2+ BJ, TJ, KJ -no nystagmus noted -finger-nose coordination is slow but accurate. Psych: Affect-normal range and appropriate to content Other: (recent labs pasted below) Assessment & Plan: Willam was seen today for medication management and other. Essential hypertension At goals Parkinson disease ([facility]) ([facility]) There is a moderate likelihood that he has Parkinson disease. We will do brain imaging and have himfollow-up with neurology. We talked the fact that there absolute confirmatory diagnostic test for Parkinson's disease and we talked somewhat about the clinical course. No need for pharmacotherapy today. It is certainly possible that the episode of COVID he had in February 2021 might have exposed or revealed some of his symptomatology. - AMB CONS/FOLLOW UP NEUROLOGY; Future - MR HEAD WO CONTRAST; Future Other orders - lisinopriL (PRINIVIL) 10 mg tablet; Take 1 Tablet by mouth daily. Health Maintenance: see flowsheet (reviewed and updated) Health Maintenance Due Topic Date Due ??? Advance Directive Never done ??? Shingles Immunization (1 of 2) Never done ??? Fall Risk Screening 08/13/2021 Coding 2020 MDM: The medical decision-making at this visit, either related to the number and complexity of the problem(s), the amount and/or complexity of data to be reviewed and analyzed, or the risk of complications, morbidity, and/or mortality was moderate (low 53676, moderate 82206, high 11967). Follow up with results Medication list, recent labs, problem list behavioral health screening (if completed): Outpatient Encounter Medications as of 10/27/2021 Medication Sig ??? ibuprofen (MOTRIN) 200 mg tablet Take 400 mg by mouth every 6 hours as needed for Pain. ??? lisinopriL (PRINIVIL) 10 mg tablet Take 1 Tablet by mouth daily. ??? [DISCONTINUED] lisinopriL (PRINIVIL) 10 mg tablet Take 1 Tablet by mouth daily. ??? [DISCONTINUED] polyethylene glycol (GOLYTELY) 236-22.74-6.74 -5.86 gram suspension Follow instructions on 'colonoscopy preparation instructions' sheet. (Patient not taking: Reported on 08/08/2019) ??? triamcinolone (KENALOG) 0.1 % cream Apply a thing film to areas of rash once to twice to daily until rash resolves (Patient not taking: Reported on 10/27/2021) No facility-administered encounter medications on file as of 10/27/2021. Patient Active Problem List Diagnosis ??? Osteoarthritis of glenohumeral joint ??? Thumb pain, left ??? Essential hypertension ??? Gluten intolerance Results for orders placed or performed in visit on 08/10/21 BASIC METABOLIC PANEL (BMP) Result Value Ref Range Sodium 141 136 - 145 mmol/L Potassium 4.1 3.5 - 5.0 mmol/L Chloride 105 96 - 110 mmol/L CO2 Total 25 22 - 32 mmol/L Anion Gap 11 5 - 14 Glucose 90 70 - 100 mg/dL Calcium 8.7 8.5 - 10.5 mg/dL BUN 18 10 - 26 mg/dL Creatinine 0.58 (L) 0.66 - 1.25 mg/dL eGFR 102 >60 mL/min/1.73m2 COMPLETE BLOOD COUNT AND DIFFERENTIAL Result Value Ref Range WBC 3.80 (L) 4.00 - 10.40 K/cmm RBC 3.75 (L) 4.36 - 5.78 M/cmm Hemoglobin 12.9 (L) 13.8 - 17.3 gm/dL HCT 37.3 (L) 39.5 - 50.2 % MCV 100 (H) 81 - 95 fl MCH 34.4 (H) 27.6 - 33.0 pg MCHC 34.6 32.8 - 36.4 gm/dL RDW-CV 12.0 <14.2 % RDW-SD 43.8 <46.0 fl PLT 237 141 - 377 K/cmm MPV 8.7 (L) 9.5 - 12.7 fl Neutrophils 54.7 % Lymphocytes 31.8 % Monocytes 10.8 % Eosinophils 1.6 % Basophils 0.8 % Immature Grans 0.3 % Absolute Neutrophils 2.08 (L) 2.20 - 8.85 K/cmm Absolute Lymphocytes 1.21 1.09 - 3.30 K/cmm Absolute Monocytes 0.41 0.10 - 0.80 K/cmm Absolute Eosinophils 0.06 0.03 - 0.61 K/cmm Absolute Basophils 0.03 0.01 - 0.11 K/cmm Absolute Immature Grans 0.01 0.00 - 0.06 K/cmm Type of Differential: Auto documented in this encounter Plan of Treatment Upcoming Encounters Date Type Department Care Team (Late st Contact Info) Description 09/19/2023 14:15 EDT Office Visit [facility] Adult Primary Care - [place] [address] [facility] [place] [address] Chris Daniels MD [address] [place] [phone] 10/19/2023 9:00 EDT Office Visit [facility] Hand & Upper Extremity Program - [address] [id number] Ant Nguyen MD [address] [place] [address] 01/07/2024 13:15 EST Office Visit [facility] Neurology - [address] [phone] Salma Richardson MD [address] [place] [address], Level [address] [place] [phone] Scheduled Referrals Name Type Priority Associated Diagnoses Order Schedule AMB CONS/FOLLOW UP NEUROLOGY Outpatient Referral Routine/Next Available Parkinson disease (HCC-CMS) ([facility]) Expected: 11/26/2021 (Approximate), Expires: 10/27/2022 documented as of this encounter Results * MR HEAD WO CONTRAST (11/30/2021 14:06 EDT) Anatomical Region Laterality Modality Head Magnetic Resonan ce 11/30/2021 16:0 3 EDT Impressions 11/30/2021 16:03 EDT 1. ??No acute intracranial abnormalities. 2. ??Remote left occipital lobe infarct. I have personally reviewed the images and the above interpretation and agree with the findings. Narrative 11/30/2021 16:03 EDT EXAM: MRI HEAD WO CONTRAST HISTORY: PARKINSON; Parkinsonian syndrome TECHNIQUE: MRI head without contrast. Structured report code: NR.MR01 COMPARISON: None. FINDINGS: PARENCHYMA: No evidence of acute infarction. There is a remote infarct left occipital lobe.. No parenchymal hemorrhage. No mass or midline shift. Mild global parenchymal volume loss without lobar predilection. Scattered subcortical and periventricular foci of T2 and T2/FLAIR hyperintensity ??are nonspecific, but most likely represent the sequela of chronic small vessel ischemic change. EXTRA-AXIAL SPACES: No extra-axial collection. No extra-axial mass. VENTRICLES: No hydrocephalus. VESSELS: Presumed slow flow in the left transverse sinus, otherwise the expected flow related signal voids are present. BONES: Unremarkable. ORBITS: No significant abnormality. PARANASAL SINUSES/MASTOID AIR CELLS: Predominantly clear. EXTRACRANIAL SOFT TISSUES: Unremarkable. Procedure Note Sandor Cody MD - 11/30/2021 EXAM: MRI HEAD WO CONTRAST HISTORY: PARKINSON; Parkinsonian syndrome TECHNIQUE: MRI head without contrast. Structured report code: NR.MR01 COMPARISON: None. FINDINGS: PARENCHYMA: No evidence of acute infarction. There is a remote infarct left occipitallobe.. No parenchymal hemorrhage. No mass or midline shift. Mild globalparenchymal volume loss without lobar predilection. Scattered subcorticaland periventricular foci of T2 and T2/FLAIR hyperintensity arenonspecific, but most likely represent the sequela of chronic small vesselischemic change. EXTRA-AXIAL SPACES: No extra-axial collection. No extra-axial mass. VENTRICLES: No hydrocephalus. VESSELS: Presumed slow flow in the left transverse sinus, otherwise the expectedflow related signal voids are present. BONES: Unremarkable. ORBITS: No significant abnormality. PARANASAL SINUSES/MASTOID AIR CELLS: Predominantly clear. EXTRACRANIAL SOFT TISSUES: Unremarkable. IMPRESSION 1. No acute intracranial abnormalities. 2. Remote left occipital lobe infarct. I have personally reviewed the images and the above interpretation andagree with the findings. Chinmay Delgado MD IMG MRI ORDERABLES documented in this encounter Visit Diagnoses Diagnosis Essential hypertension- Primary Unspecified essential hypertension Parkinson disease (HCC-CMS) Paralysis agitans Parkinson disease (HCC-CMS) Paralysis agitans documented in this encounter Discontinued Medications Medication Sig Discontinue Reason Start Date End Da te polyethylene glycol (GOLYTELY) 236-22.74-6.74 -5.86 gram suspensionIndications :Special screening for malignant neoplasms, colon Follow instructions on 'colonoscopy preparation instructions' sheet. Therapy completed 06/25/2017 10/27/2021 lisinopriL (PRINIVIL) 10 mg tablet Take 1 Tablet by mouth daily. Reorder 07/06/2021 10/27/2021 documented as of this encounter Care Teams Supervisor Lathing Relationship Specialty Start Date End Date Chris Daniels MD [address] [place] [phone] PCP - General Internal Medicine - Primary Care 08/08/19 documented as of this encounter
--- OUTSIDE RECORDS SUMMARY | 2023-09-14 02:27 | XMS_ITS | Encounter Summary ---
Author Organization [facility] Address [address] [place] [address] Care Team Providers Care Business Analytics Faculty Member Name Role Phone Chris Daniels MD Primary Care Provider + Reason for Visit * Reason Onset Date Comments Hypertension 09/10/2019 Encounter Details Date Type Department Care Team (Late st Contact Info) Description 09/10/2019 Telephone [facility] Adult Primary Care - [place] [address] [place], [place] [phone] Chris Daniels MD [address] [place] [address] Hypertension Social History Tobacco Use Types Packs/Day Years [...] encounter Miscellaneous Notes * Telephone Encounter - Antonieta Hansen - 09/16/2019 1615 EDT Incoming call from patient. Relayed below message from Dr. Daniels. Patient states that he knows nothing about this but feels the last medication he took (lisinopril-hctz) worked better. He will try the dose increase and let us know how it goes though. Patient agreed to plan and verbalized understanding with no barriers. Ordered BMP per provider documentation for 3 weeks from now. * Telephone Encounter - Antonieta Hansen - 09/16/2019 1547 EDT Call to patient. [facility] 09/15 * Telephone Encounter - Chris Daniels MD - 09/16/2019 1235 EDT His blood pressure readings are not terrible, but still are above goal. I would advise that he increase his lisinopril from 10 mg to 20 mg. Double his pills for the time being and recheck his blood pressure over the next month. In addition we should recheck his BMP mildred few weeks to make sure his kidneys are tolerating the dose increase. Please let him know of the plan and inquire if he has any questions or concerns. * Telephone Encounter - Marbella Borges - 09/10/2019 1236 EDT Patient called to report his BP readings Date Time BP Pulse 08/23/2019 4:30PM 121/75 69 08/26/2019 7:20AM 131/76 68 08/28/2019 9:00PM 141/81 62 08/29/2019 11:05AM 138/84 64 09/01/2019 5:50PM 141/83 64 09/01/2019 6:15PM 133/82 64 09/06/2019 6:20AM 144/85 60 documented in this encounter Plan of Treatment Upcoming Encounters Date Type Department Care Team (Late st Contact Info) Description 09/19/2023 14:15 EDT Office Visit [facility] Adult Primary Care - [place] [address] [place] [address] Chris Daniels MD [address] [place] [phone] 10/19/2023 9:00 EDT Office Visit [facility] Hand & Upper Extremity Program - [address] [address] Ant Nguyen MD [address] [place] [address] 01/07/2024 13:15 EST Office Visit [facility] Neurology - [address] [address] Salma Richardson MD [address] [place] [address], [address] [place] [address] documented as of this encounter Results * BASIC METABOLIC PANEL (BMP) (08/13/2020 15:10 EDT) Sodium 142 136 - 145 mEq/L 08/13/2020 18:40 EDT [facility] Potassium 4.2 3.5 - 5.0 mEq/L 08/13/2020 18:40 EDT [facility] Chloride 103 96 - 110 mEq/L 08/13/2020 18:40 EDT [facility] CO2 Total 25 22 - 32 mEq/L 08/13/2020 18:40 T [facility] Glucose 85 70 - 100 mg/dL 08/13/2020 18:40 [facility] Calcium 9.0 8.5 - 10.5 mg/dL 08/13/2020 18:40 [facility] Calculated Calcium 8.8 8.5 - 10.5 mg/dL 08/13/2020 18:40 T [facility] BUN 16 10 - 26 mg/dL 08/13/2020 18:40 [facility] Creatinine 0.71 0.66 - 1.25 mg/dL 08/13/2020 18:40 [facility] eGFR 92 >60 mL/min/1.7 3m2 08/13/2020 18:40 [facility] Comment:eGFR calculated marya humphries CKD-EPI equation for non- Americans. Multiply eGFR by 1.16 for patients. Blood VENOUS BLOOD / Unknown Venipuncture / Unknown 08/13/2020 15:10 EDT 08/13/2020 15:10 EDT Chris Daniels MD CHEMISTRY & BLOO D GAS ORDERABLES [facility] [address] [place] [address] documented in this encounter Visit Diagnoses Diagnosis Essential hypertension- Primary Unspecified essential hypertension documented in this encounter Care Teams Business Analytics Faculty Member Relationship Specialty Start Date End Date Chris Daniels MD [address] [place] [address] PCP - General Internal Medicine - Primary Care 08/08/19 documented as of this encounter
--- OUTSIDE RECORDS SUMMARY | 2023-09-14 02:27 | XMS_ITS | Encounter Summary ---
Author Organization [facility] Address [address] [place] [address] Care Team Providers Care Wood Cut Engraver Name Role Phone Robina Castro PA-C Primary Care Provider [phone] Chris Daniels MD Primary Care Provider + Reason for Visit * Reason Onset Date Comments Labs Only 08/04/2019 Encounter Details Date Type Department Care Team (Late st Contact Info) Description 08/04/2019 Orders Only [facility] Adult Primary Care - [address] [address] Robina Castro PA-C [id number] [address] ON LICENSE OF [facility] [address] [place] [phone] Social History Tobacco Use Types Packs/Day Years [...] Info) Description 09/19/2023 14:15 EDT Office Visit [facility] Adult Primary Care - [place] [address] [place] [address] Chris Daniels MD [address] [place] [phone] 10/19/2023 9:00 EDT Office Visit [facility] Hand & Upper Extremity Program - [address] [phone] Ant Nguyen MD [address] [place] [phone] 01/07/2024 13:15 EST Office Visit [facility] Neurology - [address] [place] [address] [place], [place] [phone] Salma Richardson MD [address] [place] [address], [address] [place] [address] documented as of this encounter Visit Diagnoses Not on filedocumented in this encounter Care Teams Wood Cut Engraver Relationship Specialty Start Date End Date Robina Castro PA-C PCP - General 11/15/17 08/07/19 Chris Daniels MD [address] [place] [phone] PCP - General Internal Medicine - Primary Care 08/08/19 documented as of this encounter
--- OUTSIDE RECORDS SUMMARY | 2023-09-14 02:27 | XMS_ITS | Encounter Summary ---
Author Organization [facility] Address [address] [place] [address] Care Team Providers Care Manufacturing Engineering Manager Name Role Phone Chris Daniels MD Primary Care Provider + Reason for Referral * Radiology Services (Routine/Next Available) - Authorization Not Required Specialty Diagnoses / Procedures Referred By Contac t Referred To Contact Diagnoses Chronic right shoulder pain Procedures XR SHOULDER RIGHT 2 OR MORE VIEWS Chris Daniels MD [address] [place] [address] [facility] Referral ID Status Reason Start Date Expiration Date Visits Requested Visits Authorized [id number] Authorization Not Required 08/18/2021 1 1 * Radiology Services (Routine/Next Available) - Authorization Not Required Specialty Diagnoses / Procedures Referred By Contac t Referred To Contact Diagnoses Chronic pain of left knee Procedures XR KNEE LEFT 3 VIEWS Chris Daniels MD [address] [place] [address] [facility] Referral ID Status Reason Start Date Expiration Date Visits Requested Visits Authorized [id number] Authorization Not Required 08/18/2021 1 1 Reason for Visit * Reason Comments Medicare Annual Wellness Visit Other bhs done ( PHQ2 scor e of 4; PHQ9 -mild depression ); sdoh screen Rash bilateral arms Knee Pain left Shoulder Pain right Encounter Details Date Type Department Care Team (Late st Contact Info) Description 08/17/2021 9:15 EDT Office Visit [facility] Adult Primary Care - [place] [address] [place], [place] [phone] Chris Daniels MD [address] [place] [address] Medicare annual wellness visit, subsequent (Primary Dx); Chronic right shoulder pain; Chronic pain of left knee; Flexural atopic dermatitis; SK (seborrheic keratosis); Healthcare maintenance Social History Tobacco Use Types [...] Sign Reading Time Taken Comments Blood Pressure 147/74 08/17/2021922 EDT Pulse 63 08/17/2021922 EDT r Temperature 35.6 ??C (96.1 ??F) 08/17/2021922 EDT Respiratory Rate 16 08/17/2021922 EDT Oxygen Saturation - - Inhaled Oxygen Concentration - - Weight 63.5 kg (140 lb) 08/17/2021922 EDT Height 166.6 cm (5' 5.59) 08/17/202123 EDT Body Mass Index 22.88 08/17/2021 0923 EDT documented in this encounter Functional Status [...] Dispensed Refills Start Date End Da te triamcinolone (KENALOG) 0.1 % cream Apply a thing film to areas of rash once to twice to daily until rash resolves 80 g 1 08/17/2021 documented in this encounter Progress Notes * Chris Daniels MD - 08/17/2021 0915 EDT Willam Negron, 75 y.o. male PRIMARY CARE PROVIDER: Chris Daniels CHIEF COMPLAINT: Chief Complaint Patient presents with ??? Medicare Annual Wellness Visit ??? Other bhs done ( PHQ2 score of 4; PHQ9 -mild depression ); sdoh screen ??? Rash bilateral arms ??? Knee Pain left ??? Shoulder Pain right Medicare Essential Components: Patient self-assessment questionnaire completed, reviewed, and scanned: yes Full history done with PMH, PSH, SH, FH, ROS. The patient's problem list, past medical/surgical history, medications, allergies, family and social history were all updated and reviewed. Done: Yes Diet Reviewed: yes. Recommendations made: Continue high vegetable content diet Level of activity: active Mood Screen (PHQ-2 on new pt and follow-up questionnaire) done: Yes: Negative Vision: assessed: No: impaired: Functional Evaluation completed ADLs: independent Cognitive: no impairment Hearing: grossly normal Fall Risk: low Home Safety: no concerns Advance Directives - Not on file Updated list of treating providers on care team: Yes Written Health Plan in patient instructions: Yes Patient Care Team: Chris Daniels MD as PCP - General HISTORY OF PRESENT ILLNESS: Willam Negron is a 75 y.o. male here for medicare annual wellness visit. He notes several acute on chronic complaints he was hoping to address in addition to his Medicare wellness visit today. He notes the presence of acute on chronic right shoulder and left knee pain. He states that he has been suffering from joint stiffness and pain in both joints for several decades. He affirms that he is previously seen physical therapist and has received at least two orthopedic procedures on both joints in the 1970s. He believes both have been x-rayed previously and been demonstrated to have severe arthritis. Per chart review does not appear he has had any recent encounter with our orthopedic group or any imaging since 2014. He states that over the last several months both joints have become progressively difficult to use due to pain. He reports great difficulty trying to lift objects above his head or utilize his left leg such as using it for a clutch on a tractor. He reports that the discomfort is now to the point where he is unable to do the activities he wishes to do. He denies interest in reestablishing with a physical therapist but would be interested in consulting with an orthopedist to see if any procedural interventions could be performed to relieve or improve his discomfort. He notes the presence of a few skin mohan he was hoping to have evaluated and points to several brown macular skin lesions near his bilateral temples. He also notes the presence of a pruritic maculopapular rash located on the flexural surfaces of his bilateral upper extremities. States this rash developed over the last several weeks and has not been responsive to topical moisturizers. He is interested about the potential pain relieving properties from turmeric versus CBD versus medical marijuana. Behavioral Health Screen Summary Interpretation PHQ-2: 4 PHQ-9: 9 Mild Depression BLAKE-2: BLAKE-7: SASQ: Never AUDIT-10: SSASQ: Never DAST-10: . Patient Active Problem List Diagnosis Date Noted ??? Gluten intolerance 08/08/2019 ??? Thumb pain, left 01/31/2017 ??? Essential hypertension 01/31/2017 ??? Osteoarthritis of glenohumeral joint 03/05/2014 Right shoulder Past medical, surgical, family and social history were reviewed and updated as appropriate. Social History Social History Narrative ??? Not on file MEDICATION REVIEW: Medications reviewed & updated. ALLERGIES: Allergies as of 08/17/2021 - Reviewed 08/17/2021 Allergen Reaction Noted ??? Codeine 01/20/2009 ??? Novacaine [procaine (bulk)] 01/20/2009 REVIEW OF SYSTEMS: A ten point ROS was performed and was negative except for pertinent positives inthe HPI PHYSICAL EXAM: Vitals: BP (!) 147/74 (BP Cuff Location: Left arm, BP Patient Position: Sitting, BP Cuff Sizes: Adult, regular) Pulse 63 Comment: r Temp 35.6 ??C (96.1 ??F) (Tympanic) Resp 16 Ht 166.6 cm (65.59) Wt 63.5 kg (140 lb) BMI 22.88 kg/m?? Gen - NAD HEENT - no cervical LAD, no thyromegaly, TM normal b/l CV - regular rate and rhythm, no murmurs, pulses 2+ bilaterally Lungs - clear to ausculation bilaterally Abd - soft, nontender, +BS, nondistended Ext - no edema Skin -maculopapular erythematous skin rash appreciated in bilateral Psych - alert and oriented x 3, normal mood and affect Musculoskeletal -pain on right shoulder abduction above 90 degrees with restricted range of motion,pain on left knee flexion and extension, hobbling gait appreciated, full range of motion of spine, no abnormalities appreciated on inspection of either bilateral knees or bilateral shoulders Neuro - CN II-XII grossly intact, normal gait ASSESSMENT / PLAN : 75 y.o. male here for medicare annual wellness visit. Medicare annual wellness visit - - Requirements as listed above Chronic right shoulder pain, Chronic pain of left knee: Longstanding history of joint pain and restricted range of motion is likely secondary to severe osteoarthritis in both joints. Given surgical history and length of time since last imaging we will obtain repeat x-rays and consult with orthopedics the next step in evaluation. Patient declined offer for PT referral. - XR SHOULDER RIGHT 2 OR MORE VIEWS; Future - AMB CONS/FOLLOW UP ORTHOPEDICS - [facility]; Future -Total Joint - XR KNEE LEFT 3 VIEWS; Future - AMB CONS/FOLLOW UP ORTHOPEDICS - [facility]; Future -upper extremity SK (seborrheic keratosis): Likely etiology of macular, brown and well- circumscribed skin lesions noted near temples -Reassurance provided Atopic dermatitis: Likely etiology of pruritic rash located on bilateral antecubital fossa and anterior wrists. We will trial topical steroid treatment. - triamcinolone (KENALOG) 0.1 % cream; Apply a thing film to areas of rash once to twice to daily until rash resolves Healthcare maintenance Health Maintenance Topic Date Due ??? Advance Directive Never done ??? Shingles Immunization (1 of 2) Never done ??? Fall Risk Screening 08/13/2021 ??? Influenza Immunization (Adult) (Season Ended) 2021 ??? Preventive Care Visit 08/13/2022 ??? Social Determinants Of Health (SDOH) 08/17/2022 ??? Behavioral Health Screen 08/17/2022 ??? Lipid Profile Screening (Cholesterol) 08/07/2024 ??? Tetanus (Adult) Immunization 01/31/2027 ??? Colorectal Cancer Screening 06/30/2027 ??? Pertussis (Adult) Immunization Completed ??? Hepatitis C Screen Completed ??? Pneumococcal Immunization (65+) Completed ??? COVID-19 Vaccine Completed F/u: Return in about 1 year (around 08/17/2022) for 5, Medicare Physical. Some of this note was transcribed with inthincating software. While it was proofread, it may still contain unnoticed grammatical or word errors due to incorrect transcribing. Chris Daniels MD 08/18/2021 15:58 documented in this encounter Plan of Treatment Upcoming Encounters Date Type Department Care Team (Late st Contact Info) Description 09/19/2023 14:15 EDT Office Visit [facility] Adult Primary Care - [place] [address] [facility] [place], [place] [id number] Chris Daniels MD [address] [place] [phone] 10/19/2023 9:00 EDT Office Visit [facility] Hand & Upper Extremity Program - [facility] [address] [place], [place] [phone] Ant Nguyen MD [address] [place] [address] 01/07/2024 13:15 EST Office Visit [facility] Neurology - [address] [phone] Salma Richardson MD [address] [place] [address], [address] [place] [address] documented as of this encounter Results * XR SHOULDER RIGHT 2 OR MORE VIEWS (09/01/2021 15:02 EDT) Anatomical Region Laterality Modality Right Computed Radiogr aphy 09/02/2021 11:5 6 EDT Impressions 09/02/2021 11:56 EDT FINDINGS / IMPRESSION: 3 views of the right shoulder show no acute fracture or malalignment. There is a cortical staple on the proximal humerus. 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 There are chronic ossicles/areas of heterotopic ossification around the joint. There are also severe degenerative changes in the AC joint. Narrative 09/02/2021 11:56 EDT EXAM/TECHNIQUE: XR SHOULDER RIGHT 2 OR MORE VIEWS ??09/01/2021 2:30 PM HISTORY: ?? Acute on chronic right shoulder pain COMPARISON: Right shoulder radiographs 07/02/2012. Procedure Note Craig Isbell, DO - 09/02/2021 EXAM/TECHNIQUE: XR SHOULDER RIGHT 2 OR MORE VIEWS 09/01/2021 2:30 PM HISTORY: Acute on chronic right shoulder pain COMPARISON: Right shoulder radiographs 07/02/2012. IMPRESSION FINDINGS / IMPRESSION: 3 views of the right shoulder show no acute fracture or malalignment.There is a cortical staple on the proximal humerus. There is severeosteoarthrosis in the plate humeral joint that has progressed since thecomparison exam with suspicion for superimposed AVN along the articularsurface of the humeral head. There are chronic ossicles/areas ofheterotopic ossification around the joint. There are also severedegenerative changes in the AC joint. Chris Daniels MD IMG DIAGNOSTIC I MAGING ORDERABLES * XR KNEE LEFT 3 VIEWS (09/01/2021 15:02 EDT) Anatomical Region Laterality Modality Lower Extremities Left Computed Radio graphy 09/02/2021 11:5 7 EDT Impressions 09/02/2021 11:57 EDT FINDINGS / IMPRESSION: 3 views of the left knee show severe tricompartmental degenerative changes with chondrocalcinosis and a moderate-sized joint effusion. There is a chronic fracture deformity of the proximal fibula. Narrative 09/02/2021 11:57 EDT EXAM/TECHNIQUE: XR KNEE LEFT 3 VIEWS ??09/01/2021 2:30 PM HISTORY: ?? Acute on chronic left knee pain COMPARISON: None. Procedure Note Craig Isbell, DO - 09/02/2021 EXAM/TECHNIQUE: XR KNEE LEFT 3 VIEWS 09/01/2021 2:30 PM HISTORY: Acute on chronic left knee pain COMPARISON: None. IMPRESSION FINDINGS / IMPRESSION: 3 views of the left knee show severe tricompartmental degenerative changeswith chondrocalcinosis and a moderate-sized joint effusion. There is achronic fracture deformity of the proximal fibula. Chris Daniels MD IMG DIAGNOSTIC I MAGING ORDERABLES documented in this encounter Visit Diagnoses Diagnosis Medicare annual wellness visit, subsequent- Primary Routine general medical examination at a health care facility Chronic right shoulder pain Pain in joint, shoulder region Chronic pain of left knee Pain in joint, lower leg Flexural atopic dermatitis Other atopic dermatitis and related conditions SK (seborrheic keratosis) Other seborrheic keratosis Healthcare maintenance Routine general medical examination at a [facility] care facility Chronic pain of left knee Pain in joint, lower leg Chronic right shoulder pain Pain in joint, shoulder region documented in this encounter Care Teams Manufacturing Engineering Manager Relationship Specialty Start Date End Date Chris Daniels MD [address] [place] [phone] PCP - General Internal Medicine - Primary Care 08/08/19 documented as of this encounter
--- OUTSIDE RECORDS SUMMARY | 2023-09-14 02:27 | XMS_ITS | Encounter Summary ---
Author Organization [facility] Address [address] [place] [address] Care Team Providers Care Wood Boatbuilder Name Role Phone Robina Castro PA-C Primary Care Provider [phone] Reason for Visit * Reason Onset Date Comments Epidemic Concern 06/24/2019 Encounter Details Date Type Department Care Team (Late st Contact Info) Description 06/24/2019 Telephone [facility] Adult Primary Care - [address] [phone] Robina Castro PA-C [address] [place] [phone] Epidemic Concern Social History Tobacco Use Types Packs/Day Years [...] encounter Miscellaneous Notes * Telephone Encounter - Kiah Mckinney - 06/24/2019 0840 EDT Does patient have concerns? No Reviewed/Updated Patient Contact No Patient requests connection to Care Management No Access to food sources Yes Referral pended for Care Management ([id number]) No Is anyone in your home ill or have you been around anyone that is ill? No How are you feeling? Are you experiencing fever, sore throat, feeling tired, cough, changes in yourbreathing? Fever No Sore Throat No Feeling tired No Cough No Changes in breathing No How long have symptoms been present na OV scheduled for 08/08/19 Advanced Directive on File Yes-will obtain copy documented in this encounter Plan of Treatment Upcoming Encounters Date Type Department Care Team (Late st Contact Info) Description 09/19/2023 14:15 EDT Office Visit [facility] Adult Primary Care - [address] [address] Chris Daniels MD [address] [place] [phone] 10/19/2023 9:00 EDT Office Visit [facility] Hand & Upper Extremity Program - [address] [phone] Ant Nguyen MD [address] [place] [phone] 01/07/2024 13:15 EST Office Visit [facility] Neurology - [address] [address] Salma Richardson MD [address] [place] [address], [facility] [address] [place] [phone] documented as of this encounter Visit Diagnoses Not on filedocumented in this encounter Care Teams Wood Boatbuilder Relationship Specialty Start Date End Date Robina Castro PA-C PCP - General 11/15/17 08/07/19 documented as of this encounter
--- OUTSIDE RECORDS SUMMARY | 2023-09-14 02:27 | XMS_ITS | Encounter Summary ---
Author Organization [facility] Address [address] [place] [address] Care Team Providers Care Public Speaking Coach Name Role Phone Chris Daniels MD Primary Care Provider + Encounter Details Date Type Department Care Team (Latest Contact Info) Description 08/08/2019 Travel Social History Tobacco Use Types Packs/Day Years [...] Info) Description 09/19/2023 14:15 EDT Office Visit [facility] Adult Primary Care - [place] [address] [place] [address] Chris Daniels MD 2 [place] [phone] 10/19/2023 9:00 EDT Office Visit [facility] Hand & Upper Extremity Program - [address] [address] Ant Nguyen MD [address] [place] [address] 01/07/2024 13:15 EST Office Visit [facility] Neurology - [address] [phone] Salma Richardson MD [address] [place] [address], [facility] [address] [place] [phone] documented as of this encounter Visit Diagnoses Not on filedocumented in this encounter Care Teams Public Speaking Coach Relationship Specialty Start Date End Date Chris Daniels MD [address] [facility] [place] [address] PCP - General Internal Medicine - Primary Care 08/08/19 documented as of this encounter
--- OUTSIDE RECORDS SUMMARY | 2023-09-14 02:27 | XMS_ITS | Encounter Summary ---
Author Organization [facility] Address [address] [place] [address] Care Team Providers Care Public Safety Dispatcher Name Role Phone Chris Daniels MD Primary Care Provider + Encounter Details Date Type Department Care Team (Late st Contact Info) Description 08/10/2021 11:45 EDT Phlebotomy Only [facility] Center 2 Phlebotomy [address] [place], [place] [address] School Bus Driver/Mechanic, Acc Phlebotomy Primary hypertension; Macrocytosis Social History Tobacco Use Types Packs/Day [...] 08/13/2020 PHQ-2 Answer Date Recorded PHQ-2 SUBTOTAL 4 [...] slept in a longterm (including now)? No 08/13/2020 Interpersonal Safety Answer [...] Description 09/19/2023 14:15 EDT Office Visit [facility] Adult Primary Care - [place] [address] [place] [address] Chris Daniels MD [address] [place] [phone] 10/19/2023 9:00 EDT Office Visit [facility] Hand & Upper Extremity Program - [address] [place] [address] Ant Nguyen MD [address] [place] [phone] 01/07/2024 13:15 EST Office Visit [facility] Neurology - [address] [place] [address] [place], [place] [phone] Salma Richardson MD [address] [place] [address], [address] [place] [address] documented as of this encounter Procedures Procedure Name Priority Date/Time Associated Diagnosis Comments COMPLETE BLOOD COUNT AND DIFFERENTIAL Routine 08/10/2021 11:51 EDT Macrocytosis BASIC METABOLIC PANEL (BMP) Routine 08/10/2021 11:51 EDT Primary hypertension documented in this encounter Results * (ABNORMAL) COMPLETE BLOOD COUNT AND DIFFERENTIAL (08/10/2021 11:51 EDT) WBC 3.80(L) 4.00 - 10.40 K/cmm 08/10/2021 12:11 [facility] RBC 3.75(L) 4.36 - 5.78 M/cmm 08/10/2021 12:11 [facility] Hemoglobin 12.9(L) 13.8 - 17.3 gm/dL 08/10/2021 12:11 [facility] HCT 37.3(L) 39.5 - 50.2 % 08/10/2021 12:11 [facility] MCV 100(H) 81 - 95 fl 08/10/2021 12:11 [facility] MCH 34.4(H) 27.6 - 33.0 pg 08/10/2021 12:11 [facility] MCHC 34.6 32.8 - 36.4 gm/dL 08/10/2021 12:11 [facility] RDW-CV 12.0 <14.2 % 08/10/2021 12:11 [facility] RDW-SD 43.8 <46.0 fl 08/10/2021 12:11 [facility] PLT 237 141 - 377 K/cmm 08/10/2021 12:11 [facility] MPV 8.7(L) 9.5 - 12.7 fl 08/10/2021 12:11 [facility] % Neutrophils 54.7 % 08/10/2021 12:11 [facility] % Lymphocytes 31.8 % 08/10/2021 12:11 [facility] % Monocytes 10.8 % 08/10/2021 12:11 [facility] % Eosinophils 1.6 % 08/10/2021 12:11 [facility] % Basophils 0.8 % 08/10/2021 12:11 [facility] % Immature Grans 0.3 % 08/11/19 12:11 [facility] Absolute Neutrophils 2.08(L) 2.20 - 8.85 K/cmm 08/10/2021 12:11 [facility] Absolute Lymphocytes 1.21 1.09 - 3.30 K/cmm 08/10/2021 12:11 [facility] Absolute Monocytes 0.41 0.10 - 0.80 K/cmm 08/10/2021 12:11 [facility] Absolute Eosinophils 0.06 0.03 - 0.61 K/cmm 08/10/2021 12:11 [facility] ABS Basophils 0.03 0.01 - 0.11 K/cmm 08/10/2021 12:11 [facility] Absolute Immature Grans 0.01 0.00 - 0.06 K/cmm 08/10/2021 12:11 [facility] Type of Differential: Auto 08/10/2021 12:11 [facility] Blood VENOUS BLOOD / Unknown Venipuncture / Unknown 08/10/2021 11:51 EDT 08/10/2021 12:00 EDT Chris Daniels MD PACKAGES & DNA P ROBE ORDERABLES Performing Organization Address City/[facility]/ZIP Co de Phone Number [facility] [address] [place] [address] * (ABNORMAL) BASIC METABOLIC PANEL (BMP) (08/10/2021 11:51 EDT) Sodium 141 136 - 145 mmol/L 08/10/2021 12:40 EDT [facility] Potassium 4.1 3.5 - 5.0 mmol/L 08/10/2021 12:40 EDT [facility] Chloride 105 96 - 110 mmol/L 08/10/2021 12:40 EDT [facility] CO2 Total 25 22 - 32 mmol/L 08/10/2021 12:40 EDT [facility] Anion Gap 11 5 - 14 08/10/2021 12:40 EDT [facility] Glucose 90 70 - 100 mg/dL 08/10/2021 12:40 EDT [facility] Calcium 8.7 8.5 - 10.5 mg/dL 08/10/2021 12:40 EDT [facility] BUN 18 10 - 26 mg/dL 08/10/2021 12:40 T [facility] Creatinine 0.58(L) 0.66 - 1.25 mg/dL 08/10/2021 12:40 T [facility] eGFR 102 >60 mL/min/1.73 m2 08/10/2021 12:40 EDT [facility] Blood VENOUS BLOOD / Unknown Venipuncture / Unknown 08/10/2021 11:51 EDT 08/10/2021 12:00 EDT Chris Daniels MD CHEMISTRY & BLOO D GAS ORDERABLES Performing Organization Address City/[facility]/ZIP Co de Phone Number [facility] [address] [place] [address] documented in this encounter Visit Diagnoses Diagnosis Primary hypertension Unspecified essential hypertension Macrocytosis Other specified diseases of blood and blood-forming organs documented in this encounter Care Teams Public Safety Dispatcher Relationship Specialty Start Date End Date Chris Daniels MD [address] [place] [phone] PCP - General Internal Medicine - Primary Care 08/08/19 documented as of this encounter
--- OUTSIDE RECORDS SUMMARY | 2023-09-14 02:27 | XMS_ITS | Encounter Summary ---
Author Organization [facility] Address [address] [place] [address] Care Team Providers Care Hospice Aide Name Role Phone Robina Castro PA-C Primary Care Provider [phone] Reason for Visit * Reason Onset Date Comments Labs Only 08/04/2019 Encounter Details Date Type Department Care Team (Late st Contact Info) Description 08/04/2019 Telephone [facility] Adult Primary Care - [place] [address] [place], [place] [phone] Chris Daniels MD [address] [place] [address] Labs Only Social History Tobacco [...] Notes * Telephone Encounter - Annamaria Chance 08/05/2019 1028 EDT Left message for pt to have fasting labs before ov * Telephone Encounter - Chris Daniels MD - 08/05/2019 0818 EDT Labs signed documented in this encounter Plan of Treatment Upcoming Encounters Date Type Department Care Team (Late st Contact Info) Description 09/19/2023 14:15 EDT Office Visit [facility] Adult Primary Care - [place] [address] [place] [address] Chris Daniels MD [address] [place] [phone] 10/19/2023 9:00 EDT Office Visit [facility] Hand & Upper Extremity Program - [address] [address] Ant Nguyen MD [address] [place] [address] 01/07/2024 13:15 EST Office Visit [facility] Neurology - [address] [address] Salma Richardson MD [address] [place] [address], Level [address] [place] [phone] documented as of this encounter Results * (ABNORMAL) COMPLETE BLOOD COUNT AND DIFFERENTIAL (08/08/2019 14:29 EDT) WBC 4.91 4.00 - 10.40 K/cmm 08/08/2019 16:[address] [facility] RBC 3.85(L) 4.36 - 5.78 M/cmm 08/08/2019 16:11 [facility] Hemoglobin 12.5(L) 13.8 - 17.3 gm/dL 08/08/2019 16:11 [facility] HCT 37.7(L) 39.5 - 50.2 % 08/08/2019 16:11 [facility] MCV 98(H) 81 - 95 fl 08/08/2019 16:11 [facility] MCH 32.5 27.6 - 33.0 pg 08/08/2019 16:11 [facility] MCHC 33.2 32.8 - 36.4 gm/dL 08/08/2019 16:11 [facility] RDW-CV 12.2 <14.2 % 08/08/2019 16:11 [facility] RDW-SD 43.6 <46.0 fl 08/08/2019 16:11 [facility] PLT 275 141 - 377 K/cmm 08/08/2019 16:11 [facility] MPV 9.7 9.5 - 12.7 fl 08/08/2019 16:11 [facility] % Neutrophils 56.6 % 08/08/2019 16:11 [facility] % Lymphocytes 26.1 % 08/08/2019 16:11 [facility] % Monocytes 12.2 % 08/08/2019 16:11 [facility] % Eosinophils 4.3 % 08/08/2019 16:11 [facility] % Basophils 0.6 % 08/08/2019 16:11 [facility] % Immature Grans 0.2 % 08/08/19 20 16:11 [facility] Absolute Neutrophils 2.78 2.20 - 8.85 K/cmm 08/08/2019 16:11 [facility] Absolute Lymphocytes 1.28 1.09 - 3.30 K/cmm 08/08/2019 16:11 [facility] Absolute Monocytes 0.60 0.10 - 0.80 K/cmm 08/08/2019 16:11 [facility] Absolute Eosinophils 0.21 0.03 - 0.61 K/cmm 08/08/2019 16:[address] [facility] ABS Basophils 0.03 0.01 - 0.11 K/cmm 08/08/2019 16:[address] [facility] Absolute Immature Grans 0.01 0.00 - 0.06 K/cmm 08/08/2019 16:[address] [facility] Type of Differential: Auto 08/08/2019 16:[address] [facility] Blood VENOUS BLOOD / Unknown Venipuncture / Unknown 08/08/2019 14:29 EDT 08/08/2019 14:29 EDT Chris Daniels MD PACKAGES & DNA P ERINN ORDERABLES [facility] [address] [place] [address] * LIPID PROFILE (INCLUDES CHOLESTEROL, TRIGLYCERIDES, HDL, LDL) (08/08/2019 14:29 EDT) Cholesterol 204 See Note mg/dL 08/08/2019 16:29 [facility] Comment: Acceptable: ?<200 mg/dL Borderline High: 200-239 mg/dL High: ?> or = 240 mg/dL HDL 90 See Note mg/dL 08/08/2019 16:29 [facility] Comment: Low: ? <40 mg/dL Normal: ??40-60 mg/dL High: ?>60 mg/dL LDL, Calculated 102 See Note mg/dL 08/08/2019 16:29 [facility] Comment: Optimal: ? <100 mg/dL Near Optimal: ?100-129 mg/dL Borderline High: 130-159 mg/dL High: ?160-189 mg/dL Very High: ? > or = 190 mg/dL Triglyceride 60 See Note mg/dL 08/08/2019 16:29 [facility] Comment: Normal: ? <150 mg/dL Borderline High: ??150 - 199 mg/dL High: ? 200 - 499 mg/dL Very High: ?> or = 500 mg/dL Chol/HDL Ratio 2.3 See Note 08/08/2019 16:29 [facility] Comment: No reference range has been established for CHOL/HDL ratio. Non HDL Cholesterol 114 See Note mg/dL 08/08/2019 16:29 [facility] Comment: Desirable: ?<130 mg/dL Borderline High: ??130-159 mg/dL High: ? 160-189 mg/dL Very High: ?> or = 190 mg/dL Blood VENOUS BLOOD / Unknown Venipuncture / Unknown 08/08/2019 14:29 EDT 08/08/2019 14:29 EDT Chris Daniels MD CHEMISTRY & BLOO D GAS ORDERABLES Performing Organization Address City/State/[facility] Co de Phone Number [facility] [address] [place] [address] * (ABNORMAL) BASIC METABOLIC PANEL (BMP) (08/08/2019 14:29 EDT) Sodium 134(L) 136 - 145 mEq/L 08/08/2019 16:29 [facility] Potassium 4.2 3.5 - 5.0 mEq/L 08/08/2019 16:29 [facility] Chloride 101 96 - 110 mEq/L 08/08/2019 16:29 [facility] CO2 Total 24 22 - 32 mEq/L 08/08/2019 16:29 [facility] Glucose 75 70 - 100 mg/dL 08/08/2019 16:29 [facility] Calcium 8.8 8.5 - 10.5 mg/dL 08/08/2019 16:29 [facility] Calculated Calcium 8.6 8.5 - 10.5 mg/dL 08/08/2019 16:[address] [facility] BUN 21 10 - 26 mg/dL 08/08/2019 16:[address] [facility] Creatinine 0.63(L) 0.66 - 1.25 mg/dL 08/08/2019 16:[address] [facility] eGFR 98 >60 mL/min/1.7 3m2 08/08/2019 16:[address] [facility] Comment:eGFR calculated marya humphries CKD-EPI equation for non- Americans. Multiply eGFR by 1.16 for patients. Blood VENOUS BLOOD / Unknown Venipuncture / Unknown 08/08/2019 14:29 EDT 08/08/2019 14:29 EDT Chris Daniels MD CHEMISTRY & BLOO D GAS ORDERABLES [facility] [address] [place] [address] documented in this encounter Visit Diagnoses Diagnosis Essential hypertension- Primary Unspecified essential hypertension Macrocytosis Other specified diseases of blood and blood-forming organs documented in this encounter Care Teams Hospice Aide Relationship Specialty Start Date End Date Robina Castro PA-C PCP - General 11/15/17 08/07/19 documented as of this encounter
--- OUTSIDE RECORDS SUMMARY | 2023-09-14 02:27 | XMS_ITS | Encounter Summary ---
Author Organization [facility] Address [address] [place] [address] Care Team Providers Care Emergency Department Aide Name Role Phone Robina Castro PA-C Primary Care Provider [phone] Reason for Visit * Reason Onset Date Comments Medications Refill 03/13/2019 Encounter Details Date Type Department Care Team (Late st Contact Info) Description 03/13/2019 Refill [facility] Adult Primary Care [address] [address] Robina Castro PA-C [address] [address] [facility] [address] [place] [phone] Medications Refill Social History Tobacco Use Types [...] Start Date End Da te lisinopril-hydrochlorothia zide (ZESTORETIC) 10-12.5 mg per tablet Take 1 Tab by mouth daily. 90 Tab 3 03/21/2019 08/08/2019 documented in this encounter Miscellaneous Notes * Telephone Encounter - Carina Rodriguez RN - 03/21/2019 1149 EST To robina for refill * Telephone Encounter - Neema Magana - 03/21/2019 1043 EST Pt's called, pt is out, she scheduled a OVM w/Robina on 03.28.19 for him & an annual w/Chris on 06.27.19. * Telephone Encounter - Carina Rodriguez RN - 03/14/2019 1620 EST Last ov was in 2018 Refill received from [facility] Will await pt call back to confirm refill needed and make f/u appt * Telephone Encounter - Kirsten Ziegler - 03/13/2019 1636 EST Requested Prescriptions Pending Prescriptions Disp Refills ??? lisinopril-hydrochlorothiazide (ZESTORETIC) 10-12.5 mg per tablet 90 Tab 3 Sig: Take 1 Tab by mouth daily. [id number] - [address] Confirmed Pharmacy? Yes Patient out of medication? Unknown Last Refill Date: 08/13/17 Refills left? (explain exceptions requiring early refill) No Recent Visits No visits were found meeting these conditions. Showing recent visits within past 540 days with a meds authorizing provider and meeting all other requirements Future Appointments No visits were found meeting these conditions. Showing future appointments within next 150 days with a meds authorizing provider and meeting all other requirements Future appointment: Other Tried calling patient, voicemail full. Kirsten Ziegler 03/13/2019 16:36 documented in this encounter Plan of Treatment Upcoming Encounters Date Type Department Care Team (Late st Contact Info) Description 09/19/2023 14:15 EDT Office Visit [facility] Adult Primary Care - [place] [address] [place] [address] Chris Daniels MD [address] [place] [phone] 10/19/2023 9:00 EDT Office Visit [facility] Hand & Upper Extremity Program - [address] [phone] Ant Nguyen MD [address] [place] [address] 01/07/2024 13:15 EST Office Visit [facility] Neurology - [address] [phone] Salma Richardson MD [address] [place] [address], [address] [place] [phone] documented as of this encounter Visit Diagnoses Not on filedocumented in this encounter Discontinued Medications Medication Sig Discontinue Reason Start Date End Da te lisinopril-hydrochlorothi azide (PRINZIDE, ZESTORETIC) 10-12.5 mg per tablet Take 1 Tab by mouth daily. Reorder 08/13/2017 03/13/2019 documented as of this encounter Care Teams Emergency Department Aide Relationship Specialty Start Date End Date Robina Castro PA-C PCP - General 11/15/17 08/07/19 documented as of this encounter
--- OUTSIDE RECORDS SUMMARY | 2023-09-14 02:27 | XMS_ITS | Encounter Summary ---
Author Organization [facility] Address [address] [place] [address] Care Team Providers Care Women'S Studies Lecturer Name Role Phone Chris Daniels MD Primary Care Provider + Reason for Referral * Radiology Services (Routine/Next Available) - Authorization Not Required Specialty Diagnoses / Procedures Referred By Contac t Referred To Contact Radiology Diagnoses Parkinson disease ([facility]) Procedures MR HEAD WO CONTRAST Chinmay Delgado MD [address] [place] [address] [facility] Referral ID Status Reason Start Date Expiration Date Visits Requested Visits Authorized [id number] Authorization Not Required 10/27/2021 1 1 Reason for Visit * Radiology Services (Routine/Next Available) - Authorization Not Required Specialty Diagnoses / Procedures Referred By Contac t Referred To Contact Radiology Diagnoses Parkinson disease ([facility]) Procedures MR HEAD WO Chinmay Nevarez MD [address] [place] [address] [facility] Referral ID Status Reason Start Date Expiration Date Visits Requested Visits Authorized [id number] Authorization Not Required 10/27/2021 1 1 Encounter Details Date Type Department Care Team (Latest Contact Info) Description 11/30/2021 12:55 EDT - 11/30/2021 23:59 EDT Hospital Encounter [facility] Radiology MRI - [place] [address] [place] [address] Parkinson disease Discharge Disposition: Home or Self Care Social [...] daily. 90 Tablet 3 10/27/2021 06/07/2022 documented as of this encounter Discharge Disposition Disposition Code Departure Means Destination Home or Self Care documented in this encounter Miscellaneous Notes * Result Encounter Note - Chinmay Delgado MD - 11/30/2021 1300 EDT Your brain MRI was ok. 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 This is not related to the Parkinson's symptoms that we discussed during your visit. This type of small stroke could easily go unrecognized and is not an uncommon occurrence. Not specific treatment is required. documented in this encounter Plan of Treatment Upcoming Encounters Date Type Department Care Team (Late st Contact Info) Description 09/19/2023 14:15 EDT Office Visit [facility] [place] [facility] Adult Primary Care - [place] [address] [place], [place] [address] Chris Daniels MD [address] [place] [phone] 10/19/2023 9:00 EDT Office Visit [facility] [place] [facility] Hand & Upper Extremity Program - [place] [address] [place] [address] Ant Nguyen MD [address] [place] [address] 01/07/2024 13:15 EST Office Visit [facility] [place] [facility] Neurology - [address] [place] [address] [place], [place] [phone] Salma Richardson MD [address] [place] [address], Level [address] [place] [address] documented as of this encounter Procedures Procedure Name Priority Date/Time Associated Diagnosis Comments MR HEAD WO CONTRAST Routine 11/30/2021 1 4:06 EDT Parkinson disease documented in this encounter Results * MR HEAD WO [...] documented in this encounter Visit Diagnoses Diagnosis Parkinson disease ([facility]) Paralysis agitans documented in this encounter Care Teams Women'S Studies Lecturer Relationship Specialty Start Date End Date Chris Daniels MD [address] [place] [phone] PCP - General Internal Medicine - Primary Care 08/08/19 documented as of this encounter
--- OUTSIDE RECORDS SUMMARY | 2023-09-14 02:27 | XMS_ITS | Encounter Summary ---
Author Organization [facility] Address [address] [place] [address] Care Team Providers Care Hydraulic Repairer Name Role Phone Chris Daniels MD Primary Care Provider + Reason for Visit * Reason Onset Date Comments Anosmia 10/26/2021 Aphasia 10/26/2021 Weight Loss 10/26/2021 Tremors 10/26/2021 Encounter Details Date Type Department Care Team (Late st Contact Info) Description 10/26/2021 Telephone [facility] Adult Primary Care - [place] [address] [place] [address] Chris Daniels MD [address] [place] [address] Anosmia; Aphasia; Weight Loss; Tremors Social History Tobacco Use Types Packs/Day [...] place to sleep or slept in a penitentiary (including now)? No 08/17/2021 Interpersonal Safety Answer [...] encounter Miscellaneous Notes * Telephone Encounter - Gloria Laguna RN - 10/26/2021 1520 EDT called and states that pt has lost weight, moves slow, has tremors and is concerned that pt has parkinsons. Pt has also had congestion since the week of Sep. Pt states that it started off as a cold and then has gone into congestion and unable to get rid of the congestion. No cough, no SOB, no fever no headache. Pt's states they will get a covid tested before they come in the visit * Telephone Encounter - Libby Donaldson - 10/26/2021 1402 EDT Reason for Call: Anosmia, Aphasia, Weight Loss, and Tremors Summary/Symptoms: patients calling because she is concerned about some symptoms in the patient. She believes there May be a relation to parkinson's -moves very slow -Loss of taste (may have had covid in september) -weight loss -some tremor starting Onset and Duration: over the last few months Does the patient have a computer, laptop or smart phone with high speed & video capability? N/A If so, would they be interested in doing a video visit via Zoom? N/A Appointment Offered? No Libby Donaldson 10/26/2021 14:04 documented in this encounter Plan of Treatment Upcoming Encounters Date Type Department Care Team (Late st Contact Info) Description 09/19/2023 14:15 EDT Office Visit [facility] Adult Primary Care - [address] [phone] Chris Daniels MD [address] [place] [phone] 10/19/2023 9:00 EDT Office Visit [facility] Hand & Upper Extremity Program - [address] [place] [address] Ant Nguyen MD [address] [place] [phone] 01/07/2024 13:15 EST Office Visit [facility] Neurology - [address] [place] [address] [place] [address] Salma Richardson MD 1 [facility], [address] [place] [address] documented as of this encounter Visit Diagnoses Not on filedocumented in this encounter Care Teams Hydraulic Repairer Relationship Specialty Start Date End Date Chris Daniels MD [address] [place] [phone] PCP - General Internal Medicine - Primary Care 08/08/19 documented as of this encounter
--- OUTSIDE RECORDS SUMMARY | 2023-09-14 02:27 | XMS_ITS | Encounter Summary ---
Author Organization [facility] Address [address] [place] [address] Care Team Providers Care Social Media Editor Name Role Phone Chris Daniels MD Primary Care Provider + Reason for Visit * Reason Onset Date Comments Labs Only 08/10/2020 Encounter Details Date Type Department Care Team (Late st Contact Info) Description 08/10/2020 Telephone [facility] Adult Primary Care - [place] [address] [place], [place] [phone] Chris Daniels MD [address] [place] [phone] Labs Only Social History Tobacco [...] * Telephone Encounter - Annamaria Chance - 08/11/2020 1056 EDT Pt informed there are orders for blood work ; he is not close to the labs and would prefer to have the blood drawn at the clinic; instructed to come in 15 min earlier and well hydrated; pt showed understanding; also informed pt about the new location of our clinic. documented in this encounter Plan of Treatment Upcoming Encounters Date Type Department Care Team (Late st Contact Info) Description 09/19/2023 14:15 EDT Office Visit [facility] Adult Primary Care - [address] [address] Chris Daniels MD [address] [place] [phone] 10/19/2023 9:00 EDT Office Visit [facility] Hand & Upper Extremity Program - [address] [place], [place] [phone] Ant Nguyen MD [address] [place] [phone] 01/07/2024 13:15 EST Office Visit [facility] Neurology - [address] [phone] Salma Richardson MD [address] [place] [address], [facility] [address] [place] [phone] documented as of this encounter Results * (ABNORMAL) COMPLETE BLOOD COUNT AND DIFFERENTIAL (08/13/2020 15:10 EDT) WBC 5.25 4.00 - 10.40 K/cmm 08/13/2020 18:16 [facility] RBC 3.73(L) 4.36 - 5.78 M/cmm 08/13/2020 18:16 [facility] Hemoglobin 12.6(L) 13.8 - 17.3 gm/dL 08/13/2020 18:16 [facility] HCT 36.7(L) 39.5 - 50.2 % 08/13/2020 18:16 [facility] MCV 98(H) 81 - 95 fl 08/13/2020 18:16 [facility] MCH 33.8(H) 27.6 - 33.0 pg 08/13/2020 18:16 [facility] MCHC 34.3 32.8 - 36.4 gm/dL 08/13/2020 18:16 [facility] RDW-CV 12.5 <14.2 % 08/13/2020 18:16 [facility] RDW-SD 45.3 <46.0 fl 08/13/2020 18:16 [facility] PLT 246 141 - 377 K/cmm 08/13/2020 18:16 [facility] MPV 9.3(L) 9.5 - 12.7 fl 08/13/2020 18:16 [facility] % Neutrophils 59.2 % 08/13/2020 18:16 [facility] % Lymphocytes 27.6 % 08/13/2020 18:16 [facility] % Monocytes 8.6 % 08/13/2020 18:16 [facility] % Eosinophils 4.0 % 08/13/2020 18:16 [facility] % Basophils 0.4 % 08/13/2020 18:16 [facility] % Immature Grans 0.2 % 08/14/19 [facility] Absolute Neutrophils 3.11 2.20 - 8.85 K/cmm 08/13/2020 18:16 [facility] Absolute Lymphocytes 1.45 1.09 - 3.30 K/cmm 08/13/2020 18:16 [facility] Absolute Monocytes 0.45 0.10 - 0.80 K/cmm 08/13/2020 18:16 [facility] Absolute Eosinophils 0.21 0.03 - 0.61 K/cmm 08/13/2020 18:16 [facility] ABS Basophils 0.02 0.01 - 0.11 K/cmm 08/13/2020 18:16 [facility] Absolute Immature Grans 0.01 0.00 - 0.06 K/cmm 08/13/2020 18:16 [facility] Type of Differential: Auto 08/13/2020 18:16 [facility] Blood VENOUS BLOOD / Unknown Venipuncture / Unknown 08/13/2020 15:10 EDT 08/13/2020 15:10 EDT Chris Daniels MD PACKAGES & DNA P ROBE ORDERABLES [facility] [address] [place] [address] documented in this encounter Visit Diagnoses Diagnosis Macrocytosis- Primary Other specified diseases of blood and blood-forming organs documented in this encounter Care Teams Social Media Editor Relationship Specialty Start Date End Date Chris Daniels MD [address] [place] [phone] PCP - General Internal Medicine - Primary Care 08/08/19 documented as of this encounter
--- OUTSIDE RECORDS SUMMARY | 2023-09-14 02:27 | XMS_ITS | Encounter Summary ---
Author Organization [facility] Address [address] [place] [address] Care Team Providers Care Mold Stamper Name Role Phone Chris Daniels MD Primary Care Provider + Reason for Visit * Reason Comments Medicare Annual Wellness Visit Other bhs done ( PHQ2 scor e of 0); sdoh screen-neg Skin Lesion forehead Encounter Details Date Type Department Care Team (Late st Contact Info) Description 08/13/2020 15:15 EDT Office Visit [facility] Adult Primary Care - [address] [place] [address] Chris Daniels MD [address] [place] [address] Medicare annual wellness visit, subsequent (Primary Dx); Essential hypertension; Healthcare maintenance; Macrocytosis Social History Tobacco Use Types Packs/Day [...] slept in a residential (including now)? No 08/13/2020 Interpersonal Safety Answer [...] Sign Reading Time Taken Comments Blood Pressure 164/90 08/13/2020 1516 EDT Pulse 60 08/13/2020 1516 EDT r Temperature 35.8 ??C (96.5 ??F) 08/13/2020 1516 EDT Respiratory Rate 16 08/13/2020 1516 EDT Oxygen Saturation - - Inhaled Oxygen Concentration - - Weight 68 kg (150 lb) 08/13/2020 1516 EDT Height 167.6 cm (5' 6) 08/13/2020 1516 EDT Body Mass Index 24.21 08/13/2020 1516 EDT documented in this encounter Functional Status [...] * Patient Instructions* Chris Daniels MD - 08/13/2020 15:15 EDT Triamcinolone cream 0.1% for itching rash on face. documented in this encounter Progress Notes * Annamaria Chance - 08/13/2020 1515 EDT Left arm venipuncture I was supervised by dr. Daniels who was present and immediately available in the office suite. Annamaria Chance 08/13/2020 15:09 * Chris Daniels MD - 08/13/2020 1515 EDT Willamsantiago Negron, 74 y.o. male PRIMARY CARE PROVIDER: Chris Daniels CHIEF COMPLAINT: Chief Complaint Patient presents with ??? Medicare Annual Wellness Visit ??? Other bhs done ( PHQ2 score of 0); sdoh screen-neg ??? Skin Lesion forehead Medicare Essential Components: Patient self-assessment questionnaire completed, reviewed, and scanned: yes Full history done with PMH, PSH, SH, FH, ROS. The patient's problem list, past medical/surgical history, medications, allergies, family and social history were all updated and reviewed. Done: Yes Diet Reviewed: yes. Recommendations made: Continue high vegetable consumption Level of activity: active Mood Screen (PHQ-2 on new pt and follow-up questionnaire) done: Yes: Negative Vision: assessed: No: impaired: Functional Evaluation completed ADLs: independent Cognitive: no impairment Hearing: grossly normal Fall Risk: low Home Safety: no concerns Advance Directives - Not on file. Discussed Updated list of treating providers on care team: Yes Written Health Plan in patient instructions: Yes Patient Care Team: Chris Daniels MD as PCP - General HISTORY OF PRESENT ILLNESS: Willam Negron is a 74 y.o. male here for medicare annual wellness visit. Today Mr. Negron appears well. He states he is planning this summer to go on a prolonged horseback riding trip in [place] with family and friends. We reviewed his most pertinent past medical history items which is his hypertension. His systolic blood pressures today are notably elevated to the 160s reflecting very poor control. He confirms thathe is having issues with compliance to his current lisinopril medication. He states he often forgets to take the medication and we discussed general strategies to assist him in creating a habit of taking his medication. He has a blood pressure cuff at home but has yet to routinely measure his bloodpressure. He states he will not return from his trip to [place] until September and so he reports he will be unable to reliably measure his blood pressure until he returns home. 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 [facility] Behavioral [facility] Screen Summary Interpretation PHQ-2: 0 [...] reviewed & updated. ALLERGIES: Allergies as of 08/13/2020 - Reviewed 08/13/2020 Allergen Reaction Noted ??? Codeine 01/20/2009 ??? Novacaine [procaine (bulk)] 01/20/2009 REVIEW OF SYSTEMS: A ten point ROS was performed and was negative except for pertinent positives inthe HPI PHYSICAL EXAM: Vitals: BP (!) 164/90 (BP Cuff Location: Left arm, BP Patient Position: Sitting, BP Cuff Sizes: Adult, regular) Pulse 60 Comment: r Temp 35.8 ??C (96.5 ??F) (Temporal) Resp 16 Ht 167.6 cm (66) Wt 68 kg (150 lb) BMI 24.21 kg/m?? Gen - NAD HEENT - no [...] intact, normal gait ASSESSMENT / PLAN : 74 y.o. male here for medicare annual wellness visit. Medicare annual wellness visit - - Requirements as listed above Willam was seen today for medicare annual wellness visit, other and skin lesion. Diagnoses and all orders for this visit: Essential hypertension: Poorly controlled in the setting of inadequate compliance with lisinopril. - Encouraged the patient to remain compliant with lisinopril 10 mg daily -Advised that the patient measure his blood pressure upon returning home from his trip to [place] in September. -Low threshold if blood pressure remains poorly controlled on home readings to increase lisinopril to 20 mg daily -We will follow-up in 2 to 3 months on hypertension control -BASIC METABOLIC PANEL (BMP) Healthcare maintenance - COMPLETE BLOOD COUNT AND DIFFERENTIAL Health Maintenance Topic Date Due ??? Advance Directive Never done ??? Shingles Immunization (1 of 2) Never done ??? Influenza Immunization (Adult) (Season Ended) 2020 ??? Fall Risk Screening 08/13/2021 ??? Social Determinants Of Health (SDOH) 08/13/2021 ??? Behavioral Health Screen 08/13/2021 ??? Preventive Care Visit 08/13/2022 ??? Lipid Profile Screening (Cholesterol) 08/07/2024 ??? Tetanus (Adult) Immunization 01/31/2027 ??? Colorectal Cancer Screening 06/30/2027 ??? Pertussis (Adult) Immunization Completed ??? Hepatitis C Screen Completed ??? Pneumococcal Immunization (65+) Completed Follow-up in 2 to 3 months for hypertension Some of this note was transcribed with [employer] software. While it was proofread, it may still contain unnoticed grammatical or word errors due to incorrect transcribing. Chris Daniels MD 08/15/2020 10:45 documented in this encounter Plan of Treatment Upcoming Encounters Date Type Department Care Team (Late st Contact Info) Description 09/19/2023 14:15 EDT Office Visit [facility] Adult Primary Care - [address] [place], [place] [phone] Chris Daniels MD [address] [place] [phone] 10/19/2023 9:00 EDT Office Visit [facility] Hand & Upper Extremity Program - [address] [phone] Ant Nguyen MD [address] [place] [address] 01/07/2024 13:15 EST Office Visit [facility] Neurology - [address] [phone] Salma Richardson MD [address] [place] [address], [address] [place] [phone] documented as of this encounter Procedures Procedure Name Priority Date/Time Associated Diagnosis Comments COMPLETE BLOOD COUNT AND DIFFERENTIAL Routine 08/13/2020 15:10 EDT Macrocytosis BASIC METABOLIC PANEL (BMP) Routine 08/13/2020 15:10 EDT Essential hypertension documented in this encounter Results * (ABNORMAL) COMPLETE BLOOD COUNT AND DIFFERENTIAL (08/13/2020 15:10 EDT) WBC 5.25 4.00 - 10.40 K/cmm 08/13/2020 18:16 EDT [facility] RBC 3.73(L) 4.36 - 5.78 M/cmm 08/13/2020 18:16 EDT [facility] Hemoglobin 12.6(L) 13.8 - 17.3 gm/dL 08/13/2020 18:16 [facility] HCT 36.7(L) 39.5 - 50.2 % 08/13/2020 18:16 [facility] MCV 98(H) 81 - 95 fl 08/13/2020 18:16 [facility] MCH 33.8(H) 27.6 - 33.0 pg 08/13/2020 18:16 [facility] MCHC 34.3 32.8 - 36.4 gm/dL 08/13/2020 18:16 [facility] RDW-CV 12.5 <14.2 % 08/13/2020 18:16 [facility] RDW-SD 45.3 <46.0 fl 08/13/2020 18:16 [facility] PLT 246 141 - 377 K/cmm 08/13/2020 18:16 [facility] MPV 9.3(L) 9.5 - 12.7 fl 08/13/2020 18:16 [facility] % Neutrophils 59.2 % 08/13/2020 18:16 [facility] % Lymphocytes 27.6 % 08/13/2020 18:16 [facility] % Monocytes 8.6 % 08/13/2020 18:16 [facility] % Eosinophils 4.0 % 08/13/2020 18:16 [facility] % Basophils 0.4 % 08/13/2020 18:16 [facility] % Immature Grans 0.2 % 08/14/19 18:16 [facility] Absolute Neutrophils 3.11 2.20 - 8.85 K/cmm 08/13/2020 18:16 [facility] Absolute Lymphocytes 1.45 1.09 - 3.30 K/cmm 08/13/2020 18:16 [facility] Absolute Monocytes 0.45 0.10 - 0.80 K/cmm 08/13/2020 18:16 [facility] Absolute Eosinophils 0.21 0.03 - 0.61 K/cmm 08/13/2020 18:16 [facility] ABS Basophils 0.02 0.01 - 0.11 K/cmm 08/13/2020 18:16 [facility] Absolute Immature Grans 0.01 0.00 - 0.06 K/cmm 08/13/2020 18:16 [facility] Type of Differential: Auto 08/13/2020 18:16 [facility] Blood VENOUS BLOOD / Unknown Venipuncture / Unknown 08/13/2020 15:10 EDT 08/13/2020 15:10 EDT Chris Daniels MD PACKAGES & DNA P ROBE ORDERABLES [facility] [address] [phone] * BASIC METABOLIC PANEL (BMP) (08/13/2020 15:10 EDT) Sodium 142 136 - 145 mEq/L 08/13/2020 18:40 [facility] Potassium 4.2 3.5 - 5.0 mEq/L 08/13/2020 18:40 [facility] Chloride 103 96 - 110 mEq/L 08/13/2020 18:40 [facility] CO2 Total 25 22 - 32 mEq/L 08/13/2020 18:40 [facility] Glucose 85 70 - 100 mg/dL 08/13/2020 18:40 [facility] Calcium 9.0 8.5 - 10.5 mg/dL 08/13/2020 18:40 [facility] Calculated Calcium 8.8 8.5 - 10.5 mg/dL 08/13/2020 18:40 [facility] BUN 16 10 - 26 mg/dL 08/13/2020 18:40 [facility] Creatinine 0.71 0.66 - 1.25 mg/dL 08/13/2020 18:40 EDT [facility] eGFR 92 >60 mL/min/1.7 3m2 08/13/2020 18:40 EDT [facility] Comment:eGFR calculated marya humphries CKD-EPI equation for non- Americans. Multiply eGFR by 1.16 for patients. Blood VENOUS BLOOD / Unknown Venipuncture / Unknown 08/13/2020 15:10 EDT 08/13/2020 15:10 EDT Chris Daniels MD CHEMISTRY & BLOO D GAS ORDERABLES [facility] [address] [place] [address] documented in this encounter Visit Diagnoses Diagnosis Medicare annual wellness visit, subsequent- Primary Routine general medical examination at a health care facility Essential hypertension Unspecified essential hypertension Healthcare maintenance Routine general medical examination at a health care facility Macrocytosis Other specified diseases of blood and blood-forming organs documented in this encounter Care Teams Mold Stamper Relationship Specialty Start Date End Date Chris Daniels MD [address] [place] [phone] PCP - General Internal Medicine - Primary Care 08/08/19 documented as of this encounter
--- OUTSIDE RECORDS SUMMARY | 2023-09-14 02:27 | XMS_ITS | Encounter Summary ---
Author Organization [facility] Address [address] [place] [address] Care Team Providers Care Hydraulic Dredge Operator Name Role Phone Robina Castro PA-C Primary Care Provider [phone] Reason for Visit * Reason Onset Date Comments Appointment Related 09/12/2018 BIRTHDAY REP ORT Encounter Details Date Type Department Care Team (Late st Contact Info) Description 09/12/2018 Telephone [facility] Adult Primary Care - [address] [address] Robina Castro PA-C [address] [place] [phone] Appointment Related (BIRTHDAY REPORT) Social History Tobacco Use Types Packs/Day Years [...] * Telephone Encounter - Kiah Mckinney - 09/12/2018 0854 EDT Pt due for Medicare wellness & HTN , mailbox is full. BIRTHDAY LETTER sent. documented in this encounter Plan of Treatment Upcoming Encounters Date Type Department Care Team (Late st Contact Info) Description 09/19/2023 14:15 EDT Office Visit [facility] Adult Primary Care - [address] [place], [place] [phone] Chris Daniels MD [address] [place] [phone] 10/19/2023 9:00 EDT Office Visit [facility] Hand & Upper Extremity Program - [address] [phone] Ant Nguyen MD [address] [place] [address] 01/07/2024 13:15 EST Office Visit [facility] Neurology - [address] [place] [address] [place] [phone] Salma Richardson MD [address] [place] [address], [address] [place] [phone] documented as of this encounter Visit Diagnoses Not on filedocumented in this encounter Care Teams Hydraulic Dredge Operator Relationship Specialty Start Date End Date Robina Castro PA-C PCP - General 11/15/17 08/07/19 documented as of this encounter
--- OUTSIDE RECORDS SUMMARY | 2023-09-14 02:27 | XMS_ITS | Encounter Summary ---
Author Organization [facility] Address [address] [place] [address] Care Team Providers Care Administrative Assistant Receptionist Name Role Phone Chris Daniels MD Primary Care Provider + Reason for Referral * Radiology Services (Routine/Next Available) - Authorization Not Required Specialty Diagnoses / Procedures Referred By Contac t Referred To Contact Diagnoses Chronic right shoulder pain Procedures XR SHOULDER RIGHT 2 OR MORE VIEWS Chris Daniels MD [address] [place] [address] [facility] Referral ID Status Reason Start Date Expiration Date Visits Requested Visits Authorized [id number] Authorization Not Required 08/18/2021 1 1 * Radiology Services (Routine/Next Available) - Authorization Not Required Specialty Diagnoses / Procedures Referred By Contac t Referred To Contact Diagnoses Chronic pain of left knee Procedures XR KNEE LEFT 3 VIEWS Chris Daniels MD [address] [place] [address] [facility] Referral ID Status Reason Start Date Expiration Date Visits Requested Visits Authorized [id number] Authorization Not Required 08/18/2021 1 1 Reason for Visit * Radiology Services (Routine/Next Available) - Authorization Not Required Specialty Diagnoses / Procedures Referred By Contac t Referred To Contact Diagnoses Chronic pain of left knee Procedures XR KNEE LEFT 3 VIEWS Chris Daniels MD [address] [place] [address] [facility] Referral ID Status Reason Start Date Expiration Date Visits Requested Visits Authorized [id number] Authorization Not Required 08/18/2021 1 1 Encounter Details Date Type Department Care Team (Latest Contact Info) Description 09/01/2021 14:29 EDT - 09/01/2021 23:59 EDT Hospital Encounter [facility] [address] [place] [address] Chronic pain of left knee; Chronic right shoulder pain Discharge Disposition: Home or Self Care Social [...] Tablet by mouth daily. 90 Tablet 3 07/06/2021 10/27/2021 polyethylene glycol (GOLYTELY) 236-22.74-6.74 -5.86 gram suspensionIndications :Special screening for malignant neoplasms, colon Follow instructions on 'colonoscopy preparation instructions' sheet. 1 Bottle 06/25/2017 10/27/2021 documented as of this encounter Discharge Disposition Disposition Code Departure Means Destination Home or Self Care documented in this encounter Plan of Treatment Upcoming Encounters Date Type Department Care Team (Late st Contact Info) Description 09/19/2023 14:15 EDT Office Visit [facility] Adult Primary Care - [address] [place] [address] Chris Daniels MD [address] [place] [phone] 10/19/2023 9:00 EDT Office Visit [facility] Hand & Upper Extremity Program - [facility] [address] [place] [address] Ant Nguyen MD [address] [place] [address] 01/07/2024 13:15 EST Office Visit [facility] Neurology - [address] [address] Salma Richardson MD [address] [place] [address], [address] [place] [address] documented as of this encounter Procedures Procedure Name Priority Date/Time Associated Diagnosis Comments XR SHOULDER RIGHT 2 OR MORE VIEWS Routine 09/01/2021 15:02 EDT Chronic right shoulder pain XR KNEE LEFT 3 VIEWS Routine 09/01/2021 15:02 EDT Chronic pain of left knee documented in this encounter Results * XR SHOULDER RIGHT [...] in the AC joint. Chris Daniels MD [facility] MAGING ORDERABLES * XR KNEE [...] of the proximal fibula. Chris Daniels MD [facility] MAGING ORDERABLES documented in this encounter Visit Diagnoses Diagnosis Chronic pain of left knee Pain in joint, lower leg Chronic right shoulder pain Pain in joint, shoulder region documented in this encounter Care Teams Administrative Assistant Receptionist Relationship Specialty Start Date End Date Chris Daniels MD [address] [place] [phone] PCP - General Internal Medicine - Primary Care 08/08/19 documented as of this encounter
--- OUTSIDE RECORDS SUMMARY | 2023-09-14 02:27 | XMS_ITS | Encounter Summary ---
Author Organization [facility] Address [address] [place] [address] Care Team Providers Care Child Watch Attendant Name Role Phone Chris Daniels MD Primary Care Provider + Reason for Visit * Reason Onset Date Comments Physical Therapy 01/19/2022 Referral Encounter Details Date Type Department Care Team (Late st Contact Info) Description 01/19/2022 Telephone [facility] Total Joint Program - [facility] [address] [place] [address] Alison Marcus NP [address] [place] [address] Physical Therapy (Referral) Social History Tobacco Use Types Packs/Day Years [...] place to sleep or slept in a [facility] (including now)? No 08/17/2021 Interpersonal Safety Answer [...] Telephone Encounter - Mima Lewis MA - 01/19/2022 1042 EST PT referral sent to [facility] per pt's request. Fax # confirmed [phone]. documented in this encounter Plan of Treatment Upcoming Encounters Date Type Department Care Team (Late st Contact Info) Description 09/19/2023 14:15 EDT Office Visit [facility] Adult Primary Care - [address] [place] [address] Chris Daniels MD [address] [place] [phone] 10/19/2023 9:00 EDT Office Visit [facility] Hand & Upper Extremity Program - [facility] [address] [place] [address] Ant Nguyen MD [address] [place] [address] 01/07/2024 13:15 EST Office Visit [facility] Neurology - [address] [phone] Salma Richardson MD [address] [place] [address], [address] [place] [address] documented as of this encounter Visit Diagnoses Not on filedocumented in this encounter Care Teams Child Watch Attendant Relationship Specialty Start Date End Date Chris Daniels MD [address] [facility] [place] [phone] PCP - General Internal Medicine - Primary Care 08/08/19 documented as of this encounter
--- OUTSIDE RECORDS SUMMARY | 2023-09-14 02:27 | XMS_ITS | Encounter Summary ---
Author Organization [facility] Address [address] [place] [address] Care Team Providers Care Changer Fixer Name Role Phone Chris Daniels MD Primary Care Provider + Encounter Details Date Type Department Care Team (Late st Contact Info) Description 08/08/2019 14:25 EDT Phlebotomy Only [facility] Laboratory Services - [facility] ([facility]) [address] [place], [place] [phone] Mortgage Field Inspector, [facility] Phlebotomy Essential hypertension; Macrocytosis Social History Tobacco Use Types [...] Info) Description 09/19/2023 14:15 EDT Office Visit [facility] Adult Primary Care - [place] [address] [place] [address] Chris Daniels MD [address] [place] [address] 10/19/2023 9:00 EDT Office Visit [facility] Hand & Upper Extremity Program - [address] [phone] Ant Nguyen MD [address] [place] [address] 01/07/2024 13:15 EST Office Visit [facility] Neurology - [address] [phone] Salma Richardson MD [address] [place] [address], Level [address] [place] [phone] documented as of this encounter Procedures Procedure Name Priority Date/Time Associated Diagnosis Comments COMPLETE BLOOD COUNT AND DIFFERENTIAL Routine 08/08/2019 14:29 EDT Macrocytosis LIPID PROFILE (INCLUDES CHOLESTEROL, TRIGLYCERIDES, HDL, LDL) Routine 08/08/2019 14:29 EDT Essential hypertension BASIC METABOLIC PANEL (BMP) Routine 08/08/2019 14:29 EDT Essential hypertension documented in this encounter Results * (ABNORMAL) COMPLETE BLOOD COUNT AND DIFFERENTIAL (08/08/2019 14:29 EDT) WBC 4.91 4.00 - 10.40 K/cmm 08/08/2019 16:11 [facility] RBC 3.85(L) 4.36 - 5.78 M/cmm 08/08/2019 16:11 [facility] Hemoglobin 12.5(L) 13.8 - 17.3 gm/dL 08/08/2019 16:11 [facility] HCT 37.7(L) 39.5 - 50.2 % 08/08/2019 16:11 [facility] MCV 98(H) 81 - 95 fl 08/08/2019 16:11 [facility] MCH 32.5 27.6 - 33.0 pg 08/08/2019 16:11 [facility] MCHC 33.2 32.8 - 36.4 gm/dL 08/08/2019 16:11 [facility] RDW-CV 12.2 <14.2 % 08/08/2019 16:11 [facility] RDW-SD 43.6 <46.0 fl 08/08/2019 16:11 [facility] PLT 275 141 - 377 K/cmm 08/08/2019 16:11 [facility] MPV 9.7 9.5 - 12.7 fl 08/08/2019 16:11 [facility] % Neutrophils 56.6 % 08/08/2019 16:11 [facility] % Lymphocytes 26.1 % 08/08/2019 16:11 [facility] % Monocytes 12.2 % 08/08/2019 16:11 [facility] % Eosinophils 4.3 % 08/08/2019 16:11 [facility] % Basophils 0.6 % 08/08/2019 16:11 [facility] % Immature Grans 0.2 % 08/08/19 20 16:11 [facility] Absolute Neutrophils 2.78 2.20 - 8.85 K/cmm 08/08/2019 16:11 T [facility] Absolute Lymphocytes 1.28 1.09 - 3.30 K/cm 08/08/2019 16:11 T [facility] Absolute Monocytes 0.60 0.10 - 0.80 K/[facility] 08/08/2019 16:11 [facility] Absolute Eosinophils 0.21 0.03 - 0.61 K/[facility] 08/08/2019 16:11 [facility] ABS Basophils 0.03 0.01 - 0.11 K/[facility] 08/08/2019 16:11 [facility] Absolute Immature Grans 0.01 0.00 - 0.06 K/[facility] 08/08/2019 16:11 [facility] Type of Differential: Auto 08/08/2019 16:11 [facility] Blood VENOUS BLOOD / Unknown Venipuncture / Unknown 08/08/2019 14:29 EDT 08/08/2019 14:29 EDT Chris Daniels MD PACKAGES & DNA P ERINN ORDERABLES Performing Organization Address City/State/[facility] Co de Phone Number [facility] [address] [place] [address] * LIPID PROFILE (INCLUDES CHOLESTEROL, TRIGLYCERIDES, HDL, LDL) (08/08/2019 14:29 EDT) Cholesterol 204 See Note mg/dL 08/08/2019 16:29 T [facility] Comment: Acceptable: ?<200 mg/dL Borderline High: 200-239 mg/dL High: ?> or = 240 mg/dL HDL 90 See Note mg/dL 08/08/2019 16:29 [facility] Comment: Low: ? <40 mg/dL Normal: ??40-60 mg/dL High: ?>60 mg/dL LDL, Calculated 102 See Note mg/dL 08/08/2019 16:29 T [facility] Comment: Optimal: ? <100 mg/dL Near Optimal: ?100-129 mg/dL Borderline High: 130-159 mg/dL High: ?160-189 mg/dL Very High: ? > or = 190 mg/dL Triglyceride 60 See Note mg/dL 08/08/2019 16:29 EDT [facility] Comment: Normal: ? <150 mg/dL Borderline High: ??150 - 199 mg/dL High: ? 200 - 499 mg/dL Very High: ?> or = 500 mg/dL Chol/HDL Ratio 2.3 See Note 08/08/2019 16:29 T [facility] Comment: No reference range has been established for CHOL/HDL ratio. Non HDL Cholesterol 114 See Note mg/dL 08/08/2019 16:29 EDT [facility] Comment: Desirable: ?<130 mg/dL Borderline High: ??130-159 mg/dL High: ? 160-189 mg/dL Very High: ?> or = 190 mg/dL Blood VENOUS BLOOD / Unknown Venipuncture / Unknown 08/08/2019 14:29 EDT 08/08/2019 14:29 EDT Chris Daniels MD CHEMISTRY & BLOO D GAS ORDERABLES Performing Organization Address City/State/[facility] Co de Phone Number [facility] [address] [place] [address] * (ABNORMAL) BASIC METABOLIC PANEL (BMP) (08/08/2019 14:29 EDT) Sodium 134(L) 136 - 145 mEq/L 08/08/2019 16:29 EDT [facility] Potassium 4.2 3.5 - 5.0 mEq/L 08/08/2019 16:29 EDT [facility] Chloride 101 96 - 110 mEq/L 08/08/2019 16:29 EDT [facility] CO2 Total 24 22 - 32 mEq/L 08/08/2019 16:29 EDT [facility] Glucose 75 70 - 100 mg/dL 08/08/2019 16:29 EDT [facility] Calcium 8.8 8.5 - 10.5 mg/dL 08/08/2019 16:29 EDT [facility] Calculated Calcium 8.6 8.5 - 10.5 mg/dL 08/08/2019 16:29 EDT [facility] BUN 21 10 - 26 mg/dL 08/08/2019 16:29 T [facility] Creatinine 0.63(L) 0.66 - 1.25 mg/dL 08/08/2019 16:29 T [facility] eGFR 98 >60 mL/min/1.7 3m2 08/08/2019 16:29 EDT [facility] Comment:eGFR calculated marya humphries CKD-EPI equation for non- Americans. Multiply eGFR by 1.16 for patients. Blood VENOUS BLOOD / Unknown Venipuncture / Unknown 08/08/2019 14:29 EDT 08/08/2019 14:29 EDT Chris Daniels MD CHEMISTRY & BLOO D GAS ORDERABLES Performing Organization Address City/State/[facility] Co de Phone Number [facility] [address] [place] [address] documented in this encounter Visit Diagnoses Diagnosis Essential hypertension Unspecified essential hypertension Macrocytosis Other specified diseases of blood and blood-forming organs documented in this encounter Care Teams Changer Fixer Relationship Specialty Start Date End Date Chris Daniels MD [address] [place] [phone] PCP - General Internal Medicine - Primary Care 08/08/19 documented as of this encounter
--- OUTSIDE RECORDS SUMMARY | 2023-09-14 02:27 | XMS_ITS | Encounter Summary ---
Author Organization [facility] Address [address] [place] [address] Care Team Providers Care E Commerce Architect Name Role Phone Chris Daniels MD Primary Care Provider + Encounter Details Date Type Department Care Team (Late st Contact Info) Description 07/08/2020 Orders Only [facility] Adult Primary Care - [place] [address] [place] [address] Chris Daniels MD [address] [place] [phone] Social History Tobacco Use Types [...] 14:15 EDT Office Visit [facility] Adult Primary Care - [place] [address] [place] [facility] [place] [address] Chris Daniels MD [address] [place] [address] 10/19/2023 9:00 EDT Office Visit [facility] Hand & Upper Extremity Program - [address] [phone] Ant Nguyen MD [address] [place] [address] 01/07/2024 13:15 EST Office Visit [facility] Neurology - [address] [phone] Salma Richardson MD [address] [place] [address], [address] [place] [address] documented as of this encounter Visit Diagnoses Not on filedocumented in this encounter Care Teams E Commerce Architect Relationship Specialty Start Date End Date Chris Daniels MD [address] [place] [address] PCP - General Internal Medicine - Primary Care 08/08/19 documented as of this encounter
--- OUTSIDE RECORDS SUMMARY | 2023-09-14 02:27 | XMS_ITS | Encounter Summary ---
Author Organization [facility] Address [address] [place] [address] Care Team Providers Care Security Officer Name Role Phone Chris Alaniz MD Primary Care Provider + Reason for Visit * Reason Onset Date Comments Medication Management 10/20/2019 Encounter Details Date Type Department Care Team (Late st Contact Info) Description 10/20/2019 Telephone [facility] Adult Primary Care - [address] [phone] Chris Alaniz MD [address] [place] [phone] Medication Management Social History Tobacco Use Types Packs/Day Years [...] Dispensed Refills Start Date End Da te lisinopriL-hydrochlorothia zide (ZESTORETIC) 10-12.5 mg per tablet Take 1 Tab by mouth daily. 90 Tab 3 10/20/2019 07/08/2020 documented in this encounter Miscellaneous Notes * Telephone Encounter - Jenna Acosta RN - 10/21/2019 1545 EDT Spoke with the patient. Reviewed BP medication. Patient was advised to continue to monitor his BP and notify our office for any ongoing dizziness. patient verbalized understanding with no barriers noted. JENNA ACOSTA RN * Addendum Note - Chris Alaniz MD - 10/20/2019 1641 EDTAddended by: CHRIS ALANIZ III on: 10/20/2019 16:41 Modules accepted: Orders * Telephone Encounter - Chris Alaniz MD - 10/20/2019 1640 EDT Order for lisinopril-hydrochlorothiazide signed. Patient should continue to monitor his blood pressure and notify us if dizziness returns. * Addendum Note - Carina Denise RN - 10/20/2019 1552 EDTAddended by: CARINA DENISE on: 10/20/2019 15:52 Modules accepted: Orders * Telephone Encounter - Carina Denise RN - 10/20/2019 1537 EDT Call from pt He feels that lis-hydrochlorothiazide worked better than just the plain lisinopril he was started on 08/07 He thinks dizziness when he was taking lis-hydrochlorothiazide was caused by dehydration States the switch was mainly d/t dizziness and urination Thinks urination was not a big deal Would like to switch back to lis-hydrochlorothiazide States BPs have typically been around 140/80 when he checks them, not regularly. States he did not check BPs while on lisin-hctz BP has been up to 150s while on plain lisinopril pulse has been in 60s range Please send to [facility] He will be going to [place] for a couple months w/o access to pharmacy so would like 90 days supplysent Is currentyl taking 20 mg lisinopril Pended old rx Would like a call back with plan Can leave detailed message * Telephone Encounter - Libby Donaldson - 10/20/2019 0808 EDT Reason for Call: Medication Management Summary/Symptoms: patient states Dr Jeremiah changed his lisinopril and he now has the one that doesn't have the hydro. He will need to get a refill soon and feels the old one was better for you (with the hydro) Onset and Duration: on going Does the patient have a computer, laptop or smart phone with high speed & video capability? N/A If so, would they be interested in doing a video visit via Zoom? N/A Appointment Offered? No Libby Donaldson 10/20/2019 8:09 documented in this encounter Plan of Treatment Upcoming Encounters Date Type Department Care Team (Late st Contact Info) Description 09/19/2023 14:15 EDT Office Visit [facility] Adult Primary Care - [place] [address] [place] [address] Chris Alaniz MD [address] [place] [address] 10/19/2023 9:00 EDT Office Visit [facility] Hand & Upper Extremity Program - [address] [place] [address] Ant Nguyen MD [address] [place] [address] 01/07/2024 13:15 EST Office Visit [facility] Neurology - [address] [address] Salma Richardson MD [address] [place] [address], [address] [place] [address] documented as of this encounter Visit Diagnoses Not on filedocumented in this encounter Discontinued Medications Medication Sig Discontinue Reason Start Date End Da te lisinopriL (PRINIVIL) 10 mg tablet Take 1 Tab by mouth daily. Alternate therapy 08/08/2019 10/20/2019 documented as of this encounter Care Teams Security Officer Relationship Specialty Start Date End Date Chris Alaniz MD [address] [place] [phone] PCP - General Internal Medicine - Primary Care 08/08/19 documented as of this encounter
--- OUTSIDE RECORDS SUMMARY | 2023-09-14 02:27 | XMS_ITS | Encounter Summary ---
Author Organization [facility] Address [address] [place] [address] Care Team Providers Care Land Lease Information Clerk Name Role Phone Chris Daniels MD Primary Care Provider + Reason for Visit * Reason Comments Hypertension Results LABS Encounter Details Date Type Department Care Team (Late st Contact Info) Description 10/15/2020 15:00 EDT Office Visit [facility] Adult Primary Care - [place] [address] [place] [address] Chris Daniels MD [address] [place] [address] Essential hypertension (Primary Dx) Social History Tobacco Use Types [...] slept in a snf (including now)? No 08/13/2020 Interpersonal Safety Answer Date Record ed How often does anyone, incljudith kruse family, hit, punch or physically hurt you? Never 08/13/2020 How often does anyone, incljudith aixa family, insult, scream, curse or threaten to hurt you? Never 08/13/2020 Sex and Gender Information Value Date Recorded Sex Assigned at Male 08/14/2021 11:28 EDT Gender Identity Male 08/10/2021 11:38 EDT Sexual Orientation Not on file documented as of this encounter Last Filed Vital Signs Vital Sign Reading Time Taken Comments Blood Pressure 144/82 10/15/2020 1517 EDT Pulse 70 10/15/2020 1517 EDT Temperature 35.6 ??C (96.1 ??F) 10/15/2020 1517 EDT Respiratory Rate 16 10/15/2020 1517 EDT Oxygen Saturation - - Inhaled Oxygen Concentration - - Weight 66.2 kg (146 lb) 10/15/2020 1517 EDT Height - - Body Mass Index 23.57 08/13/2020 1516 EDT documented in this encounter [...] as of this encounter Progress Notes * Chris Daniels MD - 10/15/2020 1500 EDT Willam Negron is a 75 y.o. male with a PMHx of hypertension, gluten intolerance PRIMARY CARE PROVIDER: Chris Daniels CHIEF COMPLAINT: Chief Complaint Patient presents with ??? Hypertension ??? Results LABS SUBJECTIVE: Willam Negron presents today for a follow-up visit on hypertension. He reports that he is feeling well he confirms that he recently returned from his extended trip outto [place]. He notes he was recently on an extended horseback trip and was stunned at how warm [place] was this time year. He expresses extreme concern about the long-term impact of climate change. Together we reviewed his most recent blood pressure readings which reflect good overall blood pressure control with systolic blood pressures ranging in the 100s to 130s. He confirms compliance with lisinopril 10 mg daily and denies any adverse effects from this medication including lightheadedness,dizziness or headaches. His systolic blood pressure was mildly elevated today to the 140s we discussed that this may be secondary to a component of whitecoat hypertension. ROS as above Medications and history reviewed. Current Outpatient Medications Medication ??? ibuprofen (MOTRIN) 200 mg tablet ??? lisinopriL (PRINIVIL) 10 mg tablet ??? polyethylene glycol (GOLYTELY) 236-22.74-6.74 -5.86 gram suspension No current facility-administered medications for this visit. OBJECTIVE: BP (!) 144/82 (BP Cuff Location: Left arm, BP Patient Position: Sitting, BP Cuff Sizes: Adult, regular) Pulse 70 Temp 35.6 ??C (96.1 ??F) (Tympanic) Resp 16 Wt 66.2 kg (146 lb) BMI 23.57 kg/m?? Gen: Well appearing elderly male, NAD HEENT: EOMI, PERRL, conjunctiva pink, no scleral injection/ icterus CV: RRR, no murmurs, rubs or gallops Pulm: CTAB, good air movement, no wheezes, rales, or rhonchi Extrem: no edema, warm and well perfused Skin: No rashes or erythema, intact Neuro: A&Ox3, CN II through XII grossly intact Recent Labs/Imaging: Reviewed in epic ASSESSMENT and PLAN: Willam was seen today for hypertension and results. Diagnoses and all orders for this visit: Essential hypertension: Despite elevated blood pressure reading today patient's blood pressure log at home reflects excellent control on his CLEMENTE inhibitor. He denies any adverse effects from his CLEMENTE inhibitor use and notes compliance. -Encourage compliance with lisinopril at 10 mg daily -Encourage patient to continue to monitor blood pressures periodically at home and to reach out to this office should pressures persistently rising into the 140s or higher systolic. Health Care Maintenance Health Maintenance Topic Date Due ??? Advance Directive Never done ??? Shingles Immunization (1 of 2) Never done ??? Influenza Immunization (Adult) (1) 11/19/2020 ??? Fall Risk Screening 08/13/2021 ??? Social Determinants Of Health (SDOH) 08/13/2021 ??? Behavioral Health Screen 08/13/2021 ??? Preventive Care Visit 08/13/2022 ??? Lipid Profile Screening (Cholesterol) 08/07/2024 ??? Tetanus (Adult) Immunization 01/31/2027 ??? Colorectal Cancer Screening 06/30/2027 ??? Pertussis (Adult) Immunization Completed ??? Hepatitis C Screen Completed ??? Pneumococcal Immunization (65+) Completed ??? COVID-19 Vaccine Completed F/u: Return in about 10 months (around 08/15/2021) for p45, Medicare Physical. I spent a total of 30 minutes with this patient today face to face, in chart review and in documentation and 25 minutes of that time was spent on education and counseling for hypertension. Some of this note was transcribed with [employer] dictating software. While it was proofread, it may still contain unnoticed grammatical or word errors due to incorrect transcribing. Chris Daniels MD 10/17/2020 17:31 documented in this encounter Plan of Treatment Upcoming Encounters Date Type Department Care Team (Late st Contact Info) Description 09/19/2023 14:15 EDT Office Visit [facility] Adult Primary Care - [place] [address] [place] [address] Chris Daniels MD [address] [place] [phone] 10/19/2023 9:00 EDT Office Visit [facility] Hand & Upper Extremity Program - [facility] [address] [place] [address] Ant Nguyen MD [address] [place] [address] 01/07/2024 13:15 EST Office Visit [facility] Neurology - [address] [address] Salma Richardson MD [address] [place] [address], [address] [place] [phone] documented as of this encounter Visit Diagnoses Diagnosis Essential hypertension- Primary Unspecified essential hypertension documented in this encounter Care Teams Land Lease Information Clerk Relationship Specialty Start Date End Date Chris Daniels MD [address] [place] [phone] PCP - General Internal Medicine - Primary Care 08/08/19 documented as of this encounter
--- OUTSIDE RECORDS SUMMARY | 2023-09-14 02:27 | XMS_ITS | Encounter Summary ---
Author Organization [facility] Address [address] [place] [address] Care Team Providers Care Sawdust Drier Name Role Phone Chris Daniels MD Primary Care Provider + Reason for Referral * Referral (Urgent) - Specialty Report Received Specialty Diagnoses / Procedures Referred By Joshua diaz Referred To Contact Multidisciplinary Diagnoses Major depressive disorder with current active episode, unspecified depression episode severity, unspecified whether recurrent Chris Daniels MD [address] [place] [address] [facility] Team [address], [address] [place] [address] Referral ID Status Reason Start Date Expiration Date Visits Requested Visits Authorized [id number] Specialty Report Received Specialty Services Required 1 1 Question Answer Reason for Request: Assistance in locating a community therapist, looking for [facility] nursing home social worker for ongoing support * PT/OT/ST (Routine/Next Available) - Closed Specialty Diagnoses / Procedures Referred By Joshua diaz Referred To Contact Diagnoses Parkinsonian features Chris Daniels MD [address] [place] [address] Referral ID Status Reason Start Date Expiration Date V isits Requested Visits Authorized [id number] Closed Specialty Services Required 02/01/2022 1 1 Question Answer Reason for Request: Parkinson's exercises Practice Site (External Referral Only): [facility] Reason for Visit * Reason Comments Depression Encounter Details Date Type Department Care Team (Late st Contact Info) Description 02/01/2022 9:45 EST Office Visit [facility] Adult Primary Care - [place] [address] [place] [address] Chris Daniels MD [address] [place] [address] Major depressive disorder with current active episode, unspecified depression episode severity, unspecified whether recurrent (Primary Dx); Parkinsonian features Social History Tobacco Use Types Packs/Day Years [...] Sign Reading Time Taken Comments Blood Pressure 140/74 02/01/2022 0935 EST Pulse 73 02/01/2022 0935 EST r Temperature 36.3 ??C (97.3 ??F) 02/01/2022 0935 EST Respiratory Rate 16 02/01/2022 0935 EST Oxygen Saturation - - Inhaled Oxygen Concentration - - Weight 64 kg (141 lb) 02/01/2022 0935 EST Height - - Body Mass Index [...] daily. 60 Tablet 1 02/01/2022 06/06/2022 documented in this encounter Progress Notes * Chris Daniels MD - 02/01/2022 0945 EST Attestation statement: I was present with the medical student for the history, exam, and medical decision making documented. I have personally performed my own physical exam and medical decision making. I have verified and agree with (or, as indicated, have edited in Blue) the medical student's documentation. I spent a total of 30 minutes with this patient today face to face, in chart review and in documentation and 25 minutes of that time was spent on education and counseling for depression. Chris Daniels MD Adult Primary Care Medicine Pager #: [phone] * Toni Villalta - 02/01/2022 0945 EST Willam Negron is a 76 y.o. male with a PMHx of hypertension, osteoarthritis, parkinsonian features PRIMARY CARE PROVIDER: Chris Daniels CHIEF COMPLAINT: Chief Complaint Patient presents with ??? Depression SUBJECTIVE: Willam Negron presents today for a follow-up visit to discuss depression. He was recently diagnosed with parkinsonian features and is scheduled for further evaluation by neurology. Unfortunately he is unable to be seen by the neurology service until early next year, though he remains on a cancellation list. He confirms that the diagnosis was a shock and has resulted in depressed thoughts and overall mood. Although he denies any SI, he confirms perseverating thoughts on dying. He notes passionate interest in dying with dignity and pursuing physician assisted termination of his life if necessary. He confirms impaired sleep over the last month, anhedonia and episodes of high anxiety. He concedesthat his coping mechanisms feel insufficient to control his mood. He expresses interest in both pharmacological and nonpharmacologic interventions to assist with his current mood symptoms. ROS as above Medications and history reviewed. Current Outpatient Medications Medication ??? ibuprofen (MOTRIN) 200 mg tablet ??? lisinopriL (PRINIVIL) 10 mg tablet ??? sertraline (ZOLOFT) 50 mg tablet ??? triamcinolone (KENALOG) 0.1 % cream No current facility-administered medications for this visit. OBJECTIVE: BP 140/74 (BP Cuff Location: Left arm, BP Patient Position: Sitting, BP Cuff Sizes: Adult, regular) Pulse 73 Comment: r Temp 36.3 ??C (97.3 ??F) (Tympanic) Resp 16 Wt 64 kg (141 lb) BMI 23.04 kg/m?? Gen: Willam is a well appearing 76 yo male, NAD HEENT: EOMI, PERRL, conjunctiva pink, no scleral injection/ icterus Extrem: no edema Skin: No rashes or erythema, intact Psych: Depressed mood and congruent affect, slowed and blunted speech, thought content and thought process within normal limits, no SI or HI, dressed appropriately for the season, judgment and insight appears fair. Neuro: A&Ox3, CN II through XII grossly intact ASSESSMENT and PLAN: Major depressive disorder with active episode: Worsening mood symptoms triggered from acute stress related to the uncertainty of his overall health with a potential new diagnosis of Parkinson's disease. Discussed the pathophysiology of major depressive disorder in depth, its symptoms and effective treatments. Mr. Negron expresses interest in both establishing with a community therapist as well as initiating SSRI therapy for his current symptoms. -We will start sertraline 50 mg -We will plan for follow-up as scheduled in 4 weeks. Low threshold to further dose increase sertraline at that time if symptom burden remains elevated. -We will refer to our community health team for assistance in establishing with a community therapist Parkinsonian Features -F/u with Neurology on 03/27 Health Care Maintenance Health Maintenance Topic Date Due ??? Advance Directive Never done ??? Shingles Immunization (1 of 2) Never done ??? COVID-19 Vaccine (5 - Booster for Moderna series) 08/02/2021 ??? Fall Risk Screening 08/13/2021 ??? Influenza Immunization (Adult) (1) 11/19/2021 ??? Social Determinants Of Health (SDOH) 08/17/2022 ??? Behavioral Health Screen 08/17/2022 ??? Preventive Care Visit 08/18/2023 ??? Lipid Profile Screening (Cholesterol) 08/07/2024 ??? Tetanus (Adult) Immunization 01/31/2027 ??? Pertussis (Adult) Immunization Completed ??? Hepatitis C Screen Completed ??? Pneumococcal Immunization (65+) Completed F/u: As scheduled Toni Villalta MS3 Pager# [phone] Epic Chat Preferable 02/01/22 11:27 documented in this encounter Plan of Treatment Upcoming Encounters Date Type Department Care Team (Late st Contact Info) Description 09/19/2023 14:15 EDT Office Visit [facility] Adult Primary [facility] - [place] [address] [place] [address] Chris Daniels MD [address] [place] [address] 10/19/2023 9:00 EDT Office Visit [facility] Hand & Upper Extremity Program - [facility] [address] [place], [place] [phone] Ant Nguyen MD [address] [place] [address] 01/07/2024 13:15 EST Office Visit [facility] Neurology - [address] [address] Salma Richardson MD [address] [place] [address], [address] [place] [address] Scheduled Referrals Name Type Priority Associated Diagnoses Order Schedule AMB CONS/FOLLOW UP PHYSICAL THERAPY - OUTSIDE OF NETWORK Outpatient Referral Routine/Next Available Parkinsonian features Expected: 02/08/2022 (Approximate), Expires: 02/01/2023 AMB CONS/FOLLOW UP OUTPATIENT CARE MANAGEMENT - [facility] Outpatient Referral Urgent Major depressive disorder with current active episode, unspecified depression episode severity, unspecified whether recurrent Expected: 02/03/2022 (Approximate), Expires: 02/01/2023 documented as of this encounter Visit Diagnoses Diagnosis Major depressive disorder with current active episode, unspecified depression episode severity, unspecified whether recurrent- Primary Parkinsonian features Abnormal involuntary movements documented in this encounter Care Teams Sawdust Drier Relationship Specialty Start Date End Date Chris Daniels MD [address] [place] [address] PCP - General Internal Medicine - Primary Care 08/08/19 documented as of this encounter
--- OUTSIDE RECORDS SUMMARY | 2023-09-14 02:28 | XMS_ITS | Encounter Summary ---
Author Organization [facility] Address [address] [place] [address] Care Team Providers Care Scholastic Aptitude Test Grader Name Role Phone Unavailable Primary Care Provider Unavailabl e Encounter Details Date Type Department Care Team (Late st Contact Info) Description 10/26/2004 12:26 EDT Hospital Encounter [facility] [place] [id number] [place] [address] Lashay Costa MD [address] [place] [address], [address] [place] [address] Discharge Disposition: Auto Discharge Social History Tobacco Use Types Packs/Day Years Used Date Smoking Tobacco: Never Assessed Sex and Gender Information Value Date Recorded Sex Assigned at Male 08/14/2021 11:28 EDT Gender Identity Male 08/10/2021 11:38 EDT Sexual Orientation Not on file documented as of this encounter Discharge Disposition Disposition Code Departure Means Destination Auto Discharge documented in this encounter Plan of Treatment Upcoming Encounters Date Type Department Care Team (Late st Contact Info) Description 09/19/2023 14:15 EDT Office Visit [facility] Adult Primary Care - [place] [address] [place] [address] Chris Daniels MD [address] [place] [phone] 10/19/2023 9:00 EDT Office Visit [facility] Hand & Upper Extremity Program - [place] [address] Ant Nguyen MD [address] [place] [address] 01/07/2024 13:15 EST Office Visit [facility] Neurology - [address] [address] Salma Richardson MD [address] [place] [address], [address] [place] [phone] documented as of this encounter Visit Diagnoses Not on filedocumented in this encounter
--- OUTSIDE RECORDS SUMMARY | 2023-09-14 02:28 | XMS_ITS | Encounter Summary ---
Author Organization [facility] Address [address] [place] [address] Care Team Providers Care [employer] Truck Driver Name Role Phone Adrien Saldivar MD Primary Care Provider [phone] Reason for Visit * Reason Onset Date Comments Medications Refill 06/06/2017 Encounter Details Date Type Department Care Team (Late st Contact Info) Description 06/06/2017 Refill [facility] Adult Primary Care [address] [address] Adrien Saldivar MD [address] [place] [address] [place] [phone] Medications Refill Social History Tobacco Use Types [...] tablet Take 1 Tab by mouth daily. 30 Tab 5 06/06/2017 08/13/2017 documented in this encounter Miscellaneous Notes * Telephone Encounter - Neema Magana - 06/06/2017 1434 EDT Medication(s) Requested: Lisinopril-HCTZ, 10-12.5 mg, 1 daily, #90, last refill 03.22.17 - pt's called, they would like to use the [facility] pharmacy so they can get it for free. Preferred Pharmacy: [facility] Is patient out of medication? Yes - Explained 72 hour business day notice for future refills. Last Visit Date with Ordering Provider: 03.22.17 Next Non-Acute Visit Date Scheduled with Care Team: , F30 with Dr. Yariel Magana 06/06/2017 14:35 documented in this encounter Plan of Treatment Upcoming Encounters Date Type Department Care Team (Late st Contact Info) Description 09/19/2023 14:15 EDT Office Visit [facility] Adult Primary Care - [address] [id number] Chris Daniels MD [address] [place] [phone] 10/19/2023 9:00 EDT Office Visit [facility] Hand & Upper Extremity Program - [place] [address] [place] [address] [place] [address] Ant Nguyen MD [address] [place] [phone] 01/07/2024 13:15 EST Office Visit [facility] Neurology - [address] [phone] Salma Richardson MD [address] [place] [address], [address] [place] [address] documented as of this encounter Visit Diagnoses Not on filedocumented in this encounter Discontinued Medications Medication Sig Discontinue Reason Start Date End Da te lisinopril-hydrochlorothi azide (PRINZIDE, ZESTORETIC) 10-12.5 mg per tablet Take 1 Tab by mouth daily. Reorder 03/22/2017 06/06/2017 documented as of this encounter Care Teams Local [employer] Truck Driver Relationship Specialty Start Date End Date Adrien Saldivar MD PCP - General 09/26/16 11/14/17 documented as of this encounter
--- OUTSIDE RECORDS SUMMARY | 2023-09-14 02:28 | XMS_ITS | Encounter Summary ---
Author Organization [facility] Address [address] [place] [address] Care Team Providers Care Toy Maker Name Role Phone Ariella Gregory MD Primary Care Provider Jorge jeong Reason for Referral * Radiology Services (Routine/Next Available) - Closed Specialty Diagnoses / Procedures Referred By Contac t Referred To Contact Diagnoses Left shoulder pain Procedures SHOULDER 2 OR MORE VIEWS Elana Addison PA-C [address] [place] [phone] Referral ID Status Reason Start Date Expiration Date Visits Re quested Visits Authorized [id number] Closed 07/01/2012 1 1 Encounter Details Date Type Department Care Team (Late st Contact Info) Description 06/28/2012 Orders Only [facility] Hand & Upper Extremity Program - [address] [place] [address] Elana Addison PA-C [address] [place] [phone] Left shoulder pain (Primary Dx) Social History Tobacco Use Types Packs/Day Years Used Date Smoking Tobacco: Never Alcohol Use Standard Drinks/Week Comments Yes 0 (1 standard drink = 0.6 oz pur e alcohol) occasional Sex and Gender Information Value Date Recorded Sex Assigned at Male 08/14/2021 11:28 EDT Gender Identity Male 08/10/2021 11:38 EDT Sexual Orientation Not on file documented as of this encounter Plan of Treatment Upcoming Encounters Date Type Department Care Team (Late st Contact Info) Description 09/19/2023 14:15 EDT Office Visit [facility] Adult Primary Care - [place] [address] [place], [place] [address] Chris Daniels MD [address] [place] [phone] 10/19/2023 9:00 EDT Office Visit [facility] Hand & Upper Extremity Program - [facility] [address] [place] [address] Ant Nguyen MD [address] [facility] [place] [address] 01/07/2024 13:15 EST Office Visit [facility] Neurology - [address] [phone] Salma Richardson MD [address] [place] [address] [address] [place] [phone] documented as of this encounter Procedures Procedure Name Priority Date/Time Associated Diagnosis Comments SHOULDER 2 OR MORE VIEWS Routine 07/02/2012 15:05 EDT Left shoulder pain documented in this encounter Results * SHOULDER 2 OR MORE VIEWS (07/02/2012 15:05 EDT) Anatomical Region Laterality Modality Other 07/02/2012 15:0 5 EDT 07/02/2012 15:56 EDT Narrative 07/02/2012 15:56 EDT SHOULDER 2 OR MORE VIEW ??07/02/2012 3:05 PM Signs and Symptoms/Comments: ??719.41-Pain in joint, shoulder [id number]; right shoulder pain . 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 Moderate a.c. joint arthropathy is present. There is hardware over the greater tuberosity. Procedure Note 07/02/2012 SHOULDER 2 OR MORE VIEW 07/02/2012 3:05 PM Signs and Symptoms/Comments: 719.41-Pain in joint, shoulder [id number]; right shoulder pain . 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 Moderate a.c. joint arthropathy is present. There is hardware over the greater tuberosity. Elana Addison PA-C [facility]NO[facility] IMAGI NG ORDERABLES documented in this encounter Visit Diagnoses Diagnosis Left shoulder pain- Primary Pain in joint, shoulder region documented in this encounter Care Teams Toy Maker Relationship Specialty Start Date End Date Ariella Gregory MD PCP - General 01/20/09 09/25/16 documented as of this encounter
--- OUTSIDE RECORDS SUMMARY | 2023-09-14 02:28 | XMS_ITS | Encounter Summary ---
Author Organization [facility] Address [address] [place] [address] Care Team Providers Care Hvac Services Professional Name Role Phone Adrien Saldivar MD Primary Care Provider +1- [phone] Encounter Details Date Type Department Care Team (Late st Contact Info) Description 01/31/2017 Phlebotomy Only [facility] - [address] [address] Freezer Assistant, Outpatient Health care maintenance (Primary Dx) Social History Tobacco Use Types [...] Info) Description 09/19/2023 14:15 EDT Office Visit [facility] Adult Primary Care - [place] [address] [place] [address] Chris Daniels MD [address] [place] [address] 10/19/2023 9:00 EDT Office Visit [facility] Hand & Upper Extremity Program - [facility] [address] [place] [address] Atn Nguyen MD [address] [place] [address] 01/07/2024 13:15 EST Office Visit [facility] Neurology - [address] [place] [address] [place] [address] Salma Richardson MD [address] [place] [address], Level [address] [place] [phone] documented as of this encounter Procedures Procedure Name Priority Date/Time Associated Diagnosis Comments HEPATITIS C AB W REFLEX TO HCV RNA BY PCR Routine 01/31/2017 17:05 EST Health care maintenance COMPLETE BLOOD COUNT AND DIFFERENTIAL Routine 01/31/2017 17:05 EST Health care maintenance HIV 1/2 ANTIGEN AND ANTIBODY, 4TH GENERATION Routine 01/31/2017 17:05 EST Health care maintenance LIPID PROFILE (INCLUDES CHOLESTEROL, TRIGLYCERIDES, HDL, LDL) Routine 01/31/2017 17:05 EST Health care maintenance COMPREHENSIVE METABOLIC PANEL (CMP) Routine 01/31/2017 17:05 EST Health care maintenance documented in this encounter Results * HEPATITIS C AB W REFLEX TO HCV RNA BY PCR (01/31/2017 17:05 EST) Hep C Ab w Rfx PCR HCSCR2 Negative Negative 02/01/2017 12:05 EST [facility] Blood specimen (specimen) BLOOD SPECIMEN / Unknown 01/31/2017 17:05 EST 01/31/2017 18:37 EST Adrien Saldivar MD CHEMISTRY & BLOOD G ORDERABLES Performing Organization Address [facility] Co de Phone Number [facility] [address] [place] [address] * HIV 1/2 ANTIGEN AND ANTIBODY, 4TH GENERATION (01/31/2017 17:05 EST) HIV 1/2 Antibody Negative Negative 02/02/20 17 12:06 [facility] Comment: Fourth generation assay performed on the Spotwiseaur. If acute HIV-1 infection is suspected in a high risk patient, submit plasma specimen for HIV-1 RNA quantification test. Blood specimen (specimen) BLOOD SPECIMEN / Unknown 01/31/2017 17:05 EST 01/31/2017 18:37 EST Adrien Saldivar MD IMMUNOLOGY AND SERO LOGY ORDERABLES Performing Organization Address [facility] Co de Phone Number [facility] [address] [place] [address] * LIPID PROFILE (INCLUDES CHOLESTEROL, TRIGLYCERIDES, HDL, LDL) (01/31/2017 17:05 EST) Cholesterol 227 mg/dl 01/31/2017 19:10 [facility] Comment: Desirable:<200 Borderline High:200-239 High:>qf=895 Triglycerides 54 mg/dl 01/31/2017 19:10 [facility] Comment: Normal:<150 Borderline High:150-199 High:200-499 Very High:>fq=541 HDL 93 mg/dl 01/31/2017 19:10 [facility] Comment: Low:<40 Normal:40-60 Desirable: >60 LDL, Calculated 123 mg/dl 7 19:10 [facility] Comment: Optimal:<100 Near Optimal:100-129 Borderline High:130-159 High:160-189 Very High:>xc=642 Chol/HDL Ratio 2.4 01/31/2017 19:10 [facility] Fasting? No 01/31/2017 17:02 [facility] Non HDL Cholesterol 134 mg/dl 01/31/2017 19:10 [facility] Comment: Desirable:<130 Borderline:130-159 High: 160-189 Very High: >aj=979 Blood specimen (specimen) BLOOD SPECIMEN / Unknown 01/31/2017 17:05 EST 01/31/2017 18:37 EST Adrien Saldivar MD CHEMISTRY & BLOOD G ORDERABLES Performing Organization Address City/State/[facility] Co de Phone Number [facility] [address] [place] [address] * (ABNORMAL) COMPREHENSIVE METABOLIC PANEL (CMP) (01/31/2017 17:05 EST) Potassium 4.3 3.5 - 5.0 mEq/L 01/31/2017 19:10 [facility] Sodium 142 136 - 145 mEq/L 01/31/2017 19:10 [facility] Chloride 101 96 - 110 mEq/L 01/31/2017 19:10 [facility] CO2 27 22 - 32 mEq/L 01/31/2017 19:10 [facility] Total Alkaline Phosphatase 72 38 - 126 U/L 01/31/2017 19:10 [facility] Bilirubin, Total 0.6 <1.4 mg/dl 02/01/20 17 19:10 [facility] AST 34 15 - 46 U/L 01/31/2017 19:10 [facility] ALT 55 21 - 72 U/L 01/31/2017 19:10 [facility] Albumin 4.9 3.4 - 4.9 g/dl 01/31/2017 19:10 [facility] Total Protein 8.1 6.3 - 8.2 g/dl 01/31/2017 19:10 [facility] Creatinine 0.78 0.66 - 1.25 mg/dl 01/31/2017 19:10 [facility] GFR, Calculated 91 >60 ml/min/1.7 3m2 01/31/2017 19:10 [facility] Comment: eGFR calculated using CKD-EPI equation for non Americans. Multiply eGFR by 1.16 for Americans. BUN 28(H) 10 - 26 mg/dl 01/31/2017 19:10 [facility] Calcium 9.8 8.5 - 10.5 mg/dl 01/31/2017 19:10 [facility] Calculated Calcium 9.1 8.5 - 10.5 mg/dl 01/31/2017 19:10 [facility] Glucose, Serum 73 70 - 100 mg/dl 01/31/2017 19:10 [facility] Fasting? No 01/31/2017 17:02 [facility] Blood specimen (specimen) BLOOD SPECIMEN / Unknown 01/31/2017 17:05 EST 01/31/2017 18:37 EST Adrien Saldivar MD CHEMISTRY & BLOOD G ORDERABLES Performing Organization Address City/State/[facility] Co de Phone Number [facility] [address] [place] [address] * (ABNORMAL) HEMAGRAM AND DIFFERENTIAL (01/31/2017 17:05 EST) WBC 6.37 4.0 - 10.4 K/cmm 01/31/2017 18:47 [facility] RBC 4.25(L) 4.36 - 5.78 M/cmm 01/31/2017 18:47 [facility] Hemoglobin 14.3 13.8 - 17.3 gm/dl 01/31/2017 18:47 [facility] HCT 42.1 39.5 - 50.2 % 01/31/2017 18:47 [facility] MCV 99(H) 81 - 95 fl 01/31/2017 18:47 [facility] MCH 33.6(H) 27.6 - 33.0 pg 01/31/2017 18:47 [facility] MCHC 34.0 32.8 - 36.4 gm/dl 01/31/2017 18:47 [facility] RDW-CV 12.2 <14.2 % 01/31/2017 18:47 [facility] RDW-SD 44.8 <46.0 fl 01/31/2017 18:47 [facility] PLT 292 141 - 377 K/cmm 01/31/2017 18:47 [facility] MPV 9.5 9.5 - 12.7 fl 01/31/2017 18:47 [facility] % Neutrophils 67.3 % 01/31/2017 18:47 [facility] % Lymphocytes 21.2 % 01/31/2017 18:47 [facility] % Monocytes 9.6 % 01/31/2017 18:47 [facility] % Eosinophils 1.4 % 01/31/2017 18:47 [facility] % Basophils 0.3 % 01/31/2017 18:47 [facility] % Immature Grans 0.2 % 01/31/2017 18:47 [facility] ABS Neutrophils 4.29 2.20 - 8.85 K/cmm 01/31/2017 18:47 [facility] ABS Lymphs 1.35 1.09 - 3.30 K/cmm 01/31/2017 18:47 [facility] ABS Monocytes 0.61 0.1 - 0.8 K/cmm 01/31/2017 18:47 [facility] ABS Eosinophils 0.09 0.03 - 0.61 K/cmm 01/31/2017 18:47 [facility] ABS Basophils 0.02 0.01 - 0.11 K/cmm 01/31/2017 18:47 [facility] ABS Immature Grans 0.01 0 - 0.06 K/cmm 01/31/2017 18:47 [facility] Type of Diff: Automated 01/31/2017 18:47 [facility] Blood specimen (specimen) BLOOD SPECIMEN / Unknown 01/31/2017 17:05 EST 01/31/2017 18:37 EST Adrien Saldivar MD PACKAGES & DNA PROB E ORDERABLES [facility] [address] [place] [address] documented in this encounter Visit Diagnoses Diagnosis Health care maintenance- Primary Routine general medical examination at a health care facility documented in this encounter Care Teams Hvac Services Professional Relationship Specialty Start Date End Date Adrien Saldivar MD PCP - General 09/26/16 11/14/17 documented as of this encounter
--- OUTSIDE RECORDS SUMMARY | 2023-09-14 02:28 | XMS_ITS | Encounter Summary ---
Author Organization [facility] Address [address] [place] [address] Care Team Providers Care Contact Acid Plant Operator Name Role Phone Adrien Saldivar MD Primary Care Provider [phone]- [phone] Encounter Details Date Type Department Care Team (Late st Contact Info) Description 01/31/2017 16:56 EST - 01/31/2017 23:59 EST Hospital Encounter [address] [address] Adrien Saldivar MD [address] [place] [phone] Discharge Disposition: Auto Discharge Social History Tobacco [...] 01/31/2017 documented as of this encounter Discharge Diagnoses Diagnosis Z00.00 Encounter for general adult medical examination without abnormal findings-Z00.00[ICD-10-CM] documented in this encounter Medications at Time of Discharge Medication Sig Dispensed Refills Start Date End Date polyethylene glycol (GOLYTELY;NULYTELY) 236-22.74-6.74 -5.86 gram suspension Instructions mailed once procedure scheduled. Questions: [facility] Gastroenterology: [phone] or GI Doctor's Office. 4000 mL 01/31/2017 06/25/2017 documented as of this encounter Discharge Disposition Disposition Code Departure Means Destination Auto Discharge Home documented in this encounter Plan of Treatment Upcoming Encounters Date Type Department Care Team (Late st Contact Info) Description 09/19/2023 14:15 EDT Office Visit [facility] Adult Primary Care - [place] [address] [place], [place] [phone] Chris Daniels MD [address] [place] [phone] 10/19/2023 9:00 EDT Office Visit [facility] Hand & Upper Extremity Program - [address] [phone] Ant Nguyen MD [address] [place] [address] 01/07/2024 13:15 EST Office Visit [facility] Neurology - [address] [phone] Salma Richardson MD [address] [place] [address], [address] [place] [phone] documented as of this encounter Visit Diagnoses Not on filedocumented in this encounter Care Teams Contact Acid Plant Operator Relationship Specialty Start Date End Date Adrien Saldivar MD PCP - General 09/26/16 11/14/17 documented as of this encounter
--- OUTSIDE RECORDS SUMMARY | 2023-09-14 02:28 | XMS_ITS | Encounter Summary ---
Author Organization [facility] Address [address] [place] [address] Care Team Providers Care Felting Machine Operator Helper Name Role Phone Unavailable Primary Care Provider Unavailabl e Encounter Details Date Type Department Care Team (Late st Contact Info) Description 12/12/2006 8:31 EDT Hospital Encounter [facility] [place] [address] [place] [address] Maggie Harper PA [address] [place] [phone] Social History Tobacco Use Types Packs/Day Years [...] 14:23 EDT documented as of this encounter Plan of Treatment Upcoming Encounters Date Type Department Care Team (Late st Contact Info) Description 09/19/2023 14:15 EDT Office Visit [facility] Adult Primary Care - [address] [address] Chris Daniels MD [address] [place] [address] 10/19/2023 9:00 EDT Office Visit [facility] Hand & Upper Extremity Program - [facility] [place] [address] Ant Nguyen MD [address] [place] [address] 01/07/2024 13:15 EST Office Visit [facility] Neurology - [address] [address] Salma Richardson MD [address] [place] [address], [address] [place] [address] documented as of this encounter Visit Diagnoses Not on filedocumented in this encounter
--- OUTSIDE RECORDS SUMMARY | 2023-09-14 02:28 | XMS_ITS | Encounter Summary ---
Author Organization [facility] Address [address] [place] [address] Care Team Providers Care Flying Instructor Name Role Phone Adrien Saldivar MD Primary Care Provider +1- [phone] Reason for Visit * Reason Onset Date Comments Other 02/01/2017 lab results Encounter Details Date Type Department Care Team (Late st Contact Info) Description 02/01/2017 Telephone [facility] Adult Primary Care - [address] [address] Adrien Saldivar MD [address] [place] [address] [place] [phone] Other (lab results) Social History Tobacco Use Types Packs/Day Years [...] encounter Miscellaneous Notes * Telephone Encounter - Brittni Rogers - 02/01/2017 0904 EST Patient just wanted you to know that he was not fasting when he had the labs drawn documented in this encounter Plan of Treatment Upcoming Encounters Date Type Department Care Team (Late st Contact Info) Description 09/19/2023 14:15 EDT Office Visit [facility] Adult Primary Care - [place] [address] [place] [address] Chris Daniels MD [address] [place] [phone] 10/19/2023 9:00 EDT Office Visit [facility] Hand & Upper Extremity Program - [address] [phone] Ant Nguyen MD [address] [place] [address] 01/07/2024 13:15 EST Office Visit [facility] Neurology - [address] [phone] Salma Richardson MD [address] [place] [address], [address] [place] [phone] documented as of this encounter Visit Diagnoses Not on filedocumented in this encounter Care Teams Flying Instructor Relationship Specialty Start Date End Date Adrien Saldivar MD PCP - General 09/26/16 11/14/17 documented as of this encounter
--- OUTSIDE RECORDS SUMMARY | 2023-09-14 02:28 | XMS_ITS | Encounter Summary ---
Author Organization [facility] Address [address] [place] [address] Care Team Providers Care Commercial Real Estate Underwriter Name Role Phone Adrien Saldivar MD Primary Care Provider +1- [phone] Encounter Details Date Type Department Care Team (Latest Contact Info) Description 06/29/2017 10:49 EDT - 06/29/2017 13:11 EDT Hospital Encounter [facility] [place] Endoscopy Outpatient [address] [place] [address] Chuy Rhoades MD Discharge Disposition: Home or Self Care Social [...] Sign Reading Time Taken Comments Blood Pressure 116/65 06/29/2017 1247 EDT Pulse - - Temperature 36.3 ??C (97.3 ??F) 06/29/2017 1205 EDT Respiratory Rate 16 06/29/2017 1247 EDT Oxygen Saturation 98% 06/29/2017 1247 EDT Inhaled Oxygen Concentration - - Weight 70.3 kg (155 lb) 06/29/2017 1107 EDT Height 172.7 cm (5' 8) 06/29/2017 1107 EDT Body Mass Index 23.57 06/29/2017 1107 EDT documented in this encounter Functional Status [...] as of this encounter Discharge Diagnoses Diagnosis Z12.11 Encounter for screening for malignant neoplasm of colon-Z12.11[ICD-10-CM] K64.8 Other hemorrhoids-K64.8[ICD-10-CM] I10 Essential (primary) hypertension-I10[ICD-10-CM] Z79.899 Other termite control servicer (current) drug therapy-Z79.899[ICD-10-CM] documented in this encounter Medications at Time of Discharge Medication Sig Dispensed Refills Start Date End Date ibuprofen (MOTRIN) 200 mg tablet Take 400 mg by mouth every 6 hours as needed for Pain. 07/06/2022 lisinopril-hydrochlor othiazide (PRINZIDE, ZESTORETIC) 10-12.5 mg per tablet Take 1 Tab by mouth daily. 30 Tab 5 06/06/2017 08/13/2017 polyethylene glycol (GOLYTELY) 236-22.74-6.74 -5.86 gram suspensionIndications :Special screening for malignant neoplasms, colon Follow instructions on 'colonoscopy preparation instructions' sheet. 1 Bottle 06/25/2017 10/27/2021 documented as of this encounter Discharge Disposition Disposition Code Departure Means Destination Home or Self Care documented in this encounter H&P Notes * Chuy Rhoades MD - 06/29/2017 1132 EDT Endoscopy Sedation for Procedure History & Physical Date: 06/29/2017 Time: 11:32 Location: 4 Endo Planned Procedure: Colonoscopy Chief Complaint/Indications for Procedure: screen History Previous Complication with Sedation and/or Anesthesia? No Allergies: Allergies Allergen Reactions ??? Codeine ??? Novacaine [Procaine (Bulk)] Sends me for a loop Current Medications: Current Outpatient Prescriptions: ibuprofen (MOTRIN) 200 mg tablet lisinopril-hydrochlorothiazide (PRINZIDE, ZESTORETIC) 10-12.5 mg per tablet polyethylene glycol (GOLYTELY) 236-22.74-6.74 -5.86 gram suspension Current Facility-Administered Medications: lactated ringers (LR) infusion intravenous CONTINUOUS lactated ringers (LR) infusion intravenous CONTINUOUS meperidine (PF) (DEMEROL) 100 mg/mL injection 25-200 mg intravenous Once PRN meperidine (PF) (DEMEROL) 100 mg/mL injection 25-200 mg intravenous Once PRN midazolam (MDV) (VERSED) injection 1-10 mg intravenous Once PRN midazolam (MDV) (VERSED) injection 1-10 mg intravenous Once PRN ondansetron (PF) (ZOFRAN) injection 2-4 mg intravenous PRN ondansetron (PF) (ZOFRAN) injection 2-4 mg intravenous PRN promethazine (PHENERGAN) injection 12.5-25 mg intravenous PRN promethazine (PHENERGAN) injection 12.5-25 mg intravenous PRN sodium chloride 0.9 % flush 3 mL intravenous PRN sodium chloride 0.9 % flush 3 mL intravenous PRN Past Medical History: Past Medical History: Diagnosis Date ??? Arthritis left knee ??? Broken bones leg, fingers ??? Hypertension ??? Joint pain ??? Joint swelling ??? Numbness Social History: Past Surgical History: Procedure Laterality Date ??? KNEE SURGERY right and left knees ??? SHOULDER SURGERY Social History Substance Use Topics ??? Smoking status: Never Smoker ??? Smokeless tobacco: Never Used ??? Alcohol use 4.8 - 6.0 oz/week 8 - 10 Standard drinks or equivalent per week Comment: Cider Family History: Family History Problem Relation Age of Onset ??? Heart Disease Father ??? Stroke Father ??? High Blood Pressure Brother Review of Systems as pertinent: Physical Exam Vital Signs: BP 135/82 Temp (!) 35.5 ??C (95.9 ??F) (Tympanic) Resp 12 Ht 172.7 cm (68) Wt70.3 kg (155 lb) SpO2 100% BMI 23.57 kg/m2 Heart Examination: Cardiac Regularity: Regular Respiratory Examination: Respiratory Pattern: Regular Breath Sounds Right: Clear Breath Sounds Left: Clear Abdominal Examination: Soft, non-tender, bowel sounds normal, no masses, no organomegaly Additional physical exam related to the proposed procedure, patient activity, disease state and treatment as pertinent: Assessment Previous complications with sedation or anesthesia?: No Airway Concerns: None Anesthesia Classification: ASA 2 Plan: Proceed with sedation for procedure Fasting Time: Time of last liquid intake: 0900 Date of Last Liquid Intake: 06/29/17 Time of last solid intake: 1900 Date of last solid intake: 06/27/17 Patient Appropriate Candidate for Planned Sedation?: Yes Chuy Rhoades MD 06/29/2017 11:32 documented in this encounter Plan of Treatment Upcoming Encounters Date Type Department Care Team (Late st Contact Info) Description 09/19/2023 14:15 EDT Office Visit [facility] Adult Primary Care - [place] [address] [place] [place], [place] [phone] Chris Daniels MD [address] [place] [phone] 10/19/2023 9:00 EDT Office Visit [facility] Hand & Upper Extremity Program - [address] [phone] Ant Nguyen MD [address] [place] [address] 01/07/2024 13:15 EST Office Visit [facility] Neurology - [address] [phone] Salma Richardson MD [address] [place] [address], [address] [place] [phone] documented as of this encounter Procedures Procedure Name Priority Date/Time Associated Diagnosis Comments COLONOSCOPY PROCEDURE Routine 06/29/2017 12:00 EDT documented in this encounter Results * COLONOSCOPY PROCEDURE (06/29/2017 12:00 EDT) Anatomical [...] was 23 minutes. Estimated ??Blood Loss: None [place] Bowel Prep Right Colon: 3 ? Transverse [...] Chuy Rhoades MD GI PROCEDURE ORDERAB LES documented in this encounter Visit Diagnoses Not on filedocumented in this encounter Administered Medications Inactive Administered Medications - up to 3 most recent administrations Medication Order MAR Action Action Date Dose Rate Site lactated ringers (LR) infusion 30 mL/hr, intravenous, CONTINUOUS, Starting on Sun06/29/17 at 1130, Until Sun06/29/17 at 1320, Routine, Preprocedure New Bag 06/29/2017 11:24 EDT 30 mL/hr 30 mL/hr meperidine (PF) (DEMEROL) 100 mg/mL injection 25-200 mg 25-200 mg, intravenous, ONCE PRN, 1 dose, Starting on Sun06/29/17 at 1127, Until Sun06/29/17 at 1140, Other, sedation, Routine, Intraprocedure Given 06/29/2017 11:40 EDT 75 mg midazolam (MDV) (VERSED) injection 1-10 mg 1-10 mg, intravenous, ONCE PRN, 1 dose, Starting on Sun06/29/17 at 1127, Until Sun06/29/17 at 1141, Sedation, Routine, Intraprocedure Given 06/29/2017 11:41 EDT 3 mg documented in this encounter Orders Medications Ordered That Sawyer ht Not Have Been Administered Count Last Ordered Date First Ordered Date lactated ringers (LR) infusion 1 06/29/2017 meperidine (PF) (DEMEROL) 10 0 mg/mL injection 25-200 mg 1 06/29/2017 midazolam (MDV) (VERSED) injection 1-10 mg 1 06/29/2017 ondansetron (PF) (ZOFRAN) injection 2-4 mg 2 06/29/2017 promethazine (PHENERGAN) inj ection 12.5-25 mg 2 06/29/2017 sodium chloride 0.9 % flush 3 mL 2 06/30/19 18 Transfer Count Last Ordered Date First Orde red Date NOTIFY PPS OF DISCHARGE COMPLETE 1 06/30/19 Discharge Count Last Ordered Date First Orde red Date DISCHARGE PATIENT 1 06/29/2017 documented in this encounter Care Teams Commercial Real Estate Underwriter Relationship Specialty Start Date End Date Adrien Saldivar MD PCP - General 09/26/16 11/14/17 documented as of this encounter
--- OUTSIDE RECORDS SUMMARY | 2023-09-14 02:28 | XMS_ITS | Encounter Summary ---
Author Organization [facility] Address [address] [place] [address] Care Team Providers Care Electrician Radio Name Role Phone Unavailable Primary Care Provider Unavailabl e Encounter Details Date Type Department Care Team (Late st Contact Info) Description 12/12/2006 Before PRISM Converted Visit (Maple) [facility] - Maple conversion [address] [place] [address] Maggie Harper, KILO [address] [place] [phone] Social History Tobacco Use Types Packs/Day Years Used Date Smoking Tobacco: Never Assessed Sex and Gender Information Value Date Recorded Sex Assigned at Male 08/14/2021 11:28 EDT Gender Identity Male 08/10/2021 11:38 EDT Sexual Orientation Not on file documented as of this encounter Plan of Treatment Upcoming Encounters Date Type Department Care Team (Late st Contact Info) Description 09/19/2023 14:15 EDT Office Visit [facility] Adult Primary Care - [place] [address] [place], [place] [phone] Chris Daniels MD [address] [place] [phone] 10/19/2023 9:00 EDT Office Visit [facility] Hand & Upper Extremity Program - [address] [place], [place] [phone] Ant Nguyen MD [address] [place] [address] 01/07/2024 13:15 EST Office Visit [facility] Neurology - [address] [place] [address] Salma Richardson MD 1 [facility], [address] [place] [address] documented as of this encounter Visit Diagnoses * Evaluation - Wilson, Conv Fuller Brush Worker - 12/25/2008 1827 EST DIVISION OF DERMATOLOGY NEW PATIENT EVALUATION - 12/12/2006 SUBJECTIVE: Willam is here today as a new patient having referred himself or concerns about what heworries might be psoriasis. He has had problems with his hands and a spot on his lower leg for quite some time. He has not used anything for this, however, it is quite itchy. He notes that when he went away to [place] this improved quite a bit, but returned when he came back. He also recently, a couple of days ago, developeda rash on his abdomen and inner arms. He finds this quite itchy as well. He notes that he has a spot on his right cheek that has been persistent. He tends to pick it off andit recurs. He does have a longstanding history of sun exposure and has burnedmany, many times. He admits he does not wear sunscreen or a hat on a regular basis. MEDICATIONS: None. MEDICATION ALLERGIES: None. PAST MEDICAL HISTORY: Significant for arthritis. No hospitalizations. He has had surgeries for his knees, shoulder, and has had several broken bones. SOCIAL HISTORY: [place] is . He has never smoked.He has occasional social alcohol and denies illicit drug use. OBJECTIVE: No acute distress. He is an otherwise well appearing quite active gentleman who moves throughout the exam. Cutaneous exam reveals obvious actinic injury and photo damage. He has a logan complexion. He is diffusely mckeon. Noted on the hands are some mild fissuring at the fingertips and diffuse xerosis across the palms. On the lower extremities on the left lower lateral calf is a 6 cm in diameter erythematous patch. He is diffusely xerotic as well. Noted on the abdomen and lower inner arms are multiple erythematous papules. On the face on theright cheek is a gritty erythematous macule.The remainder of his exam is unremarkable. ASSESSMENT: 1. Extensive actinic injury and photo damage. 2. Actinic keratosis right cheek. 3. Contact dermatitis. 4. Eczema. PLAN: 1.education regarding the impression. All of his questions were answered. For his hands he was given a prescription for clobetasol 0.05% cream to apply once to twice daily initially for 2 weeks and then 3 to 4 times per week as needed. Dispense 60 grams with 6 refills. I explained to him that he could use this on his lower leg a couple of times a week until it resolves and then he should use heavy creams and moisturizers. We discussed changing his soap from Dial to Dove and using emollients every day at least once to twice daily. He was given multiple samples of creams an emollients. 2. For the contact dermatitis it does fit the picture of contact as he notes he was carrying wood against his abdomen and along his inner arms when this developed.I suggested he use his clobetasol onthis for a couple of days to help it resolve quickly. He voiced understanding. 3. For the actinic keratosis this was discussed with him and the need to treat was discussed. He has elected liquid nitrogen, which was applied in a rapid free/cycle times 3. 4. Liquid nitrogen cryosurgery was applied to a total of 1 lesions on the cheek. The expected reaction and healing course were discussed, as well as the possibility of incomplete resolution and/or permanent dyspigmentation. Dr. Rice was present for the entire procedure. 5. The importance of sunscreen use, sun avoidance and self-examination was discussed. 6. He will follow-up in 1 year due to his extensive actinic injury or sooner with interval concernsor questions. Supervising Physician Signed by Yvonne Rice MD 01/11/2007 15:44 Reviewed by KILO Wyman 12/18/2006 08:14 KILO Wyman Yvonne Rice MD - KILO Wyman - joey Job ID: [id number] Doc ID: [id number] cc: documented in this encounter
--- OUTSIDE RECORDS SUMMARY | 2023-09-14 02:28 | XMS_ITS | Encounter Summary ---
Author Organization [facility] Address [address] [place] [address] Care Team Providers Care Network Coordinator Name Role Phone Adrien Saldivar MD Primary Care Provider [phone] Encounter Details Date Type Department Care Team (Latest Contact Info) Description 06/25/2017 Orders Only [facility] Gastroenterology - [facility] [address] [place] [address] Chuy Rhoades MD Special screening for malignant neoplasms, colon (Primary Dx) Social History Tobacco Use Types [...] Dispensed Refills Start Date End Da te polyethylene glycol (GOLYTELY) 236-22.74-6.74 -5.86 gram suspensionIndications: Special screening for malignant neoplasms, colon Follow instructions on 'colonoscopy preparation instructions' sheet. 1 Bottle 06/25/2017 10/27/2021 documented in this encounter Plan of Treatment Upcoming Encounters Date Type Department Care Team (Late st Contact Info) Description 09/19/2023 14:15 EDT Office Visit [facility] Adult Primary Care - [place] [address] [place], [place] [address] Chris Daniels MD [address] [place] [phone] 10/19/2023 9:00 EDT Office Visit [facility] Hand & Upper Extremity Program - [facility] [address] [place], [place] [phone] Ant Nguyen MD [address] [place] [address] 01/07/2024 13:15 EST Office Visit [facility] Neurology - [address] [place], [place] [phone] Salma Richardson MD [address] [place] [address], [address] [place] [phone] documented as of this encounter Visit Diagnoses Diagnosis Special screening for malignant neoplasms, colon- Primary documented in this encounter Discontinued Medications Medication Sig Discontinue Reason Start Date End Da te polyethylene glycol (GOLYTELY;NULYTELY) 236-22.74-6.74 -5.86 gram suspension Instructions mailed once procedure scheduled. Questions: [facility] Gastroenterology: [phone] or GI Doctor's Office. Duplicate Therapy 01/31/2017 06/25/2017 documented as of this encounter Care Teams Network Coordinator Relationship Specialty Start Date End Date Adrien Saldivar MD PCP - General 09/26/16 11/14/17 documented as of this encounter
--- OUTSIDE RECORDS SUMMARY | 2023-09-14 02:28 | XMS_ITS | Encounter Summary ---
Author Organization [facility] Address [address] [place] [address] Care Team Providers Care Sas Programmer Analyst Name Role Phone Ariella Gregory MD Primary Care Provider Jorge jeong Encounter Details Date Type Department Care Team (Late st Contact Info) Description 08/23/2004 Office Visit [facility] - Maple conversion [address] [place] [address] Diana Henley, AUDIO DIRECTOR [address] [place] [phone] Social History Tobacco Use Types Packs/Day Years Used Date Smoking Tobacco: Never Assessed Sex and Gender Information Value Date Recorded Sex Assigned at Male 08/14/2021 11:28 EDT Gender Identity Male 08/10/2021 11:38 EDT Sexual Orientation Not on file documented as of this encounter Progress Notes * Diana Henley MD - 04/21/2009 0564 EST [facility] - Physician Summary Registration Date/Time: 08/23/2004 13:21 Time Seen: 15:49 Arrived- By private vehicle. Historian- patient. HISTORY OF PRESENT ILLNESS Chief Complaint- Injury to right knee. The injury happened 3 days SETTER HELPER The patient sustained a twisting injury. Occurred at an athletic field. Patient is experiencing mild pain. No other injury. twisted while playing basketball, had immediate pain, swelling over last few days REVIEW OF SYSTEMS The patient complains of pain on weight bearing.No weakness, tingling, numbness, suspected foreign body or skin laceration. PAST HISTORY Negative. He has not had a prior injury tothe same area. Left knee surgery. Medications: ibuprofen Allergies: No known drug allergies. 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 PHYSICAL EXAM Appearance: Alert. No acute distress. Vital Signs: The vital signs have been reviewed. Extremities: Lower extremity soft-tissue tenderness present. No signs of infection involving the lower extremities. Right knee: moderate tenderness and swelling of the medial joint line. Limited ROM secondary to pain (diminished flexion). Medium sized joint effusion present. No ligamentous laxity of the anterior cruciate, posterior cruciate, medial collateral or lateral collateral. No laceration,abrasion, ecchymosis or deformity. Ankle stable. Extremities otherwise negative. Gait: Limping gait. Neuro, Vascular, and Tendons: Vascular status intact. Sensation intact. Motor intact. PROGRESS AND PROCEDURES Patient counseled regarding the patient's stable condition, diagnosis and need for follow-up. Disposition: Discharged home in good condition. CLINICAL IMPRESSION Right knee traumatic effusion and internal derangement. INSTRUCTIONS Apply ice intermittently (15-20 minutes at a time 4-6 times daily). Use crutches. Elevate affected areas above chest level. Call orthopedics to set up a follow up appointment and MRI. [facility] Orthopedics [phone] or [facility] [phone]. OTC Medications: Motrin IB 200 mg (available over the counter): take 4 orally every 8 hours as needed for pain. (Electronically signed by Diana Henley A.P.R.N. 08/23/2004 21:39) Care Center - Nursing SummaryDate/Time: 08/23/2004 13:21 TRIAGE Initial Assessment Triage time 15:26 BP: 120 / 70 HR: 70 RR: 16 Temp: 97.1 oral --1526 Lainey Crespo M.A. Medications None. --1526 Lainey Crespo M.A. Allergies No knowndrug allergies. --1526 Lainey Crespo M.A. History Chief Complaint: INJURY TO RIGHT KNEE. PAST HX: Negative. SOCIAL HX: Nonsmoker. --1527 Lainey Crespo M.A.This occurred (Sunday.). Mechanism of injury: twisting injury (Pt twisted right knee playing basketball.). Pain level at this time described as- Pain 8/10 at times, while sitting pt has denies pain. The patient has had moderate trouble walking. The patient has been unable to walk. Treatment SETTER HELPER: Took ibuprofen. (Crutches, elevating leg.). --1541 Kirsten [place], PHYSICAL ASSESSMENT (crutches). Alert. Appears in no acute distress. Oriented X 3. Right knee: moderate tenderness and swelling. Right foot (Pt states right foot was quite swollen after injury to knee, less now. Foot cool to the touch.). Skin intact. --1540 Kirsten [place], NURSING PROGRESS NOTES Progress Patient ready for evaluation- chart flagged. --154 Kirsten [place], DISPOSITION / DISCHARGE Condition at departure: unchanged. Fall risk assessment completed. No fall risk identified. No barriers to learning present. Discharge instructions reviewed with the patient. Reviewed referrals (Ortho). Patient verbalized understanding. Written instructions provided in Syrian. The patient left theEmergency Department on crutches and via private vehicle. Patient has no belongings. --1622 Kirsten [place], Locked/Released at 08/23/2004 16:22 by Kirsten [place], documented in this encounter Plan of Treatment Upcoming Encounters Date Type Department Care Team (Late st Contact Info) Description 09/19/2023 14:15 EDT Office Visit [facility] Adult Primary Care - [address] [phone] Chris Daniels MD [address] [place] [address] 10/19/2023 9:00 EDT Office Visit [facility] Hand & Upper Extremity Program - [address] [facility] [place] [address] Ant Nguyen MD [address] [place] [phone] 01/07/2024 13:15 EST Office Visit [facility] Neurology - [address] [place], [place] [phone] Salma Richardson MD [address] [place] [address], [address] [place] [phone] documented as of this encounter Visit Diagnoses Not on filedocumented in this encounter Care Teams Sas Programmer Analyst Relationship Specialty Start Date End Date Ariella Gregory MD PCP - General 01/20/09 09/25/16 documented as of this encounter
--- OUTSIDE RECORDS SUMMARY | 2023-09-14 02:28 | XMS_ITS | Encounter Summary ---
Author Organization [facility] Address [address] [place] [address] Care Team Providers Care Forest Economist Name Role Phone Adrien Mi MD Primary Care Provider [phone] Reason for Referral * Referral (Routine/Next Available) - Specialty Report Received Specialty Diagnoses / Procedures Referred By Contact Referred To Contact Gastroenterology and Hepatology Diagnoses Colon cancer screening Procedures COLONOSCOPY REQUEST Adrien Mi MD [address] [address] [facility] [address] [place] [address] Referral ID Status Reason Start Date Expiration Date V isits Requested Visits Authorized [id number] Specialty Report Received 01/31/2017 1 1 * PT/OT/ST (Routine) - Closed Specialty Diagnoses / Procedures Referred By [facility] t Referred To Contact Diagnoses Osteoarthritis of right glenohumeral joint Adrien Mi MD [address] [place] [address] Referral ID Status Reason Start Date Expiration Date V isits Requested Visits Authorized [id number] Closed Specialty Services Required 01/31/2017 1 1 Question Answer Reason for Request: R shoulder pain Practice Site (External Referral Only): Patient wanted referral faxed to a provider in [place] at [phone] Reason for Visit * Reason Comments New Patient Visit Encounter Details Date Type Department Care Team (Late st Contact Info) Description 01/31/2017 15:45 EST Office Visit [facility] - [address] [address] Adrien Mi MD [address] [place] [address] Osteoarthritis of right glenohumeral joint (Primary Dx); Essential hypertension; Need for Tdap vaccination; Needs flu shot; Health care maintenance; Celiac sprue; Colon cancer screening Social History Tobacco Use Types Packs/Day Years [...] Sign Reading Time Taken Comments Blood Pressure 162/90 01/31/2017 1559 EST Pulse 64 01/31/2017 1559 EST Temperature 36 ??C (96.8 ??F) 01/31/2017 1559 EST Respiratory Rate 18 01/31/2017 1559 EST Oxygen Saturation - - Inhaled Oxygen Concentration - - Weight 68 kg (150 lb) 01/31/2017 1559 EST Height 172.7 cm (5' 8) 01/31/2017 1559 EST Body Mass Index 22.81 01/31/2017 1559 EST documented in this encounter Functional Status Functional [...] suspension Instructions mailed once procedure scheduled. Questions: [facility] G[facility]: [phone] or GI Doctor's Office. 4000 mL 01/31/2017 06/25/2017 documented in this encounter Progress Notes * Adrien Mi MD - 01/31/2017 1545 EST This note has been dictated through [employer]. Minor grammatical errors are likely to be present. Internal Medicine Clinic Note Date : 01/31/2017 Willam Negron is a 71 y.o. year old male presenting to clinic to address the following: The patient has a home in [place] and a second home and also in the state. 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 1. 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 The patient had a surgical procedure in the 1970s but does not recall the details. He is able to perform his activities of daily living and is not in pain at rest. He is requesting a referral to physical therapy in [place] where he will be traveling to in the coming days. 2. Celiac sprue SUBJECTIVE: The patient states he feels well and denies any discomfort. Allergies Allergen Reactions ??? Codeine ??? Novacaine [Procaine (Bulk)] Sends me for a loop Past Medical History: Diagnosis Date ??? Arthritis left knee ??? Broken bones leg, fingers ??? Joint pain ??? Joint swelling ??? [...] Drug use: No ??? Sexual activity: Not on file Other Topics Concern ??? Not on file Social History Narrative Review of Systems - History obtained from the patient General: negative for - fevers, chills, fatigue, malaise Psychological: negative for - anxiety, depression Ophthalmic: negative for - blurry vision ENT: negative for - hearing change, sore throat Cardiovascular: negative for - chest pain, edema, LOS, palpitations, angina Respiratory: negative for - shortness of breath, wheezing Gastrointestinal: negative for - change in bowel habits, nausea/vomiting Genito-Urinary: negative for - discomfort with urination Musculoskeletal : Positive for right shoulder discomfort, bilateral knee discomfort (left worse than right) Dermatological: negative for - skin changes Neurological : negative for - dizziness, weakness Physical Exam: Vitals: 01/31/17 1559 BP: (!) 162/90 BP Cuff Location: Left arm Patient Position: Sitting BP Cuff Sizes: Adult, regular Pulse: 64 Resp: 18 Temp: 36 ??C (96.8 ??F) TempSrc: Tympanic Weight: 68 kg (150 lb) Height: 172.7 cm (68) General Appearance: alert and oriented, pleasant and conversant Head: No obvious abnormalities, no wounds or lesions ENT: conjunctivae/corneas are clear, eye muscles appear grossly intact, oropharynx is clear Neck: supple, symmetrical, trachea midline. Lymph Nodes: cervical nodes are normal. Lungs: clear to auscultation bilaterally, unlabored breathing. Heart: regular rate and rhythm, no murmurs or rubs. Abdomen: soft, non tender, bowel sounds normal; no masses, no enlarged organs. Back: symmetric, no curvature, ROM normal. Neurologic: Normal gross strength and tone. No focal deficits. Extremities: extremities warm, atraumatic, no cyanosis or edema. The right shoulder has notable decreased range of motion and even passive movement results and notable clicking/discomfort. He is unable to abduct his right arm past 80??. Skin: Skin color, temperature, turgor normal. No rashes or lesions. Laboratory Data: No results found for this or any previous visit. ASSESSMENT AND PLAN: 1. Osteoarthritis of right glenohumeral joint Discussed at length it. A referral to physical therapy has been placed and the patient will let me know if he would like a referral to orthopedic surgery. - Amb Consult/Follow Up Physical Therapy 2. Essential hypertension Notably elevated at today's encounter. No medications were prescribed, but a close follow-up we will reassess this issue. 3. Need for Tdap vaccination - Tdap vaccine greater than or equal to 7yo IM 4. Needs flu shot - [id number] - Influenza Vaccine Quad Preservative Free 0.5 ml IM 5. Health care maintenance - Hemagram & Differential; Future - Comprehensive Metabolic Panel (CMP); Future - Lipid Profile (Includes Cholesterol, Triglycerides, HDL, LDL); Future - HIV 1/2 Antigen and Antibody, 4th Generation; Future - Hepatitis C Ab w Reflex to HCV RNA by PCR; Future 6. Celiac sprue 7. Colon cancer screening - Colonoscopy Request I spent a total of 30 minutes in face to face time with this patient and 25 minutes of that time was spent in counseling and coordination of care as described in the progress note. Adrien Mi MD * Sony Laguna LPN - 01/31/2017 1540 EST Obtained verbal consent prior to procedure. Patient received tdap and flu vaccine IM into left arm. I was supervised by Dr. mi who was present and immediately available in the office suite. SONY LAGUNA LPN 01/31/2017 16:34 documented in this encounter Plan of Treatment Upcoming Encounters Date Type Department Care Team (Late st Contact Info) Description 09/19/2023 14:15 EDT [facility] Visit [facility] - [address] [phone] Chris Daniels MD [address] [place] [phone] 10/19/2023 9:00 EDT Office Visit [facility] Hand & Upper Extremity Program - [place] [address] Ant Nguyen MD [address] [place] [phone] 01/07/2024 13:15 EST Office Visit [facility] Neurology - [address] [employer] [address] [place] [address] Salma Richardson MD [address] [place] [address], [address] [place] [phone] Scheduled Orders Name Type Priority Associated Diagnoses Orde r Schedule COLONOSCOPY REQUEST GI Routine Colon Cancer Screening Ordered: 01/31/2017 Scheduled Referrals Name Type Priority Associated Diagnoses Orde r Schedule AMB CONS/FOLLOW UP PHYSICAL THERAPY Outpatient Referral Routine Osteoarthritis Of Right Glenohumeral Joint Ordered: 01/31/2017 documented as of this encounter Results * HEPATITIS C AB W REFLEX TO HCV RNA BY PCR (01/31/2017 17:05 EST) Hep C Ab w Rfx PCR HCSCR2 Negative Negative 02/01/2017 12:05 EST [facility] Blood specimen (specimen) BLOOD SPECIMEN / Unknown 01/31/2017 17:05 EST 01/31/2017 18:37 EST Adrien Mi MD CHEMISTRY & BLOOD G ORDERABLES Performing Organization Address City/[facility] Co de Phone Number [facility] [address] [place] [phone] * HIV 1/2 ANTIGEN AND ANTIBODY, 4TH GENERATION (01/31/2017 17:05 EST) HIV 1/2 Antibody Negative Negative 02/02/20 12:06 EST [facility] Comment: Fourth generation assay performed on the Siemens Viyetaur. If acute HIV-1 infection is suspected in a high risk patient, submit plasma specimen for HIV-1 RNA quantification test. Blood specimen (specimen) BLOOD SPECIMEN / Unknown 01/31/2017 17:05 EST 01/31/2017 18:37 EST Adrien Mi MD IMMUNOLOGY AND SERO LOGY ORDERABLES Performing Organization Address City/[facility]/ZIP Co de Phone Number [facility] [address] [place] [address] * LIPID PROFILE (INCLUDES CHOLESTEROL, TRIGLYCERIDES, HDL, LDL) (01/31/2017 17:05 EST) Cholesterol 227 mg/dl 01/31/2017 19:10 [facility] Comment: Desirable:<200 Borderline High:200-239 High:>on=333 Triglycerides 54 mg/dl 01/31/2017 19:10 [facility] Comment: Normal:<150 Borderline High:150-199 High:200-499 Very High:>uz=702 HDL 93 mg/dl 01/31/2017 19:10 [facility] Comment: Low:<40 Normal:40-60 Desirable: >60 LDL, Calculated 123 mg/dl 7 19:10 [facility] Comment: Optimal:<100 Near Optimal:100-129 Borderline High:130-159 High:160-189 Very High:>zs=989 Chol/HDL Ratio 2.4 01/31/2017 19:10 [facility] Fasting? No 01/31/2017 17:02 [facility] Non HDL Cholesterol 134 mg/dl 01/31/2017 19:10 [facility] Comment: Desirable:<130 Borderline:130-159 High: 160-189 Very High: >tj=978 Blood specimen (specimen) BLOOD SPECIMEN / Unknown 01/31/2017 17:05 EST 01/31/2017 18:37 EST Adrien Mi MD CHEMISTRY & BLOOD G ORDERABLES Performing Organization Address City/State/[facility] Co de Phone Number [facility] [address] [place] [address] * (ABNORMAL) COMPREHENSIVE METABOLIC PANEL (CMP) (01/31/2017 17:05 EST) Potassium 4.3 3.5 - 5.0 mEq/L 01/31/2017 19:10 [facility] Sodium 142 136 - 145 mEq/L 01/31/2017 19:10 [facility] Chloride 101 96 - 110 mEq/L 01/31/2017 19:10 [facility] CO2 27 22 - 32 mEq/L 01/31/2017 19:10 [facility] Total Alkaline Phosphatase 72 38 - 126 U/L 01/31/2017 19:10 [facility] Bilirubin, Total 0.6 <1.4 mg/dl 02/01/20 17 19:10 [facility] AST 34 15 - 46 U/L 01/31/2017 19:10 [facility] ALT 55 21 - 72 U/L 01/31/2017 19:10 [facility] Albumin 4.9 3.4 - 4.9 g/dl 01/31/2017 19:10 [facility] Total Protein 8.1 6.3 - 8.2 g/dl 01/31/2017 19:10 [facility] Creatinine 0.78 0.66 - 1.25 mg/dl 01/31/2017 19:10 [facility] GFR, Calculated 91 >60 ml/min/1.7 3m2 01/31/2017 19:10 [facility] Comment: eGFR calculated using CKD-EPI equation for non Americans. Multiply eGFR by 1.16 for Americans. BUN 28(H) 10 - 26 mg/dl 01/31/2017 19:10 [facility] Calcium 9.8 8.5 - 10.5 mg/dl 01/31/2017 19:10 [facility] Calculated Calcium 9.1 8.5 - 10.5 mg/dl 01/31/2017 19:10 [facility] Glucose, Serum 73 70 - 100 mg/dl 01/31/2017 19:10 [facility] Fasting? No 01/31/2017 17:02 [facility] Blood specimen (specimen) BLOOD SPECIMEN / Unknown 01/31/2017 17:05 EST 01/31/2017 18:37 EST Adrien Mi MD CHEMISTRY & BLOOD G ORDERABLES [facility] [address] [place] [address] * (ABNORMAL) HEMAGRAM AND DIFFERENTIAL (01/31/2017 17:05 EST) WBC 6.37 4.0 - 10.4 K/cmm 01/31/2017 18:47 [facility] RBC 4.25(L) 4.36 - 5.78 M/cmm 01/31/2017 18:47 [facility] Hemoglobin 14.3 13.8 - 17.3 gm/dl 01/31/2017 18:47 [facility] HCT 42.1 39.5 - 50.2 % 01/31/2017 18:47 [facility] MCV 99(H) 81 - 95 fl 01/31/2017 18:47 [facility] MCH 33.6(H) 27.6 - 33.0 pg 01/31/2017 18:47 [facility] MCHC 34.0 32.8 - 36.4 gm/dl 01/31/2017 18:47 [facility] RDW-CV 12.2 <14.2 % 01/31/2017 18:47 [facility] RDW-SD 44.8 <46.0 fl 01/31/2017 18:47 [facility] PLT 292 141 - 377 K/cmm 01/31/2017 18:47 [facility] MPV 9.5 9.5 - 12.7 fl 01/31/2017 18:47 [facility] % Neutrophils 67.3 % 01/31/2017 18:47 [facility] % Lymphocytes 21.2 % 01/31/2017 18:47 [facility] % Monocytes 9.6 % 01/31/2017 18:47 [facility] % Eosinophils 1.4 % 01/31/2017 18:47 [facility] % Basophils 0.3 % 01/31/2017 18:47 [facility] % Immature Grans 0.2 % 01/31/2017 18:47 [facility] ABS Neutrophils 4.29 2.20 - 8.85 K/cmm 01/31/2017 18:47 [facility] ABS Lymphs 1.35 1.09 - 3.30 K/cmm 01/31/2017 18:47 [facility] ABS Monocytes 0.61 0.1 - 0.8 K/cmm 01/31/2017 18:47 EST [facility] ABS Eosinophils 0.09 0.03 - 0.61 K/cmm 01/31/2017 18:47 EST [facility] ABS Basophils 0.02 0.01 - 0.11 K/cmm 01/31/2017 18:47 EST [facility] ABS Immature Grans 0.01 0 - 0.06 K/cmm 01/31/2017 18:47 EST [facility] Type of Diff: Automated 01/31/2017 18:47 EST [facility] Blood specimen (specimen) BLOOD SPECIMEN / Unknown 01/31/2017 17:05 EST 01/31/2017 18:37 EST Adrien Mi MD PACKAGES & DNA PROB E ORDERABLES Performing Organization Address City/State/[facility] Co de Phone Number [facility] [address] [place] [address] documented in this encounter Visit Diagnoses Diagnosis Osteoarthritis of right glenohumeral joint- Primary Essential hypertension Unspecified essential hypertension Need for Tdap vaccination Need for prophylactic vaccination with combined xyaoaavsoq-ahpmydp-umjaufdmu (DTP) vaccine Needs flu shot Need for prophylactic vaccination and inoculation against influenza Health care maintenance Routine general medical examination at a health care facility Celiac sprue Celiac disease Colon cancer screening Special screening for malignant neoplasms, colon documented in this encounter Discontinued Medications Medication Sig Discontinue Reason Start Date End Da te hydrocodone-acetaminophe n (VICODIN) 5-500 mg per tablet Take 1-2 Tabs by mouth every 6 hours as needed for Pain. 01/20/2009 01/31/2017 oxycodone (ROXICODONE) 5 mg immediate release tablet Take 5 mg by mouth every 4 hours as needed for Pain. 01/31/2017 ibuprofen (MOTRIN) 600 mg tablet Take 1 Tab by mouth 3 times daily. 01/20/2009 01/31/2017 ibuprofen (MOTRIN) 400 mg tablet Take 400 mg by mouth every 4 hours. 01/31/2017 ibuprofen (MOTRIN) 200 mg tablet Take 200 mg by mouth every 6 hours as needed for Pain. 01/31/2017 documented as of this encounter Orders Immunization/Injection Count Last Ordered Date First Ordered Date INFLUENZA VACCINE QUAD PRESE RVATIVE FREE 0.5 ML IM 1 01/31/2017 TDAP VACCINE =>7YO IM 1 01/31/2017 documented in this encounter Care Teams Forest Economist Relationship Specialty Start Date End Date Adrien Mi MD PCP - General 09/26/16 11/14/17 documented as of this encounter
--- OUTSIDE RECORDS SUMMARY | 2023-09-14 02:28 | XMS_ITS | Encounter Summary ---
Author Organization [facility] Address [address] [place] [address] Care Team Providers Care Investigative Research Specialist Name Role Phone Adrien Saldivar MD Primary Care Provider [phone]- [phone] Reason for Visit * Reason Onset Date Comments Appointment Related 09/26/2016 Encounter Details Date Type Department Care Team (Late st Contact Info) Description 09/26/2016 Telephone [facility] Adult Primary Care - [place] [address] [place] [phone] Adrien Saldivar MD [address] [place] [address] [place] [phone] Appointment Related Social History Tobacco Use Types Packs/Day Years Used Date Smoking Tobacco: Never Alcohol Use Standard Drinks/Week Comments Yes 0 (1 standard drink = 0.6 oz pur e alcohol) occasional Sex and Gender Information Value Date Recorded Sex Assigned at Male 08/14/2021 11:28 EDT Gender Identity Male 08/10/2021 11:38 EDT Sexual Orientation Not on file documented as of this encounter Miscellaneous Notes * Telephone Encounter - Erin Hidalgo - 09/26/2016 1716 EDT appointment documented in this encounter Plan of Treatment Upcoming Encounters Date Type Department Care Team (Late st Contact Info) Description 09/19/2023 14:15 EDT Office Visit [facility] Adult Primary Care - [place] [address] [place], [place] [phone] Chris Daniels MD [address] [place] [phone] 10/19/2023 9:00 EDT Office Visit [facility] Hand & Upper Extremity Program - [facility] [address] [place] [address] Ant Nguyen MD [address] [place] [phone] 01/07/2024 13:15 EST Office Visit [facility] Neurology - [address] [address] Salma Richardson MD [address] [place] [address] [address] [place] [phone] documented as of this encounter Visit Diagnoses Not on filedocumented in this encounter Care Teams Investigative Research Specialist Relationship Specialty Start Date End Date Adrien Saldivar MD PCP - General 09/26/16 11/14/17 documented as of this encounter
--- OUTSIDE RECORDS SUMMARY | 2023-09-14 02:28 | XMS_ITS | Encounter Summary ---
Author Organization [facility] Address [address] [place] [address] Care Team Providers Care Log Data Technician Name Role Phone Ariella Gregory MD Primary Care Provider Jorge jeong Reason for Referral * PT/OT/ST (Routine) - Closed Specialty Diagnoses / Procedures [facility] Referred To Contact Diagnoses Shoulder pain Elana Addison PA-C [address] [place] [phone] Referral ID Status Reason Start Date Expiration Date V isits Requested Visits Authorized [id number] Closed Specialty Services Required 03/05/2014 1 1 Question Answer Reason for Request: right shoulder severe OA s/p h/o dislocations and staple capsulorrhaphy s. Eval & tx - ROM, stabilization/strengthening if tolerated,HEP. Comments This referral covers PT, AT and OT services. Eval & tx please. Reason for Visit * Reason Comments Shoulder Pain right shoulder dos 1 970 Encounter Details Date Type Department Care Team (Late st Contact Info) Description 03/05/2014 15:15 EST Office Visit [facility] Hand & Upper Extremity Program - [facility] [place] [address] Elana Addison PA-C [address] [place] [phone] Shoulder pain (Primary Dx); Osteoarthritis of glenohumeral joint Discharge Disposition: Auto Discharge Social History Tobacco [...] - - Weight 72.6 kg (160 lb) 03/05/2014 1504 EST Height 172.7 cm (5' 8) 03/05/2014 1504 EST Body Mass Index 24.33 03/05/2014 1504 EST documented in this encounter Discharge Diagnoses Diagnosis 719.41 JOINT PAIN-SHLDER[ICD-9-CM] 715.91 OSTEOARTHROS NOS-SHLDER[ICD-9-CM] documented in this encounter Discharge Disposition Disposition Code Departure Means Destination Auto Discharge documented in this encounter Progress Notes * Elana Addison PA - 03/05/2014 1623 EST PROBLEM: Right shoulder pain. SUBJECTIVE: The patient is a 68-year-old ambidextrous male who uses his left hand for fine motor skills and his right for gross motor skills. He is a previous patient of mine, having been evaluated in June 2012 for the right shoulder. He has a history of repeat dislocations, and in the 1970s, he unde rwent a surgery, which on description sounds like it was a staple capsulorrhaphy. He has always hadsome limitations in his range of motion, but he has found that he has developed further pain over the years. I discussed treatment options including corticosteroid injections as well as surgery for to simona shoulder replacement. We also discussed behavioral modifications, and he chose to continue monitoring and continued anti-inflammatory medication as needed. Since our last visit, he notes continued pain. He states that it is debilitating. He has difficulty with activities such as splitting wood and putting on a harness on his horse. OBJECTIVE: On physical exam, he does not appear to be in significant distress. He appears to be alert and oriented x3. On examination of his right shoulder, he has active forward flexion to 110 degrees, abduction 90 degrees, external rotation with the arm at the side to 30 degrees and internal rotation to L5. There is crepitus with all range of motion. He has a negative lift-off test. He denies significant pain with external rotation against resistance. He has a negative empty-can test, and he appears to have good overall rotator cuff strength. He is neurovascularly intact. The previous radiographs of his right shoulder were evaluated. There is a large staple from previous surgery. There are significant degenerative changes of the glenohumeral joint as well as some degenerative changes at the acromioclavicular joint. ASSESSMENT: Right shoulder pain with severe glenohumeral joint osteoarthritis s/p repeat dislocations and staple capsulorrhaphy in the . PLAN: I discussed treatment options with the patient including corticosteroid injections and surgery. I also discussed surgical therapy for stabilization and strengthening. He is aware that there is a balance to this, and if he pushes it too much, he may cause more pain. He would like to pursue a more conservative approach and will pursue the therapy. He will hold off on any invasive treatment but is aware that if his symptoms persist or worsen, he can contact me at any point. Dr. Oliva was the attending physician available in the clinic today if needed. A consultation wasnot required. documented in this encounter Plan of Treatment Upcoming Encounters Date Type Department Care Team (Late st Contact Info) Description 09/19/2023 14:15 EDT Office Visit [facility] Adult Primary Care - [address] [phone] Chris Daniels MD [address] [place] [phone] 10/19/2023 9:00 EDT Office Visit [facility] Hand & Upper Extremity Program - [facility] [address] [place], [place] [phone] Ant Nguyen MD [address] [place] [phone] 01/07/2024 13:15 EST Office Visit [facility] Neurology - [address] [place] [address] [place], [place] [phone] Salma Richardson MD [address] [place] [address], [address] [place] [phone] Scheduled Referrals Name Type Priority Associated Diagnoses Orde r Schedule AMB CONS/FOLLOW UP PHYSICAL THERAPY Outpatient Referral Routine Shoulder Pain Ordered: 03/05/2014 documented as of this encounter Visit Diagnoses Diagnosis Shoulder pain- Primary Pain in joint, shoulder region Osteoarthritis of glenohumeral joint Osteoarthrosis, unspecified whether generalized or localized, shoulder region documented in this encounter Historical Medications * This list may reflect changes made after this encounter. Medication Sig Dispensed Refills Start Date End Date ibuprofen (MOTRIN) 200 mg tablet Take 200 mg by mouth every 6 hours as needed for Pain. 01/31/2017 added in this encounter Care Teams Log Data Technician Relationship Specialty Start Date End Date Ariella Gregory MD PCP - General 01/20/09 09/25/16 documented as of this encounter
--- OUTSIDE RECORDS SUMMARY | 2023-09-14 02:28 | XMS_ITS | Encounter Summary ---
Author Organization [facility] Address [address] [place] [address] Care Team Providers Care Career Development Specialist Name Role Phone Adrien Saldivar MD Primary Care Provider [phone] Reason for Visit * Reason Comments Results To discuss 01/31/17 lab results. Hypertension Encounter Details Date Type Department Care Team (Late st Contact Info) Description 03/22/2017 8:45 EST Office Visit [facility] Adult Primary Care - [address] [address] Adrien Saldivar MD [address] [place] [address] [place] [phone] Essential hypertension (Primary Dx) Social History Tobacco [...] Sign Reading Time Taken Comments Blood Pressure 158/98 03/22/2017 0826 EST Pulse 68 03/22/2017 0826 EST Temperature 35.9 ??C (96.7 ??F) 03/22/2017 0826 EST Respiratory Rate 16 03/22/2017 0826 EST Oxygen Saturation - - Inhaled Oxygen Concentration - - Weight 70.3 kg (155 lb) 03/22/2017 0826 EST Height - - Body Mass Index 23.57 01/31/2017 1559 EST documented in this encounter [...] Tab by mouth daily. 30 Tab 5 03/22/2017 06/06/2017 documented in this encounter Progress Notes * Adrien Saldivar MD - 03/22/2017 0845 EST This note has been dictated through [employer]. Minor grammatical errors are likely to be present. Internal Medicine Clinic Note Date : 03/22/2017 Willam Negron is a 71 y.o. year old male presenting to clinic to address the following: The patient has a home in [place]. 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 1. Hypertension Continues with elevated reads at today's encounter. He is open to starting a blood pressure medication today. SUBJECTIVE: The patient states he feels well [...] for - dizziness, weakness Physical Exam: Vitals: 03/22/17 0826 BP: (!) 158/98 BP Cuff Location: Left arm Patient Position: Sitting BP Cuff Sizes: Adult, regular Pulse: 68 Resp: 16 Temp: 35.9 ??C (96.7 ??F) TempSrc: Tympanic Weight: 70.3 kg (155 lb) General Appearance: alert and oriented, pleasant and conversant Lungs: unlabored breathing. Neurologic: Normal gross strength and tone. No focal deficits. Extremities: extremities warm, atraumatic Skin: Skin color, temperature, turgor normal. No rashes or lesions. Laboratory Data: Reviewed ASSESSMENT AND PLAN: 1. Essential hypertension The patient will start combination lisinopril/hydrochlorothiazide at 10-12.5 mg daily. The side effects of the medication were discussed at length. We will follow-up in 3 months for another blood pressure check. He is also due for vaccines. I spent a total of 30 minutes in face to face time with this patient and 25 minutes of that time was spent in counseling and coordination of care as described in the progress note. Adrien Saldivar MD documented in this encounter Plan of Treatment Upcoming Encounters Date Type Department Care Team (Late st Contact Info) Description 09/19/2023 14:15 EDT Office Visit [facility] Adult Primary Care - [place] [address] [place] [address] Chris Daniels MD [address] [place] [phone] 10/19/2023 9:00 EDT Office Visit [facility] Hand & Upper Extremity Program - [facility] [address] [place] [address] Ant Nguyen MD [address] [place] [phone] 01/07/2024 13:15 EST Office Visit [facility] Neurology - [address] [phone] Salma Richardson MD [address] [place] [address], [address] [place] [phone] documented as of this encounter Visit Diagnoses Diagnosis Essential hypertension- Primary Unspecified essential hypertension documented in this encounter Historical Medications * This list may reflect changes made after this encounter. Medication Sig Dispensed Refills Start Date End Date ibuprofen (MOTRIN) 200 mg tablet Take 400 mg by mouth every 6 hours as needed for Pain. 07/06/2022 added in this encounter Care Teams Career Development Specialist Relationship Specialty Start Date End Date Adrien Saldivar MD PCP - General 09/26/16 11/14/17 documented as of this encounter
--- OUTSIDE RECORDS SUMMARY | 2023-09-14 02:28 | XMS_ITS | Encounter Summary ---
Author Organization [facility] Address [address] [place] [address] Care Team Providers Care Creative Intern Name Role Phone Adrien Saldivar MD Primary Care Provider [phone] Reason for Visit * Referral (Routine/Next Available) - Specialty Report Received Specialty Diagnoses / Procedures Referred By Contact Referred To Contact Gastroenterology and Hepatology Diagnoses Colon cancer screening Procedures COLONOSCOPY REQUEST Adrien Saldivar MD [address] [place] [address] [place] [phone] [facility] [address] [place] [address] Referral ID Status Reason Start Date Expiration Date V isits Requested Visits Authorized [id number] Specialty Report Received 01/31/2017 1 1 Encounter Details Date Type Department Care Team (Latest Contact Info) Description 06/29/2017 11:40 EDT - 06/29/2017 23:59 EDT Hospital Encounter [facility] Endoscopy - [address] [place] [address] [place], [place] [phone] Chuy Rhoades MD Discharge Disposition: Home or [...] Code Departure Means Destination Home or Self Alf documented in this encounter Plan of Treatment Upcoming Encounters Date Type Department Care Team (Late st Contact Info) Description 09/19/2023 14:15 EDT Office Visit [facility] Adult Primary Care - [place] [address] [place], [place] [phone] Chris Daniels MD [address] [place] [phone] 10/19/2023 9:00 EDT Office Visit [facility] Hand & Upper Extremity Program - [address] [place] [address] Ant Nguyen MD [address] [place] [phone] 01/07/2024 13:15 EST Office Visit [facility] Neurology - [address] [place] [address] [place] [address] Salma Richardson MD 1 [facility], [address] [place] [phone] documented as of this encounter Visit Diagnoses Not on filedocumented in this encounter Care Teams Creative Intern Relationship Specialty Start Date End Date Adrien Saldivar MD PCP - General 09/26/16 11/14/17 documented as of this encounter
--- OUTSIDE RECORDS SUMMARY | 2023-09-14 02:28 | XMS_ITS | Encounter Summary ---
Author Organization [facility] Address [address] [place] [address] Care Team Providers Care Manager Banquet Name Role Phone Unavailable Primary Care Provider Unavailabl e Encounter Details Date Type Department Care Team (Latest Contact Info) Description 10/27/2004 12:17 EDT Hospital Encounter [facility] Perioperative Services - [address] [phone] Serafin Jett III, MD [address] [place] [phone] Discharge Disposition: Home or Self Care Social [...] or Self Care documented in this encounter OR Notes * OR Surgeon - Serafin Jett MD - 10/27/2004 0000 EDT PROCEDURE REPORT PT TYPE: OPPROC PT LOC: [id number] SERVICE DATE: 10/27/2004 SURGEON: Guillermo Jett III, MDF Lawlis, III, Franco Jett III, Franco Jett III, SKYDIVING INSTRUCTOR: PREOPERATIVE DIAGNOSIS: Right knee medial meniscus tear, arthrosis. POSTOPERATIVE DIAGNOSIS: Right knee medial meniscus tear, arthrosis. PROCEDURE: Right knee arthroscopy, partial medial meniscectomy. ANESTHESIA: Spinal plus local plus intravenous sedation. INDICATIONS:This is a healthy 59-year-old male with a locked right knee with medial knee pain and swelling which has not responded to conservative, nonoperative measures. This was the result of an injury. He has been seen by Dr. Agnieszka Torres who diagnosed a meniscal derangement and then referred him for an MRI which further corroborates that finding. He has not responded to conservative, nonoperative measures and has elected to proceed with arthroscopic intervention. He understands arthroscopy is expected to improve pain coming from meniscal derangement, but only be diagnostic for the amount of arthrosis in the knee. NARRATIVE/FINDINGS: The patient was brought to the operating room and placed on the OR table in thesupine position after a spinal anesthetic had been administered without complications. The right knee was evaluated under anesthesia and found to have improved extension although he still lacked a few degrees of extension to neutral. He flexed further to 120 degrees. He had a negative Deep test,negative anterior and posterior drawer,and no medial or lateral laxity in full extension or 30 degrees of flexion. He had no posterolateral laxity in 60 or 90 degrees of flexion. He had a negative pivot shift and negative reverse pivot shift. He had a negative anterior and posterior drawer. Through a sterilely prepped mid-lateral patellar approach, the right knee was infiltrated with 30 cc of 0.25% Marcaine with epinephrine for preoperative analgesia. The knee was then formally prepped and draped in a sterile fashion with the leg draped freely. Tourniquet was not utilized. the anesthetic was effective, the patient was placed in the supine position where a thigh tourniquet was placed. Knee was prepped and draped in sterile fashion. Standard inferolateral portal was placed through which the 30?? arthroscope was introduced. Lactated Ringer inflow solution was delivered t UZwan tubing using gravity. Under direct visualization with needle localization an inferomedial portal was placed. This was used for instrumentation. Systematically the knee was evaluated using a hook probe. The suprapatellar pouch and medial and lateral femoral gutters were inspected as was the patella and femoral trochlea. The medial compartment was inspected. The medial femoral condyle and medial tibial plateau were examined carefully as was the medial meniscus. The meniscus was probed and palpated and traction was applied to verify the presence or absence of meniscal pathology. This was inspected as well by lookingthrough the intercondylar notch at the posterior horn. The intercondylar notch was examined. The anterior cruciate ligament was inspected from its femoralattachment to its tibial attachment and was also probed with the hook probe. The posterior cruciateligament was inspected in a similar fashion. The patient was placed in a figure-four position wherethe lateral compartment was visualized and similarly the lateral femoral condyle, lateral tibial plateau and lateral meniscus were inspected and palpated. The popliteus tendon was inspected as well. The medial and lateral femoral gutters were also inspected arthroscopically. Arthroscopic findings revealed some grade 3 chondrosis of the lateral aspect of his patella and thefemoral trochlea. The patella did track well in the femoral trochlea, however. In the medial hemijoint, there was a complex tear of the medial meniscus with two large parrot-beakcomponents along with a degenerative horizontal component. This resulted in a large parrot-beak component involving an inferior leaflet and one involving the superior leaflet of the middle and posterior one-thirds of the medial meniscus. In addition, there were smaller parrot-beak components and rad ial components. Basically, the inner one-half of the posterior middle one-third of the medial meniscus was fragmented and torn, with a peripheral one-half of those two areas being essentially intact except for the inferior leaflet which had a more peripheral component to the tear. The superjacent medial femoral condyle had some grade 2-3 chondrosis with fraying and wear, and themedial tibial plateau actually had some only minor changes. These grade 3 areas were debrided with a 3.5-mm shaver. The meniscus was debrided back to stable borders using upbiting basket biters, straight basket biters, and 3.5-mm shaver. This was contoured in a fashion to minimize the odds of recurrent tear. The intercondylar notch showed essentially intact anterior and posterior cruciate ligaments, although the ACL may have been slightly loose to hook-probe palpation. clinically, he was not loose. The lateral hemijoint had an intact lateral meniscus, an intact lateral femoral condyle, and some grade 2 arthrosis of the lateral tibial plateau. The popliteus tendon was intact. The knee was carefully inspected for loose bodies in the medial and lateral femoral gutters, suprapatellar pouch, popliteushiatus, intercondylar notch including the posterior knee which involves the medial and lateral hemijoints. Copious amounts of irrigation were utilized and all particulate matter was washed from the kneejoint. All arthroscopic equipment and fluid were removed from the knee. The portals were repaired with 4-0 Ethilon simple sutures and incisions cleansed and dressed with Adaptic covered with 4x4 gauzes and sterile Webril from mid-calf to mid-thigh over which sterile Carl wrap was applied from mid-calf tomid-thigh. The patient was transferred to the hospital stretcher and taken to the PACU in stable condition suffering minimal blood loss and no complications. Signed by Serafin Jett III, MD 11/10/2004 16:03 Guillermo Jett III, Franco Jett III, Franco Jett III, MD Serafin Jett III, MD - Serafin Jett III, MD A - cs Job ID: [id number] Document ID: [id number] cc: MD Serafin Cho III, MD documented in this encounter Plan of Treatment Upcoming Encounters Date Type Department Care Team (Late st Contact Info) Description 09/19/2023 14:15 EDT Office Visit [facility] Adult Primary Care - [address] [phone] Chris Daniels MD [address] [place] [phone] 10/19/2023 9:00 EDT Office Visit [facility] Hand & Upper Extremity Program - [address] [address] Ant Nguyen MD [address] [place] [phone] 01/07/2024 13:15 EST Office Visit [facility] Neurology - [address] [address] Salma Richardson MD [address] [place] [address], [address] [place] [phone] documented as of this encounter Visit Diagnoses Not on filedocumented in this encounter
--- OUTSIDE RECORDS SUMMARY | 2023-09-14 02:28 | XMS_ITS | Encounter Summary ---
Author Organization [facility] Address [address] [place] [address] Care Team Providers Care Potato Chip Sorter Name Role Phone Ariella Gregory MD Primary Care Provider Jorge jeong Reason for Visit * Reason Onset Date Comments Requesting Sooner Appointment 04/27/2016 Encounter Details Date Type Department Care Team (Late st Contact Info) Description 04/27/2016 Telephone [facility] Dermatology 3rd Floor [address] [address] Salvador Benites MD Requesting Sooner Appointment Social History Tobacco Use Types Packs/Day Years [...] encounter Miscellaneous Notes * Telephone Encounter - Jaja Smiley RN - 05/02/2016 0903 EDT Patient last seen on 12/12/2006 by KILO Serna Hx of Extensive actinic injury and photo damage. Actinic keratosis, Contact dermatitis, Eczema. Spoke to patient Fold of Right ear White growth, like a scab Flakes off ~ 3 mm Slightly raised Circular Sensitive when laying on it Otherwise Denies pain, itch, bleeding Hx of increased sun exposure Denies Hx of skin cancer No family Hx of skin cancer Patient would like FBSE Scheduled for NPV 07/28/16 at [address] Hwang, EP3 JAJA SMILEY RN 05/02/2016 9:11 * Telephone Encounter - Stacey Rowe - 05/02/2016 0858 EDT Please call patient at [phone]. * Telephone Encounter - Jaja Smiley RN - 05/02/2016 0834 EDT Left message for patient to call us back to obtain more information and schedule an appointment JAJA SMILEY RN 05/02/2016 8:34 * Telephone Encounter - Lilia Ruvalcaba - 04/27/2016 1610 EST The patient's states that the patient has a lesion on the tip of his right ear. It's white, hard, not itchy or painful. There is no bleeding. The spot has been there for about 4 months. They would like the patient seen before the next available. He was last seen in Dermatology in 2006. Please call the patient to discuss and schedule. documented in this encounter Plan of Treatment Upcoming Encounters Date Type Department Care Team (Late st Contact Info) Description 09/19/2023 14:15 EDT Office Visit [facility] Adult Primary Care - [address] [address] Chris Daniels MD [address] [place] [phone] 10/19/2023 9:00 EDT Office Visit [facility] Hand & Upper Extremity Program - [address] [place] [address] Ant Nguyen MD [address] [place] [phone] 01/07/2024 13:15 EST Office Visit [facility] Neurology - [address] [place] [address] [place], [place] [phone] Salma Richardson MD [address] [place] [address], [address] [place] [phone] documented as of this encounter Visit Diagnoses Not on filedocumented in this encounter Care Teams Potato Chip Sorter Relationship Specialty Start Date End Date Ariella Gregory MD PCP - General 01/20/09 09/25/16 documented as of this encounter
--- OUTSIDE RECORDS SUMMARY | 2023-09-14 02:28 | XMS_ITS | Encounter Summary ---
Author Organization [facility] Address [address] [place] [address] Care Team Providers Care Sas Developer Analyst Name Role Phone Ariella Gregory MD Primary Care Provider Jorge jeong Reason for Visit * Reason Comments New Patient Visit fbse, spot on right ear Encounter Details Date Type Department Care Team (Late st Contact Info) Description 07/28/2016 15:00 EDT Office Visit [facility] Dermatology 3rd Floor [address] [phone] Rangel Hwang MD [address] [facility], Level [address] [place] [address] Weathering nodule of right ear (Primary Dx); Seborrheic keratoses Social History Tobacco Use Types Packs/Day Years Used Date Smoking Tobacco: Never Alcohol Use Standard Drinks/Week Comments Yes 0 (1 standard drink = 0.6 oz pur e alcohol) occasional Sex and Gender Information Value Date Recorded Sex Assigned at Male 08/14/2021 11:28 EDT Gender Identity Male 08/10/2021 11:38 EDT Sexual Orientation Not on file documented as of this encounter Progress Notes * Rangel Hwang MD - 07/28/2016 1500 EDT Dermatology Outpatient Clinic Note 07/28/2016 Chief Complaint: History of Present Illness: Patient is a 70 y.o. male who presents for new evaluation and treatment of spot on right ear x 6 mos or so. Not much pain at all. No hx skin ca. No fh melanoma. [place] medication list which includes the following prescription(s): hydrocodone-acetaminophen, ibuprofen, ibuprofen, ibuprofen, and oxycodone. See documentation in [facility] for medical, surgical, social and family history, which were reviewed atthis visit. Present medications, allergies, review of systems are also documented and were all reviewed at this visit. EXAM: a/o x3. NAD. Scalp face neck trunk and 4 exts seen 2mm slightly whitish papule right superior helix. Not ttp. 8mm stuck on brown papule right midback - horn cysts on dermoscopy c/w santo keratosis IMPRESSION & PLAN: 1. Weathering nodule vs CNH. Not c/w bcc or scc at present time. RTC if symptomatic or enlarges/bleeds/ulcerates 2. santo k back - reassure rtc prn Sun protection. Rangel Hwang MD 07/28/2016 15:31 documented in this encounter Plan of Treatment Upcoming Encounters Date Type Department Care Team (Late st Contact Info) Description 09/19/2023 14:15 EDT Office Visit [facility] Adult Primary Care - [address] [address] Chris Daniels MD [address] [place] [phone] 10/19/2023 9:00 EDT Office Visit [facility] Hand & Upper Extremity Program - [address] [place], [place] [phone] Ant Nguyen MD [address] [place] [address] 01/07/2024 13:15 EST Office Visit [facility] Neurology - [address] [phone] Salma Richardson MD [address] [place] [address], [facility] 2 [place] [phone] documented as of this encounter Visit Diagnoses Diagnosis Weathering nodule of right ear- Primary Seborrheic keratoses documented in this encounter Care Teams Sas Developer Analyst Relationship Specialty Start Date End Date Ariella Gregory MD PCP - General 01/20/09 09/25/16 documented as of this encounter
--- OUTSIDE RECORDS SUMMARY | 2023-09-14 02:28 | XMS_ITS | Encounter Summary ---
Author Organization [facility] Address [address] [place] [address] Care Team Providers Care Chiller Hand Name Role Phone Ariella Gregory MD Primary Care Provider Jorge jeong Encounter Details Date Type Department Care Team (Late st Contact Info) Description 07/12/2012 Abstract [facility] Hand & Upper Extremity Program [place] [address] [place] [address] Elana Addison PA-C [address] [place], [place] [address] [place] [address] Social History Tobacco Use Types Packs/Day Years [...] Info) Description 09/19/2023 14:15 EDT Office Visit [facility] Adult Primary Care - [place] [address] [place] [address] Chris Daniels MD [address] [place] [phone] 10/19/2023 9:00 EDT Office Visit [facility] Hand & Upper Extremity Program - [address] [place] [phone] Ant Nguyen MD [address] [place] [address] 01/07/2024 13:15 EST Office Visit [facility] Neurology - [address] [address] Salma Richardson MD [address] [place] [address] 2 [place] [phone] documented as of this encounter Visit Diagnoses Not on filedocumented in this encounter Care Teams Chiller Hand Relationship Specialty Start Date End Date Ariella Gregory MD PCP - General 01/20/09 09/25/16 documented as of this encounter
--- OUTSIDE RECORDS SUMMARY | 2023-09-14 02:28 | XMS_ITS | Encounter Summary ---
Author Organization [facility] Address [address] [place] [address] Care Team Providers Care Certified Athletic Trainer Name Role Phone Unavailable Primary Care Provider Unavailabl e Encounter Details Date Type Department Care Team (Latest Contact Info) Description 10/07/2004 7:24 EDT - 10/07/2004 11:59 EDT Hospital Encounter [facility] - [facility] [address] [place] [address] Agnieszka Torres MD [address] [place] [address] Discharge Disposition: Auto Discharge Social History Tobacco [...] Description 09/19/2023 14:15 EDT Office Visit [facility] Adult Primary Care - [place] [address] [place] [address] Chris Daniels MD [address] [place] [phone] 10/19/2023 9:00 EDT Office Visit [facility] Hand & Upper Extremity Program - [address] [place] [address] Ant Nguyen MD [address] [place] [address] 01/07/2024 13:15 EST Office Visit [facility] Neurology - [address] [place] [address] [place], [place] [phone] Salma Richardson MD [address] [place] [address], [address] [place] [address] documented as of this encounter Procedures Procedure Name Priority Date/Time Associated Diagnosis Comments MR LOWER EXT JOINT WO CONTRAST 10/07/2004 8:34 EDT ORBITS FOR FOREIGN BODY 10/07/2004 7:57 EDT documented in this encounter Results * MR LOWER EXT JOINT WO CONTRAST (10/07/2004 8:34 EDT) Anatomical Region Laterality Modality Other 10/07/2004 8:34 EDT Narrative 09/24/2008 5:18 EDT RIGHT MCL SPRAIN, HEALING, PERSISTENT POST MEDIAL JOINT LINE MRI OF THE RIGHT KNEE WITHOUT CONTRAST CLINICAL HISTORY: Right healing MCL sprain. ??Persistent posteromedial joint line pain. Query meniscal injury. TECHNIQUE: Multiplanar images of the right knee were obtained using the routine sequences. ??No contrast was given. FINDINGS: There is a complex tear of the posterior horn and midbody of the medial meniscus. There is a displaced flap of meniscus involving the inferior leaf which is displaced medially between the midbody of the medial meniscus and the deep fibers of the MCL and causes bulging of both fibers. ??This causes some mild active bone marrow edema in the medial tibial plateau. On the sagittal and coronal images, there is a small piece of meniscus which is displaced near the intracondylar notch anteriorly. Therefore, this possibly was initially a bucket handle tear of the medial meniscus with a subsequent tear of the handle with a persistent piece of meniscus located near the intracondylar notch anteriorly and medial displacement of the inferiorly leaf of the posterior horn of the medial meniscus. There is only mild thinning of the cartilage in the medial compartment of the knee. ??Laterally, there is no significant thinning of the cartilage. ??The lateral meniscus has a normal appearance. ??The ACL, PCL, and LCL are normal. ??There is some edema surrounding the fibers of the MCL which are in continuity. ??This edema could be due to a recent sprain of the ligament, ??or could be reactive to the displaced piece of meniscus. There is pvycphdz-zi-valhfy chondromalacia involving the lateral facet of the patella where there is significant thinning of the cartilage and small subchondral degenerative cysts. ??There is a small joint effusion. CONCLUSIONS: Extensive tear of the medial meniscus with a complex tear of the posterior horn of the medial meniscus extending to the midbody. ??The inferior leaf of the posterior horn is displaced medially, deep to the fibers of the MCL. ??I also suspect a small piece of meniscus which is displaced near the intracondylar notch anteriorly. 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 /tns Procedure Note Denise Reyes MD - 09/24/2008 RIGHT MCL SPRAIN, HEALING, PERSISTENT POST MEDIAL JOINT LINE MRI OF THE RIGHT KNEE WITHOUT CONTRAST CLINICAL HISTORY: Right healing MCL sprain. Persistent posteromedial joint line pain. Query meniscal injury. TECHNIQUE: Multiplanar images of the right knee were obtained using the routine sequences. No contrast was given. FINDINGS: There is a complex tear of the posterior horn and midbody of the medial meniscus. There is a displaced flap of meniscus involving the inferior leaf which is displaced medially between the midbody of the medial meniscus and the deep fibers of the MCL and causes bulging of both fibers. This causes some mild active bone marrow edema in the medial tibial plateau. On the sagittal and coronal images, there is a small piece of meniscus which is displaced near the intracondylar notch anteriorly. Therefore, this possibly was initially a bucket handle tear of the medial meniscus with a subsequent tear of the handle with a persistent piece of meniscus located near the intracondylar notch anteriorly and medial displacement of the inferiorly leaf of the posterior horn of the medial meniscus. There is only mild thinning of the cartilage in the medial compartment of the knee. Laterally, there is no significant thinning of the cartilage. The lateral meniscus has a normal appearance. The ACL, PCL, and LCL are normal. There is some edema surrounding the fibers of the MCL which are in continuity. This edema could be due to a recent sprain of the ligament, or could be reactive to the displaced piece of meniscus. There is nocqrhmx-qz-krguwe chondromalacia involving the lateral facet of the patella where there is significant thinning of the cartilage and small subchondral degenerative cysts. There is a small joint effusion. CONCLUSIONS: Extensive tear of the medial meniscus with a complex tear of the posterior horn of the medial meniscus extending to the midbody. The inferior leaf of the posterior horn is displaced medially, deep to the fibers of the MCL. I also suspect a small piece of meniscus which is displaced near the intracondylar notch anteriorly. 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 /tns Agnieszka Torres MD [facility] * ORBITS FOR FOREIGN BODY (10/07/2004 7:57 EDT) Anatomical Region Laterality Modality Other 10/07/2004 7:57 EDT Narrative 09/24/2008 3:52 EDT ORBITS - PRE-MRI ORBITS FOR FOREIGN BODY: CLINICAL HISTORY: ?? Orbits were done to rule out metallic foreign body pre- MRI. FINDINGS: Metallic foreign bodies are not demonstrated ??in the orbits. ??The bones as visualized are ??normal. D: ??10/07/04 T: ??10/11/04 /dorita Procedure Note Ingrid Jensen MD - 09/24/2008 ORBITS - PRE-MRI ORBITS FOR FOREIGN BODY: CLINICAL HISTORY: Orbits were done to rule out metallic foreign body pre- MRI. FINDINGS: Metallic foreign bodies are not demonstrated in the orbits. The bones as visualized are normal. /dw Agnieszka Torres MD [facility] [place] ORDERABLES documented in this encounter Visit Diagnoses Not on filedocumented in this encounter
--- OUTSIDE RECORDS SUMMARY | 2023-09-14 02:28 | XMS_ITS | Encounter Summary ---
Author Organization [facility] Address [address] [place] [address] Care Team Providers Care Territory Account Manager Name Role Phone Ariella Gregory MD Primary Care Provider Jorge jeong Reason for Visit * Reason Comments Hip Pain Left hip pain X thre e days. Pt rates pain 7/10. No known cause for pain or limited ROM. Pt has had many surgeries to Left knee and has broken left leg in past. Encounter Details Date Type Department Care Team (Latest Contact Info) Description 01/20/2009 9:30 EST - 01/20/2009 11:41 EST Hospital Encounter [facility] Urgent Care - [facility] [address] [place] [address] Kala Marino NP [address] [place] [phone] Bursitis, Trochanteric Discharge Disposition: Home or Self Care Social [...] Sign Reading Time Taken Comments Blood Pressure 140/90 01/20/2009 0938 EST Pulse 64 01/20/200938 EST Temperature 36.9 ??C (98.4 ??F) 01/20/2009 0938 EST Respiratory Rate 14 01/20/2009 0938 EST Oxygen Saturation - - Inhaled Oxygen Concentration - - Weight - - Height - - Body Mass Index - - documented in this encounter Discharge Instructions * Discharge Instructions* Lyudmila Marino NP - 01/20/2009 11:17 EST As we discussed, ice the hip 4-5 times a day for 20 minutes at a time, and rest the hip for the next 3-4 days. In 2 days, Begin doing the exercises that I have given you. Take both the motrin and thevicodin for pain. If you do not see significant improvement after 3-4 days, follow up with your regular doctor. * Attachments The following attachments cannot be sent through Care Everywhere. * HIP BURSITIS: AFTER YOUR VISIT ([place]) documented in this encounter Medications at Time of Discharge Medication Sig Dispensed Refills Start Date End Date hydrocodone-acetaminophen (VICODIN) 5-500 mg per tablet Take 1-2 Tabs by mouth every 6 hours as needed for Pain. 20 Tab 0 01/20/2009 01/31/2017 ibuprofen (MOTRIN) 400 mg tablet Take 400 mg by mouth every 4 hours. 01/31/2017 ibuprofen (MOTRIN) 600 mg tablet Take 1 Tab by mouth 3 times daily. 30 Tab 0 01/20/2009 01/31/2017 oxycodone (ROXICODONE) 5 mg immediate release tablet Take 5 mg by mouth every 4 hours as needed for Pain. 01/31/2017 documented as of this encounter Ordered Prescriptions Prescription Sig Dispensed Refills Start Date End Da te ibuprofen (MOTRIN) 600 mg tablet Take 1 Tab by mouth 3 times daily. 30 Tab 0 01/20/2009 01/31/2017 hydrocodone-acetaminophen (VICODIN) 5-500 mg per tablet Take 1-2 Tabs by mouth every 6 hours as needed for Pain. 20 Tab 0 01/20/2009 01/31/2017 documented in this encounter Discharge Disposition Disposition Code Departure Means Destination Home or Self Care Car Home documented in this encounter ED Notes * Lyudmila Marino NP - 01/20/2009 1006 EST Images from the original note were not included. DOS: 01/20/2009 Chief Complaint Patient presents with ??? Hip Pain Left hip pain X three days. Pt rates pain 7/10. No known cause for pain or limited ROM. Pt has had many surgeries to Left knee and has broken left leg in past. HPI Comments: Patient reports a 3 day history of left lateral hip/leg pain. 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 He has taken motrin and leftover percocet (he developed itching last nightafter he took the oxycodone). Patient is a 63 y.o. male presenting with hip pain. The history is provided by the patient. Hip Pain This is a new problem. The problem has been gradually worsening. The pain is present in the left upper leg. The pain quality is described as aching. The pain is severe. Associated symptoms include limited range of motion. Pertinent negatives include no numbness, no stiffness and no tingling. He hastried OTC pain medications (oxycodone) for the symptoms. There has been no history of trauma (no history of steroid use.). Family history is significant for no rheumatoid arthritis and no gout. Review of Systems Constitutional: Negative for fever, chills, activity change, appetite change and fatigue. Patient does not drink or smoke, and there has been no recent weight loss. Respiratory: Negative for cough and shortness of breath. Cardiovascular: Negative for chest pain. Gastrointestinal: Negative for nausea and vomiting. Musculoskeletal: Negative for myalgias, back pain, joint swelling and arthralgias. Neurological: Negative for dizziness, tingling and numbness. Hematological: Negative for adenopathy. Current hospital medications Medication Dose Route Frequency Provider Last Rate Last Dose ??? ketorolac (TORADOL) injection 30 mg 30 mg Intravenous Now Lyudmila Marino NP ??? hydrocodone-acetaminophen (LORTAB;VICODIN) 5-500 mg per tablet 1 Tab 1 Tab Oral Now Lyudmila Marino NP Current outpatient prescriptions Medication Sig Dispense Refill ??? oxycodone (ROXICODONE) 5 mg immediate release tablet Take 5 mg by mouth every 4 hours as neededfor Pain. ??? ibuprofen (MOTRIN) 400 mg tablet Take 400 mg by mouth every 4 hours. Allergies Allergen Reactions ??? Codeine ??? Novacaine (Procaine (Bulk)) Past Medical History Diagnosis Date ??? Arthritis left knee History Substance Use Topics ??? Tobacco Use: Never ??? Alcohol Use: Yes occasional History reviewed. No pertinent family history. BP 140/90 Pulse 64 Temp(Src) 98.4 ??F (36.9 ??C) (Oral) Resp 14 Physical Exam Nursing note and vitals reviewed. Constitutional: He is oriented. He appears well-developed and well-nourished. Cardiovascular: Normal rate, regular rhythm and normal heart sounds. Exam reveals no gallop and no friction rub. No murmur heard. Pulmonary/Chest: Effort normal and breath sounds normal. No respiratory distress. He has no wheezes. He has no rales. He exhibits no tenderness. Abdominal: Soft. He exhibits no distension and no mass. No tenderness. He has no rebound and no guarding. Musculoskeletal: He exhibits tenderness. He exhibits no edema. Left upper leg: He exhibits tenderness and swelling. He exhibits no bony tenderness. Legs: Neurological: He is alert and oriented. Skin: Skin is warm and dry. Psychiatric: He has a normal mood and affect. Consult orders: None PCP: ARIELLA MACHUCA MD No results found for this visit on 01/20/09. Radiology orders: None Procedures Course: Patient given toradol and vicodin at the [facility]. Moderate decrease in pain. No itching or reaction to vicodin after [address] Chinmay Roldan was available for consultation during my care of this patient. MDM Number of Diagnoses and Management Options Risk of Complications, Morbidity, and/or Mortality Presenting problems: moderate Diagnostic procedures: low Management options: moderate 01/20/2009 10:06 AM * Antonieta Cochran - 01/20/2009 0939 EST Pt asked to put on gown. * Tiffany Faye - 01/20/2009 0935 EST Idiopathic left hip pain X three days. Pt reports having a bad left knee ( 3-4 surgeries) and has broken left leg ages ago. 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 documented in this encounter Miscellaneous Notes * Scanned Note-Null - Inpatient, Physician - 01/27/2009 0751 EST documented in this encounter Plan of Treatment Upcoming Encounters Date Type Department Care Team (Late st Contact Info) Description 09/19/2023 14:15 EDT Office Visit [facility] Adult Primary Care - [place] [address] [place], [place] [phone] Chris Daniels MD [address] [place] [phone] 10/19/2023 9:00 EDT Office Visit [facility] Hand & Upper Extremity Program - [address] [phone] Ant Nguyen MD [address] [place] [address] 01/07/2024 13:15 EST Office Visit [facility] Neurology - [address] [phone] Salma Richardson MD [address] [place] [address], [address] [place] [phone] documented as of this encounter Visit Diagnoses Diagnosis Bursitis, trochanteric Enthesopathy of hip region documented in this encounter Administered Medications Inactive Administered Medications - up to 3 most recent administrations Medication Order MAR Action Action Date Dose Rate Site hydrocodone-acetaminophen (LORTAB;VICODIN) 5-500 mg per tablet 1 Tab 1 Tablet, oral, NOW X1, 1 dose, On Sun01/20/09 at 1030, Routine Given 01/20/2009 10:30 EST 1 Tablet ketorolac (TORADOL) injection 30 mg 30 mg, intravenous, NOW X1, 1 dose, On Sun01/20/09 at 1030, Routine Given 01/20/2009 10:30 EST 30 mg documented in this encounter Historical Medications * This list may reflect changes made after this encounter. Medication Sig Dispensed Refills Start Date End Date ibuprofen (MOTRIN) 400 mg tablet Take 400 mg by mouth every 4 hours. 01/31/2017 oxycodone (ROXICODONE) 5 mg immediate release tablet Take 5 mg by mouth every 4 hours as needed for Pain. 01/31/2017 added in this encounter Active and Recently Administered Medications Times are shown in EST. Scheduled Medication Order 01/18/2009 01/19/2009 01/20/2009 hydrocodone-acetaminophen (LORTAB;VICODIN) 5-500 mg per tablet 1 Tab (COMPLETED) 1 Tablet, oral, NOW X1, 1 dose, On Sun01/20/09 at 1030, Routine 1030 (Given - Provid er: Tiffany Faye) ketorolac (TORADOL) injection 30 mg (COMPLETED) 30 mg, intravenous, NOW X1, 1 dose, On Sun01/20/09 at 1030, Routine 1030 (Given - Provid er: Tiffany Faye) documented in this encounter Care Teams Territory Account Manager Relationship Specialty Start Date End Date Ariella Gregory MD PCP - General 01/20/09 09/25/16 documented as of this encounter
--- OUTSIDE RECORDS SUMMARY | 2023-09-14 02:28 | XMS_ITS | Encounter Summary ---
Author Organization [facility] Address [address] [place] [address] Care Team Providers Care Web Services Manager Name Role Phone Ariella Gregory MD Primary Care Provider Jorge jeong Encounter Details Date Type Department Care Team (Late st Contact Info) Description 10/26/2004 Office Visit [facility] - [place] [address] [place] [address] Chinmay Mcdaniel, PLUG AND MOLD FINISHER [address] [place] [address] Social History Tobacco Use Types Packs/Day Years Used Date Smoking Tobacco: Never Assessed Sex and Gender Information Value Date Recorded Sex Assigned at Male 08/14/2021 11:28 EDT Gender Identity Male 08/10/2021 11:38 EDT Sexual Orientation Not on file documented as of this encounter Progress Notes * Wilson, Conv Trauma Program Manager - 04/21/2009 0231 EST Care Center - Physician Summary Registration Date/Time: 10/26/2004 12:26 Time Seen: 13:09 Oct 26 2004 Arrived- By private vehicle. Historian- patient. HISTORY OF PRESENT ILLNESS Chief Complaint: Pre OP PE consult for Dr Kapadia PROGRESS AND PROCEDURES Disposition: Discharged home in good condition and stable condition. CLINICAL IMPRESSION Pre OP PE consult for Dr Kapadia arthroscopic knee surg. (Electronically signed by Chinmay Mcdaniel A.P.R.N. 10/27/2004 13:50) Care Center - Nursing Summary Registration Date/Time: 10/26/2004 12:26 TRIAGE Initial Assessment Triage time 12:40 --1257 Sheila Ramirez R.N. BP: 124 / 80 sitting L arm manual HR: 72 RR: 16 Temp: 98 oral --1301 Sheila Ramirez R.N. Medications None. --1257 Sheila Ramirez R.N. Allergies No known drug allergies. --1257 Sheila Ramirez R.N. History Chief Complaint: (pre op physical). Pain level now: 0/10. PAST HX: see pre op (celiac disease). --1257 Sheila Ramirez R.N. NURSING PROGRESS NOTES Progress Pre-procedure time-out completed per protocol: verified identity of patient (name and birthdate) and procedure; verification done by care team (nurse). --1301 Sheila Ramirez R.N. 12-lead EKG. --1301 Sheila Ramirez R.N. DISPOSITION / DISCHARGE Condition at departure: unchanged. No barriers to learning present. The patient was discharged home. The patient left the Emergency Department ambulatory and via private vehicle. Patient driving. Patient has no belongings. --1354 Sheila Ramirez R.N. Locked/Released at 10/26/2004 13:54 by Sheila Ramirez R.N. documented in this encounter Plan of Treatment Upcoming Encounters Date Type Department Care Team (Late st Contact Info) Description 09/19/2023 14:15 EDT Office Visit [facility] Adult Primary Care - [place] [address] [place], [place] [id number] Chris Daniels MD [address] [place] [phone] 10/19/2023 9:00 EDT Office Visit [facility] Hand & Upper Extremity Program - [address] [place], [place] [phone] Ant Nguyen MD [address] [place] [address] 01/07/2024 13:15 EST Office Visit [facility] Neurology - [address] [address] Salma Richardson MD [address] [place] [address] [address] [place] [phone] documented as of this encounter Visit Diagnoses Not on filedocumented in this encounter Care Teams Web Services Manager Relationship Specialty Start Date End Date Ariella Gregory MD PCP - General 01/20/09 09/25/16 documented as of this encounter
--- OUTSIDE RECORDS SUMMARY | 2023-09-14 02:28 | XMS_ITS | Encounter Summary ---
Author Organization [facility] Address [address] [place] [address] Care Team Providers Care Assurance Manager Name Role Phone Ariella Gregory MD Primary Care Provider Jorge jeong Reason for Visit * Reason Comments Shoulder Pain Right shoulder no do i dos 1970s Encounter Details Date Type Department Care Team (Late st Contact Info) Description 07/02/2012 14:00 EDT Office Visit [facility] Hand & Upper Extremity Program - [address] [address] Elana Addison PA-C [address] [place] [address] Shoulder pain (Primary Dx) Discharge Disposition: Auto Discharge Social History Tobacco [...] - - Weight 72.6 kg (160 lb) 07/02/2012 1435 EDT Height 172.7 cm (5' 8) 07/02/2012 1435 EDT Body Mass Index 24.33 07/02/2012 1435 EDT documented in this encounter Discharge Disposition Disposition Code Departure Means Destination Auto Discharge documented in this encounter Progress Notes * Elana Addison PA - 07/03/2012 0982 EDT Willam Negron is a 66 y.o.yo male presenting in clinic today. Chief Complaint Patient presents with ??? Shoulder Pain Right shoulder no doi dos Past Medical History Diagnosis Date ??? Arthritis left knee There are no active problems to display for this patient. Past Surgical History Procedure Date ??? Knee surgery right and left knees ??? Shoulder surgery History reviewed. No pertinent family history. History Social History ??? Marital Status: Spouse Name: N/A Number of Children: N/A ??? Years of Education: N/A Social History Main Topics ??? Smoking status: Never Smoker ??? Smokeless tobacco: None ??? Alcohol Use: Yes occasional ??? Drug Use: No ??? Sexually Active: Other Topics Concern ??? None Social History Narrative ??? None Medications Prior to Today's Visit Medication Sig ??? oxycodone (ROXICODONE) 5 mg immediate release tablet Take 5 mg by mouth every 4 hours as neededfor Pain. ??? ibuprofen (MOTRIN) 400 mg tablet Take 400 mg by mouth every 4 hours. ??? hydrocodone-acetaminophen (VICODIN) 5-500 mg per tablet Take 1-2 Tabs by mouth every 6 hours asneeded for Pain. ??? ibuprofen (MOTRIN) 600 mg tablet Take 1 Tab by mouth 3 times daily. Allergies Allergen Reactions ??? Codeine ??? Novacaine (Procaine (Bulk)) Objective: Ht 172.7 cm (68) Wt 72.576 kg (160 lb) BMI 24.33 kg/m2 Body mass index is 24.33 kg/(m^2). PROBLEM: Right shoulder pain. SUBJECTIVE: Mr Negron is a 66-year-old ambidextrous male who uses his left hand for fine motor skills and his right for gross motor skills. He refers himself to our office today for evaluation of right shoulder pain. He does recall having a history of repeat dislocations and in the he underwent a surgery, which on description sounds like it was a staple capsulorrhaphy. Following the surgery, he states that he has always had some limitations in his range of motion and he does not feel that there has been significant change in his motion over time. He, however, did not have significant pain up until approximately two months ago when he began to develop some discomfort. He denies any history of injury or overuse at that time. He states that for approximately 1 week, he had pretty significant pain but this gradually improved to the point where today he states that he is actually doing fairly well. He finds his discomfort is very tolerable. The pain has been known to interfere withhis ability to sleep in the past. He also finds that it can interfere with some of his activities such as training horses, cutting and splitting wood, woodworking as well as evans working. He tries to not let it interfere with these activities and he states that he continues to be quite active. He notices the discomfort more with things like pushups and he also notices some crunching when he does this. Mr Negron has a DASH score of 17 today. A complete review of systems has been reviewed from the new patient intake sheet and all are negative except for history of joint pain, swelling and numbness. His past medical history has been reviewed in his patient chart. OBJECTIVE: On physical exam, Mr Negron is found to be a pleasant and cooperative male who appearsto be alert and oriented. He does not appear to be in any significant distress. On examination of his right shoulder, there is no significant tenderness to palpation. He has active forward flexion and abduction to approximately 90 degrees and again, he states that this is unchanged over the years. He has external rotation with the arm at the side to approximately 15 degrees and internal rotation to the level of L5. He has a negative lift-off test. He denies pain with external rotation against resistance. He has a negative empty can test. He denies significant pain with impingement testing. He has a negative crossover test. He has negative Speed's test. There is some crepitus noted on range of motion. He is neurovascularly intact. Radiographs of his right shoulder were taken in the office today and reviewed by me. Overall alignment is anatomic. There is a large staple from previous surgery. There are also significant degenerative changes of the glenohumeral joint as well as some degenerative changes of the AC joint. ASSESSMENT: Right shoulder pain with evidence of severe glenohumeral joint osteoarthritis. PLAN: I had a discussion with Mr Negron today regarding the significant degenerative changes on radiographs. We discussed some treatment options including corticosteroid injections. At this point, however, he feels again that his pain is improved to the point where it is tolerable and he would like to hold off on this. We also discussed the option of a shoulder replacement, but again this is something that he would like to hold off on for as long as possible. We did discuss some behavioral modifications such as avoiding pushups, which does seem to aggravate the pain. Otherwise, he can use the arm with activity as tolerated. He may also benefit from anti-inflammatory such as Aleve or ibuprofen when he does have discomfort. If he should redevelop that significant pain that he had approximately 2 months ago, then he may benefit from a glenohumeral joint corticosteroid injection. He was advised to contact me if he is interested in pursuing this. Otherwise, at this time he will follow up with me on an as-needed basis. He is also aware that if at any point he is interested in discussingthe possibility of a shoulder replacement, he can contact me to set up a surgical consultation. KILO Hanley 07/03/2012 9:23 documented in this encounter Miscellaneous Notes * Scanned Note-Null - TETRYL NITRATOR OPERATOR, SCAN 2 - 07/18/2012 1131 EDT * Scanned Note-Null - TETRYL NITRATOR OPERATOR, SCAN 2 - 07/18/2012 0733 EDT documented in this encounter Plan of Treatment Upcoming Encounters Date Type Department Care Team (Late st Contact Info) Description 09/19/2023 14:15 EDT Office Visit [facility] Adult Primary Care - [address] [place] [address] Chris Daniels MD [address] [place] [phone] 10/19/2023 9:00 EDT Office Visit [facility] Hand & Upper Extremity Program - [facility] [address] [place] [address] Ant Nguyen MD [address] [place] [address] 01/07/2024 13:15 EST Office Visit [facility] Neurology - [address] [address] Salma Richardson MD [address] [place] [address] [address] [place] [phone] documented as of this encounter Visit Diagnoses Diagnosis Shoulder pain- Primary Pain in joint, shoulder region documented in this encounter Care Teams Assurance Manager Relationship Specialty Start Date End Date Ariella Gregory MD PCP - General 01/20/09 09/25/16 documented as of this encounter
--- OUTSIDE RECORDS SUMMARY | 2023-09-14 02:28 | XMS_ITS | Encounter Summary ---
Author Organization [facility] Address [address] [place] [address] Care Team Providers Care Lunchroom Monitor Name Role Phone Unavailable Primary Care Provider Unavailabl e Encounter Details Date Type Department Care Team (Latest Contact Info) Description 08/23/2004 13:19 EDT Hospital Encounter [address] [address] Diana Henley, FIELD SERVICE ENGINEER [address] [place] [address] Ciaran Santizo MD [address] [place] [phone] Discharge Disposition: Auto Discharge Social History Tobacco [...] 09/19/2023 14:15 EDT Office Visit [facility] Adult Primary Care - [place] [address] [place] [address] Chris Daniels MD [address] [place] [phone] 10/19/2023 9:00 EDT Office Visit [facility] Hand & Upper Extremity Program - [address] [address] Ant Nguyen MD [address] [place] [phone] 01/07/2024 13:15 EST Office Visit [facility] Neurology - [address] [phone] Salma Richardson MD [address] [place] [address], [address] [place] [phone] documented as of this encounter Visit Diagnoses Not on filedocumented in this encounter
[2023-09-14 16:52] LABS: Abs Immature Grans 0.01 10^3/uL (0.0-0.06); Absolute Basophil Count 0.03 10^3/uL (0.0-0.2); Absolute Eosinophil Count 0.04 10^3/uL (0.0-0.7); Absolute Monocyte Count 0.55 10^3/uL (0.1-0.8); Basophils % 0.6 %; Eosinophils % 0.8 %; HCT 36.6 % (40.0-50.0); HGB 12.3 g/dL (13.5-17.5); Immature Grans % 0.2 %; Lymphocytes % 18.8 %; MCH 32.6 pg (27.0-33.0); MCHC 33.6 % (32.0-36.0); MCV 97 fL (80-95); Monocytes % 10.3 %; Neutrophils % 69.3 %; Platelet Count 232 10^3/uL (130-400); RBC 3.77 10^6/uL (4.36-5.78); RDW 12.2 % (11.8-14.1); RDW-SD 43.6 fL; WBC 5.33 10^3/uL (4.4-10.8)
[2023-09-14 17:16] LABS: Anion Gap 8.6 mmol/L (3-11); BUN 17 mg/dL (7-18); CO2 26.4 mmol/L (21.0-32.0); CREATININE 0.8 mg/dL (0.70-1.30); Calcium 9.3 mg/dL (8.5-10.1); Calculated LDL 111 mg/dL (<100); Chloride 105 mmol/L (98-107); Cholesterol 198 mg/dL (<200); Estimated GFR 90.58 (mL/min/1.73m2); Glucose 89 mg/dL (74-106); HDL Cholesterol 78 mg/dL (40-60); Potassium 3.7 mmol/L (3.5-5.1); Sodium 140 mmol/L (136-145); Triglyceride 49 mg/dL (<150)
== END 2023-09-14 02:00 | disposition home or self-care (01) ==
LOC: LBO 02:04
DX: I10 Essential (primary) hypertension (principal); D75.89 Other specified diseases of blood and blood-forming organs
CPT/HCPCS: 36415; 80048; 80061; 85025